=== PATIENT | male | born 1990 | race Caucasian/White ===

== ENCOUNTER → 2020-02-09 | Outpatient (CLI) | payer BC | END | disposition home or self-care (01) | LOC: LABWHC1 13:48 | PROVIDERS: ATTEND Pathology Anatomic Pathology & Clinical Pathology | DX: Z53.9 Procedure and treatment not carried out, unspecified reason (principal) ==

== ENCOUNTER 2022-05-24 12:57 | Inpatient (IN) | payer OTHER ==
--- NOTE | 2022-05-24 13:29 | ED ---
General Adult HPI - General Chief complaint: Abdominal Pain Stated complaint: rt sided pain Time Seen by Provider: 05/24/22 13:11 Source: patient, RN/MD (Discussed with practitioner Chepe), RN notes reviewed Mode of arrival: ambulatory Limitations: no limitations - History of Present Illness Initial comments: Patient is a pleasant 31-year-old male presenting to the emergency department with concern for abnormal ultrasound. Patient has been having right upper abdomen problems for the past couple of days. Patient did have outpatient ultrasound done with questionable liver lesions. Patient did speak with primary care provider who recommended he come for computed tomography scan. I did speak with practitioner Chepe who does request computed tomography scan chest abdomen pelvis. She did have concerns for liver lesions. Patient states discomfort is mild at rest but does increase with deep breaths. - Related Data Allergies Allergy/AdvReac Type Severity Reaction Status Date / Time No Known Allergies Allergy Verified 05/24/22 13:05 Review of Systems ROS Statement: Those systems with pertinent positive or pertinent negative responses have been documented in the HPI. ROS Other: All systems not noted in ROS Statement are negative. Constitutional: Denies: fever Eyes: Denies: eye pain ENT: Denies: ear pain Respiratory: Denies: cough, dyspnea Cardiovascular: Denies: chest pain Endocrine: Denies: fatigue Gastrointestinal: Reports: as per HPI, abdominal pain Genitourinary: Reports: hematuria. Denies: urgency, dysuria, frequency, discharge, testicular pain, testicular mass Musculoskeletal: Denies: back pain Skin: Denies: rash Neurological: Denies: weakness Past Medical History Past Medical History: No Reported History History of Any Multi-Drug Resistant Organisms: None Reported Past Surgical History: No Surgical Hx Reported Past Psychological History: No Psychological Hx Reported Smoking Status: Never smoker Past Alcohol Use History: None Reported Past Drug Use History: None Reported General Exam Limitations: no limitations General appearance: alert, in no apparent distress Head exam: Present: normocephalic Eye exam: Present: normal appearance, PERRL ENT exam: Present: normal oropharynx Neck exam: Present: normal inspection Respiratory exam: Present: normal lung sounds bilaterally Cardiovascular Exam: Present: regular rate, normal rhythm GI/Abdominal exam: Present: soft, tenderness (Minimal tenderness right upper abdomen), normal bowel sounds. Absent: distended, guarding, rebound, rigid, pulsatile mass Extremities exam: Present: normal inspection Neurological exam: Present: alert Psychiatric exam: Present: normal affect, normal mood Skin exam: Present: normal color Course Vital Signs 05/24/22 13:03 Temperature 98.6 F Pulse Rate 94 Respiratory 20 Rate Blood Pressure 122/81 O2 Sat by Pulse 99 Oximetry Medical Decision Making - Medical Decision Making Was pt. sent in by a medical professional or institution (, BRIAN, COMPUTER AIDED DRAFTER, urgent care, hospital, or detention...) When possible be specific @ -Patient was sent by practitioner Kellie Did you speak to anyone other than the patient for history (EMS, parent, family, police, friend...)? What history was obtained from this source @ -No Did you review nursing and triage notes (agree or disagree)? Why? @ -I reviewed and agree with nursing and triage notes Were old charts reviewed (outside hosp., previous admission, EMS record, old EKG, old radiological studies, urgent care reports/EKG's, detention records)? Report findings @ -Previous ultrasound reviewed that was done as an outpatient Differential Diagnosis (chest pain, altered mental status, abdominal pain women, abdominal pain men, vaginal bleeding, weakness, fever, dyspnea, syncope, he adache, dizziness, GI bleed, back pain, seizure, CVA, palpatations, mental health)? @ -Differential Abdominal Pain Men: Appendicitis, cholecystitis, diverticulosis, ischemic bowel, pancreatitis, hepatitis, UTI, gastroenteritis, AAA, incarcerated hernia, bowel obstruction, constipation, inflammatory bowel, hepatitis, peptic ulcer disease, splenic infarction, perforated viscus, testicular torsion, this is not meant to be an all-inclusive list EKG interpreted by me (3pts min.). @ -As above X-rays interpreted by me (1pt min.). @ -None done CT interpreted by me (1pt min.). @ -Reviewed reports U/S interpreted by me (1pt. min.). @ -None done What testing was considered but not performed or refused? (CT, X-rays, U/S, labs)? Why? @ -None What meds were considered but not given or refused? Why? @ -None Did you discuss the management of the patient with other professionals (professionals i.e. BRIAN Baker, COMPUTER AIDED DRAFTER, lab, RT, psych nurse, social work administrator, linesperson, teacher, sea air land officer, case loader operator)? Give summary @ -Case was discussed with Dr. Fernandez who does recommend medical admission with consult with surgery and interventional radiology Was smoking cessation discussed for >3mins.? @ -No Was critical care preformed (if so, how long)? @ -No Were there social determinants of health that impacted care today? How? (Homelessness, low income, unemployed, alcoholism, drug addiction, transportation, low edu. Level, literacy, decrease access to med. care, [facility], rehab)? @ -No Was there de-escalation of care discussed even if they declined (Discuss DNR or withdrawal of care, Hospice)? DNR status @ -No What co-morbidities impacted this encounter? (DM, HTN, Smoking, COPD, CAD, Cancer, CVA, ARF, Chemo, Hep., AIDS, mental health diagnosis, sleep apnea, morbid obesity)? @ -None Was patient admitted / discharged? Hospital course, mention meds given and route, prescriptions, significant lab abnormalities, going to OR and other pertinent info. @ -Patient reevaluated and updated. Patient will be admitted with consults. [facility] has been paged covering Dr. York Undiagnosed new problem with uncertain prognosis? @ -No Drug Therapy requiring intensive monitoring for toxicity (Heparin, Nitro, Insulin, Cardizem)? @ -No Were any procedures done? @ -No Diagnosis/symptom? @ colon Mass, pancreatic mass Acute, or Chronic, or Acute on Chronic? @ -Acute, acute Uncomplicated (without systemic symptoms) or Complicated (systemic symptoms)? @ -Complicated by systemic disease Side effects of treatment? @ -No Exacerbation, Progression, or Severe Exacerbation? @ -No Poses a threat to life or bodily function? How? (Chest pain, USA, CT, pneumonia, PE, COPD, DKA, ARF, appy, cholecystitis, CVA, Diverticulitis, Homicidal, Suicidal, threat to staff... and all critical care pts) @ -Significant threat to life and bodily function by metastatic new-onset disease - Lab Data Result diagrams: 05/24/22 13:37 05/24/22 13:37 Lab Results 05/24/22 05/24/22 05/24/22 Range/Units 13:37 13:37 13:37 WBC 12.3 H (3.8-10.6) k/uL RBC 4.86 (4.30-5.90) m/uL Hgb 12.5 L (13.0-17.5) gm/dL Hct 37.4 L (39.0-53.0) % MCV 76.8 L (80.0-100.0) fL MCH 25.8 (25.0-35.0) pg MCHC 33.6 (31.0-37.0) g/dL RDW 12.9 (11.5-15.5) % Plt Count 331 (150-450) k/uL MPV 6.9 Neutrophils % 80 % Lymphocytes % 9 % Monocytes % 8 % Eosinophils % 1 % Basophils % 0 % Neutrophils # 9.8 H (1.3-7.7) k/uL Lymphocytes # 1.2 (1.0-4.8) k/uL Monocytes # 0.9 (0-1.0) k/uL Eosinophils # 0.1 (0-0.7) k/uL Basophils # 0.0 (0-0.2) k/uL PT 11.0 (9.0-12.0) sec INR 1.0 (<1.2) APTT 21.2 L (22.0-30.0) sec Sodium 132 L (137-145) mmol/L Potassium 4.4 (3.5-5.1) mmol/L Chloride 102 (98-107) mmol/L Carbon Dioxide 23 (22-30) mmol/L Anion Gap 7 mmol/L BUN 15 (9-20) mg/dL Creatinine 1.03 (0.66-1.25) mg/dL Est GFR (CKD-EPI)AfAm >90 (>60 ml/min/1.73 sqM) Est GFR (CKD-EPI)NonAf >90 (>60 ml/min/1.73 sqM) Glucose 94 (74-99) mg/dL Calcium 8.7 (8.4-10.2) mg/dL Total Bilirubin 1.1 (0.2-1.3) mg/dL AST 69 H (17-59) U/L ALT 47 (4-49) U/L Alkaline Phosphatase 117 (38-126) U/L Total Protein 7.9 (6.3-8.2) g/dL Albumin 4.0 (3.5-5.0) g/dL Amylase 45 (30-110) U/L Lipase 46 (23-300) U/L - Radiology Data Radiology results: report reviewed Disposition Clinical Impression: Mass of colon, Pancreatic mass, Metastatic cancer to liver, Pulmonary metastasis Disposition: ADMITTED IP TO THIS HOSP Condition: Serious Is patient prescribed a controlled substance at d/c from ED?: No Referrals: Desmond York MD [Primary Care Provider] - 1-2 days Time of Disposition: 15:05
[2022-05-24 14:00] LABS: Basophils % (A) 0 %; Eosinophils # (A) 0.1 k/uL (0-0.7); Eosinophils % (A) 1 %; HCT 37.4 % (39.0-53.0); HGB 12.5 gm/dL (13.0-17.5); Lymphocytes # (A) 1.2 k/uL (1.0-4.8); Lymphocytes % (A) 9 %; MCH 25.8 pg (25.0-35.0); MCHC 33.6 g/dL (31.0-37.0); MCV 76.8 fL (80.0-100.0); Mean Platelet Volume 6.9; Monocytes # (A) 0.9 k/uL (0-1.0); Monocytes % (A) 8 %; Neutrophils # (A) 9.8 k/uL (1.3-7.7); Neutrophils % (A) 80 %; Platelet Count 331 k/uL (150-450); RBC 4.86 m/uL (4.30-5.90); RDW 12.9 % (11.5-15.5); WBC 12.3 k/uL (3.8-10.6)
[2022-05-24 14:04] LABS: ALT 47 U/L (4-49); AST 69 U/L (17-59); African American GFR (CKD) >90 (>60 ml/min/1.73 sqM); Alkaline Phosphatase 117 U/L (38-126); Amylase 45 U/L (30-110); Anion Gap 7 mmol/L; Blood Urea Nitrogen 15 mg/dL (9-20); Calcium 8.7 mg/dL (8.4-10.2); Carbon Dioxide 23 mmol/L (22-30); Chloride 102 mmol/L (98-107); Glucose 94 mg/dL (74-99); Lipase 46 U/L (23-300); Non-African American GFR(CKD) >90 (>60 ml/min/1.73 sqM); Sodium 132 mmol/L (137-145); Total Bilirubin 1.1 mg/dL (0.2-1.3); Total Protein 7.9 g/dL (6.3-8.2)
[2022-05-24 14:06] LABS: Partial Thromboplastin Time 21.2 sec (22.0-30.0)
[2022-05-24 14:17] LABS: Potassium 4.4 mmol/L (3.5-5.1)
[2022-05-24 14:32] LABS: Appearance,Urine Clear (Clear); Bilirubin,Urine Negative (Negative); Blood,Urine Negative (Negative); Color,Urine Yellow; Glucose,Urine (UA) Negative (Negative); Ketones,Urine Negative (Negative); Leukocyte Esterase,Urine Moderate (Negative); Mucus,Urine Many /hpf; Nitrite,Urine Negative (Negative); Protein,Urine 1+ (Negative); RBC,Urine 2 /hpf (0-5); WBC,Urine 29 /hpf (0-5)
--- NOTE | 2022-05-24 14:43 | CT ---
EXAMINATION: CTA CHEST, CT ABDOMEN AND PELVIS WITH IV CONTRAST DATE OF EXAMINATION: 05/24/2022. COMPARISON: ABDOMEN ON 05/24/2022. INDICATION: Chest pain with liver lesions seen on ultrasound. PROCEDURE: Axial CT of the chest, abdomen and pelvis was performed following the intravenous adminis tration of 100 ml Isovue 370. Coronal and sagittal reformats were performed. CT dose lowering techni ques were used, to include: automated exposure control, adjustment for patient size, and/or use of it erative reconstruction. Maximum intensity projection reformats were also performed. FINDINGS: CHEST: Mediastinum and Brianna: There is no axillary, mediastinal or hilar lymphadenopathy. Pleural and Pericardial spaces: There are no pleural or pericardial effusions. Cardiovascular: The thoracic aorta is normal in size without evidence of aneurysm or dissection. Pulmonary Artery: There are no central pulmonary arterial filling defects. Lung Parenchyma and Airways: There is a 4 mm nodule in the right upper lobe on series 406 image 26. T here is a 4 mm nodule seen medially within the right upper lobe on image 42 there is a 5.7 mm nodule in the right upper lobe on image 56. There is a 7.7 mm nodule in the right middle lobe on image 73. T here is a small cavitary nodule within the right lower lobe measuring 4.1 mm on image 78. There is a right lower lobe nodule measuring 6.2 mm on image 103. There is a nodule in the left lower lobe image 117 measuring 4.8 mm. All nodules are noted to be on series 406. ABDOMEN: Liver and Biliary system: There are numerous masses seen throughout the liver. The largest mass is r eplacing the majority of the left lobe of the liver measuring approximately 13.7 x 9.3 cm in diameter . The largest lesion in the right lobe of the liver is in the dome of the liver and measures approxim ately 8.1 x 6.5 cm. These would be compatible with metastatic disease. Additional lesions are also no sanket with a very large lesion also seen in the inferior aspect of the right lobe of the liver measurin g 7.5 x 5.5 cm in diameter. Adrenal glands: Normal. Kidneys and ureters: Normal. Spleen: Normal. Pancreas: There is to be a slightly hypodense mass within the body of the pancreas measuring 2.9 cm in diameter. Gallbladder: Normal. Lymph nodes, Peritoneum and mesentery: There are several enlarged lymph nodes adjacent to the coloni c mass described below are likely regional lymph node metastasis versus peritoneal carcinomatosis. Th oleg measure up to approximately centimeters in diameter. Gastrointestinal tract: There are no dilated loops of bowel or free intraperitoneal air. . There is a circumferential mass within the colon beginning in the splenic flexure and extending into the prox imal descending colon which is most likely a colon carcinoma. Aorta/IVC: Aorta normal. No aortic aneurysm or dissection. IVC normal. Abdominal wall: Normal. PELVIS: Fluid: There is no free fluid in the pelvis. Lymph Nodes: There is no pelvic or inguinal lymphadenopathy.. Urinary bladder: Normal. BONES: There are no osseous destructive lesions.. ADDITIONAL SIGNIFICANT FINDINGS: None. IMPRESSION: 1. Colonic mass involving the splenic flexure and proximal descending colon most likely related to a primary colon carcinoma. GI consult and further workup is recommended. 2. Extensive metastatic liver disease with numerous pulmonary metastasis. She consultation is also re commended. 3. Possible pancreatic mass in the pancreatic body. This may also represent a pancreatic carcinoma ve rsus a node or pancreatic metastasis. No evidence of pulmonary embolism. 4. Enlarged lymph nodes and soft tissue masses adjacent to the suspected colon cancer within the quad rant are compatible with metastasis. 5. No evidence of pulmonary embolism. 6. No evidence of thoracic or abdominal aortic aneurysm or dissection.
[2022-05-24] MEDS ORDERED: NALOXONE 0.4 MG/ML 1 ML VIAL IV PRN (15:09)
[2022-05-24] MEDS ORDERED: ACETAMINOPHEN TAB 325 MG TAB PO PRN (15:09)
[2022-05-24 15:31] LABS: Specific Gravity,Urine 1.048 (1.001-1.035)
[2022-05-24] MEDS: SODIUM CHLORIDE 0.9% 1,000 ML IV SCH (15:51)
[2022-05-24] MEDS: PANTOPRAZOLE 40 MG/10 ML VIAL IV SCH (15:51)
[2022-05-24] MEDS ORDERED: ONDANSETRON 4 MG/2 ML VIAL IVP PRN (17:14)
--- NOTE | 2022-05-24 17:16 | P.HPIM ---
History of Present Illness H&P Date: 05/24/22 Patient is a 31-year-old male with no significant past medical history presents the ED for abnormal gallbladder ultrasound. Patient reports right upper quadrant pain has been ongoing for the past 2 weeks. He recently noticed orange colored urine which prompted him to go see his PCP. Abdominal ultrasound was ordered which showed hyperechoic masses demonstrated throughout the liver. He also reports a 10 pound weight loss and a decreased appetite. His PCP urged him to go to the ED. Patient denies any family history of cancer. He denies any tobacco or alcohol use. He denies any headache, lower extremity edema, nausea or vomiting, fever or chills, cough, chest pain, shortness of breath, p alpitations, changes in bowel habits. He denies any dizziness, numbness/weakness/tingling of extremities. In the ED, his vital signs are stable. CBC showed the CBC count of 12.3 and hemoglobin of 12.5 with MCV of 76.8. INR was 1. CMP showed sodium of 132 and AST of 67. Lipase and amylase negative. Urinalysis showed moderate leukocyte esterase. CT AP showed colonic mass involving the splenic flexure, extensive metastatic liver disease, possible pancreatic mass, enlarged lymph nodes and multiple pulmonary nodules. Patient is admitted for additional workup. Pertinent positives and negatives as discussed in HPI, a complete review of systems was performed and all other systems are negative. General: non toxic, no distress, appears at stated age Derm: warm, dry Head: atraumatic, normocephalic, symmetric Eyes: EOMI, no lid lag, anicteric sclera Mouth: no lip lesion, mucus membranes moist Cardiovascular: S1S2 reg, no murmur, positive posterior tibial pulse bilateral, Lungs: CTA bilateral, no rhonchi, no rales , no accessory muscle use Abdominal: soft, nontender to palpation, no guarding, no appreciable organomegaly Ext: no gross muscle atrophy, no edema, no contractures Neuro: no focal neuro deficits Psych: Alert, oriented, appropriate affect #Colonic, hepatic, pancreatic and pulmonary mass, likely metastatic cancer, unknown primary #Leukocytosis #Microcytic anemia #Hyponatremia #Elevated AST #Abnormal urinalysis #Morbid obesity Patient presents with findings likely metastatic cancer with unknown primary. General surgery will be consulted for possible colonoscopy. Consults interventional radiology for biopsy of liver mass. Morphine and Toradol as needed for pain. Zofran as needed for nausea and vomiting. Oncology consult. DVT prophylaxis: Early ambulation Discussed with: Patient, nursing, ED physician Anticipated discharge: Depending on clinical course Anticipated discharge place: Home A total of 35 minutes was spent on the care of this complex patient more than 50% of the time was spent in counseling and care coordination. Patient would like to be FULL CODE. Past Medical History Past Medical History: No Reported History History of Any Multi-Drug Resistant Organisms: None Reported Past Surgical History: No Surgical Hx Reported Smoking Status: Never smoker Medications and Allergies Home Medications Medication Instructions Recorded Confirmed Type No Known Home Medications 05/24/22 05/24/22 History Allergies Allergy/AdvReac Type Severity Reaction Status Date / Time No Known Allergies Allergy Verified 05/24/22 15:43 Physical Exam Vitals: Vital Signs Temp Pulse Pulse Resp BP BP Pulse Ox 05/24/22 16:37 98.0 F 85 16 116/76 97 05/24/22 15:58 88 16 141/84 95 05/24/22 13:03 98.6 F 94 20 122/81 99 Intake and Output 05/24/22 05/24/22 05/24/22 06:59 14:59 22:59 Other: Weight 124.738 kg 124.738 kg Results CBC & Chem 7: 05/24/22 13:37 05/24/22 13:37 Labs: Abnormal Lab Results - Last 24 Hours (Table) 05/24/22 05/24/22 05/24/22 Range/Units 13:37 13:37 13:37 WBC 12.3 H (3.8-10.6) k/uL Hgb 12.5 L (13.0-17.5) gm/dL Hct 37.4 L (39.0-53.0) % MCV 76.8 L (80.0-100.0) fL Neutrophils # 9.8 H (1.3-7.7) k/uL APTT 21.2 L (22.0-30.0) sec Sodium 132 L (137-145) mmol/L AST 69 H (17-59) U/L Ur Specific Imbler (1.001-1.035) Urine Protein (Negative) Ur Leukocyte Esterase (Negative) Urine WBC (0-5) /hpf Urine Mucus (None) /hpf 05/24/22 Range/Units 14:19 WBC (3.8-10.6) k/uL Hgb (13.0-17.5) gm/dL Hct (39.0-53.0) % MCV (80.0-100.0) fL Neutrophils # (1.3-7.7) k/uL APTT (22.0-30.0) sec Sodium (137-145) mmol/L AST (17-59) U/L Ur Specific Imbler 1.048 H (1.001-1.035) Urine Protein 1+ H (Negative) Ur Leukocyte Esterase Moderate H (Negative) Urine WBC 29 H (0-5) /hpf Urine Mucus Many H (None) /hpf Thrombosis Risk Factor Assmnt - Choose All That Apply Any of the Below Risk Factors Present?: Yes Each Risk Factor Represents 2 Points: Malignancy Thrombosis Risk Factor Assessment Total Risk Factor Score: 2 Thrombosis Risk Factor Assessment Level: Low Risk
[2022-05-24] MEDS: KETOROLAC 15 MG/ML 1 ML VIAL IVP SCH (17:26)
[2022-05-25] MEDS: KETOROLAC 15 MG/ML 1 ML VIAL IVP SCH ×5 (00:05→23:52)
[2022-05-25] MEDS: SODIUM CHLORIDE 0.9% 1,000 ML IV SCH ×2 (06:24→18:39)
[2022-05-25] MEDS: MORPHINE SULFATE 4 MG/ML SYRINGE IV PRN (09:25)
[2022-05-25] MEDS: PANTOPRAZOLE 40 MG/10 ML VIAL IV SCH (09:25)
--- NOTE | 2022-05-25 13:33 | P.PN ---
Subjective Progress Note Date: 05/25/22 Patient is a 31-year-old male with no significant past medical history presents the ED for abnormal gallbladder ultrasound. Patient reports right upper quadrant pain has been ongoing for the past 2 weeks. He recently noticed orange colored urine which prompted him to go see his PCP. Abdominal ultrasound was ordered which showed hyperechoic masses demonstrated throughout the liver. He also reports a 10 pound weight loss and a decreased appetite. His PCP urged him to go to the ED. Patient denies any family history of cancer. He denies any tobacco or alcohol use. He denies any headache, lower extremity edema, nausea or vomiting, fever or chills, cough, chest pain, shortness of breath, palpita tions, changes in bowel habits. He denies any dizziness, numbness/weakness/tingling of extremities. In the ED, his vital signs are stable. CBC showed the CBC count of 12.3 and hemoglobin of 12.5 with MCV of 76.8. INR was 1. CMP showed sodium of 132 and AST of 67. Lipase and amylase negative. Urinalysis showed moderate leukocyte esterase. CT AP showed colonic mass involving the splenic flexure, extensive metastatic liver disease, possible pancreatic mass, enlarged lymph nodes and multiple pulmonary nodules. Patient is admitted for additional workup. Patient was seen and examined. No acute events overnight. Patient reports well-controlled pain in his right upper quadrant. No nausea or vomiting. No fever or chills. General: non toxic, no distress, appears at stated age Derm: warm, dry Head: atraumatic, normocephalic, symmetric Eyes: EOMI, no lid lag, anicteric sclera Mouth: no lip lesion, mucus membranes moist Cardiovascular: S1S2 reg, no murmur, positive posterior tibial pulse bilateral, Lungs: CTA bilateral, no rhonchi, no rales , no accessory muscle use Abdominal: soft, nontender to palpation, no guarding, no appreciable organomegaly Ext: no gross muscle atrophy, no edema, no contractures Neuro: no focal neuro deficits Psych: Alert, oriented, appropriate affect #Colonic, hepatic, pancreatic and pulmonary mass, likely metastatic cancer, unknown primary #Leukocytosis #Microcytic anemia #Hyponatremia #Elevated AST #Abnormal urinalysis #Morbid obesity Patient presents with findings likely metastatic cancer with unknown primary. Case discussed with Dr. Clay, plans for colonoscopy on Friday. Consults interventional radiology for biopsy of liver mass, likely to be done on Friday. Discussed with Dr. Fernandez, patient can likely be discharged after his biopsy. Morphine and Toradol as needed for pain. Zofran as needed for nausea and vomiting. Objective - Vital Signs Vital signs: Vital Signs Temp 98.3 F 05/25/22 12:18 Pulse 78 05/25/22 12:18 Resp 18 05/25/22 12:18 BP 112/68 05/25/22 12:18 Pulse Ox 96 05/25/22 12:18 FiO2 Intake & Output 05/24/22 05/25/22 05/25/22 18:59 06:59 18:59 Intake Total 150 Balance 150 Weight 124.738 kg Intake: Intake, IV Titration 150 Amount Sodium Chloride 0.9% 1, 150 000 ml @ 75 mls/hr IV . [id number] [facility] Rx#:[id number] Other: Voiding Method Toilet Toilet # Voids 3 2 - Labs CBC & Chem 7: 05/24/22 13:37 05/24/22 13:37 Labs: Abnormal Lab Results - Last 24 Hours (Table) 05/24/22 05/24/22 05/24/22 Range/Units 13:37 13:37 13:37 WBC 12.3 H (3.8-10.6) k/uL Hgb 12.5 L (13.0-17.5) gm/dL Hct 37.4 L (39.0-53.0) % MCV 76.8 L (80.0-100.0) fL Neutrophils # 9.8 H (1.3-7.7) k/uL APTT 21.2 L (22.0-30.0) sec Sodium 132 L (137-145) mmol/L AST 69 H (17-59) U/L Ur Specific Dickinson (1.001-1.035) Urine Protein (Negative) Ur Leukocyte Esterase (Negative) Urine WBC (0-5) /hpf Urine Mucus (None) /hpf 05/24/22 Range/Units 14:19 WBC (3.8-10.6) k/uL Hgb (13.0-17.5) gm/dL Hct (39.0-53.0) % MCV (80.0-100.0) fL Neutrophils # (1.3-7.7) k/uL APTT (22.0-30.0) sec Sodium (137-145) mmol/L AST (17-59) U/L Ur Specific Dickinson 1.048 H (1.001-1.035) Urine Protein 1+ H (Negative) Ur Leukocyte Esterase Moderate H (Negative) Urine WBC 29 H (0-5) /hpf Urine Mucus Many H (None) /hpf Microbiology - Last 24 Hours (Table) 05/24/22 14:19 Urine Culture - Preliminary Urine,Voided
--- NOTE | 2022-05-25 18:03 | P.GSCN ---
History of Present Illness Consult date: 05/25/22 Reason for Consult: Metastatic cancer with pancreatic, liver, colon & lung masses History of present illness: Noticed RUQ pain & twinging last week while at [employer] with his son. Friday he noticed his urine was orange. Saw his primary care provider who ordered an US; liver lesions were noted & he was immediately sent for CT scan. CT scan s howed lesions in liver, lungs, pancreas & colon. Prior to his he has had no medical issues or complaints. No prior colonoscopy. Only issue recently has been a lot of stress from family life. Review of Systems - Constitutional Reports as per HPI - Cardiovascular Denies chest pain, Denies high blood pressure - Respiratory Reports pain on inspiration, Denies cough, Denies dyspnea - Gastrointestinal Reports abdominal pain, Reports bloating - Genitourinary Reports as per HPI - Endocrine Denies high blood sugars Past Medical History Past Medical History: No Reported History History of Any Multi-Drug Resistant Organisms: None Reported Past Surgical History: No Surgical Hx Reported Smoking Status: Never smoker Past Alcohol Use History: None Reported Past Drug Use History: None Reported - Past Family History Brother(s) Additional Family Medical History / Comment(s): Ulcerative colitis (Brother) Medications and Allergies Home Medications Medication Instructions Recorded Confirmed Type No Known Home Medications 05/24/22 05/24/22 History Allergies Allergy/AdvReac Type Severity Reaction Status Date / Time No Known Allergies Allergy Verified 05/24/22 15:43 Surgical - Exam Osteopathic Statement: *. No significant issues noted on an osteopathic structural exam other than those noted in the History and Physical/Consult. Vital Signs Temp Pulse Resp BP Pulse Ox 98.6 F 94 20 122/81 99 05/24/22 13:03 05/24/22 13:03 05/24/22 13:03 05/24/22 13:03 05/24/22 13:03 Patient Seen Date: 05/25/22 - General well developed, well nourished, no distress, no cachectic - Eyes no icteric - ENT no poor correction - Respiratory normal respiratory effort, clear to auscultation - Cardiovascular Rhythm: regular - Abdomen Abdomen: soft, tender, no guarding, no rigid, no rebound, no distended - Integumentary Skin dry, no diaphoresis - Neurologic No gross deficits - Musculoskeletal normal posture - Psychiatric Cooperative, appropriate affect oriented to time, oriented to person, oriented to place, speech is normal, memory intact Results - Labs 05/24/22 13:37 05/24/22 13:37 Abnormal Lab Results - Last 24 Hours (Table) 05/24/22 05/24/22 05/24/22 Range/Units 13:37 13:37 13:37 WBC 12.3 H (3.8-10.6) k/uL Hgb 12.5 L (13.0-17.5) gm/dL Hct 37.4 L (39.0-53.0) % MCV 76.8 L (80.0-100.0) fL Neutrophils # 9.8 H (1.3-7.7) k/uL APTT 21.2 L (22.0-30.0) sec Sodium 132 L (137-145) mmol/L AST 69 H (17-59) U/L Ur Specific [place] (1.001-1.035) Urine Protein (Negative) Ur Leukocyte Esterase (Negative) Urine WBC (0-5) /hpf Urine Mucus (None) /hpf 05/24/22 Range/Units 14:19 WBC (3.8-10.6) k/uL Hgb (13.0-17.5) gm/dL Hct (39.0-53.0) % MCV (80.0-100.0) fL Neutrophils # (1.3-7.7) k/uL APTT (22.0-30.0) sec Sodium (137-145) mmol/L AST (17-59) U/L Ur Specific [place] 1.048 H (1.001-1.035) Urine Protein 1+ H (Negative) Ur Leukocyte Esterase Moderate H (Negative) Urine WBC 29 H (0-5) /hpf Urine Mucus Many H (None) /hpf Microbiology - Last 24 Hours (Table) 05/24/22 14:19 Urine Culture - Preliminary Urine,Voided Diabetes panel 05/24/22 Range/Units 13:37 Sodium 132 L (137-145) mmol/L Potassium 4.4 (3.5-5.1) mmol/L Chloride 102 (98-107) mmol/L Carbon Dioxide 23 (22-30) mmol/L BUN 15 (9-20) mg/dL Creatinine 1.03 (0.66-1.25) mg/dL Glucose 94 (74-99) mg/dL Calcium 8.7 (8.4-10.2) mg/dL AST 69 H (17-59) U/L ALT 47 (4-49) U/L Alkaline Phosphatase 117 (38-126) U/L Total Protein 7.9 (6.3-8.2) g/dL Albumin 4.0 (3.5-5.0) g/dL Calcium panel 05/24/22 Range/Units 13:37 Calcium 8.7 (8.4-10.2) mg/dL Albumin 4.0 (3.5-5.0) g/dL Pituitary panel 05/24/22 Range/Units 13:37 Sodium 132 L (137-145) mmol/L Potassium 4.4 (3.5-5.1) mmol/L Chloride 102 (98-107) mmol/L Carbon Dioxide 23 (22-30) mmol/L BUN 15 (9-20) mg/dL Creatinine 1.03 (0.66-1.25) mg/dL Glucose 94 (74-99) mg/dL Calcium 8.7 (8.4-10.2) mg/dL Adrenal panel 05/24/22 Range/Units 13:37 Sodium 132 L (137-145) mmol/L Potassium 4.4 (3.5-5.1) mmol/L Chloride 102 (98-107) mmol/L Carbon Dioxide 23 (22-30) mmol/L BUN 15 (9-20) mg/dL Creatinine 1.03 (0.66-1.25) mg/dL Glucose 94 (74-99) mg/dL Calcium 8.7 (8.4-10.2) mg/dL Total Bilirubin 1.1 (0.2-1.3) mg/dL AST 69 H (17-59) U/L ALT 47 (4-49) U/L Alkaline Phosphatase 117 (38-126) U/L Total Protein 7.9 (6.3-8.2) g/dL Albumin 4.0 (3.5-5.0) g/dL - Imaging CT scan - abdomen: report reviewed, image reviewed Assessment and Plan Assessment: Lung, colon, liver & pancreatic masses suspicious for metastatic cancer Plan: Recommend MRCP, MRI to evaluate pancreatic lesion. Recommend IR biposy of masses to establish diagnosis. Will need colonoscopy to evaluate colon mass. Defer PET need to Oncology. Due to complex suspected cancer diagnosis, patient would be best served with surgical oncologist. Recommend Dr. Mckeon at [facility]; or PCP recommendation. Would benefit from Psychology evaluation for coping with life changing diagnosis. Time with Patient: Greater than 30 (Face to face discussing history, plan of care. Questions answered.)
--- NOTE | 2022-05-25 19:05 | P.CONS ---
History of Present Illness - Reason for Consult Consult date: 05/24/22 Prob Metastatic malignancy - History of Present Illness the patient is a 31-year-old white male in fairly good health at baseline. Patient states that he had developed some right upper quadrant pain about 2 weeks ago. Describes that as mild to moderate, fairly persistent, without any definite leaving or aggravating factors. He then developed discoloration of the urine, to the orange color. He sought attention with his PCP and ultrasound of the abdomen was ordered. This showed multiple suspicious lesions in the liver. The patient was therefore asked to go to the emergency room by his PCP. CT of the abdomen and pelvis revealed evidence of a large splenic flexure mass, multiple metastatic-appearing lesions in the liver, as well as mass involving the pancreas, and nodules in the lung bases. Consult was therefore placed for further evaluation and recommendations Patient denied any prior history of malignancy. No family history of the same. He states that his appetite has been diminished over the past 2 weeks, due to which she lost between 5-10 pounds. Baseline performance status is normal. Review of Systems Constitutional: Reports fatigue, Reports poor appetite, Reports weight loss Eyes: denies blurred vision, denies pain Ears: deny: decreased hearing, ear discharge, earache, tinnitus Ears, nose, mouth and throat: Denies headache, Denies sore throat Cardiovascular: Denies chest pain, Denies shortness of breath Respiratory: Denies cough Gastrointestinal: Reports abdominal pain, Reports loss of appetite Genitourinary: Reports as per HPI Musculoskeletal: Denies myalgias Integumentary: Denies pruritus, Denies rash Neurological: Denies numbness, Denies weakness Psychiatric: Denies anxiety, Denies depression Endocrine: Reports fatigue, Reports weight change Hematologic/Lymphatic: Reports as per HPI Past Medical History Past Medical History: No Reported History History of Any Multi-Drug Resistant Organisms: None Reported Past Surgical History: No Surgical Hx Reported Smoking Status: Never smoker - Past Family History Brother(s) Additional Family Medical History / Comment(s): Ulcerative colitis (Brother) Medications and Allergies Home Medications Medication Instructions Recorded Confirmed Type No Known Home Medications 05/24/22 05/24/22 History Allergies Allergy/AdvReac Type Severity Reaction Status Date / Time No Known Allergies Allergy Verified 05/24/22 15:43 Physical Exam Vitals: Vital Signs Temp Pulse Pulse Resp BP BP Pulse Ox 05/25/22 08:00 69 16 05/25/22 07:20 98 F 69 16 104/68 95 05/25/22 02:44 97.7 F 78 16 96/62 98 05/24/22 19:52 98 F 85 16 114/77 98 05/24/22 16:37 98.0 F 85 16 116/76 97 05/24/22 15:58 88 16 141/84 95 05/24/22 13:03 98.6 F 94 20 122/81 99 Intake and Output 05/24/22 05/25/22 05/25/22 22:59 06:59 14:59 Intake Total 150 Balance 150 Intake: Intake, IV Titration 150 Amount Sodium Chloride 0.9% 1, 150 000 ml @ 75 mls/hr IV . [id number] [facility] Rx#:[id number] Other: Voiding Method Toilet Toilet # Voids 3 2 Weight 124.738 kg - Constitutional General appearance: no acute distress - EENT Eyes: EOMI, PERRLA ENT: hearing grossly normal, normal oropharynx - Neck Neck: no lymphadenopathy Thyroid: bilateral: normal size - Respiratory Respiratory: bilateral: CTA - Cardiovascular Rhythm: regular Heart sounds: normal: S1, S2 - Gastrointestinal General gastrointestinal: normal bowel sounds, soft - Integumentary Integumentary: normal - Neurologic Neurologic: CNII-XII intact - Musculoskeletal Musculoskeletal: strength equal bilaterally - Psychiatric Psychiatric: A&O x's 3, appropriate affect, intact judgment & insight Results CBC & Chem 7: 05/24/22 13:37 05/24/22 13:37 Labs: Abnormal Lab Results - Last 24 Hours (Table) 05/24/22 05/24/22 05/24/22 Range/Units 13:37 13:37 13:37 WBC 12.3 H (3.8-10.6) k/uL Hgb 12.5 L (13.0-17.5) gm/dL Hct 37.4 L (39.0-53.0) % MCV 76.8 L (80.0-100.0) fL Neutrophils # 9.8 H (1.3-7.7) k/uL APTT 21.2 L (22.0-30.0) sec Sodium 132 L (137-145) mmol/L AST 69 H (17-59) U/L Ur Specific [place] (1.001-1.035) Urine Protein (Negative) Ur Leukocyte Esterase (Negative) Urine WBC (0-5) /hpf Urine Mucus (None) /hpf 05/24/22 Range/Units 14:19 WBC (3.8-10.6) k/uL Hgb (13.0-17.5) gm/dL Hct (39.0-53.0) % MCV (80.0-100.0) fL Neutrophils # (1.3-7.7) k/uL APTT (22.0-30.0) sec Sodium (137-145) mmol/L AST (17-59) U/L Ur Specific [place] 1.048 H (1.001-1.035) Urine Protein 1+ H (Negative) Ur Leukocyte Esterase Moderate H (Negative) Urine WBC 29 H (0-5) /hpf Urine Mucus Many H (None) /hpf Microbiology - Last 24 Hours (Table) 05/24/22 14:19 Urine Culture - Preliminary Urine,Voided CT scan - abdomen: report reviewed CT scan - chest: report reviewed CT scan - pelvis: report reviewed Assessment and Plan (1) Metastatic cancer to liver Narrative/Plan: this is a young patient in good health at baseline, with no significant family history. The patient is presenting with what appears to be extensive metastatic disease. The liver is markedly more, and is the source of his right upper quadrant pain. - Likely primary site appears to be the splenic flexure mass in the colon. As a pancreatic mass is present, that could also represent a primary site or be a metastatic lesion itself. - Case was extensively discussed with the admitting service, and ER physician. A surgical consult has been requested for colonoscopic evaluation and biopsy of the colon. This will also help to evaluate for any impending obstruction. - IR consult was also recommended liver biopsy. This should help us to potentially distinguish between 2 different primaries. The rationale for the same was discussed in detail with the patient, as well as the above physicians. - Imaging results and implications were discussed in detail with the patient. Await biopsy results for further recommendations Current Visit: Yes Status: Acute Code(s): C78.7 - SECONDARY MALIG NEOPLASM OF LIVER AND INTRAHEPATIC BILE DUCT SNOMED Code(s): 04364630 (2) Mass of colon Narrative/Plan: as above. The patient does not have any clinical symptoms suggestive of uncontrolled bleeding or impending obstruction so far. Current Visit: Yes Status: Acute Code(s): K63.89 - OTHER SPECIFIED DISEASES OF INTESTINE SNOMED Code(s): 870434590
[2022-05-26] MEDS: KETOROLAC 15 MG/ML 1 ML VIAL IVP SCH ×3 (06:25→18:11)
[2022-05-26] MEDS: SODIUM CHLORIDE 0.9% 1,000 ML IV SCH ×2 (06:25→20:45)
[2022-05-26] MEDS: PANTOPRAZOLE 40 MG/10 ML VIAL IV SCH (08:43)
--- NOTE | 2022-05-26 10:54 | P.PN ---
Subjective Progress Note Date: 05/26/22 Patient is a 31-year-old male with no significant past medical history presents the ED for abnormal gallbladder ultrasound. Patient reports right upper quadrant pain has been ongoing for the past 4 days. He recently noticed orange colored urine which prompted him to go see his PCP. Abdominal ultrasound was ordered which showed hyperechoic masses demonstrated throughout the liver. He also reports a 10 pound weight loss and a decreased appetite. His PCP urged him to go to the ED. Patient denies any family history of cancer. He denies any tobacco or alcohol use. He denies any headache, lower extremity edema, nausea or vomiting, fever or chills, cough, chest pain, shortness of breath, palpitat ions, changes in bowel habits. He denies any dizziness, numbness/weakness/tingling of extremities. In the ED, his vital signs are stable. CBC showed the CBC count of 12.3 and hemoglobin of 12.5 with MCV of 76.8. INR was 1. CMP showed sodium of 132 and AST of 67. Lipase and amylase negative. Urinalysis showed moderate leukocyte esterase. CT AP showed colonic mass involving the splenic flexure, extensive metastatic liver disease, possible pancreatic mass, enlarged lymph nodes and multiple pulmonary nodules. Patient is admitted for additional workup. Patient was seen and examined. No acute events overnight. Patient reports well-controlled pain in his right upper quadrant. No nausea or vomiting. No fever or chills. General: non toxic, no distress, appears at stated age Derm: warm, dry Head: atraumatic, normocephalic, symmetric Eyes: EOMI, no lid lag, anicteric sclera Mouth: no lip lesion, mucus membranes moist Ext: no gross muscle atrophy, no edema, no contractures Neuro: no focal neuro deficits Psych: Alert, oriented, appropriate affect #Colonic, hepatic, pancreatic and pulmonary mass, likely metastatic cancer, unknown primary #Leukocytosis #Microcytic anemia #Hyponatremia #Elevated AST #Abnormal urinalysis #Obesity Patient presents with findings likely metastatic cancer with unknown primary. Case discussed with Dr. Clay, plans for colonoscopy on Friday. Consults interventional radiology for biopsy of liver mass, likely to be done on Friday. Discussed with Dr. Fernandez, patient can likely be discharged after his biopsy. Morphine and Toradol as needed for pain. Zofran as needed for nausea and vomiting. Objective - Vital Signs Vital signs: Vital Signs Temp 97.7 F 05/26/22 08:45 Pulse 64 05/26/22 08:45 Resp 18 05/26/22 08:45 BP 115/70 05/26/22 08:45 Pulse Ox 96 05/26/22 08:45 FiO2 Intake & Output 05/25/22 05/26/22 05/26/22 18:59 06:59 18:59 Intake Total 1200 Balance 1200 Intake: Oral 1200 Other: Voiding Method Toilet Toilet Toilet # Voids 2 2 - Labs CBC & Chem 7: 05/24/22 13:37 05/24/22 13:37 Labs: Microbiology - Last 24 Hours (Table) 05/24/22 14:19 Urine Culture - Final Urine,Voided
--- NOTE | 2022-05-26 15:18 | P.PN ---
Subjective Progress Note Date: 05/26/22 Principal diagnosis: Liver, lung, pancreas & colon masses concerning for metastatic malignancy Noticed RUQ pain & twinging last week while at [employer] with his son. Friday he noticed his urine was orange. Saw his primary care provider who ordered an US; liver lesions were noted & he was immediately sent for CT scan. CT scan showed lesions in liver, lungs, pancreas & colon. Prior to his he has had no medical issues or complaints. No prior colonoscopy. Only issue recently has been a lot of stress from family life. Tentatively scheduled for IR biopsy of liver lesion Friday. Doing better today. Pain appears less. Urine is back to normal color. Had BM yesterday. Tolerating clears. Objective - Vital Signs Vital signs: Vital Signs Temp 97.7 F 05/26/22 08:45 Pulse 64 05/26/22 08:45 Resp 18 05/26/22 08:45 BP 115/70 05/26/22 08:45 Pulse Ox 96 05/26/22 08:45 FiO2 Intake & Output 05/25/22 05/26/22 05/26/22 18:59 06:59 18:59 Intake Total 1200 Balance 1200 Intake: Oral 1200 Other: Voiding Method Toilet Toilet # Voids 2 2 - Constitutional General appearance: Present: cooperative, no acute distress - EENT Eyes: Absent: scleral icterus - Respiratory Details: Non labored breathing, normal effort & excursion. - Cardiovascular Rhythm: regular - Integumentary Integumentary Comment(s): Dry, no diaphoresis. - Neurologic Neurologic Comment(s): No gross deficits. - Psychiatric Psychiatric Comment(s): Cooperative. Psychiatric: Present: appropriate affect, intact judgment & insight - Labs CBC & Chem 7: 05/24/22 13:37 05/24/22 13:37 Labs: Microbiology - Last 24 Hours (Table) 05/24/22 14:19 Urine Culture - Final Urine,Voided Assessment and Plan Assessment: Lung, colon, liver & pancreatic masses suspicious for metastatic cancer Plan: Await IR biopsy of liver; ?Friday. Will tentatively plan for colonoscopy Friday; will call scheduling tomorrow morning. Once scheduled, will order prep. Discussed details of procedure along with risks, prep. Questions answered. Time with Patient: Less than 30
--- NOTE | 2022-05-26 23:23 | P.PN ---
Subjective Progress Note Date: 05/26/22 The patient denies any new symptoms. Right upper quadrant discomfort remains persistent. No nausea or vomiting. No change in bowel habits, or bleeding in the stool. Objective - Vital Signs Vital signs: Vital Signs Temp 98.3 F 05/26/22 20:00 Pulse 92 05/26/22 20:00 Resp 16 05/26/22 20:00 BP 150/92 05/26/22 20:00 Pulse Ox 97 05/26/22 20:00 FiO2 Intake & Output 05/26/22 05/26/22 05/27/22 06:59 18:59 06:59 Intake Total 1200 Balance 1200 Intake: Oral 1200 Other: Voiding Method Toilet Toilet Toilet # Voids 2 - Constitutional General appearance: Present: no acute distress - EENT Eyes: Present: EOMI ENT: Present: hearing grossly normal, normal oropharynx - Respiratory Respiratory: bilateral: CTA - Cardiovascular Rhythm: regular Heart sounds: normal: S1, S2 - Gastrointestinal General gastrointestinal: Present: normal bowel sounds, soft - Integumentary Integumentary: Present: normal - Neurologic Neurologic: Present: CNII-XII intact - Musculoskeletal Musculoskeletal: Present: generalized weakness - Psychiatric Psychiatric: Present: A&O x's 3, appropriate affect - Labs CBC & Chem 7: 05/24/22 13:37 05/24/22 13:37 Labs: Microbiology - Last 24 Hours (Table) 05/24/22 14:19 Urine Culture - Final Urine,Voided Assessment and Plan (1) Metastatic cancer to liver Narrative/Plan: No changes in symptoms. Interventional radiology has been consulted for biopsy. Current Visit: Yes Status: Acute Code(s): C78.7 - SECONDARY MALIG NEOPLASM OF LIVER AND INTRAHEPATIC BILE DUCT SNOMED Code(s): 35799056 (2) Mass of colon Narrative/Plan: The case discussed in detail with surgical service. Colonoscopy is planned to evaluate for any significant obstruction, and also to get tissue diagnosis. We discussed that her biopsy is also be ordered to rule out a second primary, given the presence of the pancreatic mass. If tissue samples from both sides are the same, then it would be resumed at the pancreatic mass also represents metastatic disease. Current Visit: Yes Status: Acute Code(s): K63.89 - OTHER SPECIFIED DISEASES OF INTESTINE SNOMED Code(s): 739153920
[2022-05-27] MEDS: KETOROLAC 15 MG/ML 1 ML VIAL IVP SCH ×3 (00:13→11:33)
[2022-05-27] MEDS: PANTOPRAZOLE 40 MG/10 ML VIAL IV SCH (08:48)
[2022-05-27] MEDS: MORPHINE SULFATE 4 MG/ML SYRINGE IV PRN (09:18)
[2022-05-27] MEDS: SODIUM CHLORIDE 0.9% 1,000 ML IV SCH ×2 (10:53→23:07)
--- NOTE | 2022-05-27 10:55 | US ---
Ultrasound-guided liver mass biopsy Date: 05/27/2022 History: Multifocal liver lesions Comparison: 05/24/2022 The patient was brought to the US room after coagulation profile was checked and deemed appropriate. The risks and benefits of the procedure were explained to the patient, and the patient's questions we re answered. Informed consent was obtained. Limited ultrasound redemonstrates multifocal hyperechoic lobular masses throughout both lobes of the liver. A critical pause was performed. Sterile field was prepared, and lidocaine was used for local anesthes ia. Under direct ultrasound guidance, four 18-gauge core specimens of one of the right lobe masses we re obtained and sent to pathology in formalin. The patient tolerated the procedure well with no apparent complications. A postprocedural scan throug h the region of interest demonstrated no acute complications. After the procedure, the patient was observed for a short period of time, again with no complications . Impression: Successful ultrasound-guided biopsy of one of the right lobe liver lesions.
--- NOTE | 2022-05-27 11:26 | P.PN ---
Subjective Progress Note Date: 05/27/22 Patient is a 31-year-old male with no significant past medical history who presented to the ED for abnormal gallbladder ultrasound. In the ED he underwent an extensive evaluation. His vital signs were stable. Labaratory analysis showed a WBC of 12.3, hemoglobin of 12.5, INR was 1, Na 132, and AST of 67. Lipase and amylase negative. Urinalysis showed moderate leukocyte esterase. CT AP showed colonic mass involving the splenic flexure, extensive metastatic liver disease, possible pancreatic mass, enlarged lymph nodes and multiple pulmonary nodules. Patient was admitted for additional workup. Surgery and Oncology were consulted. Patient underwent liver biopsy on 05/27/22. Patient seen and examined at bedside. He has no complaints at this time. Tolerated the biopsy well. Dad present at bedside and all questions answered. General: nontoxic, no distress, appears at stated age Derm: warm, dry Head: atraumatic, normocephalic, symmetric Eyes: EOMI, no lid lag, anicteric sclera Mouth: no lip lesion, mucus membranes moist Cardiovascular: S1S2 reg, no murmur, positive posterior tibial pulse bilateral, Lungs: CTA bilateral, no rhonchi, no rales , no accessory muscle use Abdominal: soft, nontender to palpation, no guarding, no appreciable organomegaly Ext: no gross muscle atrophy, no edema, no contractures Neuro: CN II-XI grossly intact, no focal neuro deficits Psych: Alert, oriented, appropriate affect Assessment/plan: Colonic, hepatic, pancreatic and pulmonary mass, likely metastatic cancer, unknown primary Leukocytosis - likely reactive - follow CBC Microcytic anemia - mild - follow CBC Hyponatremia - mild - likely due to decreased oral intake - repeat BMP Elevated AST - suspect due to liver mets - outpatient follow-up Abnormal urinalysis, UTI ruled out Obesity- BMI 33.5 DVT prophylaxis: SCDs, then restart lovenox in AM Discussed with: patient, nursing, dad Anticipated discharge: tomorrow after colonoscopy Anticipated discharge place: home A total of 35 minutes was spent on the care of this complex patient more than 50% of the time was spent in counseling and care coordination. Active Medications Generic Name Dose Route Start Last Admin Trade Name Freq PRN Reason Stop Dose Admin Acetaminophen 650 mg 05/24/22 15:09 Acetaminophen Tab 325 Mg Tab PO Q6HR PRN Mild Pain or Fever > 100.5 Sodium Chloride 1,000 mls @ 75 mls/hr 05/24/22 15:15 05/27/22 10:53 Saline 0.9% IV 75 mls/hr .[id number] DARA Administration Ketorolac Tromethamine 15 mg 05/24/22 18:00 05/27/22 05:57 Ketorolac 15 Mg/Ml 1 Ml Vial IVP 05/27/22 17:15 15 mg Q6HR DARA Administration Morphine Sulfate 4 mg 05/24/22 15:09 05/27/22 09:18 Morphine Sulfate 4 Mg/Ml Syringe IV 4 mg Q4HR PRN Administration Severe Pain (Scale 7 to 10) Naloxone HCl 0.2 mg 05/24/22 15:09 Naloxone 0.4 Mg/Ml 1 Ml Vial IV Q2M PRN Opioid Reversal Ondansetron HCl 4 mg 05/24/22 17:14 Ondansetron 4 Mg/2 Ml Vial IVP Q6HR PRN Nausea And Vomiting Pantoprazole Sodium 40 mg 05/24/22 15:15 05/27/22 08:48 Pantoprazole 40 Mg/10 Ml Vial IV 40 mg DAILY DARA Administration Polyethylene Glycol/Electrolytes 4,000 ml 05/27/22 16:00 Peg 3350 (236 Gm/Btl) + Lytes 4,000 Ml Bottle PO 05/27/22 16:01 ONCE ONE Objective - Vital Signs Vital signs: Vital Signs Temp 98.3 F 05/27/22 07:20 Pulse 81 05/27/22 10:51 Resp 18 05/27/22 10:51 BP 117/71 05/27/22 10:51 Pulse Ox 98 05/27/22 10:51 FiO2 Intake & Output 05/26/22 05/27/22 05/27/22 18:59 06:59 18:59 Intake Total 0 Balance 0 Intake: Oral 0 Other: Voiding Method Toilet Toilet # Voids 2 - Labs CBC & Chem 7: 05/24/22 13:37 05/24/22 13:37
--- NOTE | 2022-05-27 12:18 | P.PN ---
Progress Note - Text Progress Note Date: 05/27/22 BRIEF SURGICAL PROGRESS NOTE Scheduled for colonoscopy 05/28 at 1300. Prep ordered. NPO at [place], IVF. Off floor today for IR biopsy.
[2022-05-27] MEDS ORDERED: PEG 3350 (236 GM/BTL) + LYTES 4,000 ML BOTTLE PO ONE (16:00)
[2022-05-28] MEDS: MORPHINE SULFATE 4 MG/ML SYRINGE IV PRN ×3 (06:23→19:38)
[2022-05-28] MEDS: PANTOPRAZOLE 40 MG/10 ML VIAL IV SCH (07:39)
[2022-05-28 09:39] LABS: HCT 37.2 % (39.0-53.0); HGB 12.3 gm/dL (13.0-17.5); MCH 25.9 pg (25.0-35.0); MCV 78.6 fL (80.0-100.0); Mean Platelet Volume 6.6; Platelet Count 415 k/uL (150-450); RBC 4.73 m/uL (4.30-5.90); WBC 10.9 k/uL (3.8-10.6)
[2022-05-28 09:49] LABS: African American GFR (CKD) >90 (>60 ml/min/1.73 sqM); Anion Gap 10 mmol/L; Blood Urea Nitrogen 7 mg/dL (9-20); Calcium 8.7 mg/dL (8.4-10.2); Carbon Dioxide 23 mmol/L (22-30); Chloride 105 mmol/L (98-107); Glucose 85 mg/dL (74-99); Non-African American GFR(CKD) >90 (>60 ml/min/1.73 sqM); Sodium 138 mmol/L (137-145)
--- NOTE | 2022-05-28 12:34 | CT ---
EXAMINATION TYPE: CT angio chest DATE OF EXAM: 05/28/2022 COMPARISON: 05/24/2022 HISTORY: chest pain CT DLP: 512.2 mGycm CONTRAST: CT chest with contrast and 3D reconstruction with MIP imaging is performed with IV Contrast, patient injected with 100 mL of Isovue 370. Contrast-enhanced CT of the chest was performed through the course of the pulmonary arteries with steve g and mediastinal window settings submitted. 3D reconstruction with MIP imaging was also performed. PULMONARY ARTERIES: There is poor timing of the contrast bolus limiting evaluation. Large central em bolus is not identified with certainty. Limitation with regards to exclusion of more peripheral embol i. Correlate clinically. LUNGS: There is mild basilar atelectasis and trace effusions.. No pulmonary nodule or mass is detec sanket. MEDIASTINUM: Thoracic aorta is of normal caliber,however, evaluation is limited given timing of the contrast bolus. If there is concern for thoracic aortic pathology consider ASHU. Correlate clinicall y . The heart is not enlarged. No evidence for mediastinal mass. No mediastinal lymph nodes greater than 1cm. HILAR STRUCTURES: No evidence for mass. No hilar lymph nodes greater than 1 cm. UPPER ABDOMEN: Metastatic disease to the liver was discussed on recent examination. Possible pancreat ic mass and adenopathy. Partially imaged left colonic splenic flexure mass. IMPRESSION: 1. There is poor timing of the contrast bolus limiting evaluation. Large central embolus is not iden tified with certainty. Limitation with regards to exclusion of more peripheral emboli. Correlate clin ically.
[2022-05-28] MEDS ORDERED: SODIUM CHLORIDE 0.9% 1,000 ML IV ONE ×2 (13:04)
[2022-05-28] MEDS ORDERED: PROPOFOL 10 MG/ML 20 ML VIAL IV ONE (13:05)
--- NOTE | 2022-05-28 13:54 | P.OP ---
Date of Procedure: 05/28/22 Preoperative Diagnosis: Colon mass Postoperative Diagnosis: Near obstructing colon mass at splenic flexure Procedure(s) Performed: Colonoscopy to splenic flexure Anesthesia: MAC Surgeon: Lupe Clay Estimated Blood Loss (ml): 5 Pathology: other (Colon mass, colon adjacent to colon mass) Condition: stable Disposition: PACU Description of Procedure: See dictation for full details.
[2022-05-28] MEDS: SODIUM CHLORIDE 0.9% 1,000 ML IV SCH (14:29)
[2022-05-28] MEDS ORDERED: HYDROcodone/APAP 5-325MG 1 EACH TAB PO PRN (14:45)
--- NOTE | 2022-05-28 14:50 | P.PN ---
Subjective Progress Note Date: 05/28/22 (delayed charting seen at 1115) Patient is a 31-year-old male with no significant past medical history who presented to the ED for abnormal gallbladder ultrasound. In the ED he underwent an extensive evaluation. His vital signs were stable. Labaratory analysis showed a WBC of 12.3, hemoglobin of 12.5, INR was 1, Na 132, and AST of 67. Lipase and amylase negative. Urinalysis showed moderate leukocyte esterase. CT AP showed colonic mass involving the splenic flexure, extensive metastatic liver disease, possible pancreatic mass, enlarged lymph nodes and multiple pulmonary nodules. Patient was admitted for additional workup. Surgery and Oncology were consulted. Patient underwent liver biopsy on 05/27/22. He underwent colonoscopy on 05/28/22 which showed near obstructing lesion of the sigmoid colon. Patient seen and examined at bedside prior to colonoscopy. He is complaining of increasing right-sided abdominal pain. Worse with deep inspiration. Morphine has been less effective today. We discussed a trial of [place] and that he'll likely need pain medications at home. We discussed that his likely diagnosis is cancer. He is aware of this and the possibility that he will need a port placed. Awaiting recommendations from oncology and surgery as whether this should be done as an inpatient versus outpatient. General: nontoxic, no distress, appears at stated age Derm: warm, dry Head: atraumatic, normocephalic, symmetric Eyes: EOMI, no lid lag, anicteric sclera Mouth: no lip lesion, mucus membranes moist Cardiovascular: S1S2 reg, no murmur, positive posterior tibial pulse bilateral, Lungs: CTA bilateral, no rhonchi, no rales , no accessory muscle use Abdominal: soft, +tender to palpation RUQ, no guarding, no appreciable organomegaly Ext: no gross muscle atrophy, no edema, no contractures Neuro: CN II-XI grossly intact, no focal neuro deficits Psych: Alert, oriented, appropriate affect Assessment/plan: Colonic, hepatic, pancreatic and pulmonary mass, likely metastatic cancer, unknown primary - Colonsocopy today near complete obstuction of lesion - will need port ? inpatient vs outpatient - pain control - start norco with plan to transition to this as outpatient, opioid start talking form completed. - await liver biopsy Leukocytosis, stable - likely reactive - follow CBC Microcytic anemia, stable - mild - follow CBC Elevated AST - suspect due to liver mets - outpatient follow-up Abnormal urinalysis, UTI ruled out Obesity- BMI 33.5 Hyponatremia, resolved DVT prophylaxis: SCDs Discussed with: patient, nursing Anticipated discharge: pending surgery recs Anticipated discharge place: home A total of 35 minutes was spent on the care of this complex patient more than 50% of the time was spent in counseling and care coordination. Active Medications Generic Name Dose Route Start Last Admin Trade Name Freq PRN Reason Stop Dose Admin Acetaminophen 650 mg 05/24/22 15:09 Acetaminophen Tab 325 Mg Tab PO Q6HR PRN Mild Pain or Fever > 100.5 Sodium Chloride 1,000 mls @ 75 mls/hr 05/24/22 15:15 05/28/22 14:29 Saline 0.9% IV 75 mls/hr .[id number] DARA Administration Morphine Sulfate 4 mg 05/24/22 15:09 05/28/22 10:18 Morphine Sulfate 4 Mg/Ml Syringe IV 4 mg Q4HR PRN Administration Severe Pain (Scale 7 to 10) Naloxone HCl 0.2 mg 05/24/22 15:09 Naloxone 0.4 Mg/Ml 1 Ml Vial IV Q2M PRN Opioid Reversal Ondansetron HCl 4 mg 05/24/22 17:14 Ondansetron 4 Mg/2 Ml Vial IVP Q6HR PRN Nausea And Vomiting Pantoprazole Sodium 40 mg 05/24/22 15:15 05/28/22 07:39 Pantoprazole 40 Mg/10 Ml Vial IV 40 mg DAILY DARA Administration Objective - Vital Signs Vital signs: Vital Signs Temp 98.1 F 05/28/22 12:47 Pulse 92 05/28/22 12:47 Resp 20 05/28/22 12:47 BP 127/82 05/28/22 12:47 Pulse Ox 95 05/28/22 12:47 FiO2 Intake & Output 05/27/22 05/28/22 05/28/22 18:59 06:59 18:59 Intake Total 900 150 Balance 900 150 Intake: IV 150 Intake, IV Titration 900 Amount Sodium Chloride 0.9% 1, 900 000 ml @ 75 mls/hr IV . [id number] DARA Rx#:[id number] Other: Voiding Method Toilet # Voids 1 # Bowel Movements 2 - Labs CBC & Chem 7: 05/28/22 09:25 05/28/22 09:25 Labs: Abnormal Lab Results - Last 24 Hours (Table) 05/28/22 05/28/22 Range/Units 09:25 09:25 WBC 10.9 H (3.8-10.6) k/uL Hgb 12.3 L (13.0-17.5) gm/dL Hct 37.2 L (39.0-53.0) % MCV 78.6 L (80.0-100.0) fL BUN 7 L (9-20) mg/dL
--- NOTE | 2022-05-28 18:21 | P.PN ---
Subjective Progress Note Date: 05/28/22 Principal diagnosis: numerous suspicious lesion in the body In f/u today pt reporting he can tolerate oral intake, no N,V, he is noting increased SOB, feels like he can't take a deep breath, pain in the rt lower area of ribs, denies hemoptysis, substernal pain, no abs pain, he has had a BM that was formed and normal color. Objective - Vital Signs Vital signs: Vital Signs Temp 98.1 F 05/28/22 07:28 Pulse 77 05/28/22 07:28 Resp 18 05/28/22 07:28 BP 123/78 05/28/22 07:28 Pulse Ox 95 05/28/22 07:28 FiO2 Intake & Output 05/27/22 05/28/22 05/28/22 18:59 06:59 18:59 Intake Total 900 Balance 900 Intake: Intake, IV Titration 900 Amount Sodium Chloride 0.9% 1, 900 000 ml @ 75 mls/hr IV . [id number] DARA Rx#:[id number] Other: Voiding Method Toilet # Voids 1 # Bowel Movements 2 - Constitutional General appearance: Present: average body habitus, cooperative, no acute distress - EENT Eyes: Present: anicteric sclerae, EOMI ENT: Present: hearing grossly normal - Respiratory Details: increase RR, accessory muscle use - Peripheral edema leg Peripheral Edema: bilateral: None - Integumentary Integumentary: Present: normal - Neurologic Neurologic: Present: CNII-XII intact - Musculoskeletal Musculoskeletal: Present: strength equal bilaterally - Psychiatric Psychiatric: Present: A&O x's 3, appropriate affect, intact judgment & insight - Labs CBC & Chem 7: 05/28/22 09:25 05/28/22 09:25 Labs: Abnormal Lab Results - Last 24 Hours (Table) 05/28/22 05/28/22 Range/Units 09:25 09:25 WBC 10.9 H (3.8-10.6) k/uL Hgb 12.3 L (13.0-17.5) gm/dL Hct 37.2 L (39.0-53.0) % MCV 78.6 L (80.0-100.0) fL BUN 7 L (9-20) mg/dL Assessment and Plan (1) Mass of colon Current Visit: Yes Status: Acute Priority: High Code(s): K63.89 - OTHER SPECIFIED DISEASES OF INTESTINE SNOMED Code(s): 415523809 (2) Pancreatic mass Current Visit: Yes Status: Acute Priority: High Code(s): K86.89 - OTHER SPECIFIED DISEASES OF PANCREAS SNOMED Code(s): 772649927 (3) Pulmonary metastasis Current Visit: Yes Status: Acute Priority: High Code(s): C78.00 - SECONDARY MALIGNANT NEOPLASM OF UNSPECIFIED LUNG SNOMED Code(s): 53704540 Plan: Mult site of lesion -S/P colonoscopy-Surgeon did contact us and discuss findings. Near obstruction colon mass. Pt is reporting BMs. Would prefer to get path results and start treatment JEFFREY vs having surgery and having to hold systemic treatment for 4 weeks while healing. -Discussed with pt to continue liquids and soft foods for diet. He is to report any inability to pass stool immediately/report to ER -Port placement planned for next week -Pending liver and colon biopsies -Discussed with Attending. Pt is ok to go home from Hem/Onc and once cleared by IM and all other Consulting MDs
[2022-05-29] MEDS: SODIUM CHLORIDE 0.9% 1,000 ML IV SCH ×2 (02:21→04:34)
[2022-05-29 07:58] VITALS: BP 108/68; PULSE 75; RESP 18; TEMP 98.7
[2022-05-29] MEDS: PANTOPRAZOLE 40 MG/10 ML VIAL IV SCH (08:38)
--- NOTE | 2022-05-29 11:33 | P.DS ---
Providers Date of admission: 05/24/22 15:11 Expected date of discharge: 05/29/22 Attending physician: Jacob Spear MD Consults: 05/24/22 15:08 Consult Physician Urgent Consulting Provider: Lupe Clay Consult Reason/Comments: colonscopy Do you want consulting provider notified?: Yes 05/24/22 17:09 Consult Physician Routine Consulting Provider: Heriberto Fernandez Consult Reason/Comments: New suspected cancer Do you want consulting provider notified?: Already Contacted 05/28/22 11:39 Consult Physician Routine Consulting Provider: Lupe Clay Consult Reason/Comments: port placement Do you want consulting provider notified?: Yes Primary care physician: Desmond York Hospital Course: Discharge Diagnosis: Colonic, hepatic, pancreatic and pulmonary mass, likely metastatic cancer, unknown primary-- liver biopsy and colonoscopy pathology pending. Outpatient mediport placement in next week Leukocytosis, stable Microcytic anemia, stable Elevated AST Abnormal urinalysis, UTI ruled out Obesity- BMI 33.5 Hyponatremia, resolved Hospital Course: Patient is a 31-year-old male with no significant past medical history who presented to the ED for abnormal gallbladder ultrasound. In the ED he underwent an extensive evaluation. His vital signs were stable. Labaratory analysis showed a WBC of 12.3, hemoglobin of 12.5, INR was 1, Na 132, and AST of 67. Lipase and amylase negative. Urinalysis showed moderate leukocyte esterase. CT AP showed colonic mass involving the splenic flexure, extensive metastatic liver disease, possible pancreatic mass, enlarged lymph nodes and multiple pulmonary nodules. Patient was admitted for additional workup. Surgery and Oncology were consulted. Patient underwent liver biopsy on 05/27/22. He underwent colonoscopy on 05/28/22 which showed near obstructing lesion of the sigmoid colon. Pathology currently pending. He was tolerating a diet and was determined stable for discharge with close outpatient follow-up. Follow-up- Dr. Clay next week for mediport placement, Dr. Fernandez for biopsy results and chemo plan. May return to work at this time. [place] for pain (opioid strat talking completed), Protonix. Soft diet. Return if unable to stool or worsening abdominal pain. Patient seen and examined at bedside. Pain is currently controlled. Discussed plan of care as detailed about patient is in agreement. All quetions answered. Return to work form completed may retun on 05/30/22 witout restrictions at this time. Vital signs reviewed and stable. General: nontoxic, no distress, appears at stated age Derm: warm, dry Head: atraumatic, normocephalic, symmetric Eyes: EOMI, no lid lag, anicteric sclera Mouth: no lip lesion, mucus membranes moist Cardiovascular: S1S2 reg, no murmur, positive posterior tibial pulse bilateral, Lungs: CTA bilateral, no rhonchi, no rales , no accessory muscle use Abdominal: soft, +tender to palpation RUQ, no guarding, no appreciable organomegaly Ext: no gross muscle atrophy, no edema, no contractures Neuro: CN II-XI grossly intact, no focal neuro deficits Psych: Alert, oriented, appropriate affect A total of 35 minutes of time were spent preparing this complex discharge summary. Patient was discharged on 05/29/22. Patient Condition at Discharge: Stable Plan - Discharge Summary New Discharge Prescriptions: New HYDROcodone/APAP 5-325MG [[place] 5-325] 1 each PO Q6HR PRN #28 tab PRN Reason: Pain Pantoprazole [Protonix] 40 mg PO DAILY #30 tab Discharge Medication List HYDROcodone/APAP 5-325MG [[place] 5-325] 1 each PO Q6HR PRN #28 tab 05/29/22 [Rx] Pantoprazole [Protonix] 40 mg PO DAILY #30 tab 05/29/22 [Rx] Follow up Appointment(s)/Referral(s): Heriberto Fernandez MD [STAFF PHYSICIAN] - 1 Week (The office will call and give you an appointment date and time.) Desmond York MD [Primary Care Provider] - 1-2 days (The office will call you with an appointment time and date.) Lupe Clay DO [Doctor of Osteopathic Medicine] - As Needed (call to get outpatiet port procedure set-up. ) Patient Instructions/Handouts: Soft Diet (DC) Activity/Diet/Wound Care/Special Instructions: Activity: as tolerated Diet: SOFT FOODS AND LIQUIDS FOR DIET Special Instructions: PLEASE if inability to pass stool IMMEDIATELY REPORT TO ER Hospitalized from 05/24/22 to 05/29/22 Discharge Disposition: HOME SELF-CARE
[2022-05-29 11:53] VITALS: BMI 33.5
--- NOTE | 2022-05-30 13:45 | P.PN ---
Subjective Progress Note Date: 05/29/22 Principal diagnosis: numerous suspicious lesion in the body In f/u today pt reports feeling well. He is able to tolerate oral intake, no N,V. Reports small BM today. Denies hemoptysis, substernal pain, no abd pain. No other reported complaints at this time Objective - Vital Signs Vital signs: Vital Signs Temp 98.7 F 05/29/22 07:30 Pulse 75 05/29/22 07:30 Resp 18 05/29/22 07:30 BP 108/68 05/29/22 07:30 Pulse Ox 95 05/29/22 07:30 FiO2 Intake & Output 05/28/22 05/29/22 05/29/22 18:59 06:59 18:59 Intake Total 1050 600 Balance 1050 600 Weight 124.738 kg Intake: IV 150 Intake, IV Titration 900 Amount Sodium Chloride 0.9% 1, 900 000 ml @ 75 mls/hr IV . [id number] DARA Rx#:[id number] Oral 600 Other: Voiding Method Toilet # Voids 3 - Constitutional General appearance: Present: cooperative, no acute distress, obese - EENT Eyes: Present: anicteric sclerae, EOMI ENT: Present: hearing grossly normal - Respiratory Details: breathing is even and unlabored - Cardiovascular Details: skin warm and dry - Gastrointestinal General gastrointestinal: Present: normal bowel sounds, soft - Integumentary Integumentary: Present: normal - Neurologic Neurologic Comment(s): grossly intact Neurologic: Present: CNII-XII intact - Musculoskeletal Musculoskeletal: Present: strength equal bilaterally - Psychiatric Psychiatric: Present: A&O x's 3 - Labs CBC & Chem 7: 05/28/22 09:25 05/28/22 09:25 Assessment and Plan (1) Mass of colon Status: Acute Priority: High Code(s): K63.89 - OTHER SPECIFIED DISEASES OF INTESTINE SNOMED Code(s): 696909899 (2) Pancreatic mass Status: Acute Priority: High Code(s): K86.89 - OTHER SPECIFIED DISEASES OF PANCREAS SNOMED Code(s): 616204594 (3) Pulmonary metastasis Status: Acute Priority: High Code(s): C78.00 - SECONDARY MALIGNANT NEOPLASM OF UNSPECIFIED LUNG SNOMED Code(s): 52646811 Plan: Mult site of lesion -S/P colonoscopy-Surgeon did contact us and discuss findings. Near obstructive colon mass. Pt is reporting BMs. Would prefer to get path results and start treatment JEFFREY vs having surgery and having to hold systemic treatment for 4 weeks while healing. -Discussed with pt to continue liquids and soft foods for diet. Pt educated on low residual diet. He was instructed to report any inability to pass stool immediately/report to ER -Port placement planned for next week with Dr. Cross -Pending liver and colon biopsies -F/U scheduled in clinic with Dr. Fernandez to discuss biopsy results and treatment options -Pt is ok to go home from Hem/Onc standpoint once cleared by IM and all other Co nsulting MDs
== END 2022-05-29 13:10 | disposition home or self-care (01) | DRG 375 ==
LOC: EC 12:57 → 5NMEDONC 15:11
PROVIDERS: ADMIT Student in an Organized Health Care Education/Training Program; ATTEND Student in an Organized Health Care Education/Training Program
PROC: 0FB13ZX Excision of Right Lobe Liver, Percutaneous Approach, Diagnostic (ICD-10-PCS; 2022-05-27)
PROC: 0DBN8ZX Excision of Sigmoid Colon, Via Natural or Artificial Opening Endoscopic, Diagnostic (ICD-10-PCS; principal; 2022-05-28 13:00)
DX: C18.7 Malignant neoplasm of sigmoid colon (principal); C18.5 Malignant neoplasm of splenic flexure; K56.699 Other intestinal obstruction unspecified as to partial versus complete obstruction; C78.01 Secondary malignant neoplasm of right lung; C78.02 Secondary malignant neoplasm of left lung; E87.1 Hypo-osmolality and hyponatremia; C78.89 Secondary malignant neoplasm of other digestive organs; C78.7 Secondary malignant neoplasm of liver and intrahepatic bile duct; D50.9 Iron deficiency anemia, unspecified; D72.828 Other elevated white blood cell count; E66.01 Morbid (severe) obesity due to excess calories; Z68.33 Body mass index [BMI] 33.0-33.9, adult; Z28.310 Unvaccinated for COVID-19; Z83.79 Family history of other diseases of the digestive system
CPT/HCPCS: 36415; 45380; 47000; 71275; 74177; 76942; 80048; 80053; 81001; 82150; 83690; 84153; 85025; 85027; 85610; 85730; 87086; 88305; 88307; 88341; 88342; 96374; 99285

== ENCOUNTER → 2022-05-24 | Outpatient (CLI) | payer BC, OTHER ==
--- NOTE | 2022-05-24 11:31 | US ---
EXAMINATION TYPE: US abdomen complete DATE OF EXAM: 05/24/2022 COMPARISON: NONE CLINICAL HISTORY: R10.9 BD PAIN. TECHNIQUE: Multiple sonographic images of the abdomen are obtained. FINDINGS: EXAM MEASUREMENTS: Liver Length: 17.8cm Gallbladder Wall: 0.7 cm CBD: 0.4cm fundal, 0.7 towards neck cm Spleen: 14.1 cm Right Kidney: 11.4 x 5.6 x 6.3 cm Left Kidney: 12.4 x 5.8 x 6.0 cm ROLL GRINDER OPERATOR NOTES: Pancreas: Obscured by bowel gas Liver: Innumerable masses, heterogeneous, measures large possible largest in right lobe measuring 6. 2 x 5.2 x 5.8cm and 6.7 x 6.0 x 6.3cm Gallbladder: thickened wall, possible debris CBD: wnl Spleen: splenomegaly Right Kidney: No hydronephrosis or masses seen, partially obscured by overlying bowel gas Left Kidney : No hydronephrosis or masses seen, partially obscured by overlying bowel gas Upper IVC: wnl Abd Aorta: Partially obscured by overlying bowel gas, portions visualized wnl The pancreas is obscured due to overlying bowel gas. Gallbladder is contracted with thickened wall an d contains possible sludge. No shadowing calculi or pericholecystic fluid. Mild splenomegaly. The vis ualized portions of the kidneys are unremarkable without evidence of hydronephrosis, nephrolithiasis, or contour deforming solid mass. Innumerable heterogenous hyperechoic mass is demonstrated throughou t the liver measuring up to 6.7 cm. IMPRESSION: 1. Innumerable indeterminate hyperechoic masses demonstrated throughout the liver. Etiologies includ e hemangiomas versus metastasis versus other. Further evaluation with CT or MR abdomen liver mass pro tocol is recommended. 2. Mild splenomegaly. A Red level critical message alert has been initiated for Desmond York MD via the [employer] on 05/24/2022 11:28 AM. This message alert has been sent to Desmond York MD via the preferences provided by the clinician for the receipt of Radiology Critical Findings. Message ID [id number].
[2022-05-24 18:04] LABS: HCT 40.3 % (39.6-50.0); HGB 12.4 g/dL (13.0-17.0); MCH 24.9 pg (27.0-32.0); MCHC 30.8 g/dL (32.0-37.0); MCV 81.1 fL (80.0-97.0); Mean Platelet Volume 10.3 fL (9.5-12.2); NRBC Per 100 WBC 0 /100 WBCS (0.0-0.0); Platelet Count 367 X 10*3/uL (140-440); RBC 4.97 X 10*6/uL (4.40-5.60); RDW 12.6 % (11.5-14.5); WBC 14.66 X 10*3/uL (4.50-10.00)
[2022-05-24 18:20] LABS: African American GFR (CKD) 101.7 (60.0-200.0); Albumin 4.2 g/dL (3.8-4.9); Albumin/Globulin Ratio 1.08 (1.60-3.17); Anion Gap 14.9 mmol/L (10.00-18.00); BUN/Creat Ratio 12.45 Ratio (12.00-20.00); Blood Urea Nitrogen 13.7 mg/dL (9.0-27.0); Calcium 9.3 mg/dL (8.7-10.3); Carbon Dioxide 24.1 mmol/L (20.0-27.5); Globulin 3.9 g/dL (1.6-3.3); Non-African American GFR(CKD) 87.7 (60.0-200.0); Potassium 4.3 mmol/L (3.5-5.5); Total Bilirubin 0.7 mg/dL (0.30-1.20); Total Protein 8.1 g/dL (6.2-8.2)
[2022-05-24 18:43] LABS: Basophils # (A) 0.05 X 10*3/uL (0.00-0.10); Basophils % (A) 0.3 %; Eosinophils % (A) 0.7 %; Immature Grans, Automated 0.5 %; Lymphocytes # (A) 1.58 X 10*3/uL (0.90-5.00); Lymphocytes % (A) 10.8 %; Monocytes # (A) 1.83 X 10*3/uL (0.20-1.00); Monocytes % (A) 12.5 %; Neutrophils # (A) 11.03 X 10*3/uL (1.80-7.70); Neutrophils % (A) 75.2 %
[2022-05-24 18:44] LABS: RBC Morphology NORMAL
== END | disposition home or self-care (01) ==
LOC: RADUSWWP 10:26
PROVIDERS: ATTEND Family Medicine
DX: R16.1 Splenomegaly, not elsewhere classified (principal); R10.9 Unspecified abdominal pain
CPT/HCPCS: 76700; 80053; 82150; 83690; 85025

== ENCOUNTER → 2022-06-04 | Day surgery (SDC) | payer OTHER ==
[~2022-06-04] MED LIST: DEXAMETHASONE SOD PHOSPHATE 4 MG/ML 1 ML VIAL IV ONE; HEPARIN SODIUM,PORCINE 100 UNIT/ML 5 ML VIAL IV ONE; HYDROmorphone 0.5 MG/0.5 ML SYRINGE IVP PRN; KETOROLAC 30 MG/ML 1 ML VIAL ONE; LACTATED RINGERS 1,000 ML IV ONE; LACTATED RINGERS 1,000 ML IV SCH; LIDOCAINE 0.5% (PF) 5 MG/ML (50 ML SDV) SQ ONE; LIDOCAINE 2% INJ 20 MG/ML (2 ML VIAL) ONE; MIDAZOLAM 2 MG/2 ML VIAL ONE; ONDANSETRON 4 MG/2 ML VIAL IVP ONE; PROPOFOL 10 MG/ML 20 ML VIAL IV ONE; Pre Op ABX Message 1 EACH MISC MISCELLANE ONE; SCOPOLAMINE 1 MG/72 HR PATCH TRANSDERM ONE; SUCCINYLCHOLINE CHLORIDE 200 MG/10 ML VIAL IV ONE; fentaNYL (PF) 50 MCG/ML 2 ML AMP ONE
--- NOTE | 2022-06-04 09:35 | P.GSHP ---
History of Present Illness H&P Date: 06/04/22 Chief Complaint: mediport placement 31M recently diagnosed with metastatic cancer with lesions in liver, lung, colon & pancreas. Here today for mediport placement. No issues since last visit. - Review of Systems All systems: negative Past Medical History Past Medical History: No Reported History Additional Past Medical History / Comment(s): masses on lung, liver, gallbl adder,intestine 11 total History of Any Multi-Drug Resistant Organisms: None Reported Past Surgical History: No Surgical Hx Reported Additional Past Surgical History / Comment(s): colonoscopy. liver biopsy, Past Anesthesia/Blood Transfusion Reactions: No Reported Reaction Smoking Status: Never smoker - Past Family History Brother(s) Additional Family Medical History / Comment(s): Ulcerative colitis (Brother) Medications and Allergies Home Medications Medication Instructions Recorded Confirmed Type HYDROcodone/APAP 5-325MG [[place] 1 each PO Q6HR PRN #28 tab 05/29/22 05/30/22 Rx 5-325] Pantoprazole [Protonix] 40 mg PO DAILY #30 tab 05/29/22 05/30/22 Rx Allergies Allergy/AdvReac Type Severity Reaction Status Date / Time No Known Allergies Allergy Verified 05/30/22 14:41 Surgical - Exam Vital Signs Temp Pulse Resp BP Pulse Ox 97.8 F 89 18 123/70 95 06/04/22 08:45 06/04/22 08:45 06/04/22 08:45 06/04/22 08:45 06/04/22 08:45 - General well developed, well nourished, no distress - Eyes no icteric - Respiratory normal expansion, normal respiratory effort - Cardiovascular Rhythm: regular - Abdomen Flat - Integumentary Dry, no diaphoresis - Psychiatric oriented to time, oriented to person, oriented to place, memory intact Assessment and Plan Assessment: Metastatic cancer, unknown primary Plan: Plan for mediport placement today. Details of procedure alongs with risks & benefits discussed with father & patient. Questions answered. Time with Patient: Less than 30
--- NOTE | 2022-06-04 10:51 | FL ---
EXAMINATION TYPE: FL guided central line placemt HISTORY: Fluoroscopy time Impression: 1. Fluoroscopy support provided to the referring physician.
--- NOTE | 2022-06-04 10:57 | P.OP ---
Date of Procedure: 06/04/22 Preoperative Diagnosis: Metastatic cancer, unknown primary Postoperative Diagnosis: Metastatic cancer, unknown primary Procedure(s) Performed: Mediport placement right chest, US guidance to access right IJ vein Implants: 9Fr Single port Mediport Anesthesia: GETA Surgeon: Lupe Clay Estimated Blood Loss (ml): 10 Pathology: none sent Condition: stable Disposition: PACU Indications for Procedure: Metastatic cancer, unknown primary Need for access for chemotherapy Description of Procedure: Please see dictation for full details.
[2022-06-04 11:04] VITALS: TEMP 97.7
--- NOTE | 2022-06-04 11:32 | XR ---
EXAMINATION TYPE: XR chest 1V portable DATE OF EXAM: 06/04/2022 COMPARISON: NONE HISTORY: Postport placement TECHNIQUE: Single frontal view of the chest is obtained. FINDINGS: A Mediport catheter seen with the tip overlying the SVC and no sizable pneumothorax. Limit ed inspiration with subsegmental changes at the right lung base. Heart size normal. No interstitial e monique or sizable pleural effusion. Osseous structures intact. IMPRESSION: 1. Mediport seen with the tip overlying SVC and no pneumothorax. 2. Favor right basilar atelectasis over infiltrate.
[2022-06-04 11:54] VITALS: RESP 20
[2022-06-04 12:10] VITALS: BP 114/76; PULSE 79
== END ==
LOC: OR 08:34
PROVIDERS: ATTEND Surgery
DX: Z45.2 Encounter for adjustment and management of vascular access device (principal); K76.9 Liver disease, unspecified; K63.9 Disease of intestine, unspecified; J98.4 Other disorders of lung; Z98.890 Other specified postprocedural states; Z83.79 Family history of other diseases of the digestive system; Z79.899 Other long term (current) drug therapy
CPT/HCPCS: 36561; 76937; 77001; 71045; C1788; J2250; J0330; J1642; J1100; J0690; J2405; J2001 ×2; J3010; J1885; J2704

== ENCOUNTER → 2022-08-09 | Outpatient (CLI) | payer OTHER ==
[2022-08-09 12:33] LABS: African American GFR (CKD) >90 (>60 ml/min/1.73 sqM); Blood Urea Nitrogen 12 mg/dL (9-20); Non-African American GFR(CKD) >90 (>60 ml/min/1.73 sqM)
--- NOTE | 2022-08-09 14:07 | CT ---
EXAMINATION TYPE: CT ChestAbdPelvis w con DATE OF EXAM: 08/09/2022 COMPARISON: CTA chest 05/28/2022 and HISTORY: obs for mets. hx of colon ca. CT DLP: 2502.40 mGycm. Automated Exposure Control for Dose Reduction was Utilized. CONTRAST: CT scan of the thorax, abdomen and pelvis is performed with oral and with IV Contrast, patient inject ed with 100 mL of Isovue 300. FINDINGS: LUNGS: Stable 5-6 mm right mid lung nodule axial image 31 anteriorly. No new or enlarging greater t pulliam 5 mm pulmonary nodules. There is 5 mm right mid lung nodule axial image 37 inferior to this small er in size from prior study where it measured 7 mm. Mild emphysematous change with 2 to 3 mm posterio r right upper lung nodule stable or slightly less prominent axial image 16 posteriorly. No new greate r than 5 mm pulmonary nodules. MEDIASTINUM: There are no greater than 1 cm hilar or mediastinal lymph nodes. No arterial megaly or pericardial effusion is seen. OTHER: Right-sided Mediport catheter redemonstrated. LIVER/GB: The known heterogeneous hypodense masses or metastatic disease redemonstrated. Nonspecific posterior right hepatic dome mass measures 6.1 cm long axis current study image 12 versus 8.1 cm prio r study image 18. Hepatic mass or masses left hepatic dome also improved from prior study. No new int rahepatic masses. Peripheral right inferior lesion measures 7.0 cm long axis axial image 24 versus 8. 1 cm prior study. PANCREAS: No significant abnormality is seen. SPLEEN: No significant abnormality is seen. ADRENALS: No significant abnormality is seen. KIDNEYS: No significant abnormality is seen. BOWEL: Oral contrast does not reach the level of distal small bowel making evaluation distal bowel barber boptimal. No suspicious small or large bowel dilatation. Persistent brnbygqa-kr-stexsl wall thickenin g in the colon near the splenic flexure with mild/moderate adjacent fluid and fat stranding on curren t study correlates with site of suspected neoplasm similar appearance to prior. Inflammation and/or i nfection at this level not entirely excluded but similar to the prior is noted. GENITAL ORGANS: No gross abnormality seen. LYMPH NODES: Prominent but subcentimeter mesenteric lymph nodes throughout the left abdomen are redem onstrated. Abnormal 1.9 x 1.9 cm mesenteric lymph node axial image 32 in the left upper quadrant is s table from prior. OSSEOUS STRUCTURES: Moderate disc space narrowing lumbosacral junction. OTHER: No significant additional abnormality is seen. IMPRESSION: Partial positive treatment response to known hepatic metastatic disease. One pulmonary no dule is also diminished in size suggesting metastatic disease to the lung given positive treatment re sponse. Other subcentimeter pulmonary nodules are stable. Suspicious mesenteric lymph nodes grossly s table along with primary neoplasm and adjacent reactive changes.
== END | disposition home or self-care (01) ==
LOC: RADCTMAIN 11:50
PROVIDERS: ATTEND Internal Medicine Hematology & Oncology
DX: C18.6 Malignant neoplasm of descending colon (principal); C78.7 Secondary malignant neoplasm of liver and intrahepatic bile duct; Z71.3 Dietary counseling and surveillance
CPT/HCPCS: 82565; 84520; 71260; 74177; 36415; Q9967

== ENCOUNTER 2022-09-19 15:10 | Emergency (ER) | payer OTHER ==
[2022-09-19 15:21] VITALS: RESP 18; TEMP 98
[2022-09-19] MEDS ORDERED: LORazepam 1 MG TAB PO STA (15:54)
[2022-09-19] MEDS ORDERED: HYDROmorphone 1 MG/ML 1 ML SYRINGE IM STA (15:54)
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
[2022-09-19] MEDS ORDERED: ETODOLAC 400 MG TAB PO STA (17:42)
[2022-09-19] MEDS ORDERED: ACETAMINOPHEN TAB 500 MG TAB PO STA (17:42)
[2022-09-19] MEDS ORDERED: MORPHINE ORAL SOLN 10 MG/5 ML CUP PO STA (17:43)
[2022-09-19] MEDS ORDERED: traMADol 50 MG STARTER PACK 3 TAB BTL PO STA (19:18)
[2022-09-19] MEDS ORDERED: ACET/COD 300 MG/30 MG STARTER PACK 6 TAB BTL PO STA (19:18)
[2022-09-19] MEDS ORDERED: IBUPROFEN 600 MG STARTER PACK 4 TAB BTL PO STA (19:18)
[2022-09-19 20:01] VITALS: BP 114/69; PULSE 96
== END 2022-09-19 20:01 | disposition home or self-care (01) ==
LOC: EC 15:10
DX: S82.831A Other fracture of upper and lower end of right fibula, initial encounter for closed fracture (principal); S42.402A Unspecified fracture of lower end of left humerus, initial encounter for closed fracture; F32.A Depression, unspecified; F41.9 Anxiety disorder, unspecified; Z79.899 Other long term (current) drug therapy; V29.99XA Rider (driver) (passenger) of other motorcycle injured in unspecified traffic accident, initial encounter; Y92.410 Unspecified street and highway as the place of occurrence of the external cause
CPT/HCPCS: 73502; 73080; 73110; 73590; 73562; 73610; 71045; 29105; 29505; 99284; J1170

== ENCOUNTER → 2022-11-29 | Outpatient (CLI) | payer OTHER ==
[2022-11-29 16:30] LABS: African American GFR (CKD) >90 (>60 ml/min/1.73 sqM); Blood Urea Nitrogen 13 mg/dL (9-20); Non-African American GFR(CKD) >90 (>60 ml/min/1.73 sqM)
--- NOTE | 2022-11-29 17:28 | CT ---
EXAMINATION TYPE: CT ChestAbdPelvis w con CT DLP: 2409.5 mGycm, Automated exposure control for dose reduction was used. DATE OF EXAM: 11/29/2022 4:41 PM COMPARISON: 08/09/2022 CLINICAL INDICATION:Male, 32 years old with history of C18.6; PHH, CA of liver and descending colon f ollow up. Technique: Multiple axial images of the chest, abdomen, and pelvis were obtained. Two-dimensional cor onal and sagittal reconstructions were obtained. Contrast used:80 ml mL of Isovue 300 with IV Contrast, Oral contrast used: with Oral Contrast Findings: CHEST: LUNGS/ PLEURA: Scattered new pulmonary nodules (greater than 10) including series 3 image 31 and imag e 32, 33 image 52 image 35 with increase in size of pulmonary nodules seen on prior now measuring 9 m m, previously 6 mm. Focal consolidation, pneumothorax or pleural effusion. AIRWAY: Patent and unremarkable. HEART: Size within normal limits. MEDIASTINUM: No gross evidence of adenopathy. VASCULATURE: No aortic aneurysm. Chest wall [id number]-[id number] with distal tip in the superior vena cava. MUSCULOSKELETAL: No acute osseous abnormalities. SOFT TISSUES/LYMPH NODES: Unremarkable. LOWER NECK: No significant findings. ABDOMEN: ABDOMEN LIVER: Multiple hepatic masses are again visualized. Within the right hepatic lobe previously measure d 6 x 1 measures 5.1. In the dome of the liver previously measuring 6.2 on the right now measuring 3. 5 in the left hepatic lobe measuring previously 7.1, now 6.1 cm. GALLBLADDER AND BILE DUCTS: Unremarkable. PANCREAS: Unremarkable. SPLEEN: Spleen is enlarged measures up to 15.9 cm, previously 14.6 cm ADRENAL GLANDS: Unremarkable. KIDNEYS AND URETERS: No evidence of hydronephrosis or renal calculus. The ureters are unremarkable. PELVIS BLADDER: Unremarkable REPRODUCTIVE: Unremarkable. ABDOMEN & PELVIS STOMACH AND BOWEL: No evidence of bowel obstruction. Descending colon mass remains present measuring at least 21 x 24 mm series 3 image 75, previously 22 x 19 mm which is slightly increased in size. PERITONEUM: No evidence of pneumoperitoneum or free fluid. Mesentery lymphadenopathy is present measu ring 18 x 9 mm, previously 17 x 12 mm adjacent to the mass in the descending colon.. VASCULATURE: No evidence of aortic aneurysm. MUSCULOSKELETAL: No acute osseous abnormalities LYMPH NODES: No gross evidence for lymphadenopathy. SOFT TISSUE/ABDOMINAL WALL: Fat-containing containing left inguinal hernia. ' IMPRESSION: 1. Interval increase in size and number of pulmonary nodules (greater than 10), increased descending colon mass size as well as a the adjacent mesenteric lymph nodes all compatible with progression of disease. The hepatic lesions appear smaller in size compared to most recent prior. 2. New splenomegaly.
== END | disposition home or self-care (01) ==
LOC: RADCTMAIN 14:39
PROVIDERS: ATTEND Internal Medicine Hematology & Oncology
DX: C78.7 Secondary malignant neoplasm of liver and intrahepatic bile duct (principal); C18.6 Malignant neoplasm of descending colon; R91.8 Other nonspecific abnormal finding of lung field; R16.1 Splenomegaly, not elsewhere classified; Z71.3 Dietary counseling and surveillance
CPT/HCPCS: 82565; 84520; 71260; 74177; Q9967

== ENCOUNTER → 2023-01-18 | Outpatient (CLI) | payer OTHER ==
--- NOTE | 2023-01-19 14:46 | PE ---
EXAMINATION TYPE: PET CT fusion skull to thigh DATE OF EXAM: 01/18/2023 CLINICAL INDICATION:Male, 32 years old with history of C18.6 MALIGNANT NEOPLASM OF DESCENDING COLON; TECHNIQUE: Following the intravenous administration of 12.55 mCi of F-18 FDG, whole body images are performed from the skull base to the midthigh. Images are reviewed on the computer in the coronal, axial, and sagittal planes. Reconstructed rotating images are created on independent workstation and reviewed on the computer. A non-contrast CT is performed in conjunction with the PET scan. Glucose level 87 mg/dL CT DLP: 537.97 mGycm, Automated exposure control for dose reduction was used. COMPARISON: CT 11/29/2022, PET/CT None, FINDINGS: Mediastinal SUV mean is 1.4. Hepatic parenchyma SUV mean is 2.1. SKULL BASE AND NECK: No suspicious radiotracer activity. CHEST, MEDIASTINUM, AND HILAR REGION: Diffuse pulmonary nodules are seen throughout the lungs. The largest measuring up to 12 mm in the rig ht upper lobe, 11 mm in the right lower lobe, left lower lung measuring 10 mm and left upper lung akosua suring up to 5 mm. There is at least 50pulmonary nodules identified. ABDOMEN AND PELVIS: Abnormal FDG activity within the abdomen: * Multiple liver lesions: At least 6 lesions. * The largest which may be 2 adjacent in the Left hepatic lobe max SUV 13.[address] without IV contrast measuring 9.4 x 6.4 cm. * Abnormal FDG activity at the site of likely primary cancer in the splenic flexure of the colon max SUV 13.9 dominant mass measuring 2.7 x 2.2 cm with adjacent lymphadenopathy within the mesentery. MUSCULOSKELETAL STRUCTURES: No suspicious radiotracer activity. OTHER CT: [id number]-[id number] with tip terminating in the right atrium. Fat-containing left inguinal hernia . 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
== END | disposition home or self-care (01) ==
LOC: RADPETMAIN 07:45
PROVIDERS: ATTEND Internal Medicine Hematology & Oncology
DX: C18.6 Malignant neoplasm of descending colon (principal); C78.7 Secondary malignant neoplasm of liver and intrahepatic bile duct; C18.5 Malignant neoplasm of splenic flexure; R91.8 Other nonspecific abnormal finding of lung field
CPT/HCPCS: 78815; A9552

== ENCOUNTER → 2023-02-04 | Outpatient (CLI) | payer OTHER ==
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
== END | disposition home or self-care (01) ==
LOC: RADCTMAIN 15:46
PROVIDERS: ATTEND Family Medicine
DX: M19.032 Primary osteoarthritis, left wrist (principal); S62.155A Nondisplaced fracture of hook process of hamate [unciform] bone, left wrist, initial encounter for closed fracture; X58.XXXA Exposure to other specified factors, initial encounter

== ENCOUNTER 2023-08-06 13:19 | Inpatient (IN) | payer OTHER ==
--- NOTE | 2023-08-06 13:27 | ED ---
General Adult HPI - General Chief complaint: Extremity Injury, Lower Stated complaint: L Thigh Pain Time Seen by Provider: 08/06/23 13:27 Source: patient, RN notes reviewed Mode of arrival: ambulatory Limitations: no limitations - History of Present Illness Initial comments: This is a 32-year-old male with a past medical history of stage IV colon cancer presents emergency department chief complaint of left leg and hip pain over the last 4 days. He denies any known injuries to the leg. States that he has a difficult time ambulating over the past 2 days and has pain with abduction and abduction of the leg. States that this pain radiates from his hip on the lateral aspect of his thigh and down to his knee. Denies any paresthesias, loss of bladder or bowel function, shortness of breath, dizziness, chest pain or pressure, headaches. Patient denies history of DVT, however does have active cancer of his colon. Patient states that his last treatment of chemotherapy was 2 weeks ago on Friday. - Related Data Home Medications Medication Instructions Recorded Confirmed Ondansetron [Zofran] 1 tab PO DIRECTED 06/19/22 11/20/22 Famotidine [Pepcid] 10 mg PO BID 07/03/22 11/20/22 Acetaminophen Tab [Tylenol Tab] 1,000 mg PO Q6HR PRN 10/09/22 11/20/22 Cholecalciferol (Vitamin D3) 125 mcg PO DAILY 10/09/22 11/20/22 [Vitamin D3 (125 MCG = 5,000 IU)] Multivitamins, Thera [Multivitamin 1 tab PO DAILY 10/09/22 11/20/22 (formulary)] Previous Rx's Medication Instructions Recorded HYDROcodone/APAP 5-325MG [[place] 1 each PO Q6HR PRN #28 tab 05/29/22 5-325] Allergies Allergy/AdvReac Type Severity Reaction Status Date / Time No Known Allergies Allergy Verified 08/06/23 15:22 Review of Systems ROS Statement: Those systems with pertinent positive or pertinent negative responses have been documented in the HPI. ROS Other: All systems not noted in ROS Statement are negative. Past Medical History Past Medical History: No Reported History, Cancer Additional Past Medical History / Comment(s): masses on lung, liver, gallbladder,intestine 11 total, stage 4 colon cancer History of Any Multi-Drug Resistant Organisms: None Reported Past Surgical History: No Surgical Hx Reported Additional Past Surgical History / Comment(s): colonoscopy. liver biopsy, Past Anesthesia/Blood Transfusion Reactions: No Reported Reaction Past Psychological History: Anxiety, Depression Smoking Status: Never smoker Past Alcohol Use History: Rare Past Drug Use History: None Reported - Past Family History Brother(s) Additional Family Medical History / Comment(s): Ulcerative colitis (Brother) General Exam Limitations: no limitations General appearance: alert, in no apparent distress Head exam: Present: atraumatic, normocephalic, normal inspection Eye exam: Present: normal appearance, PERRL, EOMI. Absent: scleral icterus, conjunctival injection, periorbital swelling ENT exam: Present: normal exam, mucous membranes moist Neck exam: Present: normal inspection. Absent: tenderness, meningismus, lymphadenopathy Respiratory exam: Present: normal lung sounds bilaterally. Absent: respiratory distress, wheezes, rales, rhonchi, stridor Cardiovascular Exam: Present: regular rate, normal rhythm, normal heart sounds. Absent: systolic murmur, diastolic murmur, rubs, gallop, clicks GI/Abdominal exam: Present: soft, normal bowel sounds. Absent: distended, tenderness, guarding, rebound, rigid Left Hip exam: Present: tenderness (tednerness over the lateral hip radiating to the mid thigh, unable to activley complete abduction of him, pain with flexion and extension). Absent: full ROM, ecchymosis, deformity, crepitus Upper Leg exam: Present: normal inspection, tenderness (palpated over the lateral thigh) Knee exam: Present: normal inspection, full ROM. Absent: tenderness, swelling, abrasion, ecchymosis Lower Leg exam: Present: normal inspection, full ROM. Absent: tenderness, swelling, erythema, palpable cord Back exam: Present: normal inspection Neurological exam: Present: alert, oriented X3, CN II-XII intact Psychiatric exam: Present: normal affect, normal mood Skin exam: Present: warm, dry, intact, normal color. Absent: rash Course Vital Signs 08/06/23 08/06/23 13:21 14:30 Temperature 97.6 F Pulse Rate 91 Respiratory 18 Rate Blood Pressure 126/86 124/67 O2 Sat by Pulse 99 Oximetry Medical Decision Making - Medical Decision Making Was pt. sent in by a medical professional or institution (, PA, TREATING PLANT SUPERVISOR, urgent care, hospital, or detention...) When possible be specific @ -No Did you speak to anyone other than the patient for history (EMS, parent, family, police, friend...)? What history was obtained from this source @ -No Did you review nursing and triage notes (agree or disagree)? Why? @ -I reviewed and agree with nursing and triage notes Were old charts reviewed (outside hosp., previous admission, EMS record, old EKG, old radiological studies, urgent care reports/EKG's, detention records)? Report findings @ -Previous medical records reviewed where patient was diagnosed with stage IV colon cancer. Differential Diagnosis (chest pain, altered mental status, abdominal pain women, abdominal pain men, vaginal bleeding, weakness, fever, dyspnea, syncope, headache, dizziness, GI bleed, back pain, seizure, CVA, palpatations, mental health, musculoskeletal)? @ -Differential Musculoskeletal Muscular strain, contusion, ligament sprain, fracture, arthritis, septic arthritis, bursitis, cellulitis, muscle spasm, nerve compression, DVT, arterial occlusion, herpes zoster, electrolyte abnormality, tumor.... This is not meant to be in all inclusive list EKG interpreted by me (3pts min.). @ -None X-rays interpreted by me (1pt min.). @ -X-ray of the patient's left hip and pelvis with no evidence for acute fracture. CT interpreted by me (1pt min.). @ -None done U/S interpreted by me (1pt. min.). @ -duplex ultrasound of left lower extremity no evidence for DVT What testing was considered but not performed or refused? (CT, X-rays, U/S, labs)? Why? @ -None What meds were considered but not given or refused? Why? @ -None Did you discuss the management of the patient with other professionals (professionals i.e. BRIAN Baker, TREATING PLANT SUPERVISOR, lab, RT, psych nurse, social work professor, residential framing carpenter, teacher, security flex utility officer, child welfare caseworker)? Give summary @ -Past discussed this case with [facility] providers who are agreeable with admission for pain management. Spoke with social work for potential palliative or hospice care consult for further pain management. Was smoking cessation discussed for >3mins.? @ -No Was critical care preformed (if so, how long)? @ -No Were there social determinants of health that impacted care today? How? (Homelessness, low income, unemployed, alcoholism, drug addiction, transportation, low edu. Level, literacy, decrease access to med. care, snf, rehab)? @ -No Was there de-escalation of care discussed even if they declined (Discuss DNR or withdrawal of care, Hospice)? DNR status @ -No What co-morbidities impacted this encounter? (DM, HTN, Smoking, COPD, CAD, Cancer, CVA, ARF, Chemo, Hep., AIDS, mental health diagnosis, sleep apnea, mor bid obesity)? @ -Colon cancer Was patient admitted / discharged? Hospital course, mention meds given and route, prescriptions, significant lab abnormalities, going to OR and other pertinent info. @ -Admitted. 32-year-old male with complaint of left thigh pain and hip pain. On physical exam patient was found to be pain with active range of motion of the left hip. Patient sent for x-ray of hip and pelvis and ultrasound. Given IM morphine for pain relief. Ultrasound and x-ray results benign for any acute findings. At this time patient will be admitted for intractable pain to [facility] for further evaluation. I discussed this case with my attending, Dr. Nath, who is agreeable with plan and for admission. Case with child welfare caseworker, referral will be placed for social work inpatient for further determination of potential palliative care consult. Undiagnosed new problem with uncertain prognosis? @ -No Drug Therapy requiring intensive monitoring for toxicity (Heparin, Nitro, Insulin, Cardizem)? @ -No Were any procedures done? @ -No Diagnosis/symptom? @ -Intractable left leg and hip pain Acute, or Chronic, or Acute on Chronic? @ -Acute Uncomplicated (without systemic symptoms) or Complicated (systemic symptoms)? @ -uncomplicated Side effects of treatment? @ -No Exacerbation, Progression, or Severe Exacerbation? @ -No Poses a threat to life or bodily function? How? (Chest pain, USA, CA, pneumonia, PE, COPD, DKA, ARF, appy, cholecystitis, CVA, Diverticulitis, Homicidal, Suicidal, threat to staff... and all critical care pts) @ -No Disposition Clinical Impression: Leg pain, left, Mass of colon Disposition: ADMITTED IP TO THIS HOSP Condition: Fair Referrals: Juany Mo PAC [Family Provider] - 1-2 days Decision to Admit Reason: Admit from EC Decision Date: 08/06/23 Decision Time: 15:14
--- NOTE | 2023-08-06 14:25 | XR ---
EXAMINATION TYPE: XR Hip LT and AP Pelvis DATE OF EXAM: 08/06/2023 2:07 PM CLINICAL INDICATION:Male, 32 years old with history of pain; COMPARISON: None. TECHNIQUE: XR Hip LT and AP Pelvis; hip was examined in the frontal and lateral projections and a AP pelvis. FINDINGS: No evidence for acute process, joint dislocation or significant soft tissue swelling. Osteo phyte formation of the superior acetabulum of the hip. IMPRESSION: 1. No evidence for acute process. 2. Mild hip osteoarthrosis.
[2023-08-06] MEDS: MORPHINE SULFATE 2 MG/ML SYRINGE IM ONE (14:32)
--- NOTE | 2023-08-06 14:44 | US ---
EXAMINATION TYPE: US venous doppler duplex LE LT DATE OF EXAM: 08/06/2023 2:35 PM COMPARISON: NONE CLINICAL INDICATION: Male, 32 years old with history of leg pain; Leg pain x 1 day, patient denies an y other signs or symptoms. Undergoing chemo for multiple cancers SIDE PERFORMED: Left TECHNIQUE: The lower extremity deep venous system is examined utilizing real time linear array sonog kristy with graded compression, doppler sonography and color-flow sonography. VESSELS IMAGED: Common Femoral Vein Deep Femoral Vein Greater Saphenous Vein * Femoral Vein Popliteal Vein Small Saphenous Vein * Proximal Calf Veins (* superficial vessels) Right Leg: NA Left Leg: Negative for DVT IMPRESSION: Grayscale, color doppler, spectral doppler imaging performed of the deep veins of the lo wer extremities. There is normal flow, compressibility, vascular waveforms.
[2023-08-06] MEDS ORDERED: NALOXONE 0.4 MG/ML 1 ML VIAL IV PRN (15:12)
[2023-08-06] MEDS ORDERED: MORPHINE SULFATE 4 MG/ML SYRINGE IV PRN (15:12)
[2023-08-06] MEDS: HYDROmorphone 1 MG/ML 1 ML SYRINGE IVP STA (15:58)
[2023-08-06] MEDS ORDERED: ACETAMINOPHEN TAB 325 MG TAB PO PRN (16:18)
[2023-08-06] MEDS ORDERED: ACETAMINOPHEN TAB 500 MG TAB PO PRN (16:32)
--- NOTE | 2023-08-06 16:35 | P.HPIM ---
History of Present Illness H&P Date: 08/06/23 32 year old M with PMH of metastatic colon CA to the liver, pancreas and lung presents to the ED. Reports left lateral thigh pain that started yesterday. Pain starts at the hip and travels down the lateral side towards the knee. No bruising or swelling. Described as squeezing, 10/10 in severity, aggravated with bearing weight. No inciting event or trauma. Follows [facility] for his Oncological care. In the ED he underwent extensvie evaluation. BP 126/86, HR 91, RR 18, T 97.6F, 99% on RA. Hip XR no acute process, mild hip OA. Venous doppler negative for DVT. Patient is admitted for intractable pain. General: non toxic, no distress, appears at stated age Derm: warm, dry Head: atraumatic, normocephalic, symmetric Eyes: EOMI, no lid lag, anicteric sclera Mouth: no lip lesion, mucus membranes moist Cardiovascular: S1S2 reg, no murmur Lungs: CTA bilateral, no rhonchi, no rales , no accessory muscle use Ext: Tenderness to palpation over the lateral aspect of the left thigh. Restricted ROM of the left hip and knee due to pain. No erythema or bruising. Neuro: no focal neuro deficits Psych: Alert, oriented, appropriate affect Based on my assessment of this patient, this patient meets a high complexity level of care. Patient has an acute diagnosis of intractable left lateral thigh pain in the setting of metastatic colon CA that poses a threat to life or bodily function. Intractable left lateral thigh pain: IT band syndrome versus metastatic soft tissue lesion. Pain management with Dilaudid 1 mg IV Q3H PRN, Toradol 15 mg IV Q6H PRN. Await Orthopedic Sx evaluation prior to ordered additional imaging. Chronic conditions: Metastatic colon CA to the liver, pancreas and lung CODE STATUS: FULL CODE DVT Prophylaxis: Lovenox SQ GI Prophylaxis: Protonix PO Designated medical POA if patient is not able to make medical decisions for themselves: I have reviewed the following compliance consultant notes: ED note. I have reviewed the results of the following tests: As above. I have ordered the following tests: As above. I have discussed the care of this patient with the following independent historian: RN regarding pain management. I have independently interpreted the following test below: Hip XR. I have discussed the management of this patient with the following physician: This patient meets a high level of care for the following reasons: Patient requires IV narcotics which requires intensive monitoring for respiratory depression. Past Medical History Past Medical History: No Reported History, Cancer Additional Past Medical History / Comment(s): masses on lung, liver, gallbladder,intestine 11 total, stage 4 colon cancer History of Any Multi-Drug Resistant Organisms: None Reported Past Surgical History: No Surgical Hx Reported Additional Past Surgical History / Comment(s): colonoscopy. liver biopsy, Past Anesthesia/Blood Transfusion Reactions: No Reported Reaction Past Psychological History: Anxiety, Depression Smoking Status: Never smoker Past Alcohol Use History: Rare Past Drug Use History: None Reported - Past Family History Brother(s) Additional Family Medical History / Comment(s): Ulcerative colitis (Brother) Medications and Allergies Home Medications Medication Instructions Recorded Confirmed Type Ondansetron [Zofran] 8 mg PO Q6H PRN 06/19/22 08/06/23 History Acetaminophen Tab [Tylenol Tab] 500 mg PO Q6HR PRN 10/09/22 08/06/23 History Multivitamins, Thera [Multivitamin 1 tab PO DAILY 10/09/22 08/06/23 History (formulary)] HYDROcodone/APAP 5-325MG [[place] 1 tab PO Q6HR PRN 08/06/23 08/06/23 History 5-325] OLANZapine 5 mg PO DIRECTED PRN 08/06/23 08/06/23 History Pantoprazole [Protonix] 40 mg PO BID 08/06/23 08/06/23 History traZODone HCL [Desyrel] 100 mg PO DIRECTED PRN 08/06/23 08/06/23 History Allergies Allergy/AdvReac Type Severity Reaction Status Date / Time No Known Allergies Allergy Verified 08/06/23 15:55 Physical Exam Vitals: Vital Signs Temp Pulse Resp BP Pulse Ox 08/06/23 14:30 124/67 08/06/23 13:21 97.6 F 91 18 126/86 99 Intake and Output 08/06/23 08/06/23 08/06/23 06:59 14:59 22:59 Other: Weight 104.78 kg
[2023-08-06] MEDS: KETOROLAC 15 MG/ML 1 ML VIAL IVP PRN (17:37)
[2023-08-06] MEDS: PANTOPRAZOLE 40 MG TABLET PO SCH (17:46)
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
[2023-08-06 20:05] LABS: Anisocytosis Slight; HCT 37.4 % (39.0-53.0); HGB 11.6 gm/dL (13.0-17.5); Hypochromasia Slight; MCH 26.8 pg (25.0-35.0); MCV 86.2 fL (80.0-100.0); Mean Platelet Volume 7.7; Platelet Count 106 k/uL (150-450); RBC 4.34 m/uL (4.30-5.90); RDW 17.8 % (11.5-15.5); WBC 3.3 k/uL (3.8-10.6)
[2023-08-06 20:11] LABS: Partial Thromboplastin Time 24.4 sec (22.0-30.0); Prothrombin Time 11.1 sec (10.0-12.5)
[2023-08-06 20:15] LABS: ALT 30 U/L (4-49); AST 41 U/L (17-59); African American GFR (CKD) >90 (>60 ml/min/1.73 sqM); Albumin 3.7 g/dL (3.5-5.0); Albumin/Globulin Ratio 1.2; Alkaline Phosphatase 135 U/L (38-126); Anion Gap 12 mmol/L; Blood Urea Nitrogen 11 mg/dL (9-20); Carbon Dioxide 22 mmol/L (22-30); Chloride 104 mmol/L (98-107); Globulin 3.1 g/dL; Glucose 117 mg/dL (74-99); Non-African American GFR(CKD) >90 (>60 ml/min/1.73 sqM); Phosphorus 3.9 mg/dL (2.5-4.5); Potassium 3.6 mmol/L (3.5-5.1); Sodium 138 mmol/L (137-145); Total Bilirubin 0.9 mg/dL (0.2-1.3); Total Protein 6.8 g/dL (6.3-8.2)
[2023-08-06] MEDS: HYDROmorphone 1 MG/ML 1 ML SYRINGE IVP PRN (21:19)
[2023-08-06] MEDS: MELATONIN 3 MG TABLET PO PRN (23:07)
[2023-08-07] MEDS: ENOXAPARIN 40 MG/0.4 ML SYRINGE SQ SCH (08:55)
--- NOTE | 2023-08-07 12:58 | P.PN ---
Subjective Progress Note Date: 08/07/23 No new complaints today. Ongoing leg pain. Pending MRI Gen: In NAD, non-toxic HEENT: normocephalic, atraumatic, hearing acuity is intant, mucous membranes moist CVS: perfusing all extremities well, no pitting edema, Respiratory: symmetric chest expansion, no accessory muscle use, GI: soft, NTTP, ND, : no suprapubic tenderness, no CVA tenderness MSK/Derm: no rashes, cyanosis Neuro: CN II-XII intact, no motor weakness, Psych: cooperative, euthymic mood, judgment and insight is intact Hospital course: 32 year old M with PMH of metastatic colon CA to the liver, pancreas and lung presented to the ED. In the ED he underwent extensvie evaluation. BP 126/86, HR 91, RR 18, T 97.6F, 99% on RA. Hip XR no acute process, mild hip OA. Venous doppler negative for DVT. Assessment/plan: Intractable left lateral thigh pain: IT band syndrome versus metastatic soft tissue lesion. -Pain management with Dilaudid 1 mg IV Q3H PRN, Toradol 15 mg IV Q6H PRN. -Appreciate Ortho recs, pending MRI Chronic conditions: Metastatic colon CA to the liver, pancreas and lung CODE STATUS: FULL CODE DVT Prophylaxis: Lovenox SQ GI Prophylaxis: Protonix PO Designated medical POA if patient is not able to make medical decisions for themselves: Objective - Vital Signs Vital signs: Vital Signs Temp 100.0 F H 08/07/23 07:32 Pulse 88 08/07/23 07:32 Resp 16 08/07/23 07:32 BP 112/58 08/07/23 07:32 Pulse Ox 94 L 08/07/23 07:32 FiO2 Intake & Output 08/06/23 08/07/23 08/07/23 18:59 06:59 18:59 Intake Total 590 Balance 590 Weight 104.78 kg 104.78 kg Intake: Oral 590 Other: Voiding Method Toilet - Labs CBC & Chem 7: 08/06/23 19:35 08/06/23 19:35 Labs: Abnormal Lab Results - Last 24 Hours (Table) 08/06/23 08/06/23 Range/Units 19:35 19:35 WBC 3.3 L (3.8-10.6) k/uL Hgb 11.6 L (13.0-17.5) gm/dL Hct 37.4 L (39.0-53.0) % RDW 17.8 H (11.5-15.5) % Plt Count 106 L (150-450) k/uL Glucose 117 H (74-99) mg/dL Alkaline Phosphatase 135 H (38-126) U/L
[2023-08-07 14:22] VITALS: BMI 28.8
[2023-08-07 16:41] LABS: Appearance,Urine Cloudy (Clear); Bilirubin,Urine Negative (Negative); Blood,Urine Negative (Negative); Color,Urine Yellow; Glucose,Urine (UA) Negative (Negative); Ketones,Urine Negative (Negative); Leukocyte Esterase,Urine Small (Negative); Mucus,Urine Many /hpf; Nitrite,Urine Negative (Negative); Protein,Urine Trace (Negative); RBC,Urine 2 /hpf (0-5); Specific Gravity,Urine 1.021 (1.001-1.035); Squamous Epithelial Cell,Urine 1 /hpf (0-4); Urobilinogen,Urine <2.0 mg/dL (<2.0); WBC,Urine 20 /hpf (0-5)
--- NOTE | 2023-08-07 18:56 | P.CONS ---
History of Present Illness - Reason for Consult Consult date: 08/07/23 colon cancer Requesting physician: Verenice Kaufman - Chief Complaint leg pain - History of Present Illness Patient is a 32 year old male with a signifcant history of metastatic colon adenocarcinoma. He was initially seen in consultation at [facility] on 05/24/22. He developed some upper quadrant pain on the right side about 2 weeks prior, that was initially mild to moderate without any definite relieving or aggravating factors. The patient then developed discoloration of his urine orange color for which he sought attention with his PCP. He had an ultrasound of his abdomen that showed multiple suspicious lesions in the liver, due to which she was admitted to come to the ER. A CT of the abdomen and pelvis revealed evidence of a large colon mass in the splenic flexure, as well as multiple metastatic-appearing lesions in the liver, mass involving the pancreas and nodules in the lung bases. He had a colonoscopy on 05/28/22. This showed a large mass at the splenic flexure, beyond which the scope could not be traversed. Biopsy was positive for moderate to poorly differentiated adenocarcinoma. Liver biopsy was done on 05/27/22 confirming metastatic adenocarcinoma consistent with colorectal primary. He also had a CT angiogram done, that showed no significant lung nodules or mediastinal adenopathy. Biomarker testing revealed him to be K-denis mutated, MSI negative and TMB low. This tumor did have a PI3K mutation, for which targeted agents are available, but not approved for colon cancer. His APC and Mcconnell syndrome testing was negative. He was started on chemotherapy with FOLFOX on 06/19/22, and is status post 12 cycles. Bevacizumab was added with C [address] scan in 12/25 showed new lung nodules with overall stable to improved findings in the abdomen and pelvis. He was having some URTI symptoms at that time. Treatment was held, and a PET scan was done after about a week interval. This unfortunately showed evidence of progression with more than 50 bilateral lung nodules with multiple of them showing uptake. There was also significant persistent uptake in the liver lesions and at the primary site. The patient was referred back to the [facility] regarding the possibility of clinical trials. He is currently in clinical trial, last receiving treatment on 07/22/23, missing last cycle on 08/04 due to acute symptoms. Patient reports that over the last 3 to 4 days he has been having left thigh pain, limiting ambulation. Patient denies any known injury. Reports weightbearing and range of motion of left lower extremity exacerbates pain. Patient denies any left leg swelling. Denies fever and chills. Upon admission Doppler of left lower extremity was negative for DVT. X-ray left hip and pelvis revealed no evidence for acute process. With mild hip osteoarthrosis. Orthopedic surgery has been consulted with plan of left hip, left thigh and left femur MRI. Also reporting persisting lumbar back pain for the last cpl months. Patient reports pain medications are only working for a minimal amount of time but pain has improved since admission. He is is ambulating in room with walker. Review of Systems 10 point ROS is negative except as stated in the HPI Past Medical History Past Medical History: No Reported History, Cancer Additional Past Medical History / Comment(s): masses on lung, liver, gallbladder,intestine. Stage 4 colon CA diagnosed May 2022. History of Any Multi-Drug Resistant Organisms: None Reported Past Surgical History: No Surgical Hx Reported Additional Past Surgical History / Comment(s): colonoscopy. liver biopsy, right chest power port. Past Anesthesia/Blood Transfusion Reactions: No Reported Reaction Additional Past Anesthesia/Blood Transfusion Reaction / Comm: Josselin has never had blood transfusions. Past Psychological History: Anxiety, Depression Smoking Status: Never smoker Past Alcohol Use History: Rare Past Drug Use History: None Reported - Past Family History Brother(s) Additional Family Medical History / Comment(s): Ulcerative colitis (Brother) Medications and Allergies Home Medications Medication Instructions Recorded Confirmed Type Ondansetron [Zofran] 8 mg PO Q6H PRN 06/19/22 08/06/23 History Acetaminophen Tab [Tylenol Tab] 500 mg PO Q6HR PRN 10/09/22 08/06/23 History Multivitamins, Thera [Multivitamin 1 tab PO DAILY 10/09/22 08/06/23 History (formulary)] HYDROcodone/APAP 5-325MG [[place] 1 tab PO Q6HR PRN 08/06/23 08/06/23 History 5-325] OLANZapine 5 mg PO DIRECTED PRN 08/06/23 08/06/23 History Pantoprazole [Protonix] 40 mg PO BID 08/06/23 08/06/23 History traZODone HCL [Desyrel] 100 mg PO DIRECTED PRN 08/06/23 08/06/23 History Allergies Allergy/AdvReac Type Severity Reaction Status Date / Time No Known Allergies Allergy Verified 08/06/23 15:55 Physical Exam Vitals: Vital Signs Temp Pulse Pulse Resp BP BP Pulse Ox 08/07/23 07:32 100.0 F H 88 16 112/58 94 L 08/07/23 02:00 98.3 F 83 16 99/57 94 L 08/06/23 21:56 97.8 F 91 16 113/73 97 08/06/23 20:35 78 12 121/76 100 08/06/23 19:00 83 19 101/59 100 08/06/23 17:00 85 19 112/73 100 08/06/23 14:30 124/67 08/06/23 13:21 97.6 F 91 18 126/86 99 Intake and Output 08/06/23 08/07/23 08/07/23 22:59 06:59 14:59 Intake Total 590 Balance 590 Intake: Oral 590 Other: Weight 104.78 kg - Constitutional General appearance: average body habitus, no acute distress - EENT Eyes: anicteric sclerae ENT: hearing grossly normal - Respiratory breathing is even and unlabored - Cardiovascular skin warm and dry, well perfused - Gastrointestinal General gastrointestinal: soft, no tenderness - Musculoskeletal tenderness noted to left lateral thigh, no edema, erythema or warmth noted - Psychiatric Psychiatric: A&O x's 3 Results CBC & Chem 7: 08/06/23 19:35 08/06/23 19:35 Labs: Abnormal Lab Results - Last 24 Hours (Table) 08/06/23 08/06/23 Range/Units 19:35 19:35 WBC 3.3 L (3.8-10.6) k/uL Hgb 11.6 L (13.0-17.5) gm/dL Hct 37.4 L (39.0-53.0) % RDW 17.8 H (11.5-15.5) % Plt Count 106 L (150-450) k/uL Glucose 117 H (74-99) mg/dL Alkaline Phosphatase 135 H (38-126) U/L Comments: left hip/pelvis xray reviewed Venous US: report reviewed Assessment and Plan (1) Colon cancer Current Visit: Yes Status: Acute Priority: High Code(s): C18.9 - MALIGNANT NEOPLASM OF COLON, UNSPECIFIED SNOMED Code(s): 715200635 (2) Leg pain, left Current Visit: Yes Status: Acute Priority: High Code(s): M79.605 - PAIN IN LEFT LEG SNOMED Code(s): 281849554 Plan: Left leg pain Presented with left thigh pain over the last 3 to 4 days, limiting ambulation. Patient denies any known injury. Reports weightbearing and range of motion of left lower extremity exacerbates pain. Patient denies any left leg swelling and erythema -Upon admission Doppler of left lower extremity was negative for DVT. X-ray left hip and pelvis revealed no evidence for acute process. With mild hip osteoarthrosis -Orthopedic surgery has been consulted with plan of left hip, left thigh and left femur MRI. -Pt also reporting persisting lumbar back pain for the last cpl months. Will ob tain MRI L/S for further evaluation to r/o metastasis Metastatic colon adenocarcinoma: -Full history in HPI -Completed 12 cycles of Folfox, with Bevacizumab added with cycle [address] showed evidence of progression with more than 50 bilateral lung nodules with multiple of them showing uptake. There was also significant persistent uptake in the liver lesions and at the primary site. The patient was referred back to the [facility] regarding the possibility of clinical trials. -He is currently in clinical trial at [facility], last receiving treatment with Folfiri/curry on 07/22/23, missing last cycle on 08/04 due to acute symptoms -Counts stable -Pt will f/u with oncologist at [facility] upon discharge
[2023-08-07] MEDS: SENNOSIDES-DOCUSATE SODIUM 1 EACH TAB PO SCH (21:04)
--- NOTE | 2023-08-08 03:36 | MR ---
EXAMINATION TYPE: MR hip LT wo con, MR femur/thigh LT wo con DATE OF EXAM: 08/07/2023 COMPARISON: Pelvic and left hip x-ray one day earlier. HISTORY: Left lower extremity pain, stage 4 colon cancer has been doing treatments for 1 year. Standard multiplanar, multisequence MRI departmental protocol Multiplanar, multisequence images of the pelvis focusing on left hip were acquired without contrast. MRI of the left femur and thigh without contrast.. FINDINGS: Mild axial joint space loss in both hips. Tiny bilateral hip joint effusions presumed physi ologic. Femoral head shapes are maintained bilaterally. No serpiginous diminished T1 signal to sugges t avascular necrosis. No suspicious increased T2 signal or osseous edema. Muscle bulk is maintained b ilaterally. Small fat-containing left inguinal hernia is noted. No groin adenopathy is seen. Small am ount of free fluid in the pelvis is present. Urinary bladder and prostate gland are unremarkable. No focal abnormal edema. Trochanteric level of the left proximal femur is seen involving the deeper i nferior gluteal muscles along with the posterior lateral aspect of the inferior medial thigh muscles and posterior medial aspect of the anterolateral inferior left thigh muscles. This measures roughly 1 1.0 cm long axis parallel to the leg sagittal image 18 x 7.5 cm transversely by 7.2 cm AP diameter ax ial image 8 series 601 of the hip MRI. Muscle bulk is maintained. IMPRESSION: No suspicious focal osseous lesion. Abnormal ill-defined fluid or edema involving the pos terior deeper muscles at the subtrochanteric level of the left proximal femur likely accounting for p atient's symptoms.
[2023-08-08] MEDS: polyethylene glycoL 3350 17 GM POWD.PACK PO SCH (07:57)
[2023-08-08] MEDS: ONDANSETRON 4 MG/2 ML VIAL IVP PRN (08:48)
--- NOTE | 2023-08-08 13:10 | P.PN ---
Subjective Progress Note Date: 08/08/23 No acute events. Patient resting comfortably in bed. Reporting improvement in left thigh pain and is having improvement in ambulation. Spoke with IM team, will plan for discharge today after MRI. Objective - Vital Signs Vital signs: Vital Signs Temp 98.8 F 08/08/23 07:22 Pulse 86 08/08/23 07:22 Resp 18 08/08/23 08:00 BP 118/73 08/08/23 07:22 Pulse Ox 96 08/08/23 07:22 FiO2 Intake & Output 08/07/23 08/08/23 08/08/23 18:59 06:59 18:59 Intake Total 590 Balance 590 Weight 104.78 kg Intake: Oral 590 Other: Voiding Method Toilet Toilet # Voids 2 - Constitutional General appearance: Present: average body habitus, no acute distress - EENT Eyes: Present: anicteric sclerae, EOMI ENT: Present: hearing grossly normal - Respiratory Details: Breathing is even and unlabored - Cardiovascular Details: Skin warm and dry - Musculoskeletal Musculoskeletal Comment(s): Tenderness to left lateral thigh - Psychiatric Psychiatric: Present: A&O x's 3 - Labs CBC & Chem 7: 08/06/23 19:35 08/06/23 19:35 Labs: Abnormal Lab Results - Last 24 Hours (Table) 08/07/23 Range/Units 15:20 Urine Protein Trace H (Negative) Ur Leukocyte Esterase Small H (Negative) Urine WBC 20 H (0-5) /hpf Urine Mucus Many H (None) /hpf - Imaging and Cardiology MRI left femur and left hip reviewed Assessment and Plan (1) Colon cancer Current Visit: Yes Status: Acute Priority: High Code(s): C18.9 - MALIGNANT NEOPLASM OF COLON, UNSPECIFIED SNOMED Code(s): 668869585 (2) Leg pain, left Current Visit: Yes Status: Acute Priority: High Code(s): M79.605 - PAIN IN LEFT LEG SNOMED Code(s): 135306838 Plan: Left leg pain Presented with left thigh pain over the last 3 to 4 days, limiting ambulation. Patient denies any known injury. Reports weightbearing and range of motion of left lower extremity exacerbates pain. Patient denies any left leg swelling and erythema -Upon admission Doppler of left lower extremity was negative for DVT. X-ray left hip and pelvis revealed no evidence for acute process. With mild hip osteoarthrosis -Orthopedic surgery has been consulted with plan of left hip, left thigh and left femur MRI. -MRI of left hip and left femur revealed no suspicious Osseous lesions. Abnormal ill-defined fluid or edema involving the posterior deeper muscles at the subtrochanteric level of the left proximal femur which could account for patients symptoms. Will await ortho recommendations -Pt also reporting persisting lumbar back pain for the last cpl months. Will obtain MRI L/S for further evaluation to r/o metastasis. Scan scheduled for today, ok for discharge from our standpoint after imaging obtained Metastatic colon adenocarcinoma: -Full history in HPI -Completed 12 cycles of Folfox, with Bevacizumab added with cycle [address] showed evidence of progression with more than 50 bilateral lung nodules with multiple of them showing uptake. There was also significant persistent uptake in the liver lesions and at the primary site. The patient was referred back to the [facility] regarding the possibility of clinical trials. -He is currently in clinical trial at [facility], last receiving treatment with Folfiri/curry on 07/22/23, missing last cycle on 08/04 due to acute symptoms -Counts stable -Pt will f/u with oncologist at [facility] upon discharge
[2023-08-08 15:34] VITALS: BP 118/65; PULSE 85; RESP 16; TEMP 98.6
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
--- NOTE | 2023-08-08 17:06 | P.DS ---
Providers Date of admission: 08/06/23 16:04 Expected date of discharge: 08/08/23 Attending physician: Verenice Kaufman MD Consults: 08/06/23 16:19 Consult Physician Routine Consulting Provider: Dallin Winkler Consult Reason/Comments: Left thigh pain Do you want consulting provider notified?: Yes 08/07/23 07:49 Consult Physician Routine Consulting Provider: Heriberto Fernandez Consult Reason/Comments: stage 4 liver CA Do you want consulting provider notified?: Already Contacted Primary care physician: Desmond [facility] Course: Intractable left lateral thigh pain: IT band syndrome versus metastatic soft tissue lesion. Chronic conditions: Metastatic colon CA to the liver, pancreas and lung 32 year old M with PMH of metastatic colon CA to the liver, pancreas and lung presented to the ED. In the ED he underwent extensvie evaluation. BP 126/86, HR 91, RR 18, T 97.6F, 99% on RA. Hip XR no acute process, mild hip OA. Venous doppler negative for DVT. MRI Hip/Femur of the left showed fluid collection, not felt to be hematoma or abscess. MRI Lumbar was completed while in house as well. Discussed with oncology, results of this scan will be followed up by them in office. Pt discharged home with PCP and oncology f/u. Gen: In NAD, non-toxic HEENT: normocephalic, atraumatic, hearing acuity is intant, mucous membranes moist CVS: perfusing all extremities well, no pitting edema, Respiratory: symmetric chest expansion, no accessory muscle use, GI: soft, NTTP, ND, : no suprapubic tenderness, no CVA tenderness MSK/Derm: no rashes, cyanosis Neuro: CN II-XII intact, no motor weakness, Psych: cooperative, euthymic mood, judgment and insight is intact I spent 32 minutes coordinating this discharge Patient Condition at Discharge: Good Plan - Discharge Summary Discharge Rx Participant: No New Discharge Prescriptions: New polyethylene glycoL 3350 [Miralax] 17 gm PO DAILY #30 packet Sennosides-Docusate Sodium [Senokot-S] 1 each PO BID #60 tab Continue traZODone HCL [Desyrel] 100 mg PO DIRECTED PRN PRN Reason: sleep Ondansetron [Zofran] 8 mg PO Q6H PRN PRN Reason: Nausea Multivitamins, Thera [Multivitamin (formulary)] 1 tab PO DAILY Acetaminophen Tab [Tylenol] 500 mg PO Q6HR PRN PRN Reason: pain HYDROcodone/APAP 5-325MG [[place] 5-325] 1 tab PO Q6HR PRN PRN Reason: Pain Pantoprazole [Protonix] 40 mg PO BID OLANZapine 5 mg PO DIRECTED PRN PRN Reason: nausea Discharge Medication List Ondansetron [Zofran] 8 mg PO Q6H PRN 06/19/22 [History] Acetaminophen Tab [Tylenol] 500 mg PO Q6HR PRN 10/09/22 [History] Multivitamins, Thera [Multivitamin (formulary)] 1 tab PO DAILY 10/09/22 [History] HYDROcodone/APAP 5-325MG [[place] 5-325] 1 tab PO Q6HR PRN 08/06/23 [History] OLANZapine 5 mg PO DIRECTED PRN 08/06/23 [History] Pantoprazole [Protonix] 40 mg PO BID 08/06/23 [History] traZODone HCL [Desyrel] 100 mg PO DIRECTED PRN 08/06/23 [History] Sennosides-Docusate Sodium [Senokot-S] 1 each PO BID #60 tab 08/08/23 [Rx] polyethylene glycoL 3350 [Miralax] 17 gm PO DAILY #30 packet 08/08/23 [Rx] Follow up Appointment(s)/Referral(s): Juany Mo, PAC [Family Provider] - 1-2 days Discharge Disposition: HOME SELF-CARE
--- NOTE | 2023-08-09 08:39 | MR ---
EXAMINATION TYPE: MR lspine/sacrum wo/w con DATE OF EXAM: 08/08/2023 4:33 PM COMPARISON: NONE HISTORY: Progressing low back pain, hx stage 4 colon cancer, 1 year in treatment CONTRAST: The patient was injected with 10 mL intravenous Gadavist gadolinium contrast. Multiplanar, MultiSpin echo imaging of the lumbar spine and sacrum was performed. L1-L2: Normal disc appearance without desiccation. No herniation, protrusion or disc bulging. No ca nal stenosis is present. Foramina are patent bilaterally. L2-L3: Normal disc appearance without desiccation. No herniation, protrusion or disc bulging. No ca nal stenosis is present. Foramina are patent bilaterally. L3-L4: Normal disc appearance without desiccation. No herniation, protrusion or disc bulging. No ca nal stenosis is present. Foramina are patent bilaterally. L4-L5: Normal disc appearance without desiccation. No herniation, protrusion or disc bulging. No ca nal stenosis is present. Foramina are patent bilaterally. L5-S1: Mild decreased signal and loss of height compatible with degenerative disc disease. Posterior central disc herniation with mild effacement of ventral thecal sac. No evidence or lateral recess latasha nosis or central stenosis. Early extrusion difficult to exclude. Lumbar segments are intact. No paraspinal masses are identified. Conus medullaris has a normal appe arance. Sacrum: Sacral alae are symmetric. No evidence of fracture. No enhancing or destructive bony lesion seen. No evidence for presacral mass. IMPRESSION: 1. L5-S1 disc desiccation and herniation. 2. Unremarkable evaluation of the sacrum.
== END 2023-08-08 18:12 | disposition home or self-care (01) | DRG 351 ==
LOC: EC 13:19 → 5NMEDONC 16:04
PROVIDERS: ADMIT Family Medicine; ATTEND Family Medicine
DX: M25.552 Pain in left hip (principal); C18.9 Malignant neoplasm of colon, unspecified; C78.7 Secondary malignant neoplasm of liver and intrahepatic bile duct; Z92.21 Personal history of antineoplastic chemotherapy; C78.00 Secondary malignant neoplasm of unspecified lung; C78.89 Secondary malignant neoplasm of other digestive organs; F32.A Depression, unspecified; F41.9 Anxiety disorder, unspecified; M76.31 Iliotibial band syndrome, right leg; M16.12 Unilateral primary osteoarthritis, left hip; Z79.899 Other long term (current) drug therapy; Z85.038 Personal history of other malignant neoplasm of large intestine; M76.51 Patellar tendinitis, right knee
CPT/HCPCS: 72158; 72197; 73502; 80053; 81001; 83735; 84100; 85027; 85610; 85730; 87086; 96372; 96374; 96375; 99285

== ENCOUNTER 2023-09-15 22:02 | Emergency (ER) | payer OTHER ==
--- NOTE | 2023-09-15 22:34 | ED ---
Skin/Abscess/FB HPI - General Source: patient, RN notes reviewed Mode of arrival: ambulatory Limitations: no limitations <Rose Mary Hamilton - Last Filed: 09/15/23 22:33> <Bobbi Rachel - Last Filed: 09/24/23 22:20> - General Stated complaint: Hemorrhoids Time Seen by Provider: 09/15/23 22:33 - History of Present Illness Initial comments: Quick note: 32-year-old male presenting to the ER with a chief complaint of rectal pain. Patient has known stage IV colon cancer and recently underwent surgery at [facility] approximately 10 days ago. He states for the past 3 days he has been having a hemorrhoid which he has been reducing. He states the pain has not been controlled. He denies any bleeding or fevers. (Rose Mary Hamilton) 32-year-old male who presents to the emergency department complaining of rectal pain. He has known stage IV colon cancer. Recently had surgery at [facility] to have a segment of his bowels removed. States that he has no known rectal lesions. After his procedure he began having rectal pain in the hospital. He was told that they were hemorrhoids. He was told to use Preparation H cream. Patient was also prescribed a short course of oxycodone however states he has not been taking it because he knows it can lead to constipation. Patient has been taking MiraLAX to help move his bowels. States he has had no issues with bowel movements. Denies fevers. No rectal bleeding or discharge. Denies any changes with his urination. States he feels a bulge when he uses the bathroom which will then reduce and this is where all of his pain is. His GI doctor told him to come into the closest hospital for evaluation. No other alleviating, precipitating or modifying factors (Bobbi Rachel) - Related Data Home Medications Medication Instructions Recorded Confirmed Ondansetron [Zofran] 8 mg PO Q6H PRN 06/19/22 08/06/23 Acetaminophen Tab [Tylenol] 500 mg PO Q6HR PRN 10/09/22 08/06/23 Multivitamins, Thera [Multivitamin 1 tab PO DAILY 10/09/22 08/06/23 (formulary)] HYDROcodone/APAP 5-325MG [Tatum 1 tab PO Q6HR PRN 08/06/23 08/06/23 5-325] OLANZapine 5 mg PO DAILY PRN 08/06/23 08/08/23 Pantoprazole [Protonix] 40 mg PO BID 08/06/23 08/06/23 traZODone HCL [Desyrel] 100 mg PO HS 08/06/23 08/08/23 Previous Rx's Medication Instructions Recorded Sennosides-Docusate Sodium 1 each PO BID #60 tab 08/08/23 [Senokot-S] polyethylene glycoL 3350 [Miralax] 17 gm PO DAILY #30 packet 08/08/23 Docusate [Colace] 100 mg PO BID #60 capsule 09/16/23 Hydrocortisone [Anusol-Hc] 1 applic RECTAL BID #30 gm 09/16/23 oxyCODONE HCL [oxyCODONE HCL (IR)] 10 mg PO Q4H 3 Days #18 tab 09/16/23 Allergies Allergy/AdvReac Type Severity Reaction Status Date / Time No Known Allergies Allergy Verified 08/06/23 15:55 Review of Systems ROS Other: All systems not noted in ROS Statement are negative. <Rose Mary Hamilton - Last Filed: 09/15/23 22:33> ROS Other: All systems not noted in ROS Statement are negative. <Bobbi Rachel - Last Filed: 09/24/23 22:20> ROS Statement: Those systems with pertinent positive or pertinent negative responses have been documented in the HPI. Past Medical History Past Medical History: No Reported History, Cancer Additional Past Medical History / Comment(s): masses on lung, liver, gallbladder,intestine. Stage 4 colon CA diagnosed May 2022. History of Any Multi-Drug Resistant Organisms: None Reported Past Surgical History: No Surgical Hx Reported Additional Past Surgical History / Comment(s): colonoscopy. liver biopsy, right chest power port. Past Anesthesia/Blood Transfusion Reactions: No Reported Reaction Additional Past Anesthesia/Blood Transfusion Reaction / Comment(s): Josselin has never had blood transfusions. Past Psychological History: Anxiety, Depression Smoking Status: Never smoker Past Alcohol Use History: Rare Past Drug Use History: None Reported - Past Family History Brother(s) Additional Family Medical History / Comment(s): Ulcerative colitis (Brother) <Rose Mary Hamilton - Last Filed: 09/15/23 22:33> General Exam <Rose Mary Hamilton - Last Filed: 09/15/23 22:33> General appearance: alert, in no apparent distress Head exam: Present: atraumatic, normocephalic, normal inspection Eye exam: Present: normal appearance, PERRL, EOMI. Absent: scleral icterus, conjunctival injection, periorbital swelling ENT exam: Present: normal exam, mucous membranes moist Neck exam: Present: normal inspection. Absent: tenderness, meningismus, lymphadenopathy Respiratory exam: Present: normal lung sounds bilaterally. Absent: respiratory distress, wheezes, rales, rhonchi, stridor Cardiovascular Exam: Present: regular rate, normal rhythm, normal heart sounds. Absent: systolic murmur, diastolic murmur, rubs, gallop, clicks GI/Abdominal exam: Present: soft, normal bowel sounds, other (Healing midline incision without bleeding, pustular drainage or dehiscence). Absent: distended, tenderness, guarding, rebound, rigid Rectal exam: Present: hemorrhoids, tenderness, other (Patient has multiple nonthrombosed hemorrhoids which easily reduce. No grossly identifiable rectal prolapse. No identifiable fissure or fistula) Extremities exam: Present: normal inspection, full ROM, normal capillary refill. Absent: tenderness, pedal edema, joint swelling, calf tenderness Back exam: Present: normal inspection Neurological exam: Present: alert, oriented X3, CN II-XII intact Psychiatric exam: Present: normal affect, normal mood Skin exam: Present: warm, dry, intact, normal color. Absent: rash <Bobbi Rachel - Last Filed: 09/24/23 22:20> - General Exam Comments Initial Comments: Visual Physical Exam Vital signs reviewed General: Well-appearing, nontoxic, no acute distress. Head: Normocephalic, atraumatic Eyes: PERRLA, EOMI ENT: Airway patent Chest: Nonlabored breathing Skin: No visual rash, normal skin tone Neuro: Alert and oriented 3 Musculoskeletal: No gross abnormalities (Rose Mary Hamilton) Course Vital Signs 09/15/23 09/16/23 23:21 01:19 Temperature 98.3 F Pulse Rate 94 94 Respiratory 20 20 Rate Blood Pressure 144/89 140/92 O2 Sat by Pulse 99 100 Oximetry Medical Decision Making <Rose Mary Hamilton - Last Filed: 09/15/23 22:33> <Bobbi Rachel - Last Filed: 09/24/23 22:20> - Medical Decision Making I performed the quick note portion of this chart. Electronically signed by Rose Mary Hamilton PA-C (Rose Mary Hamilton) Was pt. sent in by a medical professional or institution (BRIAN Baker, COFFIN MAKER, urgent care, hospital, or fpc...) When possible be specific @ -Patient was encouraged to come in by his [facility] GI doctor Did you speak to anyone other than the patient for history (EMS, parent, family, police, friend...)? What history was obtained from this source @ -No Did you review nursing and triage notes (agree or disagree)? Why? @ -I reviewed and agree with nursing and triage notes Were old charts reviewed (outside hosp., previous admission, EMS record, old EKG, old radiological studies, urgent care reports/EKG's, fpc records)? Report findings @ -No old charts were reviewed Differential Diagnosis (chest pain, altered mental status, abdominal pain women, abdominal pain men, vaginal bleeding, weakness, fever, dyspnea, syncope, headache, dizziness, GI bleed, back pain, seizure, CVA, palpatations, mental health, musculoskeletal)? @ -Fissure, fistula, rectal prolapse, rectal mass, hemorrhoid EKG interpreted by me (3pts min.). @ -Not done X-rays interpreted by me (1pt min.). @ -None done CT interpreted by me (1pt min.). @ -None done U/S interpreted by me (1pt. min.). @ -None done What testing was considered but not performed or refused? (CT, X-rays, U/S, labs)? Why? @ -None What meds were considered but not given or refused? Why? @ -None Did you discuss the management of the patient with other professionals (professionals i.e. BRIAN Baker, COFFIN MAKER, lab, RT, psych nurse, social worker health services, baseboard heating installer, teacher, surveillance dual rate officer, case assistant)? Give summary @ -No Was smoking cessation discussed for >3mins.? @ -No Was critical care preformed (if so, how long)? @ -No Were there social determinants of health that impacted care today? How? (Homelessness, low income, unemployed, alcoholism, drug addiction, transportation, low edu. Level, literacy, decrease access to med. care, prison, rehab)? @ -No Was there de-escalation of care discussed even if they declined (Discuss DNR or withdrawal of care, Hospice)? DNR status @ -No What co-morbidities impacted this encounter? (DM, HTN, Smoking, COPD, CAD, Cancer, CVA, ARF, Chemo, Hep., AIDS, mental health diagnosis, sleep apnea, morbid obesity)? @ -Colon cancer Was patient admitted / discharged? Hospital course, mention meds given and route, prescriptions, significant lab abnormalities, going to OR and other pertinent info. @ -Upon arrival patient seen and evaluated in room 33. Thorough history and physical exam was performed. Rectal exam does not demonstrate any masses, fissures or fistulas. No obvious prolapse. Patient does appear to have few hemorrhoids. No rectal bleeding. Patient was given an IM injection of Dilaudid for pain control. I did order Anusol cream from the pharmacy. Patient will be sent home on Anusol cream. I will also increase the dose of his home medications however patient is informed that lead to constipation which may worsen his symptoms. Patient is to use MiraLAX daily as well as Colace. He must call his GI specialist immediately for follow-up and return for any new or worsening symptoms. Patient agreeable to plan and was discharged in stable condition Undiagnosed new problem with uncertain prognosis? @ -Yes Drug Therapy requiring intensive monitoring for toxicity (Heparin, Nitro, Insulin, Cardizem)? @ -No Were any procedures done? @ -No Diagnosis/symptom? @ -Acute rectal pain, external hemorrhoids, question rectal prolapse Acute, or Chronic, or Acute on Chronic? @ -Acute Uncomplicated (without systemic symptoms) or Complicated (systemic symptoms)? @ -Complicated Side effects of treatment? @ -No Exacerbation, Progression, or Severe Exacerbation? @ -No Poses a threat to life or bodily function? How? (Chest pain, USA, CT, pneumonia, PE, COPD, DKA, ARF, appy, cholecystitis, CVA, Diverticulitis, Homicidal, Suicidal, threat to staff... and all critical care pts) @ -No (Bobbi Rachel) Disposition <Rose Mary Hamilton - Last Filed: 05/13/24 22:33> Is patient prescribed a controlled substance at d/c from ED?: Yes When asked, does pt state using other controlled substances?: No If prescribed controlled substance>3 days was MAPS reviewed?: Prescribed <3 Days Time of Disposition: 01:03 <UrielyonatanBobbi Pako - Last Filed: 09/24/23 22:20> Clinical Impression: Rectal pain Disposition: HOME SELF-CARE Condition: Stable Instructions (If sedation given, give patient instructions): Rectal Pain (ED) Additional Instructions: Take the Colace twice a day. Use this with the MiraLAX which you are taking every day or every other day. Take the pain medications as directed. Use the rectal cream twice a day. Follow-up with your care team and return for any new or worsening symptoms Prescriptions: Hydrocortisone [Anusol-Hc] 1 applic RECTAL BID #30 gm Docusate [Colace] 100 mg PO BID #60 capsule oxyCODONE HCL [oxyCODONE HCL (IR)] 10 mg PO Q4H 3 Days #18 tab Referrals: Desmond York MD [Primary Care Provider] - 1-2 days
[2023-09-16 00:07] VITALS: PULSE 94; RESP 20; TEMP 98.3
[2023-09-16] MEDS: HYDROCORTISONE 1% CREAM 30 GM TUBE TOPICAL PRN (01:13)
[2023-09-16] MEDS: HYDROmorphone 1 MG/ML 1 ML SYRINGE IM STA (01:14)
[2023-09-16 01:51] VITALS: BP 140/92
== END 2023-09-16 01:19 | disposition home or self-care (01) ==
LOC: EC 22:02
DX: K64.4 Residual hemorrhoidal skin tags (principal); Z85.038 Personal history of other malignant neoplasm of large intestine; Z90.49 Acquired absence of other specified parts of digestive tract
CPT/HCPCS: 99283; 96372; J1170

== ENCOUNTER 2023-10-10 16:42 | Inpatient (IN) | payer OTHER ==
--- NOTE | 2023-10-10 17:00 | ED ---
Chest Pain HPI - General Chief Complaint: Chest Pain Stated Complaint: Chest Pain,Sob Time Seen by Provider: 10/10/23 16:59 Source: patient, RN notes reviewed, old records reviewed Mode of arrival: ambulatory Limitations: no limitations - History of Present Illness Initial Comments: This is a 33-year-old male to ER for chest pain history of cancer with significant metastasis and severe chest pain currently. Patient is having trouble breathing secondary to the pain weakness body pain back pain abdominal pain chronic pain as well MD Complaint: chest pain -: days(s) Onset: during rest, during exertion Pain Location: substernal Pain Radiation: none Severity: moderate Severity scale (1-10): 4 Quality: tightness, aching Consistency: constant Improves With: nothing Worsens With: nothing Anginal Symptoms: nausea, sense of impending doom Other Symptoms: cough, palpitations Treatments Prior to Arrival: none - Related Data Home Medications Medication Instructions Recorded Confirmed Ondansetron [Zofran] 8 mg PO Q6H PRN 06/19/22 10/10/23 Acetaminophen Tab [Tylenol] 500 mg PO Q6HR PRN 10/09/22 10/10/23 Multivitamins, Thera [Multivitamin 1 tab PO DAILY 10/09/22 10/10/23 (formulary)] OLANZapine 5 mg PO DAILY PRN 08/06/23 10/10/23 Ibuprofen [Motrin Ib] 800 mg PO Q8H PRN 10/10/23 10/10/23 Prochlorperazine Maleate 10 mg PO Q6H PRN 10/10/23 10/10/23 polyethylene glycoL 3350 [Miralax] 17 gm PO BID 10/10/23 10/10/23 Allergies Allergy/AdvReac Type Severity Reaction Status Date / Time No Known Allergies Allergy Verified 10/10/23 20:55 Review of Systems ROS Statement: Those systems with pertinent positive or pertinent negative responses have been documented in the HPI. ROS Other: All systems not noted in ROS Statement are negative. EKG Findings - EKG Comments: EKG Findings:: EKG is sinus 87 OH 144 QRS 88 QTc 420 - EKG Results: EKG: interpreted by JULIO Past Medical History Past Medical History: No Reported History, Cancer Additional Past Medical History / Comment(s): masses on lung, liver, gallbladder,intestine. Stage 4 colon CA diagnosed May 2022. History of Any Multi-Drug Resistant Organisms: None Reported Past Surgical History: No Surgical Hx Reported Additional Past Surgical History / Comment(s): colonoscopy. liver biopsy, right chest power port., tumor removed Past Anesthesia/Blood Transfusion Reactions: No Reported Reaction Additional Past Anesthesia/Blood Transfusion Reaction / Comment(s): Josselin has never had blood transfusions. Past Psychological History: Anxiety, Depression Smoking Status: Never smoker Past Alcohol Use History: Rare Past Drug Use History: None Reported - Past Family History Brother(s) Additional Family Medical History / Comment(s): Ulcerative colitis (Brother) General Exam Limitations: no limitations General appearance: alert, in no apparent distress, anxious, in distress Head exam: Present: atraumatic, normocephalic, normal inspection Eye exam: Present: normal appearance, PERRL, EOMI. Absent: scleral icterus, conjunctival injection, periorbital swelling ENT exam: Present: normal exam, mucous membranes moist Neck exam: Present: normal inspection. Absent: tenderness, meningismus, lymphadenopathy Respiratory exam: Present: respiratory distress, decreased breath sounds, prolonged expiratory. Absent: wheezes, rales, rhonchi, stridor Cardiovascular Exam: Present: normal rhythm, tachycardia, normal heart sounds. Absent: systolic murmur, diastolic murmur, rubs, gallop, clicks GI/Abdominal exam: Present: soft, normal bowel sounds. Absent: distended, tenderness, guarding, rebound, rigid Extremities exam: Present: normal inspection, full ROM, normal capillary refill. Absent: tenderness, pedal edema, joint swelling, calf tenderness Back exam: Present: normal inspection Neurological exam: Present: alert, oriented X3, CN II-XII intact Psychiatric exam: Present: normal affect, normal mood Skin exam: Present: warm, dry, intact, normal color. Absent: rash Course Vital Signs 10/10/23 10/10/23 10/10/23 16:45 17:47 20:20 Temperature 97.8 F Pulse Rate 99 126 H 110 H Pulse Rate [ Pulse Oximetery ] Respiratory 20 18 16 Rate Blood Pressure 150/106 144/110 Blood Pressure [Left Arm] O2 Sat by Pulse 94 L 98 99 Oximetry 10/10/23 10/10/23 10/10/23 21:58 22:00 22:30 Temperature Pulse Rate 112 H 112 H 114 H Pulse Rate [ Pulse Oximetery ] Respiratory 16 18 18 Rate Blood Pressure 139/101 139/101 134/97 Blood Pressure [Left Arm] O2 Sat by Pulse 98 98 98 Oximetry 10/10/23 10/11/23 10/11/23 23:30 00:52 02:27 Temperature Pulse Rate 112 H 115 H 110 H Pulse Rate [ Pulse Oximetery ] Respiratory 18 18 16 Rate Blood Pressure 147/111 130/93 131/96 Blood Pressure [Left Arm] O2 Sat by Pulse 98 98 98 Oximetry 10/11/23 10/11/23 10/11/23 04:10 06:00 08:15 Temperature 98.3 F 98 F Pulse Rate 112 H 121 H 125 H Pulse Rate [ Pulse Oximetery ] Respiratory 16 17 16 Rate Blood Pressure 124/96 127/92 122/85 Blood Pressure [Left Arm] O2 Sat by Pulse 97 95 98 Oximetry 10/11/23 10/11/23 10/11/23 12:14 14:57 15:00 Temperature 98 F 97.7 F Pulse Rate 110 H 110 H Pulse Rate [ 119 H Pulse Oximetery ] Respiratory 18 18 15 Rate Blood Pressure 123/83 123/83 Blood Pressure 144/93 [Left Arm] O2 Sat by Pulse 97 97 99 Oximetry - Reevaluation(s) Reevaluation #1: 10/10/23 21:47 Medical records reviewed Reevaluation #2: 10/10/23 21:47 Patient symptoms unchanged Reevaluation #3: 10/10/23 21:47 Patient informed of results questions answered Reevaluation #4: Was pt. sent in by a medical professional or institution (, PA, GRADING CLERK, urgent care, hospital, or snf...) When possible be specific @ -no Did you speak to anyone other than the patient for history (EMS, parent, family, police, friend...)? What history was obtained from this source @ -no Did you review nursing and triage notes (agree or disagree)? Why? @ -agree Are old charts reviewed (outside hosp., previous admission, EMS record, old EKG, old radiological studies, urgent care reports/EKG's, snf records)? Report findings @ -yes Differential Diagnosis (chest pain, altered mental status, abdominal pain women, abdominal pain men, vaginal bleeding, weakness, fever, dyspnea, syncope, headache, dizziness, GI bleed, back pain, seizure, CVA, palpatations, mental health, musculoskeletal)? @ -prior EKG interpreted by me (3pts min.). @ -yes X-rays interpreted by me (1pt min.). @ -yes negative for acute disease CT interpreted by me (1pt min.). @ -no U/S interpreted by me (1pt. min.). @ -no What testing was considered but not performed or refused? (CT, X-rays, U/S, labs)? Why? @ -none What meds were considered but not given or refused? Why? @ -none Did you discuss the management of the patient with other professionals (professionals i.e. , PA, GRADING CLERK, lab, RT, psych nurse, social services counselor, paid search marketing strategist, teacher, radiation safety officer, corrections caseworker)? Give summary @ -no Was smoking cessation discussed for >3mins.? @ -no Were there social determinants of health that impacted care today? How? (Homelessness, low income, unemployed, alcoholism, drug addiction, transportation, low edu. Level, literacy, decrease access to med. care, fci, rehab)? @ -none Was there de-escalation of care discussed even if they declined (Discuss DNR or withdrawal of care, Hospice)? DNR status @ -no What co-morbidities impacted this encounter? (DM, HTN, Smoking, COPD, CAD, Cancer, CVA, ARF, Chemo, Hep., AIDS, mental health diagnosis, sleep apnea, morbid obesity)? @ -none Was patient admitted / discharged? Hospital course, mention meds given and route, prescriptions, significant lab abnormalities, going to OR and other pertinent info. @ - Was critical care preformed (if so, how long)? @ -no Undiagnosed new problem with uncertain prognosis? @ -no Drug Therapy requiring intensive monitoring for toxicity (Heparin, Nitro, Insulin, Cardizem)? @ -no Were any procedures done? @ -no Diagnosis/symptom? @ - Acute, or Chronic, or Acute on Chronic? @ -Acute Uncomplicated (without systemic symptoms) or Complicated (systemic symptoms)? @ -Complicated Side effects of treatment? @ -no Exacerbation, Progression, or Severe Exacerbation? @ -exacerbation Poses a threat to life or bodily function? How? (Chest pain, USA, [place], pneumonia, PE, COPD, DKA, ARF, appy, cholecystitis, CVA, Diverticulitis, Homicidal, Suicidal, threat to staff... and all critical care pts) @ -yes Reevaluation #5: Differential Chest Pain: Stable Angina, Unstable Angina, STEMI, NSTEMI Aortic Dissection, Pneumothorax, Musculoskeletal, Esophageal Spasm GERD, Cholecystitis, Pancreatitis, Zoster, this is not meant to be an all-inclusive list. - Consultations Consultation #1: Spoke with sound who agrees to admit this patient Chest Pain MDM - MDM 33 male will be admitted for significant and severe chest pain. Significant history of cancer with metastasis patient has chest pain that is significantly persistent here in the emergency room patient will be admitted for chest pain, severe cancer pain being difficult to control disease Critical Care Time Critical Care Time: Yes Total Critical Care Time: 31 Disposition Clinical Impression: Chest pain, Atypical chest pain, Colon cancer, Rectal pain Disposition: ADMITTED IP TO THIS HOSP Condition: Fair Is patient prescribed a controlled substance at d/c from ED?: No Time of Disposition: 21:45
[2023-10-10] MEDS: HYDROmorphone 1 MG/ML 1 ML SYRINGE IVP STA (17:34)
[2023-10-10] MEDS: SODIUM CHLORIDE 0.9% 1,000 ML IV STA (17:37)
[2023-10-10 17:44] LABS: Basophils # (A) 0.1 k/uL (0-0.2); Basophils % (A) 0 %; Eosinophils # (A) 0.1 k/uL (0-0.7); Eosinophils % (A) 1 %; HCT 30.7 % (39.0-53.0); Hypochromasia Moderate; Lymphocytes # (A) 1.3 k/uL (1.0-4.8); Lymphocytes % (A) 7 %; MCH 24.4 pg (25.0-35.0); MCHC 30.7 g/dL (31.0-37.0); Monocytes # (A) 1.3 k/uL (0-1.0); Monocytes % (A) 7 %; Neutrophils # (A) 15.8 k/uL (1.3-7.7); Neutrophils % (A) 84 %; RBC 3.87 m/uL (4.30-5.90); RDW 15.7 % (11.5-15.5)
[2023-10-10] MEDS: PROCHLORPERAZINE INJ 10 MG/2 ML VIAL IVP STA (17:44)
[2023-10-10 17:49] LABS: ALT 38 U/L (4-49); AST 100 U/L (17-59); African American GFR (CKD) >90 (>60 ml/min/1.73 sqM); Albumin 3.7 g/dL (3.5-5.0); Anion Gap 8 mmol/L; Blood Urea Nitrogen 13 mg/dL (9-20); Calcium 8.7 mg/dL (8.4-10.2); Carbon Dioxide 23 mmol/L (22-30); Chloride 98 mmol/L (98-107); Glucose 117 mg/dL (74-99); Lipase 947 U/L (23-300); Magnesium 1.8 mg/dL (1.6-2.3); Non-African American GFR(CKD) >90 (>60 ml/min/1.73 sqM); Potassium 3.6 mmol/L (3.5-5.1); Sodium 129 mmol/L (137-145); Total Protein 7.3 g/dL (6.3-8.2)
[2023-10-10 17:56] LABS: HGB 9.4 gm/dL (13.0-17.5); MCV 79.3 fL (80.0-100.0)
[2023-10-10 17:57] LABS: Platelet Count 301 k/uL (150-450)
[2023-10-10 17:58] LABS: NT-Pro-B-Type Natriuretic Pept 754 pg/mL
[2023-10-10 17:59] LABS: Alkaline Phosphatase 1236 U/L (38-126); INR 1.1 (<1.2); Partial Thromboplastin Time 22.5 sec (22.0-30.0); Prothrombin Time 11.9 sec (10.0-12.5)
--- NOTE | 2023-10-10 18:12 | XR ---
EXAMINATION TYPE: XR chest 1V portable DATE OF EXAM: 10/10/2023 5:40 PM CLINICAL INDICATION:Male, 33 years old with history of chest pain; H COMPARISON: Chest radiographs from09/19/2022, 01/18/2023 TECHNIQUE: XR chest 1V portable Frontal view of the chest. FINDINGS: Lungs/Pleura:. New scattered nodular-like densities throughout the lungs. There is no evidence of ple ural effusion, focal consolidation, or pneumothorax. Pulmonary vascularity: Unremarkable. Heart/mediastinum: Cardiomediastinal silhouette is unremarkable. Musculoskeletal: No acute osseous pathology. Other findings: None Lines/Tubes: [id number] projecting over the right hemithorax with distal tip projecting over the superior vena cava. IMPRESSION: Scattered pulmonary nodules throughout the lungs correlate for progression of metastatic disease 09/19
--- NOTE | 2023-10-10 19:51 | CT ---
EXAMINATION TYPE: CT abdomen pelvis w con, CT angio chest CT DLP: 1167.7 (accession [id number]), 323.7 (accession [id number]) mGycm, Automated exposure control for dose reduction was used. DATE OF EXAM: 10/10/2023 7:12 PM COMPARISON: 08/08/2023 CLINICAL INDICATION:Male, 33 years old with history of pain; abdominal pain, nausea, vomiting (access ion [id number]), elevated d-dimer (accession [id number]) TECHNIQUE: Axial CT abdomen pelvis w con, CT angio chest;Sagittal and coronal reformats were created on a separate workstation. CT axial imaging of the chest with sagittal coronal reformats. Contrast used:100ml mL of Isovue 370 with IV Contrast, (none if empty) Oral contrast used: without Oral Contrast (none if empty) FINDINGS: LUNGS/ PLEURA: No evidence for focal consolidation, pneumothorax or pleural effusion. Innumerable pul monary nodules (greater than 50 of the lungs compatible with metastatic disease.. Example includes ri ght lower lung 14 mm right upper lung 17 mm left upper lung 15 mm left lower lung 20 mm. Trace left p leural effusion. AIRWAY: Patent and unremarkable. HEART: Size within normal limits. MEDIASTINUM: No gross evidence of adenopathy. VASCULATURE: No aortic aneurysm. MUSCULOSKELETAL: No acute osseous abnormalities SOFT TISSUES/LYMPH NODES: Unremarkable. LOWER NECK: Prominent lower neck lymph nodes measuring up to 10 mm in the left supraclavicular region LIVER: Innumerable liver metastatic lesions are identified largest in the liver dome measuring up to 8.1 cm. GALLBLADDER AND BILE DUCTS: Unremarkable. PANCREAS: Unremarkable. SPLEEN: There is decreased attenuation of the anterior inferior spleen. ADRENAL GLANDS: Left upper quadrant mass possibly arising from the adrenal gland measuring up to 10.4 x 8.16 m. KIDNEYS AND URETERS: Mild left hydronephrosis. No right hydronephrosis. No obstructive calculus. Left perinephric fat stranding. PELVIS BLADDER: Unremarkable REPRODUCTIVE: Unremarkable. ABDOMEN & PELVIS STOMACH AND BOWEL: No evidence of bowel obstruction. Post surgical changes to the descending colon. W ith suture in place. PERITONEUM/RETROPERITONEUM: No evidence of pneumoperitoneum. Small amount of ascites throughout the a bdomen. VASCULATURE: No evidence of aortic aneurysm. MUSCULOSKELETAL: No acute osseous abnormalities LYMPH NODES: Scattered lymphadenopathy throughout the retroperitoneum most pronounced in the lower pe lvis with left internal iliac lymph node measuring 34 x 39 mm. Multiple left perirectal lymph nodes m easuring up to 16 mm in short axis. Kapil hepatis/portacaval nodule measuring up to 37 mm in short ax is. SOFT TISSUE/ABDOMINAL WALL: Unremarkable IMPRESSION: 1. Progression of malignancy with retroperitoneal lymphadenopathy, liver metastatic disease large le ft upper quadrant possible adrenal metastatic focus and innumerable pulmonary nodules. Prominent neck lymph nodes partially visualized represent additional sites of metastatic disease. 2. Possible anterior inferior spleen infarct with decreased perfusion compared to the remainder of t he spleen. 3. Mild left hydronephrosis secondary to suspected lymphadenopathy along the course of the left uret er with mass effect and possible obstruction. 4. Trace left pleural effusion. 5. Small ascites.
[2023-10-10] MEDS ORDERED: NALOXONE 0.4 MG/ML 1 ML VIAL IV PRN (21:35)
[2023-10-10] MEDS: HYDROmorphone 1 MG/ML 1 ML SYRINGE IVP PRN (21:46)
[2023-10-10 21:49] LABS: Appearance,Urine Clear (Clear); Bilirubin,Urine Negative (Negative); Blood,Urine Negative (Negative); Color,Urine Yellow; Glucose,Urine (UA) Negative (Negative); Ketones,Urine Negative (Negative); Leukocyte Esterase,Urine Negative (Negative); Nitrite,Urine Negative (Negative); Protein,Urine Trace (Negative); Urobilinogen,Urine <2.0 mg/dL (<2.0)
[2023-10-10 22:31] LABS: Specific Gravity,Urine >1.050 (1.001-1.035)
--- NOTE | 2023-10-11 01:56 | P.HPIM ---
History of Present Illness H&P Date: 10/10/23 Patient is a 33-year-old male with a PMH of stage IV colon cancer (metastasis to liver, pancreas, lungs) diagnosed early 2022 status post debulking surgery September 04, 2023 following with Michelle munoz/ Dr Luis (not on chemotherapy at this time) who presents to the emergency room with complaints of left-sided chest and abdominal discomfort. Patient notes that he has been experiencing chronic diffuse pain f or which she takes [id number] Tylenol and Motrin at home and has been able to manage for the most part. Notes however that earlier this evening at around 4 PM he was riding in his car with his brother when he suddenly developed a left lower chest wall sharp pain, pleuritic in nature, which then radiated up into his chest as well as lower into the abdomen, was 10 out of 10 at maximal intensi ty, severely pleuritic, with no alleviating factors. The pain has improved at the time of interview to a 7 out of 10 but continues to be diffusely in the entire left chest and abdomen. He denies experiencing fever, chills, nausea, vomiting, diarrhea, cough. Denies lower extremity swelling or pain. Denies prior history of such severe pleuritic pain. Chest CTA in the emergency room revealed likely inferior splenic infarct with decreased perfusion along with progression of metastatic malignancy with lymphadenopathy and adrenal metastasis as well as lymphadenopathy in the neck with mild left-sided hydronephrosis with small ascites. There was no evidence of pulmonary embolism with numerous pulmonary metastatic nodules. EKG revealed sinus rhythm at [address] segment depression in the inferior leads with T wave inversion in leads III and aVF as reviewed by me. Laboratory ev aluation was remarkable for leukocytosis of 19.0, hemoglobin 9.4, MCV 79.3, platelet count 301, D-dimer 4.09, sodium 129, glucose 117, total bilirubin 2.0, AST 100, ALT 138, alk phos 1236, troponin less than 0.012, and proBNP 754 with lipase 947. ED documentation reviewed and case discussed with ED provider. Review of systems: Pertinent positives and negatives as discussed in HPI, a complete review of systems was performed and all other systems are negative. Physical examination: Vital signs reviewed General: Somewhat chronically ill-appearing male, no distress, appears at stated age, normal weight Derm: no unusual rashes/lesions, warm Head: atraumatic, normocephalic, symmetric Eyes: EOMI, no lid lag, anicteric sclera, pupils equal round reactive to light ENT: Nose and ears atraumatic Neck: No cervical lymphadenopathy, trachea midline, supple Mouth: no lip lesion, mucus membranes moist Cardiovascular: S1S2 reg, no murmur, positive dorsalis pedis pulse bilateral, no edema, no chest wall or abdominal tenderness on examination Lungs: CTA bilateral, no rhonchi, no rales, no accessory muscle use Abdominal: soft, nontender to palpation, no guarding Ext: muscle strength 5 out of 5 in all 4 extremities grossly, no gross muscle atrophy, no contractures, Neuro: CN II-XI grossly intact, no gross focal neuro deficits Psych: Alert, oriented, appropriate affect Assessment: Intractable pain, possibly secondary to splenic infarct in setting of significant metastatic burden Leukocytosis, likely due to ongoing malignancy with no signs of active infection at this time Hyponatremia, may be due to pain Microcytic anemia Abnormal LFTs, likely due to metastasis to the liver Imaging: Chest CTA in the emergency room revealed likely inferior splenic infarct with decreased perfusion along with progression of metastatic malignancy with lymphadenopathy and adrenal metastasis as well as lymphadenopathy in the neck with mild left-sided hydronephrosis with small ascites. There was no evidence of pulmonary embolism with numerous pulmonary metastatic nodules. EKG revealed sinus rhythm at [address] segment depression in the inferior leads with T wave inversion in leads III and aVF as reviewed by me. Data Review: Laboratory evaluation was remarkable for leukocytosis of 19.0, hemoglobin 9.4, MCV 79.3, platelet count 301, D-dimer 4.09, sodium 129, glucose 117, total b ilirubin 2.0, AST 100, ALT 138, alk phos 1236, troponin less than 0.012, and proBNP 754 with lipase 947. Plan: Initiate anticoagulation for splenic infarct with heparin infusion Hematology consulted Pain control with morphine Cardiac monitoring Monitor CBC and BMP Obtain anemia workup DVT prophylaxis: Heparin infusion The patient is admitted with an anticipated less than 2 midnight stay for ev aluation of splenic infarct CODE STATUS: Full Code Discussed with: Patient Anticipated discharge place: Home Past Medical History Past Medical History: No Reported History, Cancer Additional Past Medical History / Comment(s): masses on lung, liver, gallbladder,intestine. Stage 4 colon CA diagnosed May 2022. History of Any Multi-Drug Resistant Organisms: None Reported Past Surgical History: No Surgical Hx Reported Additional Past Surgical History / Comment(s): colonoscopy. liver biopsy, right chest power port., tumor removed Past Anesthesia/Blood Transfusion Reactions: No Reported Reaction Additional Past Anesthesia/Blood Transfusion Reaction / Comment(s): Josselin has never had blood transfusions. Past Psychological History: Anxiety, Depression Smoking Status: Never smoker Past Alcohol Use History: Rare Past Drug Use History: None Reported - Past Family History Brother(s) Additional Family Medical History / Comment(s): Ulcerative colitis (Brother) Medications and Allergies Home Medications Medication Instructions Recorded Confirmed Type Ondansetron [Zofran] 8 mg PO Q6H PRN 06/19/22 10/10/23 History Acetaminophen Tab [Tylenol] 500 mg PO Q6HR PRN 10/09/22 10/10/23 History Multivitamins, Thera [Multivitamin 1 tab PO DAILY 10/09/22 10/10/23 History (formulary)] OLANZapine 5 mg PO DAILY PRN 08/06/23 10/10/23 History Ibuprofen [Motrin Ib] 800 mg PO Q8H PRN 10/10/23 10/10/23 History Prochlorperazine Maleate 10 mg PO Q6H PRN 10/10/23 10/10/23 History polyethylene glycoL 3350 [Miralax] 17 gm PO BID 10/10/23 10/10/23 History Allergies Allergy/AdvReac Type Severity Reaction Status Date / Time No Known Allergies Allergy Verified 10/10/23 20:55 Physical Exam Vitals: Vital Signs Temp Pulse Resp BP Pulse Ox 10/10/23 21:58 112 H 16 139/101 98 10/10/23 20:20 110 H 16 144/110 99 10/10/23 17:47 126 H 18 98 10/10/23 16:45 97.8 F 99 20 150/106 94 L Intake and Output 10/10/23 10/10/23 10/11/23 14:59 22:59 06:59 Other: Weight 86.183 kg Results CBC & Chem 7: 10/10/23 16:59 10/10/23 16:59 Labs: Abnormal Lab Results - Last 24 Hours (Table) 10/10/23 10/10/23 10/10/23 Range/Units 16:59 16:59 16:59 WBC 19.0 H (3.8-10.6) k/uL RBC 3.87 L (4.30-5.90) m/uL Hgb 9.4 L D (13.0-17.5) gm/dL Hct 30.7 L (39.0-53.0) % MCV 79.3 L D (80.0-100.0) fL MCH 24.4 L (25.0-35.0) pg MCHC 30.7 L (31.0-37.0) g/dL RDW 15.7 H (11.5-15.5) % Neutrophils # 15.8 H (1.3-7.7) k/uL Monocytes # 1.3 H (0-1.0) k/uL D-Dimer 4.09 H (<0.60) mg/L FEU Sodium 129 L (137-145) mmol/L Glucose 117 H (74-99) mg/dL Total Bilirubin 2.0 H (0.2-1.3) mg/dL AST 100 H (17-59) U/L Alkaline Phosphatase 1236 H (38-126) U/L Lipase 947 H (23-300) U/L Ur Specific [place] (1.001-1.035) Urine Protein (Negative) 10/10/23 Range/Units 21:40 WBC (3.8-10.6) k/uL RBC (4.30-5.90) m/uL Hgb (13.0-17.5) gm/dL Hct (39.0-53.0) % MCV (80.0-100.0) fL MCH (25.0-35.0) pg MCHC (31.0-37.0) g/dL RDW (11.5-15.5) % Neutrophils # (1.3-7.7) k/uL Monocytes # (0-1.0) k/uL D-Dimer (<0.60) mg/L FEU Sodium (137-145) mmol/L Glucose (74-99) mg/dL Total Bilirubin (0.2-1.3) mg/dL AST (17-59) U/L Alkaline Phosphatase (38-126) U/L Lipase (23-300) U/L Ur Specific [place] >1.050 H (1.001-1.035) Urine Protein Trace H (Negative)
[2023-10-11] MEDS: MORPHINE SULFATE 4 MG/ML SYRINGE IVP PRN (02:35)
[2023-10-11] MEDS: HEPARIN SOD,PORK IN 0.45% NACL 25,000 UNIT in 0.45% NACL 1 250ML.BAG IV SCH (02:43)
[2023-10-11] MEDS: HEPARIN SODIUM 1,000 UN/ML (10ML VL) IV ONE (02:43)
[2023-10-11] MEDS: ONDANSETRON 4 MG/2 ML VIAL IVP PRN (03:06)
[2023-10-11] MEDS: HYDROmorphone 1 MG/ML 1 ML SYRINGE IVP PRN ×2 (04:09→15:51)
[2023-10-11 04:14] LABS: Anisocytosis Slight; Basophils # (A) 0.1 k/uL (0-0.2); Basophils % (A) 0 %; Eosinophils # (A) 0.1 k/uL (0-0.7); Eosinophils % (A) 1 %; HCT 28.2 % (39.0-53.0); HGB 8.5 gm/dL (13.0-17.5); Hypochromasia Slight; Lymphocytes # (A) 1.9 k/uL (1.0-4.8); Lymphocytes % (A) 9 %; MCH 24.1 pg (25.0-35.0); MCHC 30.2 g/dL (31.0-37.0); MCV 79.9 fL (80.0-100.0); Monocytes # (A) 1.4 k/uL (0-1.0); Monocytes % (A) 7 %; Neutrophils # (A) 17.1 k/uL (1.3-7.7); Neutrophils % (A) 82 %; Platelet Count 324 k/uL (150-450); RBC 3.52 m/uL (4.30-5.90); RDW 16.4 % (11.5-15.5); WBC 20.9 k/uL (3.8-10.6)
[2023-10-11 04:38] LABS: ALT 35 U/L (4-49); AST 97 U/L (17-59); African American GFR (CKD) >90 (>60 ml/min/1.73 sqM); Albumin 3.5 g/dL (3.5-5.0); Alkaline Phosphatase 1222 U/L (38-126); Anion Gap 8 mmol/L; Blood Urea Nitrogen 13 mg/dL (9-20); Calcium 8.8 mg/dL (8.4-10.2); Carbon Dioxide 23 mmol/L (22-30); Chloride 99 mmol/L (98-107); Glucose 91 mg/dL (74-99); INR 1.3 (<1.2); Magnesium 1.8 mg/dL (1.6-2.3); Non-African American GFR(CKD) >90 (>60 ml/min/1.73 sqM); Phosphorus 4.9 mg/dL (2.5-4.5); Prothrombin Time 13.8 sec (10.0-12.5); Sodium 130 mmol/L (137-145); Total Bilirubin 1.8 mg/dL (0.2-1.3)
[2023-10-11 04:40] LABS: Partial Thromboplastin Time >200.0 sec (22.0-30.0)
[2023-10-11 14:26] LABS: Reticulocyte % 3.9 % (0.5-2.0)
[2023-10-11] MEDS: HEPARIN SODIUM 1,000 UN/ML (10ML VL) IV PRN (14:39)
--- NOTE | 2023-10-11 14:53 | P.PN ---
Subjective Progress Note Date: 10/11/23 Hospital Course: 33-year-old male with history of stage IV colon cancer (metastasis to liver, p ancreas, lungs) diagnosed early 2022 status post debulking surgery September 04, 2023 following with Michelle w/ Dr Luis (not on chemotherapy at this time) who presents to the emergency room with complaints of left-sided chest and abdominal discomfort. Chest CTA in the emergency room revealed likely inferior splenic infarct with decreased perfusion along with progression of metastatic malignancy with lymphadenopathy and adrenal metastasis as well as lymphadenopathy in the neck with mild left-sided hydronephrosis with small ascites. There was no evidence of pulmonary embolism with numerous pulmonary metastatic nodules. EKG revealed sinus rhythm at [address] segment depression in the inf erior leads with T wave inversion in leads III and aVF. Laboratory evaluation was remarkable for leukocytosis of 19.0, hemoglobin 9.4, MCV 79.3, platelet count 301, D-dimer 4.09, sodium 129, glucose 117, total bilirubin 2.0, AST 100, ALT 138, alk phos 1236, troponin less than 0.012, and proBNP 754 with lipase 947. Subjective: Patient seen and examined at bedside. Continues to have left upper quadrant abdominal pain as well as pleuritic pain in the lower left chest. Pertinent positives and negatives as discussed above, a complete review of systems was performed and all other systems are negative. Vitals Signs Reviewed. General: Somewhat chronically ill-appearing male, no distress, appears at stated age, normal weight Derm: no unusual rashes/lesions, warm, abdominal scar clean, dry, intact Head: atraumatic, normocephalic, symmetric Eyes: EOMI, no lid lag, anicteric sclera, pupils equal round reactive to light ENT: Nose and ears atraumatic Neck: No cervical lymphadenopathy, trachea midline, supple Mouth: no lip lesion, mucus membranes moist Cardiovascular: S1S2 reg, no murmur, positive dorsalis pedis pulse bilateral, no edema, no chest wall or abdominal tenderness on examination Lungs: CTA bilateral, no rhonchi, no rales, no accessory muscle use Abdominal: soft, nontender to palpation, no guarding Ext: muscle strength 5 out of 5 in all 4 extremities grossly, no gross muscle atrophy, no contractures, Neuro: CN II-XI grossly intact, no gross focal neuro deficits Psych: Alert, oriented, appropriate affect Data Reviewed Today: Pertinent Labs: WBC 20.9, hemoglobin 8.5, reticulocyte count 3.9, LDH 1000, total bili 1.8, AST 97, ALT 35, ALP 200, sodium 130, creatinine 0.99 Imaging: No new imaging Assessment and Plan: Acute splenic infarct Stage IV colon cancer with extensive metastatic disease Leukocytosis, likely reactive and secondary to ongoing malignancy Microcytic anemia Transaminitis Hyponatremia, improving -Patient currently on heparin drip, monitor APTT -Pending oncology/hematology consult -Pain control with IV Dilaudid as needed -Microcytic anemia possibly in the setting of hemolysis, pending iron studies as well as hemolysis studies -No active bleeding -Patient currently not on any chemotherapy/immunotherapy, had recent surgery for peripheral bowel obstruction at [facility] -Transaminitis likely in the setting of malignancy -Hyponatremia possibly in the setting of pain -Patient is status post 1 L of normal saline -Repeat BMP tomorrow DVT ppx: Heparin drip Code status: Full code Anticipated discharge place: Pending clinical course Anticipated discharge time: Pending clinical course Objective - Vital Signs Vital signs: Vital Signs Temp 98 F 10/11/23 08:15 Pulse 78 10/11/23 12:14 Resp 18 10/11/23 12:14 BP 123/83 10/11/23 12:14 Pulse Ox 97 10/11/23 12:14 FiO2 Intake & Output 10/10/23 10/11/23 10/11/23 18:59 06:59 18:59 Intake Total 30.509 93.914 Balance 30.509 93.914 Weight 86.183 kg Intake: Intake, IV Titration 30.509 93.914 Amount Heparin Sod,Pork in 0.45% 30.509 93.914 NaCl 25,000 unit In 0.45 % NaCl 1 250ml.bag @ 18 UNITS/KG/HR 15.513 mls/hr IV .[id number] [facility] Rx#: [id number] - Labs CBC & Chem 7: 10/11/23 03:31 10/11/23 03:31 Labs: Abnormal Lab Results - Last 24 Hours (Table) 10/10/23 10/10/23 10/10/23 Range/Units 16:59 16:59 16:59 WBC 19.0 H (3.8-10.6) k/uL RBC 3.87 L (4.30-5.90) m/uL Hgb 9.4 L D (13.0-17.5) gm/dL Hct 30.7 L (39.0-53.0) % MCV 79.3 L D (80.0-100.0) fL MCH 24.4 L (25.0-35.0) pg MCHC 30.7 L (31.0-37.0) g/dL RDW 15.7 H (11.5-15.5) % Neutrophils # 15.8 H (1.3-7.7) k/uL Monocytes # 1.3 H (0-1.0) k/uL Retic Count (0.5-2.0) % PT (10.0-12.5) sec INR (<1.2) APTT (22.0-30.0) sec D-Dimer 4.09 H (<0.60) mg/L FEU Sodium 129 L (137-145) mmol/L Glucose 117 H (74-99) mg/dL Phosphorus (2.5-4.5) mg/dL Total Bilirubin 2.0 H (0.2-1.3) mg/dL AST 100 H (17-59) U/L Alkaline Phosphatase 1236 H (38-126) U/L Lactate Dehydrogenase (120-246) U/L Lipase 947 H (23-300) U/L Ur Specific [place] (1.001-1.035) Urine Protein (Negative) 10/10/23 10/11/23 10/11/23 Range/Units 21:40 03:31 03:31 WBC 20.9 H (3.8-10.6) k/uL RBC 3.52 L (4.30-5.90) m/uL Hgb 8.5 L (13.0-17.5) gm/dL Hct 28.2 L (39.0-53.0) % MCV 79.9 L (80.0-100.0) fL MCH 24.1 L (25.0-35.0) pg MCHC 30.2 L (31.0-37.0) g/dL RDW 16.4 H (11.5-15.5) % Neutrophils # 17.1 H (1.3-7.7) k/uL Monocytes # 1.4 H (0-1.0) k/uL Retic Count (0.5-2.0) % PT (10.0-12.5) sec INR (<1.2) APTT (22.0-30.0) sec D-Dimer (<0.60) mg/L FEU Sodium 130 L (137-145) mmol/L Glucose (74-99) mg/dL Phosphorus 4.9 H (2.5-4.5) mg/dL Total Bilirubin 1.8 H (0.2-1.3) mg/dL AST 97 H (17-59) U/L Alkaline Phosphatase 1222 H (38-126) U/L Lactate Dehydrogenase (120-246) U/L Lipase (23-300) U/L Ur Specific [place] >1.050 H (1.001-1.035) Urine Protein Trace H (Negative) 10/11/23 10/11/23 10/11/23 Range/Units 03:31 13:01 13:01 WBC (3.8-10.6) k/uL RBC (4.30-5.90) m/uL Hgb (13.0-17.5) gm/dL Hct (39.0-53.0) % MCV (80.0-100.0) fL MCH (25.0-35.0) pg MCHC (31.0-37.0) g/dL RDW (11.5-15.5) % Neutrophils # (1.3-7.7) k/uL Monocytes # (0-1.0) k/uL Retic Count 3.9 H (0.5-2.0) % PT 13.8 H (10.0-12.5) sec INR 1.3 H (<1.2) APTT >200.0 H* 41.5 H (22.0-30.0) sec D-Dimer (<0.60) mg/L FEU Sodium (137-145) mmol/L Glucose (74-99) mg/dL Phosphorus (2.5-4.5) mg/dL Total Bilirubin (0.2-1.3) mg/dL AST (17-59) U/L Alkaline Phosphatase (38-126) U/L Lactate Dehydrogenase (120-246) U/L Lipase (23-300) U/L Ur Specific [place] (1.001-1.035) Urine Protein (Negative) 10/11/23 Range/Units 13:01 WBC (3.8-10.6) k/uL RBC (4.30-5.90) m/uL Hgb (13.0-17.5) gm/dL Hct (39.0-53.0) % MCV (80.0-100.0) fL MCH (25.0-35.0) pg MCHC (31.0-37.0) g/dL RDW (11.5-15.5) % Neutrophils # (1.3-7.7) k/uL Monocytes # (0-1.0) k/uL Retic Count (0.5-2.0) % PT (10.0-12.5) sec INR (<1.2) APTT (22.0-30.0) sec D-Dimer (<0.60) mg/L FEU Sodium (137-145) mmol/L Glucose (74-99) mg/dL Phosphorus (2.5-4.5) mg/dL Total Bilirubin (0.2-1.3) mg/dL AST (17-59) U/L Alkaline Phosphatase (38-126) U/L Lactate Dehydrogenase 1093 H (120-246) U/L Lipase (23-300) U/L Ur Specific [place] (1.001-1.035) Urine Protein (Negative)
[2023-10-11 16:02] LABS: Total Iron Binding Capacity 189 UG/DL (228-460)
--- NOTE | 2023-10-11 19:17 | P.CONS ---
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 He was initially seen in consultation at [facility] on 05/24/22. He developed some upper quadrant pain on the right side ab out 2 weeks prior, that was initially mild to moderate without any definite relieving or aggravating factors. The patient then developed discoloration of his urine orange color for which he sought attention with his PCP. He had an ultrasound of his abdomen that showed multiple suspicious lesions in the liver, due to which she was admitted to come to the ER. A CT of the abdomen and pelvis revealed evidence of a large colon mass in the splenic flexure, as well as multiple metastatic-appearing lesions in the liver, mass involving the pancreas and nodules in the lung bases. He had a colonoscopy on 05/28/22. This showed a large mass at the splenic flexure, beyond which the scope could not be traversed. Biopsy was positive for moderate to poorly differentiated adenocarcinoma. Liver biopsy was done on 05/27/22 confirming metastatic adenocarcinoma consistent with colorectal primary. He also had a CT angiogram done, that showed no significant lung nodules or mediastinal adenopathy. Biomar ker testing revealed him to be K-denis mutated, MSI negative and TMB low. This tumor did have a PI3K mutation, for which targeted agents are available, but not approved for colon cancer. His APC and Mcconnell syndrome testing was negative. He was started on chemotherapy with FOLFOX on 06/19/22, and is status post 12 cycles. Bevacizumab was added with C [address] scan in 12/25 showed new lung nodules with overall stable to improved findings in the abdomen and pelvis. He was having some URTI symptoms at that time. Treatment was held, and a PET scan was done after about a week interval. This unfortunately showed evidence of progression with more than 50 bilateral lung nodules with multiple of them showing uptake. There was also significant persistent uptake in the liver lesions and at the primary site. The patient was referred back to the [facility] regarding the possibility of clinical trials. Patient was in clinical trials and completed treatment in mid August 2023. He underwent resection of left upper quadrant abdominal mass on 09/24/2023 at [facility]. He was subsequently seen in the ER at [facility] approximately 2 weeks later with a partial bowel obstruction due to significant constipation, and was treated with GoLytely. Patient represented to the emergency room with complaints of chest pain and shortness of breath over the last couple days. He also reports melanotic stool y ester morning. On admission D-dimer was elevated at 4.09. Coags WNL. CTA chest was negative for PE. No evidence for focal consolidation pneumothorax or pleural effusion. Innumerable pulmonary nodules, greater than 50 of the lungs compatible with metastatic disease. Trace left pleural effusion. CT abdomen pelvis showed progression of malignancy with retroperitoneal lymphadenopathy and liver metastatic disease. Large left upper quadrant mass measuring 10.4 cm x 8.16 cm possibly arising from the adrenal gland. Mild left hydronephrosis secondary to suspected lymphadenopathy. Small ascites. And possible anterior inferior splenic infarct with decreased perfusion compared to the remainder of the spleen. Patient has been started on IV heparin drip. Bilirubin elevated 2.0, AST 100, ALT 38, ALP 1236. Lipase elevated at 947. BNP 754, troponin negative. CBC revealing WBC 19.0, hemoglobin 9.4, MCV 79.3, MCH 24.4, platelets 301,000. Creatinine 0.97, GFR > 90. Review of Systems 10 point ROS is negative except as stated in the HPI Past Medical History Past Medical History: No Reported History, Cancer Additional Past Medical History / Comment(s): masses on lung, liver, gallbladder,intestine. Stage 4 colon CA diagnosed May 2022. History of Any Multi-Drug Resistant Organisms: None Reported Past Surgical History: No Surgical Hx Reported Additional Past Surgical History / Comment(s): colonoscopy. liver biopsy, right chest power port., tumor removed Past Anesthesia/Blood Transfusion Reactions: No Reported Reaction Additional Past Anesthesia/Blood Transfusion Reaction / Comm: Maryn has never had blood transfusions. Past Psychological History: Anxiety, Depression Smoking Status: Never smoker Past Alcohol Use History: Rare Past Drug Use History: None Reported - Past Family History Brother(s) Additional Family Medical History / Comment(s): Ulcerative colitis (Brother) Medications and Allergies Home Medications Medication Instructions Recorded Confirmed Type Ondansetron [Zofran] 8 mg PO Q6H PRN 06/19/22 10/10/23 History Acetaminophen Tab [Tylenol] 500 mg PO Q6HR PRN 10/09/22 10/10/23 History Multivitamins, Thera [Multivitamin 1 tab PO DAILY 10/09/22 10/10/23 History (formulary)] OLANZapine 5 mg PO DAILY PRN 08/06/23 10/10/23 History Ibuprofen [Motrin Ib] 800 mg PO Q8H PRN 10/10/23 10/10/23 History Prochlorperazine Maleate 10 mg PO Q6H PRN 10/10/23 10/10/23 History polyethylene glycoL 3350 [Miralax] 17 gm PO BID 10/10/23 10/10/23 History Allergies Allergy/AdvReac Type Severity Reaction Status Date / Time No Known Allergies Allergy Verified 10/10/23 20:55 Physical Exam Vitals: Vital Signs Temp Pulse Resp BP Pulse Ox 10/11/23 08:15 98 F 125 H 16 122/85 98 10/11/23 06:00 98.3 F 121 H 17 127/92 95 10/11/23 04:10 112 H 16 124/96 97 10/11/23 02:27 110 H 16 131/96 98 10/11/23 00:52 115 H 18 130/93 98 10/10/23 23:30 112 H 18 147/111 98 10/10/23 22:30 114 H 18 134/97 98 10/10/23 22:00 112 H 18 139/101 98 10/10/23 21:58 112 H 16 139/101 98 10/10/23 20:20 110 H 16 144/110 99 10/10/23 17:47 126 H 18 98 10/10/23 16:45 97.8 F 99 20 150/106 94 L Intake and Output 10/10/23 10/11/23 10/11/23 22:59 06:59 14:59 Intake Total 30.509 Balance 30.509 Intake: Intake, IV Titration 30.509 Amount Heparin Sod,Pork in 0.45% 30.509 NaCl 25,000 unit In 0.45 % NaCl 1 250ml.bag @ 18 UNITS/KG/HR 15.513 mls/hr IV .Q16H7M [facility] Rx#: [id number] Other: Weight 86.183 kg - Constitutional General appearance: no acute distress - EENT Eyes: anicteric sclerae, EOMI ENT: hearing grossly normal - Respiratory Respiratory: bilateral: CTA - Cardiovascular Rhythm: regular - Gastrointestinal General gastrointestinal: soft, tenderness Localized gastrointestinal: tender: LUQ, epigastric periumbilical - Integumentary Integumentary: no cyanotic, no jaundiced - Neurologic Neurologic: CNII-XII intact - Musculoskeletal Musculoskeletal: strength equal bilaterally - Psychiatric Psychiatric: A&O x's 3 Results CBC & Chem 7: 10/11/23 03:31 10/11/23 03:31 Labs: Abnormal Lab Results - Last 24 Hours (Table) 10/10/23 10/10/23 10/10/23 Range/Units 16:59 16:59 16:59 WBC 19.0 H (3.8-10.6) k/uL RBC 3.87 L (4.30-5.90) m/uL Hgb 9.4 L D (13.0-17.5) gm/dL Hct 30.7 L (39.0-53.0) % MCV 79.3 L D (80.0-100.0) fL MCH 24.4 L (25.0-35.0) pg MCHC 30.7 L (31.0-37.0) g/dL RDW 15.7 H (11.5-15.5) % Neutrophils # 15.8 H (1.3-7.7) k/uL Monocytes # 1.3 H (0-1.0) k/uL PT (10.0-12.5) sec INR (<1.2) APTT (22.0-30.0) sec D-Dimer 4.09 H (<0.60) mg/L FEU Sodium 129 L (137-145) mmol/L Glucose 117 H (74-99) mg/dL Phosphorus (2.5-4.5) mg/dL Total Bilirubin 2.0 H (0.2-1.3) mg/dL AST 100 H (17-59) U/L Alkaline Phosphatase 1236 H (38-126) U/L Lipase 947 H (23-300) U/L Ur Specific [place] (1.001-1.035) Urine Protein (Negative) 10/10/23 10/11/23 10/11/23 Range/Units 21:40 03:31 03:31 WBC 20.9 H (3.8-10.6) k/uL RBC 3.52 L (4.30-5.90) m/uL Hgb 8.5 L (13.0-17.5) gm/dL Hct 28.2 L (39.0-53.0) % MCV 79.9 L (80.0-100.0) fL MCH 24.1 L (25.0-35.0) pg MCHC 30.2 L (31.0-37.0) g/dL RDW 16.4 H (11.5-15.5) % Neutrophils # 17.1 H (1.3-7.7) k/uL Monocytes # 1.4 H (0-1.0) k/uL PT (10.0-12.5) sec INR (<1.2) APTT (22.0-30.0) sec D-Dimer (<0.60) mg/L FEU Sodium 130 L (137-145) mmol/L Glucose (74-99) mg/dL Phosphorus 4.9 H (2.5-4.5) mg/dL Total Bilirubin 1.8 H (0.2-1.3) mg/dL AST 97 H (17-59) U/L Alkaline Phosphatase 1222 H (38-126) U/L Lipase (23-300) U/L Ur Specific [place] >1.050 H (1.001-1.035) Urine Protein Trace H (Negative) 10/11/23 Range/Units 03:31 WBC (3.8-10.6) k/uL RBC (4.30-5.90) m/uL Hgb (13.0-17.5) gm/dL Hct (39.0-53.0) % MCV (80.0-100.0) fL MCH (25.0-35.0) pg MCHC (31.0-37.0) g/dL RDW (11.5-15.5) % Neutrophils # (1.3-7.7) k/uL Monocytes # (0-1.0) k/uL PT 13.8 H (10.0-12.5) sec INR 1.3 H (<1.2) APTT >200.0 H* (22.0-30.0) sec D-Dimer (<0.60) mg/L FEU Sodium (137-145) mmol/L Glucose (74-99) mg/dL Phosphorus (2.5-4.5) mg/dL Total Bilirubin (0.2-1.3) mg/dL AST (17-59) U/L Alkaline Phosphatase (38-126) U/L Lipase (23-300) U/L Ur Specific [place] (1.001-1.035) Urine Protein (Negative) Chest x-ray: report reviewed CT scan - abdomen: report reviewed CT scan - chest: report reviewed CT scan - pelvis: report reviewed Assessment and Plan (1) Atypical chest pain Current Visit: Yes Status: Acute Priority: High Code(s): R07.89 - OTHER CHEST PAIN SNOMED Code(s): 633985615 (2) Colon cancer Current Visit: Yes Status: Acute Priority: High Code(s): C18.9 - MALIGNANT NEOPLASM OF COLON, UNSPECIFIED SNOMED Code(s): 272305270 (3) Anemia Current Visit: Yes Status: Acute Priority: High Code(s): D64.9 - ANEMIA, UNSPECIFIED SNOMED Code(s): 482954557 Plan: Metastatic colon adenocarcinoma: -Full history in [facility] -Completed clinical trial at [facility] in mid August 2023. He underwent resection of left upper quadrant abdominal mass on 09/24/2023 at [facility]. He was subsequently seen in the ER at [facility] approximately 2 weeks later with a partial bowel obstruction due to significant constipation, and was treated with GoLytely -D-dimer was elevated at 4.09. Coags WNL. Bilirubin 2.0, AST 100, ALT 38, ALP 1236. Lipase elevated at 947. -CTA chest was negative for PE. No evidence for focal consolidation pneumothorax or pleural effusion. Innumerable pulmonary nodules, greater than 50 of the lungs compatible with metastatic disease. Trace left pleural effusion. CT abdomen pelvis showed progression of malignancy with retroperit garcia lymphadenopathy and liver metastatic disease. Large left upper quadrant mass measuring 10.4 cm x 8.16 cm possibly arising from the adrenal gland. Mild left hydronephrosis secondary to suspected lymphadenopathy. Small ascites. And possible anterior inferior splenic infarct with decreased perfusion compared to the remainder of the spleen -Patient reports that LUQ mass noted on CT scan was not reported to him in previous f/u at [facility]. Will request surgical records and imaging obtained at [facility] to compare to scans obtained during this admission to see if mass is new from prior -Heparin drip started. At this time, based on findings, no further anticoagulation needed for suspected splenic infarct -Pt will f/u with oncologist at [facility] upon discharge Anemia, melena: -Hgb normally in 11-12 range -Pt reporting melena yesterday morning. No BM since -On admission CBC revealing WBC 19.0, hemoglobin 9.4, MCV 79.3, MCH 24.4, platelets 301,000. Today hgb 8.5. -Anemia and hemolysis workup ordered -General surgery consulted -Continue to monitor CBC. Please transfuse for hgb less than 7 or if symptomatic -
[2023-10-11] MEDS: DOCUSATE 100 MG CAP PO SCH (20:04)
[2023-10-11] MEDS: SENNOSIDES 8.6 MG TAB PO SCH (20:04)
[2023-10-11 20:52] LABS: Iron 14 UG/DL (65-175)
[2023-10-11 22:17] LABS: % Iron Saturation 7.41 (15.00-50.00)
[2023-10-12 09:27] LABS: Anisocytosis Slight; HCT 22.7 % (39.0-53.0); HGB 7.1 gm/dL (13.0-17.5); Hypochromasia Moderate; MCH 24.7 pg (25.0-35.0); MCV 79.4 fL (80.0-100.0); Mean Platelet Volume 6.9; Platelet Count 257 k/uL (150-450); RBC 2.86 m/uL (4.30-5.90); RDW 16.1 % (11.5-15.5); WBC 25.1 k/uL (3.8-10.6)
[2023-10-12 09:35] LABS: NRBC Per 100 WBC 0 X 10*3/uL (0.00-0.01)
--- NOTE | 2023-10-12 09:51 | P.GSCN ---
History of Present Illness Consult date: 10/12/23 Reason for Consult: splenic infarct History of present illness: this a 33-year-old male who has history of metastatic colon cancer. Patient un derwent chemotherapy and then subsequent surgical resection at [facility] last month. Patient had some complaints of abdominal pain. His CAT scan suggestive of a small splenic infarct. Clinically the patient has minimal points of pain. Past Medical History Past Medical History: No Reported History, Cancer Additional Past Medical History / Comment(s): masses on lung, liver, gallbladder,intestine. Stage 4 colon CA diagnosed May 2022. History of Any Multi-Drug Resistant Organisms: None Reported Past Surgical History: No Surgical Hx Reported Additional Past Surgical History / Comment(s): colonoscopy. liver biopsy, right chest power port., tumor removed Past Anesthesia/Blood Transfusion Reactions: No Reported Reaction Additional Past Anesthesia/Blood Transfusion Reaction / Comm: Maryn has never had blood transfusions. Past Psychological History: Anxiety, Depression Smoking Status: Never smoker Past Alcohol Use History: Rare Past Drug Use History: None Reported - Past Family History Brother(s) Additional Family Medical History / Comment(s): Ulcerative colitis (Brother) Medications and Allergies Home Medications Medication Instructions Recorded Confirmed Type Ondansetron [Zofran] 8 mg PO Q6H PRN 06/19/22 10/10/23 History Acetaminophen Tab [Tylenol] 500 mg PO Q6HR PRN 10/09/22 10/10/23 History Multivitamins, Thera [Multivitamin 1 tab PO DAILY 10/09/22 10/10/23 History (formulary)] OLANZapine 5 mg PO DAILY PRN 08/06/23 10/10/23 History Ibuprofen [Motrin Ib] 800 mg PO Q8H PRN 10/10/23 10/10/23 History Prochlorperazine Maleate 10 mg PO Q6H PRN 10/10/23 10/10/23 History polyethylene glycoL 3350 [Miralax] 17 gm PO BID 10/10/23 10/10/23 History Allergies Allergy/AdvReac Type Severity Reaction Status Date / Time No Known Allergies Allergy Verified 10/10/23 20:55 Surgical - Exam Vital Signs Temp Pulse Resp BP Pulse Ox 97.8 F 99 20 150/106 94 L 10/10/23 16:45 10/10/23 16:45 10/10/23 16:45 10/10/23 16:45 10/10/23 16:45 - General well developed, well nourished, chronically ill - Eyes PERRL - ENT normal pinna - Neck no masses - Respiratory normal expansion - Cardiovascular Rhythm: regular - Abdomen surgical dressings in place Abdomen: soft, non tender Results - Labs 10/12/23 06:46 10/11/23 03:31 Abnormal Lab Results - Last 24 Hours (Table) 10/11/23 10/11/23 10/11/23 Range/Units 03:31 13:01 13:01 WBC (3.8-10.6) k/uL RBC (4.30-5.90) m/uL Hgb (13.0-17.5) gm/dL Hct (39.0-53.0) % MCV (80.0-100.0) fL MCH (25.0-35.0) pg RDW (11.5-15.5) % Retic Count 3.9 H (0.5-2.0) % Haptoglobin (31.2-198.0) mg/dL APTT 41.5 H (22.0-30.0) sec Iron 14 L (65-175) UG/DL TIBC 189 L (228-460) UG/DL % Saturation 7.41 L (15.00-50.00) Transferrin 135.0 L (204.0-354.0) mg/dL Lactate Dehydrogenase (120-246) U/L Vitamin B12 1103.0 H (200.0-944.0) pg/mL 10/11/23 10/11/23 10/11/23 Range/Units 13:01 13:01 20:24 WBC (3.8-10.6) k/uL RBC (4.30-5.90) m/uL Hgb (13.0-17.5) gm/dL Hct (39.0-53.0) % MCV (80.0-100.0) fL MCH (25.0-35.0) pg RDW (11.5-15.5) % Retic Count (0.5-2.0) % Haptoglobin 272.0 H (31.2-198.0) mg/dL APTT 54.8 H (22.0-30.0) sec Iron (65-175) UG/DL TIBC (228-460) UG/DL % Saturation (15.00-50.00) Transferrin (204.0-354.0) mg/dL Lactate Dehydrogenase 1093 H (120-246) U/L Vitamin B12 (200.0-944.0) pg/mL 10/12/23 10/12/23 Range/Units 06:46 06:46 WBC 25.1 H (3.8-10.6) k/uL RBC 2.86 L (4.30-5.90) m/uL Hgb 7.1 L (13.0-17.5) gm/dL Hct 22.7 L (39.0-53.0) % MCV 79.4 L (80.0-100.0) fL MCH 24.7 L (25.0-35.0) pg RDW 16.1 H (11.5-15.5) % Retic Count (0.5-2.0) % Haptoglobin (31.2-198.0) mg/dL APTT 48.2 H (22.0-30.0) sec Iron (65-175) UG/DL TIBC (228-460) UG/DL % Saturation (15.00-50.00) Transferrin (204.0-354.0) mg/dL Lactate Dehydrogenase (120-246) U/L Vitamin B12 (200.0-944.0) pg/mL Assessment and Plan Assessment: splenic infarct. Patient will be observed. If he requires any surgical intervention he should be referred back to [facility].
[2023-10-12] MEDS: SODIUM FERRIC GLUCONAT-SUCROSE 125 MG in SODIUM CHLORIDE 0.9% 100 ML IVPB SCH (10:01)
[2023-10-12 10:03] LABS: RBC Morphology Normal (Normal)
[2023-10-12] MEDS ORDERED: VANCOMYCIN IV PER PHARMACY 1 EACH MISC MISCELLANE PRN (10:39)
[2023-10-12 10:44] LABS: Band Neutrophils % 2 %; Eosinophils # (M) 0.25 k/uL (0-0.7); Monocytes # (M) 1.51 k/uL (0-1.0); Neutrophils % (M) 87 %; Nucleated Red Blood Cells 0 /100 WBC (0-0); Total Cells Counted 100
--- NOTE | 2023-10-12 11:08 | P.PN ---
Subjective Progress Note Date: 10/12/23 Hospital Course: 33-year-old male with history of stage IV colon cancer (metastasis to liver, p ancreas, lungs) diagnosed early 2022 status post debulking surgery September 04, 2023 following with [facility] w/ Dr Luis (not on chemotherapy at this time) who presents to the emergency room with complaints of left-sided chest and abdominal discomfort. Chest CTA in the emergency room revealed likely inferior splenic infarct with decreased perfusion along with progression of metastatic malignancy with lymphadenopathy and adrenal metastasis as well as lymphadenopathy in the neck with mild left-sided hydronephrosis with small ascites. There was no evidence of pulmonary embolism with numerous pulmonary metastatic nodules. EKG revealed sinus rhythm at [address] segment depression in the inf erior leads with T wave inversion in leads III and aVF. Laboratory evaluation was remarkable for leukocytosis of 19.0, hemoglobin 9.4, MCV 79.3, platelet count 301, D-dimer 4.09, sodium 129, glucose 117, total bilirubin 2.0, AST 100, ALT 138, alk phos 1236, troponin less than 0.012, and proBNP 754 with lipase 947. Heparin drip discontinued. General surgery consulted. Urology also consulted. Subjective: Patient seen and examined at bedside. Continues to have left upper quadrant abdominal pain as well as pleuritic pain in the lower left chest. Pain slightly improved. Also complaining of some melanic stools. Pertinent positives and negatives as discussed above, a complete review of s ystems was performed and all other systems are negative. Vitals Signs Reviewed. General: Somewhat chronically ill-appearing male, no distress, appears at stated age, normal weight Derm: no unusual rashes/lesions, warm, abdominal scar clean, dry, intact Head: atraumatic, normocephalic, symmetric Eyes: EOMI, no lid lag, anicteric sclera, pupils equal round reactive to light ENT: Nose and ears atraumatic Neck: No cervical lymphadenopathy, trachea midline, supple Mouth: no lip lesion, mucus membranes moist Cardiovascular: S1S2 reg, no murmur, positive dorsalis pedis pulse bilateral, no edema, no chest wall or abdominal tenderness on examination Lungs: CTA bilateral, no rhonchi, no rales, no accessory muscle use Abdominal: soft, nontender to palpation, no guarding Ext: muscle strength 5 out of 5 in all 4 extremities grossly, no gross muscle atrophy, no contractures, Neuro: CN II-XI grossly intact, no gross focal neuro deficits Psych: Alert, oriented, appropriate affect Data Reviewed Today: Pertinent Labs: WBC 25.1, hemoglobin 7.1, MCV 79.4, iron 14, TIBC 189, percent saturation 7.41, ferritin 122 Imaging: No new imaging Assessment and Plan: Patient is severely ill, needs close monitoring. Prognosis guarded. Sepsis, likely abdominal Severe leukocytosis -Since patient is immunocompromise, patient was started on IV vancomycin, monitor for toxicity -Also on ceftriaxone 1 g every 24 hours -Will also start on IV Flagyl 500 mg every 8 hours -Blood cultures pending -Urinalysis negative at the time of admission -Also started on lactated Ringer at 100 cc an hour Iron deficiency anemia Possible GI bleed -Heparin drip discontinued, general surgery consulted -IV Protonix 40 twice daily ordered -Closely monitor hemoglobin -Also started on IV iron per hematology Possible acute splenic infarct Stage IV colon cancer with extensive metastatic disease Transaminitis Hyponatremia, improving -Discussed management with heme-onc, empirically treated with IV antibiotics, repeat CT abdomen pelvis with contrast -Pain control with IV Dilaudid as needed -Patient currently not on any chemotherapy/immunotherapy, had recent surgery for peripheral bowel obstruction at [facility] -Transaminitis likely in the setting of malignancy -Hyponatremia possibly in the setting of pain -Repeat BMP tomorrow DVT ppx: SCDs Code status: Full code Anticipated discharge place: Pending clinical course Anticipated discharge time: Pending clinical course Objective - Vital Signs Vital signs: Vital Signs Temp 99.3 F 10/12/23 07:00 Pulse 123 H 10/12/23 07:00 Resp 19 10/12/23 07:00 BP 118/74 10/12/23 07:00 Pulse Ox 93 L 10/12/23 08:18 FiO2 Intake & Output 10/11/23 10/12/23 10/12/23 18:59 06:59 18:59 Intake Total 93.914 747.442 Balance 93.914 747.442 Weight 86.183 kg Intake: Intake, IV Titration 93.914 97.442 Amount Heparin Sod,Pork in 0.45% 93.914 97.442 NaCl 25,000 unit In 0.45 % NaCl 1 250ml.bag @ 18 UNITS/KG/HR 15.513 mls/hr IV .Q16H7M [facility] Rx#: [id number] Oral 650 Other: Voiding Method Toilet Toilet Toilet # Voids 2 - Labs CBC & Chem 7: 10/12/23 06:46 10/11/23 03:31 Labs: Abnormal Lab Results - Last 24 Hours (Table) 10/11/23 10/11/23 10/11/23 Range/Units 03:31 13:01 13:01 WBC (3.8-10.6) k/uL RBC (4.30-5.90) m/uL Hgb (13.0-17.5) gm/dL Hct (39.0-53.0) % MCV (80.0-100.0) fL MCH (25.0-35.0) pg RDW (11.5-15.5) % Immature Gran # (0.00-0.04) X 10*3/uL Retic Count 3.9 H (0.5-2.0) % Haptoglobin (31.2-198.0) mg/dL APTT 41.5 H (22.0-30.0) sec Iron 14 L (65-175) UG/DL TIBC 189 L (228-460) UG/DL % Saturation 7.41 L (15.00-50.00) Transferrin 135.0 L (204.0-354.0) mg/dL Lactate Dehydrogenase (120-246) U/L Vitamin B12 1103.0 H (200.0-944.0) pg/mL 10/11/23 10/11/23 10/11/23 Range/Units 13:01 13:01 20:24 WBC (3.8-10.6) k/uL RBC (4.30-5.90) m/uL Hgb (13.0-17.5) gm/dL Hct (39.0-53.0) % MCV (80.0-100.0) fL MCH (25.0-35.0) pg RDW (11.5-15.5) % Immature Gran # (0.00-0.04) X 10*3/uL Retic Count (0.5-2.0) % Haptoglobin 272.0 H (31.2-198.0) mg/dL APTT 54.8 H (22.0-30.0) sec Iron (65-175) UG/DL TIBC (228-460) UG/DL % Saturation (15.00-50.00) Transferrin (204.0-354.0) mg/dL Lactate Dehydrogenase 1093 H (120-246) U/L Vitamin B12 (200.0-944.0) pg/mL 10/12/23 10/12/23 Range/Units 06:46 06:46 WBC 25.1 H (3.8-10.6) k/uL RBC 2.86 L (4.30-5.90) m/uL Hgb 7.1 L (13.0-17.5) gm/dL Hct 22.7 L (39.0-53.0) % MCV 79.4 L (80.0-100.0) fL MCH 24.7 L (25.0-35.0) pg RDW 16.1 H (11.5-15.5) % Immature Gran # 0.15 H (0.00-0.04) X 10*3/uL Retic Count (0.5-2.0) % Haptoglobin (31.2-198.0) mg/dL APTT 48.2 H (22.0-30.0) sec Iron (65-175) UG/DL TIBC (228-460) UG/DL % Saturation (15.00-50.00) Transferrin (204.0-354.0) mg/dL Lactate Dehydrogenase (120-246) U/L Vitamin B12 (200.0-944.0) pg/mL
[2023-10-12] MEDS: PANTOPRAZOLE 40 MG/10 ML VIAL IVP SCH (11:11)
[2023-10-12] MEDS: metroNIDAZOLE-NS PMX 500 MG in SALINE 1 100ML.BAG IVPB SCH ×2 (11:12→18:48)
[2023-10-12 11:45] LABS: ALT 58 U/L (4-49); AST 291 U/L (17-59); African American GFR (CKD) >90 (>60 ml/min/1.73 sqM); Albumin 3.8 g/dL (3.5-5.0); Alkaline Phosphatase 1161 U/L (38-126); Anion Gap 10 mmol/L; Blood Urea Nitrogen 17 mg/dL (9-20); Calcium 8.9 mg/dL (8.4-10.2); Carbon Dioxide 24 mmol/L (22-30); Chloride 95 mmol/L (98-107); Globulin 3.8 g/dL; Glucose 131 mg/dL (74-99); Non-African American GFR(CKD) 82 (>60 ml/min/1.73 sqM); Potassium 4.3 mmol/L (3.5-5.1); Sodium 129 mmol/L (137-145); Total Bilirubin 2.5 mg/dL (0.2-1.3); Total Protein 7.6 g/dL (6.3-8.2)
[2023-10-12] MEDS: VANCOMYCIN 1,500 MG in SODIUM CHLORIDE 0.9% 500 ML 500 ML IVPB SCH ×2 (12:47→21:44)
[2023-10-12] MEDS: LACTATED RINGERS 1,000 ML IV SCH (12:49)
[2023-10-12] MEDS: IOPAMIDOL CONTRAST (ORAL USE) VIAL PO PRN (12:54)
--- NOTE | 2023-10-12 13:22 | P.PN ---
Subjective Progress Note Date: 10/12/23 Principal diagnosis: metastatic colon cancer At today's visit patient is resting comfortably in bed. Patient reporting improvement in symptoms. Patient reports nausea has decreased and he is better tolerating his diet. Iron studies consistent with iron deficiency anemia. IV iron started. WBC showing leukocytosis with WBC 25.1, hemoglobin 7.1, platelets 257,000. Heparin has been discontinued. Bilirubin 2.5, with transaminitis noted. Patient remains afebrile but had low grade temp last night, 99.8. Blood cultures ordered, empiric abx started Objective - Vital Signs Vital signs: Vital Signs Temp 99.3 F 10/12/23 07:00 Pulse 123 H 10/12/23 07:00 Resp 19 10/12/23 07:00 BP 118/74 10/12/23 07:00 Pulse Ox 93 L 10/12/23 08:18 FiO2 Intake & Output 10/11/23 10/12/23 10/12/23 18:59 06:59 18:59 Intake Total 93.914 747.442 Balance 93.914 747.442 Weight 86.183 kg Intake: Intake, IV Titration 93.914 97.442 Amount Heparin Sod,Pork in 0.45% 93.914 97.442 NaCl 25,000 unit In 0.45 % NaCl 1 250ml.bag @ 18 UNITS/KG/HR 15.513 mls/hr IV .[id number] DARA Rx#: [id number] Oral 650 Other: Voiding Method Toilet Toilet Toilet # Voids 2 - Constitutional General appearance: Present: average body habitus, no acute distress - EENT Eyes: Present: anicteric sclerae, EOMI ENT: Present: hearing grossly normal - Respiratory Details: breathing is even and unlabored - Cardiovascular Details: skin warm and dry - Gastrointestinal General gastrointestinal: Present: soft. Absent: tenderness - Integumentary Integumentary: Present: pale. Absent: cyanotic - Neurologic Neurologic: Present: CNII-XII intact - Musculoskeletal Musculoskeletal: Present: strength equal bilaterally - Psychiatric Psychiatric: Present: A&O x's 3 - Labs CBC & Chem 7: 10/12/23 06:46 10/12/23 10:55 Labs: Abnormal Lab Results - Last 24 Hours (Table) 10/11/23 10/11/23 10/11/23 Range/Units 03:31 13:01 13:01 WBC (3.8-10.6) k/uL RBC (4.30-5.90) m/uL Hgb (13.0-17.5) gm/dL Hct (39.0-53.0) % MCV (80.0-100.0) fL MCH (25.0-35.0) pg RDW (11.5-15.5) % Immature Gran # (0.00-0.04) X 10*3/uL Retic Count 3.9 H (0.5-2.0) % Haptoglobin (31.2-198.0) mg/dL APTT 41.5 H (22.0-30.0) sec Iron 14 L (65-175) UG/DL TIBC 189 L (228-460) UG/DL % Saturation 7.41 L (15.00-50.00) Transferrin 135.0 L (204.0-354.0) mg/dL Lactate Dehydrogenase (120-246) U/L Vitamin B12 1103.0 H (200.0-944.0) pg/mL 10/11/23 10/11/23 10/11/23 Range/Units 13:01 13:01 20:24 WBC (3.8-10.6) k/uL RBC (4.30-5.90) m/uL Hgb (13.0-17.5) gm/dL Hct (39.0-53.0) % MCV (80.0-100.0) fL MCH (25.0-35.0) pg RDW (11.5-15.5) % Immature Gran # (0.00-0.04) X 10*3/uL Retic Count (0.5-2.0) % Haptoglobin 272.0 H (31.2-198.0) mg/dL APTT 54.8 H (22.0-30.0) sec Iron (65-175) UG/DL TIBC (228-460) UG/DL % Saturation (15.00-50.00) Transferrin (204.0-354.0) mg/dL Lactate Dehydrogenase 1093 H (120-246) U/L Vitamin B12 (200.0-944.0) pg/mL 10/12/23 10/12/23 Range/Units 06:46 06:46 WBC 25.1 H (3.8-10.6) k/uL RBC 2.86 L (4.30-5.90) m/uL Hgb 7.1 L (13.0-17.5) gm/dL Hct 22.7 L (39.0-53.0) % MCV 79.4 L (80.0-100.0) fL MCH 24.7 L (25.0-35.0) pg RDW 16.1 H (11.5-15.5) % Immature Gran # 0.15 H (0.00-0.04) X 10*3/uL Retic Count (0.5-2.0) % Haptoglobin (31.2-198.0) mg/dL APTT 48.2 H (22.0-30.0) sec Iron (65-175) UG/DL TIBC (228-460) UG/DL % Saturation (15.00-50.00) Transferrin (204.0-354.0) mg/dL Lactate Dehydrogenase (120-246) U/L Vitamin B12 (200.0-944.0) pg/mL Assessment and Plan (1) Atypical chest pain Current Visit: Yes Status: Acute Priority: High Code(s): R07.89 - OTHER CHEST PAIN SNOMED Code(s): 550087031 (2) Colon cancer Current Visit: Yes Status: Acute Priority: High Code(s): C18.9 - MALIGNANT NEOPLASM OF COLON, UNSPECIFIED SNOMED Code(s): 219101713 (3) Anemia Current Visit: Yes Status: Acute Priority: High Code(s): D64.9 - ANEMIA, UNSPECIFIED SNOMED Code(s): 339665777 Plan: Metastatic colon adenocarcinoma: -Full history in consult HPI -Completed clinical trial at [facility] in mid August 2023. He underwent resection of left upper quadrant abdominal mass on 09/24/2023 at [facility]. He was subsequently seen in the ER at [facility] approximately 2 weeks later with a partial bowel obstruction due to significant constipation, and was treated with GoLytely -D-dimer was elevated at 4.09. Coags WNL. Bilirubin 2.0, AST 100, ALT 38, ALP 1236. Lipase elevated at 947. -CTA chest was negative for PE. No evidence for focal consolidation pneumothor ax or pleural effusion. Innumerable pulmonary nodules, greater than 50 of the lungs compatible with metastatic disease. Trace left pleural effusion. CT abdomen pelvis showed progression of malignancy with retroperitoneal lymphadenopathy and liver metastatic disease. Large left upper quadrant mass measuring 10.4 cm x 8.16 cm possibly arising from the adrenal gland. Mild left hydronephrosis secondary to suspected lymphadenopathy with possible obstruction. Small ascites. And possible anterior inferior splenic infarct with decreased perfusion compared to the remainder of the spleen -Patient reports that LUQ mass noted on CT scan was not reported to him in previous f/u at [facility]. Will request surgical records and imaging obtained at [facility] to compare to scans obtained during this admission to see if mass is new from prior -Heparin drip has been discontinued -WBC showing leukocytosis with WBC 25.1, ANC 22.3. Patient remains afebrile but had low grade temp last night, 99.8. Blood cultures ordered, empiric abx started. Increase in WBCs could be secondary to splenic infarct and possible GI bleed -Will place consult to urology due to findings of left sided hydronephrosis and possible obstruction. Kidney function stable, creatinine 1.16, GFR >90. UA on admission negative for UTI -Will repeat CT AP to reevaluate spleen and r/o hemoperitoneum -Pt will f/u with oncologist at [facility] upon discharge Iron deficiency anemia, melena: -Hgb normally in 11-12 range -Pt reporting 1 episode melena prior to admission, has not had a BM since -On admission CBC revealing WBC 19.0, hemoglobin 9.4, MCV 79.3, MCH 24.4, platelets 301,000. Today hgb 7.1, plts 257,000 -Anemia and hemolysis workup ordered -Iron studies consistent with ELENI, parenteral iron started. No Vitamin B12 deficiency noted, folate pending. Hemolysis workup negative -General surgery consulted. No plan for scopes at this time -Continue to monitor CBC daily. Please transfuse for hgb less than 7 or if symptomatic Case discussed with IM team today. If condition worsens or if splenectomy becomes necessary, will initiate immediate transfer to [facility]
--- NOTE | 2023-10-12 15:31 | CT ---
EXAMINATION TYPE: CT abdomen pelvis w con CT DLP: 1206.2 mGycm, Automated exposure control for dose reduction was used. DATE OF EXAM: 10/12/2023 2:29 PM COMPARISON: CT abdomen and pelvis 10/10/2023 CLINICAL INDICATION:Male, 33 years old with history of r/o splenic rupture/hemoperitoneum; mets TECHNIQUE: Axial CT of the abdomen and pelvis. Sagittal and coronal reformats were created on a [employer] workstation. Contrast used:100 ml mL of Isovue 300 with IV Contrast, (none if empty) Oral contrast used: with Oral Contrast (none if empty) FINDINGS: LOWER CHEST: Numerous solid round lung nodules redemonstrated bilaterally consistent with metastases. Slight incre ase in size of likely malignant left effusion, now [id number] in size. Appearance of the heart /lower chest unchanged, including suspected small hiatal hernia with possible thickening of the wall. LIVER: Innumerable irregular liver metastases redemonstrated, with the largest near the dome approxim ately 8.2 cm, unchanged. GALLBLADDER AND BILE DUCTS: Gallbladder is mostly contracted. No biliary dilatation is seen. PANCREAS: Stable and grossly unremarkable. SPLEEN: Similar appearance of region of hypoattenuation in the anterior inferior spleen, may represen t infarct. ADRENAL GLANDS: Left suprarenal mass likely involving/encompassing the adrenal gland redemonstrated, measures about 11 x 8.9 cm, unchanged from recent prior. Unremarkable right adrenal. KIDNEYS AND URETERS: There is again evidence of obstructive uropathy on the left, with relatively del ayed nephrogram, and contrast-containing dilatation of the left renal collecting system and upper ure ter. No abrupt ureteral caliber change is seen. Ureter is difficult to trace continuing distally but there is no clear evidence of ureteral calculus. One or more of the lower abdomen and pelvic mass les ions along the course of the ureter may be responsible for this. Right kidney is unremarkable, shows no hydroureteronephrosis. PELVIS BLADDER: Decompressed not well assessed. REPRODUCTIVE: Prostate is not well seen, appears grossly stable. ABDOMEN & PELVIS STOMACH AND BOWEL: Contrast is seen within the stomach and small bowel without clear evidence of an o bstruction. Postop operative changes in the region of the mid descending colon with sutures in place. Appendix is not identified. PERITONEUM/RETROPERITONEUM: No evidence of free air. There is some left perinephric stranding and flu id, and a moderate amount of abdominopelvic ascites, volume appears similar to previous. There are numerous additional intraperitoneal soft tissue densities demonstrated consistent with meta stases, which appear grossly stable. This includes a 5.4 x 3.7 cm mass inferior to the noah hepatis anterior to the IVC. Examples in the pelvis include a soft tissue lesion on the left posterolaterally image 87 measuring 5.6 x 3.3 cm and farther inferiorly adjacent to the rectum on the left measuring 2.9 x 2.3 cm. Other examples are possible. VASCULATURE: No evidence of aortic aneurysm. MUSCULOSKELETAL: Osseous structures appear intact without evidence of lytic/blastic lesion. There are mild degenerative changes of the lumbar spine. LYMPH NODES: Scattered lymphadenopathy otherwise unchanged. SOFT TISSUE/ABDOMINAL WALL: Unchanged. Small left fat-containing inguinal hernia. IMPRESSION: 1. No significant change from the recent prior study. 2. Diffuse soft tissue metastatic disease. 3. No evidence of splenic rupture. Stable splenic findings may relate to infarct. 4. Left-sided obstructive uropathy with hydronephrosis likely secondary to metastatic deposits in th e lower abdomen and pelvis along the course of the ureter, similar to previous. Recommend urology con sult. 5. Small to moderate size left pleural effusion, slightly increased. 6. Stable moderate volume of abdominopelvic ascites.
[2023-10-12] MEDS: ONDANSETRON 4 MG/2 ML VIAL IVP PRN (15:44)
[2023-10-13 09:12] LABS: ALT 48 U/L (10-49); AST 241 U/L (14-35); Albumin 3.5 g/dL (3.8-4.9); Albumin/Globulin Ratio 0.97 Ratio (1.60-3.17); Alkaline Phosphatase 875 U/L (41-126); BUN/Creat Ratio 14.83 Ratio (12.00-20.00); Blood Urea Nitrogen 17.8 mg/dL (9.0-27.0); Chloride 91 mmol/L (96-109); Globulin 3.6 g/dL (1.6-3.3); Glucose 109 mg/dL (70-110); Potassium 4.3 mmol/L (3.5-5.5); Sodium 128 mmol/L (135-145); Total Bilirubin 2.1 mg/dL (0.3-1.2); Total Protein 7.1 g/dL (6.2-8.2)
--- NOTE | 2023-10-13 09:48 | P.GSCN ---
History of Present Illness Consult date: 10/13/23 History of present illness: I was asked to see this 33 yo male with widely metastatic ca of colon for left hydronephrosis. The patients cancer dates to early 2022. He has had surgery and chemo at the [facility] but the disease persists and progresses. He had a ct scan that showed multiple liver, lung and soft tissue mets. He has a very large luq mass. He has some retroperitoneal masses that probably are causing some mild hydro on the left. This is new compared to a ct scan from 11/2022. His cr is normal. He was admitted for sob and chest pain. The patient is interviewed at the bedside. At present he is relatively comfortable. He is chronically ill due to his disease. He is not having left flank pain. He has no other urologic history. He is voiding without difficulty. Review of Systems All systems: negative - Constitutional Denies fever, Denies weight loss - EENT Eyes: denies blurred vision Ears, nose, mouth and throat: Denies dysphagia - Cardiovascular Denies chest pain, Denies shortness of breath - Respiratory Denies cough, Denies 7 - Gastrointestinal Reports as per HPI - Genitourinary Denies dysuria, Denies hematuria - Integumentary Denies rash, Denies unusual bruising - Neurological Denies headaches, Denies syncope - Hematologic/Lymphatic Denies easy bleeding, Denies easy bruising Past Medical History Past Medical History: No Reported History, Cancer Additional Past Medical History / Comment(s): masses on lung, liver, gallbladder,intestine. Stage 4 colon CA diagnosed May 2022. History of Any Multi-Drug Resistant Organisms: None Reported Past Surgical History: No Surgical Hx Reported Additional Past Surgical History / Comment(s): colonoscopy. liver biopsy, right chest power port., tumor removed Past Anesthesia/Blood Transfusion Reactions: No Reported Reaction Additional Past Anesthesia/Blood Transfusion Reaction / Comm: Josselin has never had blood transfusions. Past Psychological History: Anxiety, Depression Smoking Status: Never smoker Past Alcohol Use History: Rare Past Drug Use History: None Reported - Past Family History Brother(s) Additional Family Medical History / Comment(s): Ulcerative colitis (Brother) Medications and Allergies Home Medications Medication Instructions Recorded Confirmed Type Ondansetron [Zofran] 8 mg PO Q6H PRN 06/19/22 10/10/23 History Acetaminophen Tab [Tylenol] 500 mg PO Q6HR PRN 10/09/22 10/10/23 History Multivitamins, Thera [Multivitamin 1 tab PO DAILY 10/09/22 10/10/23 History (formulary)] OLANZapine 5 mg PO DAILY PRN 08/06/23 10/10/23 History Ibuprofen [Motrin Ib] 800 mg PO Q8H PRN 10/10/23 10/10/23 History Prochlorperazine Maleate 10 mg PO Q6H PRN 10/10/23 10/10/23 History polyethylene glycoL 3350 [Miralax] 17 gm PO BID 10/10/23 10/10/23 History Allergies Allergy/AdvReac Type Severity Reaction Status Date / Time No Known Allergies Allergy Verified 10/10/23 20:55 Surgical - Exam Vital Signs Temp Pulse Resp BP Pulse Ox 97.8 F 99 20 150/106 94 L 10/10/23 16:45 10/10/23 16:45 10/10/23 16:45 10/10/23 16:45 10/10/23 16:45 - General well developed, well nourished, no distress, chronically ill - Eyes normal ocular movement, no icteric - ENT no hearing loss, no congestion - Neck no masses, trachea midline - Respiratory normal respiratory effort, clear to auscultation - Abdomen Abdomen: soft, non tender, no guarding, no rigid, no rebound - Integumentary no rash, no abnormal pigmentation - Neurologic no disoriented, no combative - Psychiatric oriented to time, oriented to person, oriented to place, speech is normal, memory intact Results - Labs 10/12/23 06:46 10/13/23 05:39 Abnormal Lab Results - Last 24 Hours (Table) 10/12/23 10/12/23 10/12/23 Range/Units 06:46 06:46 10:55 WBC 25.1 H (3.8-10.6) k/uL RBC 2.86 L (4.30-5.90) m/uL Hgb 7.1 L (13.0-17.5) gm/dL Hct 22.7 L (39.0-53.0) % MCV 79.4 L (80.0-100.0) fL MCH 24.7 L (25.0-35.0) pg RDW 16.1 H (11.5-15.5) % Immature Gran # 0.15 H (0.00-0.04) X 10*3/uL Neutrophils # (Manual) 22.30 H (1.3-7.7) k/uL Monocytes # (Manual) 1.51 H (0-1.0) k/uL APTT 48.2 H (22.0-30.0) sec Sodium 129 L (137-145) mmol/L Chloride 95 L (98-107) mmol/L Glucose 131 H (74-99) mg/dL Total Bilirubin 2.5 H (0.2-1.3) mg/dL AST 291 H (17-59) U/L ALT 58 H (4-49) U/L Alkaline Phosphatase 1161 H (38-126) U/L Diabetes panel 10/12/23 Range/Units 10:55 Sodium 129 L (137-145) mmol/L Potassium 4.3 (3.5-5.1) mmol/L Chloride 95 L (98-107) mmol/L Carbon Dioxide 24 (22-30) mmol/L BUN 17 (9-20) mg/dL Creatinine 1.16 (0.66-1.25) mg/dL Glucose 131 H (74-99) mg/dL Calcium 8.9 (8.4-10.2) mg/dL AST 291 H (17-59) U/L ALT 58 H (4-49) U/L Alkaline Phosphatase 1161 H (38-126) U/L Total Protein 7.6 (6.3-8.2) g/dL Albumin 3.8 (3.5-5.0) g/dL Calcium panel 10/12/23 Range/Units 10:55 Calcium 8.9 (8.4-10.2) mg/dL Albumin 3.8 (3.5-5.0) g/dL Pituitary panel 10/12/23 Range/Units 10:55 Sodium 129 L (137-145) mmol/L Potassium 4.3 (3.5-5.1) mmol/L Chloride 95 L (98-107) mmol/L Carbon Dioxide 24 (22-30) mmol/L BUN 17 (9-20) mg/dL Creatinine 1.16 (0.66-1.25) mg/dL Glucose 131 H (74-99) mg/dL Calcium 8.9 (8.4-10.2) mg/dL Adrenal panel 10/12/23 Range/Units 10:55 Sodium 129 L (137-145) mmol/L Potassium 4.3 (3.5-5.1) mmol/L Chloride 95 L (98-107) mmol/L Carbon Dioxide 24 (22-30) mmol/L BUN 17 (9-20) mg/dL Creatinine 1.16 (0.66-1.25) mg/dL Glucose 131 H (74-99) mg/dL Calcium 8.9 (8.4-10.2) mg/dL Total Bilirubin 2.5 H (0.2-1.3) mg/dL AST 291 H (17-59) U/L ALT 58 H (4-49) U/L Alkaline Phosphatase 1161 H (38-126) U/L Total Protein 7.6 (6.3-8.2) g/dL Albumin 3.8 (3.5-5.0) g/dL - Imaging CT scan - abdomen: report reviewed, image reviewed CT scan - pelvis: report reviewed, image reviewed Assessment and Plan Assessment: Impression: metastatic colon cancer. New onset mild hydronephrosis probably secondary due to metastatic lymphadenopathy. Reommendations: At this point in time the hydro is mildl and asx. Given the advanced , progressive state of his disease I donot recommend any urological intervention however I will discuss with oncology.
[2023-10-13 10:39] LABS: Basophils # (A) 0.03 X 10*3/uL (0.00-0.10); Basophils % (A) 0.2 %; Eosinophils # (A) 0.05 X 10*3/uL (0.04-0.35); Eosinophils % (A) 0.3 %; HCT 20.6 % (39.6-50.0); HGB 6.2 g/dL (13.0-17.0); Hypochromasia (M) 2+; Lymphocytes # (A) 0.95 X 10*3/uL (0.90-5.00); Lymphocytes % (A) 5.2 %; MCH 24.3 pg (27.0-32.0); MCHC 30.1 g/dL (32.0-37.0); MCV 80.8 FL (80.0-97.0); Mean Platelet Volume 9.2 FL (9.5-12.2); Monocytes # (A) 2.04 X 10*3/uL (0.20-1.00); Monocytes % (A) 11.2 %; NRBC Per 100 WBC 0 X 10*3/uL (0.00-0.01); Neutrophils # (A) 14.93 X 10*3/uL (1.80-7.70); Neutrophils % (A) 82.1 %; Platelet Count 190 X 10*3/uL (140-440); RBC 2.55 X 10*6/uL (4.40-5.60); RDW 16.7 % (11.5-14.5); WBC 18.19 X 10*3/uL (4.50-10.00)
[2023-10-13] MEDS: VANCOMYCIN TROUGH DUE 1 EACH MISC MISCELLANE ONE (12:35)
[2023-10-13] MEDS: polyethylene glycoL 3350 17 GM POWD.PACK PO SCH (12:43)
[2023-10-13] MEDS: VANCOMYCIN 1,250 MG in SODIUM CHLORIDE 0.9% 250 ML IVPB SCH (13:37)
--- NOTE | 2023-10-13 14:31 | P.PN ---
Subjective Progress Note Date: 10/13/23 Hospital Course: 33-year-old male with history of stage IV colon cancer (metastasis to liver, p ancreas, lungs) diagnosed early 2022 status post debulking surgery September 04, 2023 following with [facility] w/ Dr Luis (not on chemotherapy at this time) who presents to the emergency room with complaints of left-sided chest and abdominal discomfort. Chest CTA in the emergency room revealed likely inferior splenic infarct with decreased perfusion along with progression of metastatic malignancy with lymphadenopathy and adrenal metastasis as well as lymphadenopathy in the neck with mild left-sided hydronephrosis with small ascites. There was no evidence of pulmonary embolism with numerous pulmonary metastatic nodules. EKG revealed sinus rhythm at [address] segment depression in the inf erior leads with T wave inversion in leads III and aVF. Laboratory evaluation was remarkable for leukocytosis of 19.0, hemoglobin 9.4, MCV 79.3, platelet count 301, D-dimer 4.09, sodium 129, glucose 117, total bilirubin 2.0, AST 100, ALT 138, alk phos 1236, troponin less than 0.012, and proBNP 754 with lipase 947. Heparin drip discontinued. General surgery consulted. Urology also consulted. Subjective: Patient seen and examined at bedside. Continues to have left upper quadrant abdominal pain as well as pleuritic pain in the lower left chest. Pain slightly improved. Denies any further melanic stools. Pertinent positives and negatives as discussed above, a complete review of systems was performed and all other systems are negative. Vitals Signs Reviewed. General: Somewhat chronically ill-appearing male, no distress, appears at stated age, normal weight Derm: no unusual rashes/lesions, warm, abdominal scar clean, dry, intact Head: atraumatic, normocephalic, symmetric Eyes: EOMI, no lid lag, anicteric sclera, pupils equal round reactive to light ENT: Nose and ears atraumatic Neck: No cervical lymphadenopathy, trachea midline, supple Mouth: no lip lesion, mucus membranes moist Cardiovascular: S1S2 reg, no murmur, positive dorsalis pedis pulse bilateral, no edema, no chest wall or abdominal tenderness on examination Lungs: CTA bilateral, no rhonchi, no rales, no accessory muscle use Abdominal: soft, nontender to palpation, no guarding Ext: muscle strength 5 out of 5 in all 4 extremities grossly, no gross muscle atrophy, no contractures, Neuro: CN II-XI grossly intact, no gross focal neuro deficits Psych: Alert, oriented, appropriate affect Data Reviewed Today: Pertinent Labs: WBC 18.19, hemoglobin 6.2, sodium 128, creatinine 1.2, total bili 2.1, AST 241, ALT 48, ALP 75 Imaging: CT abdomen pelvis shows slightly increased small to moderate left-sided pleural effusion, similar left-sided obstructive uropathy, diffuse soft tissue metastatic disease. Assessment and Plan: Patient is severely ill, needs close monitoring. Prognosis guarded. Sepsis, likely abdominal source Severe leukocytosis, improving -Since patient is immunocompromise, patient was started on IV vancomycin, monitor for toxicity -Also on ceftriaxone 1 g every 24 hours and IV Flagyl 500 mg every 8 hours -Blood cultures pending -Urinalysis negative at the time of admission -Continue on lactated Ringer at 100 cc an hour Iron deficiency anemia Possible GI bleed -Heparin drip discontinued, general surgery consulted -IV Protonix 40 twice daily ordered -Closely monitor hemoglobin -Also started on IV iron per hematology -Pending 1 unit of PRBCs -Surgery following Possible acute splenic infarct Stage IV colon cancer with extensive metastatic disease Transaminitis Hyponatremia, stable -Discussed management with heme-onc, empirically treated with IV antibiotics, repeat CT abdomen pelvis with contrast -Pain control with IV Dilaudid as needed -Patient currently not on any chemotherapy/immunotherapy, had recent surgery for peripheral bowel obstruction at [facility] -Transaminitis likely in the setting of malignancy -Hyponatremia possibly in the setting of pain -Repeat BMP tomorrow Left-sided hydronephrosis -secondary to metastatic lymphadenopathy -Urology recommending no interventions at the moment DVT ppx: SCDs Code status: Full code Anticipated discharge place: Pending clinical course Anticipated discharge time: Pending clinical course Objective - Vital Signs Vital signs: Vital Signs Temp 99.4 F 10/13/23 12:59 Pulse 114 H 10/13/23 12:59 Resp 17 10/13/23 12:59 BP 122/78 10/13/23 12:59 Pulse Ox 93 L 10/13/23 12:59 FiO2 Intake & Output 10/12/23 10/13/23 10/13/23 18:59 06:59 18:59 Intake Total 380 Balance 380 Intake: Oral 380 Other: Voiding Method Toilet Toilet # Voids 3 1 - Labs CBC & Chem 7: 10/13/23 05:39 10/13/23 05:39 Labs: Abnormal Lab Results - Last 24 Hours (Table) 10/11/23 10/13/23 10/13/23 Range/Units 03:31 05:39 05:39 WBC 18.19 H (4.50-10.00) X 10*3/uL RBC 2.55 L (4.40-5.60) X 10*6/uL Hgb 6.2 A* (13.0-17.0) g/dL Hct 20.6 L (39.6-50.0) % MCH 24.3 L (27.0-32.0) pg MCHC 30.1 L (32.0-37.0) g/dL RDW 16.7 H (11.5-14.5) % MPV 9.2 L (9.5-12.2) FL Immature Gran # 0.19 H (0.00-0.04) X 10*3/uL Neutrophils # 14.93 H (1.80-7.70) X 10*3/uL Monocytes # 2.04 H (0.20-1.00) X 10*3/uL Hypochromasia (manual) 2+ A Sodium 128 L (135-145) mmol/L Chloride 91 L (96-109) mmol/L Anion Gap 13.00 H (4.00-12.00) mmol/L Total Bilirubin 2.1 H (0.3-1.2) mg/dL AST 241 H (14-35) U/L Alkaline Phosphatase 875 H (41-126) U/L Albumin 3.5 L (3.8-4.9) g/dL Globulin 3.6 H (1.6-3.3) g/dL Albumin/Globulin Ratio 0.97 L (1.60-3.17) Ratio RBC Folate 1,002 H (280 - 791) ng/mL
--- NOTE | 2023-10-13 14:50 | P.PN ---
Subjective Progress Note Date: 10/13/23 CHIEF COMPLAINT: Chest pain HISTORY OF PRESENT ILLNESS: Patient continues to complain of left upper quadrant pain and up into the chest. He reports not having a bowel movement since Friday. He is having flatus. Reports no blood in his stools that he is aware of. History of metastatic colon cancer. CT scan abdomen pelvis reports diffuse soft tissue metastatic disease. No evidence of splenic rupture. Stable splenic findings may relate to infarct. Left-sided obstructive uropathy with hydronephrosis likely secondary to metastatic deposits in the lower abdomen and pelvis small to moderate size left pleural effusion stable moderate volume abdominal pelvic ascites. Patient's main complaint is hiccups and not having a bowel movement. He is requesting his MiraLAX to be restarted. Afebrile. M ildly tachycardic. WBC 18.19 hemoglobin 6.2 platelets 190/128 potassium 4.3 creatinine 1.2 PHYSICAL EXAM: VITAL SIGNS: Reviewed. GENERAL: Well-developed in no acute distress. ABDOMEN: Soft. Nondistended. Tenderness left upper quadrant. Incisional dressing midline saturated NEUROLOGIC: Alert and oriented. Cranial nerves II through XII grossly intact. ASSESSMENT: 1. Splenic infarct 2. Left upper quadrant abdominal pain 3. History of metastatic colon cancer with recent chemotherapy and surgical resection at [facility] last month 4. Constipation 5. Anemia with iron deficiency anemia PLAN: -Continue to observe -If patient requires any surgical intervention he should be referred back to [facility] -Add MiraLAX for constipation -Continue IV iron and patient is scheduled for 1 unit of blood today Physician Audiology Doctor note has been reviewed by physician. Signing provider agrees with the documented findings, assessment, and plan of care. Objective - Vital Signs Vital signs: Vital Signs Temp 99.4 F 10/13/23 12:59 Pulse 114 H 10/13/23 12:59 Resp 17 10/13/23 12:59 BP 122/78 10/13/23 12:59 Pulse Ox 93 L 10/13/23 12:59 FiO2 Intake & Output 10/12/23 10/13/23 10/13/23 18:59 06:59 18:59 Intake Total 380 Balance 380 Intake: Oral 380 Other: Voiding Method Toilet Toilet # Voids 3 1 - Labs CBC & Chem 7: 10/13/23 05:39 10/13/23 05:39 Labs: Abnormal Lab Results - Last 24 Hours (Table) 10/11/23 10/13/23 10/13/23 Range/Units 03:31 05:39 05:39 WBC 18.19 H (4.50-10.00) X 10*3/uL RBC 2.55 L (4.40-5.60) X 10*6/uL Hgb 6.2 A* (13.0-17.0) g/dL Hct 20.6 L (39.6-50.0) % MCH 24.3 L (27.0-32.0) pg MCHC 30.1 L (32.0-37.0) g/dL RDW 16.7 H (11.5-14.5) % MPV 9.2 L (9.5-12.2) FL Immature Gran # 0.19 H (0.00-0.04) X 10*3/uL Neutrophils # 14.93 H (1.80-7.70) X 10*3/uL Monocytes # 2.04 H (0.20-1.00) X 10*3/uL Hypochromasia (manual) 2+ A Sodium 128 L (135-145) mmol/L Chloride 91 L (96-109) mmol/L Anion Gap 13.00 H (4.00-12.00) mmol/L Total Bilirubin 2.1 H (0.3-1.2) mg/dL AST 241 H (14-35) U/L Alkaline Phosphatase 875 H (41-126) U/L Albumin 3.5 L (3.8-4.9) g/dL Globulin 3.6 H (1.6-3.3) g/dL Albumin/Globulin Ratio 0.97 L (1.60-3.17) Ratio RBC Folate 1,002 H (280 - 791) ng/mL
[2023-10-13 14:59] VITALS: BMI 23.1
--- NOTE | 2023-10-13 19:07 | P.PN ---
Subjective Progress Note Date: 10/13/23 Principal diagnosis: Poss splenic infarct, colon adenocarcinoma stage IV In f/u pt is sitting at bed side playing a video game. He reports pain in the chest and abd is fine on pain meds. He is tolerating IV iron. He is going to get a unit of blood for Hgb 6.2 today. He reports that once he is healed from surgery he is supposed to start chemo again, he has finished the clinical trial. No other acute physical c/o today. Objective - Vital Signs Vital signs: Vital Signs Temp 99.4 F 10/13/23 12:59 Pulse 114 H 10/13/23 12:59 Resp 17 10/13/23 12:59 BP 122/78 10/13/23 12:59 Pulse Ox 93 L 10/13/23 12:59 FiO2 Intake & Output 10/12/23 10/13/23 10/13/23 18:59 06:59 18:59 Intake Total 380 Balance 380 Weight 86.183 kg Intake: Oral 380 Other: Voiding Method Toilet Toilet # Voids 3 1 - Constitutional General appearance: Present: cooperative, no acute distress, thin - EENT Eyes: Present: anicteric sclerae, EOMI ENT: Present: hearing grossly normal - Respiratory Details: resp even and unlabored - Cardiovascular Details: skin warm and dry to touch - Peripheral edema leg Peripheral Edema: bilateral: None - Gastrointestinal Gastrointestinal Comment(s): midline incision dressing is C/D/I, no unusual bruising or swelling - Integumentary Integumentary: Present: pale - Neurologic Neurologic: Present: CNII-XII intact - Musculoskeletal Musculoskeletal: Present: strength equal bilaterally - Psychiatric Psychiatric: Present: A&O x's 3, appropriate affect, intact judgment & insight - Labs CBC & Chem 7: 10/13/23 05:39 10/13/23 05:39 Labs: Abnormal Lab Results - Last 24 Hours (Table) 10/11/23 10/13/23 10/13/23 Range/Units 03:31 05:39 05:39 WBC 18.19 H (4.50-10.00) X 10*3/uL RBC 2.55 L (4.40-5.60) X 10*6/uL Hgb 6.2 A* (13.0-17.0) g/dL Hct 20.6 L (39.6-50.0) % MCH 24.3 L (27.0-32.0) pg MCHC 30.1 L (32.0-37.0) g/dL RDW 16.7 H (11.5-14.5) % MPV 9.2 L (9.5-12.2) FL Immature Gran # 0.19 H (0.00-0.04) X 10*3/uL Neutrophils # 14.93 H (1.80-7.70) X 10*3/uL Monocytes # 2.04 H (0.20-1.00) X 10*3/uL Hypochromasia (manual) 2+ A Sodium 128 L (135-145) mmol/L Chloride 91 L (96-109) mmol/L Anion Gap 13.00 H (4.00-12.00) mmol/L Total Bilirubin 2.1 H (0.3-1.2) mg/dL AST 241 H (14-35) U/L Alkaline Phosphatase 875 H (41-126) U/L Albumin 3.5 L (3.8-4.9) g/dL Globulin 3.6 H (1.6-3.3) g/dL Albumin/Globulin Ratio 0.97 L (1.60-3.17) Ratio RBC Folate 1,002 H (280 - 791) ng/mL Crossmatch 10/13/23 Range/Units 13:45 WBC (4.50-10.00) X 10*3/uL RBC (4.40-5.60) X 10*6/uL Hgb (13.0-17.0) g/dL Hct (39.6-50.0) % MCH (27.0-32.0) pg MCHC (32.0-37.0) g/dL RDW (11.5-14.5) % MPV (9.5-12.2) FL Immature Gran # (0.00-0.04) X 10*3/uL Neutrophils # (1.80-7.70) X 10*3/uL Monocytes # (0.20-1.00) X 10*3/uL Hypochromasia (manual) Sodium (135-145) mmol/L Chloride (96-109) mmol/L Anion Gap (4.00-12.00) mmol/L Total Bilirubin (0.3-1.2) mg/dL AST (14-35) U/L Alkaline Phosphatase (41-126) U/L Albumin (3.8-4.9) g/dL Globulin (1.6-3.3) g/dL Albumin/Globulin Ratio (1.60-3.17) Ratio RBC Folate (280 - 791) ng/mL Crossmatch See Detail - Imaging and Cardiology CT scan - abdomen: report reviewed CT scan - pelvis: report reviewed [facility] CT AP with contrast dated 09/28/23 report reviewed Assessment and Plan (1) Anemia Current Visit: Yes Status: Acute Priority: High Code(s): D64.9 - ANEMIA, UNSPECIFIED SNOMED Code(s): 146238082 (2) Atypical chest pain Current Visit: Yes Status: Acute Priority: High Code(s): R07.89 - OTHER CHEST PAIN SNOMED Code(s): 180230785 (3) Colon cancer Current Visit: Yes Status: Acute Priority: High Code(s): C18.9 - MALIGNANT NEOPLASM OF COLON, UNSPECIFIED SNOMED Code(s): 274174986 Plan: Anemia, melena x1 -No stools since admit -Iron deficiency on anemia work up, IV iron ordered. No other deficiencies -Surgery has seen pt. No endoscopy planned at this time. -Hgb cont to drop, 6.3 today. 1 unit ordered. CBC in AM -CT AP did not reveal any findings suggestive of bleeding into abd. Metastatic colon adenocarcinoma -Completed clinical trial at [facility] August 2023. -Had resection of left upper quadrant abdominal mass on 09/24/2023 at [facility]. He was subsequently seen in the ER at [facility] approximately 2 weeks later with a partial bowel obstruction due to significant constipation and was treated with GoLytely. He is requesting miralx now for constipation as he has not had a BM since Fri. -Bilirubin remains elevated but stable, LFTs stable. -CTA chest was negative for PE. No evidence for focal consolidation pneumothorax or pleural effusion. Innumerable pulmonary nodules, greater than 50 of the lungs compatible with metastatic disease. Trace left pleural effusion. CT AP done here reports retroperitoneal lymphadenopathy and metastatic disease to liver. Large left upper quadrant mass measuring 10.4 cm x 8.16 cm possibly arising from the adrenal gland. Mild left hydronephrosis secondary to suspected lymphadenopathy with possible obstruction. Small ascites. Possible anterior inferior splenic infarct with decreased perfusion compared to the remainder of the spleen -Patient reports that LUQ mass noted on CT scan was not reported to him in previous f/u at [facility]. This mass is likely the adrenal mass reported below and not new. CT AP from [facility] was performed on 09/28/23 reads: diffuse pulm metastatic disease, increased size. Liver lesion, largest in lt hepatic lobe 11.4x6.7, larger then previous. Pancreas has hypoattenuating lesion 2.6cm, splenomegaly 18.9 cm. Splenic infarct suspected along the anterior spleen. Lt adrenal met 6.5cm (5cm prev). Enlarging peritoneal nodule 1.6c (prev 1.1cm). Perirectal LN enlarging, ascites, pelvic LAD increasing in size. -Pt was supposed to have a f/u tomorrow with [facility] but, he will miss that appt. He states he has a telemed visit later this week. -Spoke with pt. He is aware that his disease is progressing and that there are plans to start chemo again once he is healed from recent surgery. -WBC trending down. Blood cultures pending, empiric abx started. Increase in WBCs could be secondary to splenic infarct and possible GI bleed -Urology has seen pt. Mechanical obstruction from LAD. Monitoring BUN/Cr for now, still WNL. Will speak to [facility] then discuss the case further with Urology. -No hemoperitoneum reported
[2023-10-14 09:15] LABS: Basophils # (A) 0.03 X 10*3/uL (0.00-0.10); Basophils % (A) 0.2 %; Eosinophils # (A) 0.07 X 10*3/uL (0.04-0.35); Eosinophils % (A) 0.5 %; HCT 20.9 % (39.6-50.0); HGB 6.4 g/dL (13.0-17.0); Lymphocytes # (A) 1.09 X 10*3/uL (0.90-5.00); Lymphocytes % (A) 7.2 %; MCH 24.5 pg (27.0-32.0); MCHC 30.6 g/dL (32.0-37.0); MCV 80.1 FL (80.0-97.0); Mean Platelet Volume 9.6 FL (9.5-12.2); Monocytes # (A) 2.09 X 10*3/uL (0.20-1.00); Monocytes % (A) 13.8 %; NRBC Per 100 WBC 0 X 10*3/uL (0.00-0.01); Neutrophils # (A) 11.71 X 10*3/uL (1.80-7.70); Neutrophils % (A) 77.4 %; Platelet Count 194 X 10*3/uL (140-440); RBC 2.61 X 10*6/uL (4.40-5.60); RDW 16.7 % (11.5-14.5); WBC 15.12 X 10*3/uL (4.50-10.00)
[2023-10-14 10:13] LABS: ALT 37 U/L (10-49); AST 161 U/L (14-35); Albumin 3.2 g/dL (3.8-4.9); Albumin/Globulin Ratio 0.94 Ratio (1.60-3.17); Alkaline Phosphatase 780 U/L (41-126); BUN/Creat Ratio 18.56 Ratio (12.00-20.00); Blood Urea Nitrogen 16.7 mg/dL (9.0-27.0); Calcium 8.6 mg/dL (8.7-10.3); Carbon Dioxide 23.5 mmol/L (21.6-31.8); Chloride 93 mmol/L (96-109); Globulin 3.4 g/dL (1.6-3.3); Glucose 96 mg/dL (70-110); Potassium 4.2 mmol/L (3.5-5.5); Sodium 128 mmol/L (135-145); Total Bilirubin 3.1 mg/dL (0.3-1.2); Total Protein 6.6 g/dL (6.2-8.2)
--- NOTE | 2023-10-14 12:41 | P.PN ---
Subjective Progress Note Date: 10/14/23 CHIEF COMPLAINT: Chest pain HISTORY OF PRESENT ILLNESS: Patient continues to complain of left upper quadrant pain and up into the chest. He reports not having a bowel movement since Friday. He is having flatus. Reports no blood in his stools that he is aware of. History of metastatic colon cancer. Patient was started on MiraLAX yesterday for his constipation. Afebrile. WBC 15.12 Hgb 6.4 platelets 194 PHYSICAL EXAM: VITAL SIGNS: Reviewed. GENERAL: Well-developed in no acute distress. ABDOMEN: Soft. Nondistended. Tenderness left upper quadrant. Incisional dressing midline saturated NEUROLOGIC: Alert and oriented. Cranial nerves II through XII grossly intact. ASSESSMENT: 1. Splenic infarct 2. Left upper quadrant abdominal pain 3. History of metastatic colon cancer with recent chemotherapy and surgical resection at [facility] last month 4. Constipation 5. Anemia with iron deficiency anemia PLAN: -Patient scheduled for another blood transfusion today for hemoglobin of 6.4 -Continue to observe -If patient requires any surgical intervention he should be referred back to [facility] -No plans for endoscopies -Continue MiraLAX and Colace for constipation -Patient receiving IV iron -Continue to monitor for any signs or symptoms of bleeding Physician Merchandise Associate note has been reviewed by physician. Signing provider agrees with the documented findings, assessment, and plan of care. Objective - Vital Signs Vital signs: Vital Signs Temp 97.3 F L 10/14/23 12:33 Pulse 86 10/14/23 12:33 Resp 16 10/14/23 12:33 BP 126/81 10/14/23 12:33 Pulse Ox 95 10/14/23 12:33 FiO2 Intake & Output 10/13/23 10/14/23 10/14/23 18:59 06:59 18:59 Intake Total 0 310 0 Balance 0 310 0 Weight 86.183 kg Intake: Blood Product 0 310 0 Unit 0 Rc As-1 Unit 0 310 [id number] Other: Voiding Method Toilet # Voids 1 3 - Labs CBC & Chem 7: 10/14/23 05:40 10/14/23 05:40 Labs: Abnormal Lab Results - Last 24 Hours (Table) 10/11/23 10/13/23 10/14/23 Range/Units 03:31 13:45 05:40 WBC 15.12 H (4.50-10.00) X 10*3/uL RBC 2.61 L (4.40-5.60) X 10*6/uL Hgb 6.4 A* (13.0-17.0) g/dL Hct 20.9 L (39.6-50.0) % MCH 24.5 L (27.0-32.0) pg MCHC 30.6 L (32.0-37.0) g/dL RDW 16.7 H (11.5-14.5) % Immature Gran # 0.13 H (0.00-0.04) X 10*3/uL Neutrophils # 11.71 H (1.80-7.70) X 10*3/uL Monocytes # 2.09 H (0.20-1.00) X 10*3/uL Sodium (135-145) mmol/L Chloride (96-109) mmol/L Calcium (8.7-10.3) mg/dL Total Bilirubin (0.3-1.2) mg/dL AST (14-35) U/L Alkaline Phosphatase (41-126) U/L Albumin (3.8-4.9) g/dL Globulin (1.6-3.3) g/dL Albumin/Globulin Ratio (1.60-3.17) Ratio RBC Folate 1,002 H (280 - 791) ng/mL Crossmatch See Detail 10/14/23 Range/Units 05:40 WBC (4.50-10.00) X 10*3/uL RBC (4.40-5.60) X 10*6/uL Hgb (13.0-17.0) g/dL Hct (39.6-50.0) % MCH (27.0-32.0) pg MCHC (32.0-37.0) g/dL RDW (11.5-14.5) % Immature Gran # (0.00-0.04) X 10*3/uL Neutrophils # (1.80-7.70) X 10*3/uL Monocytes # (0.20-1.00) X 10*3/uL Sodium 128 L (135-145) mmol/L Chloride 93 L (96-109) mmol/L Calcium 8.6 L (8.7-10.3) mg/dL Total Bilirubin 3.1 H (0.3-1.2) mg/dL AST 161 H (14-35) U/L Alkaline Phosphatase 780 H (41-126) U/L Albumin 3.2 L (3.8-4.9) g/dL Globulin 3.4 H (1.6-3.3) g/dL Albumin/Globulin Ratio 0.94 L (1.60-3.17) Ratio RBC Folate (280 - 791) ng/mL Crossmatch Microbiology - Last 24 Hours (Table) 10/12/23 10:55 Blood Culture - Preliminary Blood 10/12/23 10:45 Blood Culture - Preliminary Blood
--- NOTE | 2023-10-14 14:09 | P.PN ---
Subjective Progress Note Date: 10/14/23 Hospital Course: 33-year-old male with history of stage IV colon cancer (metastasis to liver, pancreas, lungs) diagnosed early 2022 status post debulking surgery September 04, 2023 following with [facility] w/ Dr Luis (not on chemotherapy at this time) who presents to the emergency room with complaints of left-sided chest and abdominal discomfort. Chest CTA in the emergency room revealed likely inferior splenic infarct with decreased perfusion along with progression of metastatic malignancy with lymphadenopathy and adrenal metastasis as well as lymphadenopathy in the neck with mild left-sided hydronephrosis with small ascites. There was no evidence of pulmonary embolism with numerous pulmonary metastatic nodules. EKG revealed sinus rhythm at [address] segment depression in the inferior leads with T wave inversion in leads III and aVF. Laboratory evaluation was remarkable for leukocytosis of 19.0, hemoglobin 9.4, MCV 79.3, platelet count 301, D-dimer 4.09, sodium 129, glucose 117, total bilirubin 2.0, AST 100, ALT 138, alk phos 1236, troponin less than 0.012, and proBNP 754 with lipase 947. Heparin drip discontinued. General surgery consulted. Urology also consulted. Urology is not recommending any intervention. General surgery recommending to transfuse the patient for hemoglobin less than 7 and does not plan on doing any endoscopic procedure. Subjective: Patient states that he had 1 episode of black stool just prior to coming into the hospital. He states that he has not had a bowel movement since then. Vitals Signs Reviewed. General examination - Alert and Oriented 3 in NAD Heart - + S1S2 no murmurs Lungs - Clear to auscultation Abdomen soft NT ND +ve BS Extremities - No edema CONSERVATION PLANNER - Moving all 4 extremities spontaneously Psych - Calm and cooperative Assessment and Plan: Patient is severely ill, needs close monitoring. Prognosis guarded. SIRS criteria likely due to spinal infarct and acute blood loss anemia Patient has no obvious source of infection Severe leukocytosis, improving -Since patient is immunocompromise, patient was started empirically on IV vancomycin, monitor for toxicity. Patient also on Rocephin 1 g every 24 hours and IV Flagyl 5 mg every 8 hours -WBC decreased to 15.12 -Blood cultures pending -Continue on lactated Ringer at 100 cc an hour Iron deficiency anemia Acute blood loss anemia Suspect source of bleeding is from colon cancer -IV Protonix 40 twice daily ordered -Closely monitor hemoglobin -Hemoglobin this morning is 6.4. 1 unit of PRBC ordered -Obtain stool culture -General surgery not planning on any endoscopic procedures at this time Dyspnea likely due to debility from malignancy as well as iron deficiency anemia -Check chest x-ray to rule out volume overload as patient has received blood transfusions. Acute splenic infarct Stage IV colon cancer with extensive metastatic disease -Pain control with IV Dilaudid as needed -Patient is constipated so also started on MiraLAX daily -Patient currently not on any chemotherapy/immunotherapy, had recent surgery for peripheral bowel obstruction at [facility] Transaminitis and hyperbilirubinemia secondary to metastasis -LFTs and bilirubin are worsening -Trend CMP Hyponatremia likely due to dehydration -Continue with lactated Ringer's 100 cc an hour. -Sodium this morning is stable at 128 -Trend CMP Left-sided hydronephrosis -secondary to metastatic lymphadenopathy -Urology recommending no interventions at the moment DVT ppx: SCDs Code status: Full code Anticipated discharge place: Home Anticipated discharge time: Patient will be stable for discharge home once his hemoglobin is stable. Objective - Vital Signs Vital signs: Vital Signs Temp 97.3 F L 10/14/23 12:33 Pulse 86 10/14/23 12:33 Resp 16 10/14/23 12:33 BP 126/81 10/14/23 12:33 Pulse Ox 95 10/14/23 12:33 FiO2 Intake & Output 10/13/23 10/14/23 10/14/23 18:59 06:59 18:59 Intake Total 0 310 0 Balance 0 310 0 Weight 86.183 kg Intake: Blood Product 0 310 0 Unit 0 Rc As-1 Unit 0 310 [id number] Other: Voiding Method Toilet # Voids 1 3 - Labs CBC & Chem 7: 10/14/23 05:40 10/14/23 05:40 Labs: Abnormal Lab Results - Last 24 Hours (Table) 10/11/23 10/13/23 10/14/23 Range/Units 03:31 13:45 05:40 WBC 15.12 H (4.50-10.00) X 10*3/uL RBC 2.61 L (4.40-5.60) X 10*6/uL Hgb 6.4 A* (13.0-17.0) g/dL Hct 20.9 L (39.6-50.0) % MCH 24.5 L (27.0-32.0) pg MCHC 30.6 L (32.0-37.0) g/dL RDW 16.7 H (11.5-14.5) % Immature Gran # 0.13 H (0.00-0.04) X 10*3/uL Neutrophils # 11.71 H (1.80-7.70) X 10*3/uL Monocytes # 2.09 H (0.20-1.00) X 10*3/uL Sodium (135-145) mmol/L Chloride (96-109) mmol/L Calcium (8.7-10.3) mg/dL Total Bilirubin (0.3-1.2) mg/dL AST (14-35) U/L Alkaline Phosphatase (41-126) U/L Albumin (3.8-4.9) g/dL Globulin (1.6-3.3) g/dL Albumin/Globulin Ratio (1.60-3.17) Ratio RBC Folate 1,002 H (280 - 791) ng/mL Crossmatch See Detail 10/14/23 Range/Units 05:40 WBC (4.50-10.00) X 10*3/uL RBC (4.40-5.60) X 10*6/uL Hgb (13.0-17.0) g/dL Hct (39.6-50.0) % MCH (27.0-32.0) pg MCHC (32.0-37.0) g/dL RDW (11.5-14.5) % Immature Gran # (0.00-0.04) X 10*3/uL Neutrophils # (1.80-7.70) X 10*3/uL Monocytes # (0.20-1.00) X 10*3/uL Sodium 128 L (135-145) mmol/L Chloride 93 L (96-109) mmol/L Calcium 8.6 L (8.7-10.3) mg/dL Total Bilirubin 3.1 H (0.3-1.2) mg/dL AST 161 H (14-35) U/L Alkaline Phosphatase 780 H (41-126) U/L Albumin 3.2 L (3.8-4.9) g/dL Globulin 3.4 H (1.6-3.3) g/dL Albumin/Globulin Ratio 0.94 L (1.60-3.17) Ratio RBC Folate (280 - 791) ng/mL Crossmatch Microbiology - Last 24 Hours (Table) 10/12/23 10:55 Blood Culture - Preliminary Blood 10/12/23 10:45 Blood Culture - Preliminary Blood
--- NOTE | 2023-10-14 14:44 | P.PN ---
Subjective Progress Note Date: 10/14/23 Principal diagnosis: Poss splenic infarct, colon adenocarcinoma stage IV In f/u pt is sitting in bed, cont to have generalized abd discomfort, denies any N,V, bleeding, hematuria, black or bloody stool. [place] little better after unit of blood yesterday. His Hgb is still ow today at 6.4. No other acute c/o. Objective - Vital Signs Vital signs: Vital Signs Temp 97.3 F L 10/14/23 12:33 Pulse 86 10/14/23 12:33 Resp 16 10/14/23 12:33 BP 126/81 10/14/23 12:33 Pulse Ox 95 10/14/23 12:33 FiO2 Intake & Output 10/13/23 10/14/23 10/14/23 18:59 06:59 18:59 Intake Total 0 310 0 Balance 0 310 0 Weight 86.183 kg Intake: Blood Product 0 310 0 Unit 0 Rc As-1 Unit 0 310 [id number] Other: Voiding Method Toilet # Voids 1 3 - Constitutional General appearance: Present: average body habitus (muscle wasting noted), cooperative, no acute distress - EENT Eyes: Present: EOMI ENT: Present: hearing grossly normal, normal oropharynx - Respiratory Details: Respirations even and unlabored - Cardiovascular Details: Skin warm and dry to the touch - Peripheral edema leg Peripheral Edema: bilateral: None - Gastrointestinal Gastrointestinal Comment(s): Midline dressing C/D/I General gastrointestinal: Present: soft - Integumentary Integumentary: Present: pale - Neurologic Neurologic: Present: CNII-XII intact - Psychiatric Psychiatric: Present: A&O x's 3, appropriate affect, intact judgment & insight - Labs CBC & Chem 7: 10/14/23 05:40 10/14/23 05:40 Labs: Abnormal Lab Results - Last 24 Hours (Table) 10/11/23 10/13/23 10/14/23 Range/Units 03:31 13:45 05:40 WBC 15.12 H (4.50-10.00) X 10*3/uL RBC 2.61 L (4.40-5.60) X 10*6/uL Hgb 6.4 A* (13.0-17.0) g/dL Hct 20.9 L (39.6-50.0) % MCH 24.5 L (27.0-32.0) pg MCHC 30.6 L (32.0-37.0) g/dL RDW 16.7 H (11.5-14.5) % Immature Gran # 0.13 H (0.00-0.04) X 10*3/uL Neutrophils # 11.71 H (1.80-7.70) X 10*3/uL Monocytes # 2.09 H (0.20-1.00) X 10*3/uL Sodium (135-145) mmol/L Chloride (96-109) mmol/L Calcium (8.7-10.3) mg/dL Total Bilirubin (0.3-1.2) mg/dL AST (14-35) U/L Alkaline Phosphatase (41-126) U/L Albumin (3.8-4.9) g/dL Globulin (1.6-3.3) g/dL Albumin/Globulin Ratio (1.60-3.17) Ratio RBC Folate 1,002 H (280 - 791) ng/mL Crossmatch See Detail 10/14/23 Range/Units 05:40 WBC (4.50-10.00) X 10*3/uL RBC (4.40-5.60) X 10*6/uL Hgb (13.0-17.0) g/dL Hct (39.6-50.0) % MCH (27.0-32.0) pg MCHC (32.0-37.0) g/dL RDW (11.5-14.5) % Immature Gran # (0.00-0.04) X 10*3/uL Neutrophils # (1.80-7.70) X 10*3/uL Monocytes # (0.20-1.00) X 10*3/uL Sodium 128 L (135-145) mmol/L Chloride 93 L (96-109) mmol/L Calcium 8.6 L (8.7-10.3) mg/dL Total Bilirubin 3.1 H (0.3-1.2) mg/dL AST 161 H (14-35) U/L Alkaline Phosphatase 780 H (41-126) U/L Albumin 3.2 L (3.8-4.9) g/dL Globulin 3.4 H (1.6-3.3) g/dL Albumin/Globulin Ratio 0.94 L (1.60-3.17) Ratio RBC Folate (280 - 791) ng/mL Crossmatch Microbiology - Last 24 Hours (Table) 10/12/23 10:55 Blood Culture - Preliminary Blood 10/12/23 10:45 Blood Culture - Preliminary Blood Assessment and Plan (1) Anemia Current Visit: Yes Status: Acute Priority: High Code(s): D64.9 - ANEMIA, UNSPECIFIED SNOMED Code(s): 677697467 (2) Atypical chest pain Current Visit: Yes Status: Acute Priority: High Code(s): R07.89 - OTHER CHEST PAIN SNOMED Code(s): 078560982 (3) Colon cancer Current Visit: Yes Status: Acute Priority: High Code(s): C18.9 - MALIGNANT NEOPLASM OF COLON, UNSPECIFIED SNOMED Code(s): 322238078 Plan: Anemia, melena x1 -No stools since admit -Iron deficiency on anemia work up, IV iron ordered. No other deficiencies -Surgery has seen pt. No endoscopy planned at this time. -CT AP did not reveal any findings suggestive of bleeding into abd. No hemoperitoneum reported -Hgb did not improve as would be expected after 1 unit PRBCs. Hgb 6.2, s/p 1 unit Hgb 6.4. 1 unit ordered. CBC in AM Metastatic colon adenocarcinoma -Completed clinical trial at [facility] August 2023. -Pt had palliative laparoscopic, converted to open, splenic flexure colon resection 09/04/23 for partial obstruction. Path reports tumor size of 6.8cm, involving pancreas, 10/19 LN, 3 soft tissue deposits. No treatment effect appreciated, no tumor regression. He was seen in the ER at [facility] approximately 2 weeks later with a partial bowel obstruction, due to significant constipation and was treated with GoLytely. Symptoms resolved. Medications are being changed to aid in promotion of BM. Miralax added. Senna and colace changed to combination drug and increased to 2 tabs BID. -Bilirubin remains elevated but stable, LFTs stable. -Pt was supposed to have a f/u today with [facility] but. He states he has a telemed visit later this week. -Spoke with pt. He is aware that his disease is progressing and that there are plans to start chemo again once he is healed from recent surgery. -Current plan is to get pt on a bowel regimen, have pain controlled -CTA chest was negative for PE. No evidence for focal consolidation pneumothorax or pleural effusion. Innumerable pulmonary nodules, greater than 50 of the lungs compatible with metastatic disease. Trace left pleural effusion. -Atypical chest pain is not progressive per pt. It is tolerable with pain meds. CT AP done here reports retroperitoneal lymphadenopathy and metastatic disease to liver. Large left upper quadrant mass measuring 10.4 cm x 8.16 cm possibly arising from the adrenal gland. Mild left hydronephrosis secondary to suspected lymphadenopathy with possible obstruction. Small ascites. Possible anterior inferior splenic infarct with decreased perfusion compared to the remainder of the spleen -Patient reports that LUQ mass noted on CT scan was not reported to him in previous f/u at [facility]. This mass is likely the adrenal mass reported below and not new. CT AP from [facility] was performed on 09/28/23 reads: diffuse pulm metastatic disease, increased size. Liver lesion, largest in lt hepatic lobe 11.4x6.7, larger then previous. Pancreas has hypoattenuating lesion 2.6cm, splenomegaly 18.9 cm. Splenic infarct suspected along the anterior spleen. Lt adrenal met 6.5cm (5cm prev). Enlarging peritoneal nodule 1.6c (prev 1.1cm). Perirectal LN enlarging, ascites, pelvic LAD increasing in size. -WBC cont to trend down. Blood cultures pending, empiric abx started. Increase in WBCs could be secondary to splenic infarct and possible GI bleed -Urology has seen pt for lt hydronephrosis seen on CT AP. Mechanical obstruction from LAD. Monitoring BUN/Cr for now, stable, still WNL. [facility] not spoken to [facility] If renal function remains stable pt will f/u with [facility] for further recommendations Doctor attests: I performed a history and physical examination of this patient, developed impression and plan of care. Discussed with dictator. I agree with dictators note, documented as a scribe.
[2023-10-14] MEDS: SENNOSIDES-DOCUSATE SODIUM 1 EACH TAB PO SCH (20:04)
[2023-10-15] MEDS: VANCOMYCIN TROUGH DUE 1 EACH MISC MISCELLANE ONE (04:59)
[2023-10-15 06:06] LABS: ALT 30 U/L (4-49); AST 90 U/L (17-59); African American GFR (CKD) >90 (>60 ml/min/1.73 sqM); Albumin 2.9 g/dL (3.5-5.0); Albumin/Globulin Ratio 0.9; Alkaline Phosphatase 764 U/L (38-126); Anion Gap 6 mmol/L; Blood Urea Nitrogen 14 mg/dL (9-20); Calcium 8.2 mg/dL (8.4-10.2); Carbon Dioxide 26 mmol/L (22-30); Chloride 96 mmol/L (98-107); Globulin 3.3 g/dL; Glucose 86 mg/dL (74-99); Non-African American GFR(CKD) >90 (>60 ml/min/1.73 sqM); Sodium 128 mmol/L (137-145); Total Bilirubin 3.6 mg/dL (0.2-1.3); Total Protein 6.2 g/dL (6.3-8.2)
[2023-10-15 08:44] LABS: HCT 22.7 % (39.6-50.0); MCH 24.9 pg (27.0-32.0); MCHC 30.8 g/dL (32.0-37.0); MCV 80.8 FL (80.0-97.0); Mean Platelet Volume 9.9 FL (9.5-12.2); NRBC Per 100 WBC 0 X 10*3/uL (0.00-0.01); Platelet Count 162 X 10*3/uL (140-440); RBC 2.81 X 10*6/uL (4.40-5.60); WBC 11.18 X 10*3/uL (4.50-10.00)
[2023-10-15] MEDS: LACTULOSE 20 GM/30 ML CUP PO ONE (10:25)
[2023-10-15] MEDS: GLYCERIN ADULT SUPPOSITORY 1 EACH RECTAL STA (10:25)
--- NOTE | 2023-10-15 10:56 | P.PN ---
Subjective Progress Note Date: 10/15/23 Hospital Course: 33-year-old male with history of stage IV colon cancer (metastasis to liver, pancreas, lungs) diagnosed early 2022 status post debulking surgery September 04, 2023 following with [facility] w/ Dr Luis (not on chemotherapy at this time) who presents to the emergency room with complaints of left-sided chest and abdominal discomfort. Chest CTA in the emergency room revealed likely inferior splenic infarct with decreased perfusion along with progression of metastatic malignancy with lymphadenopathy and adrenal metastasis as well as lymphadenopathy in the neck with mild left-sided hydronephrosis with small ascites. There was no evidence of pulmonary embolism with numerous pulmonary metastatic nodules. EKG revealed sinus rhythm at [address] segment depression in the inferior leads with T wave inversion in leads III and aVF. Laboratory evaluation was remarkable for leukocytosis of 19.0, hemoglobin 9.4, MCV 79.3, platelet count 301, D-dimer 4.09, sodium 129, glucose 117, total bilirubin 2.0, AST 100, ALT 138, alk phos 1236, troponin less than 0.012, and proBNP 754 with lipase 947. Heparin drip discontinued. General surgery consulted. Urology also consulted. Urology is not recommending any intervention. General surgery recommending to transfuse the patient for hemoglobin less than 7 and does not plan on doing any endoscopic procedure. Subjective: Patient seen this morning. He states that he has not had a bowel movement since being admitted. He states that he is passing gas and his bowels are rambling and he believes he will have a bowel movement soon. Vitals Signs Reviewed. 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 Prognosis guarded. SIRS criteria likely due to spleen infarct and acute blood loss anemia Patient has no obvious source of infection Severe leukocytosis, improving -As there is no source of bleeding and the blood cultures have been negative we will discontinue the antibiotics. -WBC decreased to 11.8 -Continue on lactated Ringer at 100 cc an hour Iron deficiency anemia Acute blood loss anemia Suspect source of bleeding is from colon cancer -IV Protonix 40 twice daily ordered -Closely monitor hemoglobin -Hemoglobin this morning is 7.0. 1 unit of PRBC ordered -Obtain stool culture -General surgery not planning on any endoscopic procedures at this time Dyspnea likely due to debility from malignancy as well as iron deficiency anemia -Stable and patient satting well on room air. Acute splenic infarct Stage IV colon cancer with extensive metastatic disease -Pain control with IV Dilaudid as needed -Patient is constipated so also started on MiraLAX daily -Patient currently not on any chemotherapy/immunotherapy, had recent surgery for peripheral bowel obstruction at [facility] -Patient to follow-up at [facility] for chemotherapy Transaminitis and hyperbilirubinemia secondary to metastasis -Bilirubin is worsening -LFTs are improving -Trend CMP Hyponatremia likely due to dehydration -Continue with lactated Ringer's 100 cc an hour. -Sodium this morning is stable at 128 -Trend CMP Left-sided hydronephrosis -secondary to metastatic lymphadenopathy -Urology recommending no interventions at the moment -Creatinine within normal limits DVT ppx: SCDs Code status: Full code Anticipated discharge place: Home Anticipated discharge time: Patient will be stable for discharge home once his hemoglobin is stable. Anticipate patient be ready for discharge tomorrow as long as hemoglobin is stable Objective - Vital Signs Vital signs: Vital Signs Temp 97.5 F L 10/15/23 06:51 Pulse 98 10/15/23 06:51 Resp 17 10/15/23 06:51 BP 144/85 10/15/23 06:51 Pulse Ox 98 10/15/23 06:51 FiO2 Intake & Output 10/14/23 10/15/23 10/15/23 18:59 06:59 18:59 Intake Total 0 Balance 2110 Intake: Intake, IV Titration 1800 Amount Lactated Ringers 1,000 ml 1200 @ 100 mls/hr IV .Q10H [facility] Rx#:[id number] Sodium Ferric Gluconat- 100 Sucrose 125 mg In Sodium Chloride 0.9% 100 ml @ 100 mls/hr IVPB DAILY [facility] Rx#:[id number] Vancomycin 1,250 mg In 250 Sodium Chloride 0.9% 250 ml @ 125 mls/hr IVPB Q8H [facility] Rx#:[id number] cefTRIAXone 1 gm In 50 Sodium Chloride 0.9% 50 ml @ 100 mls/hr IVPB Q24HR [facility] Rx#:[id number] metroNIDAZOLE-NS PMX 500 200 mg In Saline 1 100ml.bag @ 100 mls/hr IVPB Q8H [facility] Rx#:[id number] Blood Product 310 Rc As-1 Unit 310 [id number] Other: Voiding Method Toilet Toilet # Voids 6 3 - Labs CBC & Chem 7: 10/15/23 05:15 10/15/23 05:15 Labs: Abnormal Lab Results - Last 24 Hours (Table) 10/13/23 10/15/23 10/15/23 Range/Units 13:45 05:15 05:15 WBC 11.18 H (4.50-10.00) X 10*3/uL RBC 2.81 L (4.40-5.60) X 10*6/uL Hgb 7.0 L (13.0-17.0) g/dL Hct 22.7 L (39.6-50.0) % MCH 24.9 L (27.0-32.0) pg MCHC 30.8 L (32.0-37.0) g/dL RDW 17.0 H (11.5-14.5) % Sodium 128 L (137-145) mmol/L Chloride 96 L (98-107) mmol/L Calcium 8.2 L (8.4-10.2) mg/dL Total Bilirubin 3.6 H (0.2-1.3) mg/dL AST 90 H (17-59) U/L Alkaline Phosphatase 764 H (38-126) U/L Total Protein 6.2 L (6.3-8.2) g/dL Albumin 2.9 L (3.5-5.0) g/dL Crossmatch See Detail Microbiology - Last 24 Hours (Table) 10/12/23 10:55 Blood Culture - Preliminary Blood 10/12/23 10:45 Blood Culture - Preliminary Blood
--- NOTE | 2023-10-15 12:53 | P.PN ---
Subjective Progress Note Date: 10/15/23 CHIEF COMPLAINT: Chest pain HISTORY OF PRESENT ILLNESS: Patient complaining of constipation. Oncology [facility] has added MiraLAX and glycerin suppository. Patient reports his pain is the same. Afebrile WBC is 11.18 hemoglobin 6.4 up to 7.0 after transfusion. Sodium 128. Medicine plan for possible discharge tomorrow if hemoglobin stable PHYSICAL EXAM: VITAL SIGNS: Reviewed. GENERAL: Well-developed in no acute distress. ABDOMEN: Soft. Nondistended. Tenderness left upper quadrant. Incisional dressing midline saturated NEUROLOGIC: Alert and oriented. Cranial nerves II through XII grossly intact. ASSESSMENT: 1. Splenic infarct 2. Left upper quadrant abdominal pain 3. History of metastatic colon cancer with recent chemotherapy and surgical resection at [facility] last month 4. Constipation 5. Anemia with iron deficiency anemia PLAN: -Add lactulose for constipation agree with MiraLAX and glycerin suppository -If patient requires any surgical intervention he should be referred back to [facility] -No plans for endoscopies -Possible discharge tomorrow Physician Emergency Worker note has been reviewed by physician. Signing provider agrees with the documented findings, assessment, and plan of care. Objective - Vital Signs Vital signs: Vital Signs Temp 97.5 F L 10/15/23 06:51 Pulse 98 10/15/23 06:51 Resp 17 10/15/23 06:51 BP 144/85 10/15/23 06:51 Pulse Ox 98 10/15/23 06:51 FiO2 Intake & Output 10/14/23 10/15/23 10/15/23 18:59 06:59 18:59 Intake Total 2110 0 Balance 2110 0 Intake: Intake, IV Titration 1800 Amount Lactated Ringers 1,000 ml 1200 @ 100 mls/hr IV .Q10H [facility] Rx#:[id number] Sodium Ferric Gluconat- 100 Sucrose 125 mg In Sodium Chloride 0.9% 100 ml @ 100 mls/hr IVPB DAILY [facility] Rx#:[id number] Vancomycin 1,250 mg In 250 Sodium Chloride 0.9% 250 ml @ 125 mls/hr IVPB Q8H [facility] Rx#:[id number] cefTRIAXone 1 gm In 50 Sodium Chloride 0.9% 50 ml @ 100 mls/hr IVPB Q24HR [facility] Rx#:[id number] metroNIDAZOLE-NS PMX 500 200 mg In Saline 1 100ml.bag @ 100 mls/hr IVPB Q8H [facility] Rx#:[id number] Blood Product 310 0 Unit 0 Rc As-1 Unit 310 [id number] Other: Voiding Method Toilet Toilet # Voids 6 3 - Labs CBC & Chem 7: 10/15/23 05:15 10/15/23 05:15 Labs: Abnormal Lab Results - Last 24 Hours (Table) 10/13/23 10/15/23 10/15/23 Range/Units 13:45 05:15 05:15 WBC 11.18 H (4.50-10.00) X 10*3/uL RBC 2.81 L (4.40-5.60) X 10*6/uL Hgb 7.0 L (13.0-17.0) g/dL Hct 22.7 L (39.6-50.0) % MCH 24.9 L (27.0-32.0) pg MCHC 30.8 L (32.0-37.0) g/dL RDW 17.0 H (11.5-14.5) % Sodium 128 L (137-145) mmol/L Chloride 96 L (98-107) mmol/L Calcium 8.2 L (8.4-10.2) mg/dL Total Bilirubin 3.6 H (0.2-1.3) mg/dL AST 90 H (17-59) U/L Alkaline Phosphatase 764 H (38-126) U/L Total Protein 6.2 L (6.3-8.2) g/dL Albumin 2.9 L (3.5-5.0) g/dL Crossmatch See Detail Microbiology - Last 24 Hours (Table) 10/12/23 10:55 Blood Culture - Preliminary Blood 10/12/23 10:45 Blood Culture - Preliminary Blood
[2023-10-15] MEDS: SIMETHICONE 80 MG CHEWABLE PO SCH (13:00)
--- NOTE | 2023-10-15 14:23 | P.PN ---
Subjective Progress Note Date: 10/15/23 Principal diagnosis: Poss splenic infarct, colon adenocarcinoma stage IV In f/u pt is moving around room, trying to get his bowels to move. He is passing flatus, denies any significant abd pain. No fever, N,V, bleeding. Hgb is 7 today. No other acute c/o. Objective - Vital Signs Vital signs: Vital Signs Temp 98.6 F 10/15/23 12:43 Pulse 108 H 10/15/23 12:43 Resp 16 10/15/23 12:43 BP 148/91 10/15/23 12:43 Pulse Ox 98 10/15/23 12:43 FiO2 Intake & Output 10/14/23 10/15/23 10/15/23 18:59 06:59 18:59 Intake Total 2110 0 Balance 2110 0 Intake: Intake, IV Titration 1800 Amount Lactated Ringers 1,000 ml 1200 @ 100 mls/hr IV .Q10H [facility] Rx#:[id number] Sodium Ferric Gluconat- 100 Sucrose 125 mg In Sodium Chloride 0.9% 100 ml @ 100 mls/hr IVPB DAILY [facility] Rx#:[id number] Vancomycin 1,250 mg In 250 Sodium Chloride 0.9% 250 ml @ 125 mls/hr IVPB Q8H [facility] Rx#:[id number] cefTRIAXone 1 gm In 50 Sodium Chloride 0.9% 50 ml @ 100 mls/hr IVPB Q24HR [facility] Rx#:[id number] metroNIDAZOLE-NS PMX 500 200 mg In Saline 1 100ml.bag @ 100 mls/hr IVPB Q8H [facility] Rx#:[id number] Blood Product 310 0 Unit 0 Rc As-1 Unit 310 [id number] Other: Voiding Method Toilet Toilet # Voids 6 3 - Constitutional General appearance: Present: cooperative, no acute distress, thin - EENT Eyes: Present: anicteric sclerae, EOMI ENT: Present: hearing grossly normal - Respiratory Details: resp even and unlabored while pt walking around room - Cardiovascular Details: skin warm and dry to touch - Peripheral edema leg Peripheral Edema: bilateral: None - Integumentary Integumentary: Present: pale - Neurologic Neurologic: Present: CNII-XII intact - Musculoskeletal Musculoskeletal: Present: strength equal bilaterally - Psychiatric Psychiatric: Present: A&O x's 3, appropriate affect, intact judgment & insight - Labs CBC & Chem 7: 10/15/23 05:15 10/15/23 05:15 Labs: Abnormal Lab Results - Last 24 Hours (Table) 10/13/23 10/15/23 10/15/23 Range/Units 13:45 05:15 05:15 WBC 11.18 H (4.50-10.00) X 10*3/uL RBC 2.81 L (4.40-5.60) X 10*6/uL Hgb 7.0 L (13.0-17.0) g/dL Hct 22.7 L (39.6-50.0) % MCH 24.9 L (27.0-32.0) pg MCHC 30.8 L (32.0-37.0) g/dL RDW 17.0 H (11.5-14.5) % Sodium 128 L (137-145) mmol/L Chloride 96 L (98-107) mmol/L Calcium 8.2 L (8.4-10.2) mg/dL Total Bilirubin 3.6 H (0.2-1.3) mg/dL AST 90 H (17-59) U/L Alkaline Phosphatase 764 H (38-126) U/L Total Protein 6.2 L (6.3-8.2) g/dL Albumin 2.9 L (3.5-5.0) g/dL Crossmatch See Detail Microbiology - Last 24 Hours (Table) 10/12/23 10:55 Blood Culture - Preliminary Blood 10/12/23 10:45 Blood Culture - Preliminary Blood Assessment and Plan (1) Anemia Current Visit: Yes Status: Acute Priority: High Code(s): D64.9 - ANEMIA, UNSPECIFIED SNOMED Code(s): 175014881 (2) Atypical chest pain Current Visit: Yes Status: Acute Priority: High Code(s): R07.89 - OTHER CHEST PAIN SNOMED Code(s): 517341994 (3) Colon cancer Current Visit: Yes Status: Acute Priority: High Code(s): C18.9 - MALIGNANT NEOPLASM OF COLON, UNSPECIFIED SNOMED Code(s): 390982097 Plan: Anemia, melena x1 -No stools since admit -Iron deficiency on anemia work up, IV iron ordered. No other deficiencies -Surgery has seen pt. No endoscopy planned at this time. -CT AP did not reveal any findings suggestive of bleeding into abd. No hemoperitoneum reported -Hgb did not improve as would be expected after 1 unit PRBCs. Hgb 6.2, s/p 1 unit Hgb 6.4. After 2nd unit Hgb 7 today. No transfusion today from a Hem/Onc standpoint. CBC in AM Metastatic colon adenocarcinoma -Completed clinical trial at [facility] August 2023. -Pt had palliative laparoscopic, converted to open, splenic flexure colon resection 09/04/23 for partial obstruction. Path reports tumor size of 6.8cm, involving pancreas, 6/17 LN, 3 soft tissue deposits. No treatment effect appreciated, no tumor regression. He was seen in the ER at [facility] approximately 2 weeks later with a partial bowel obstruction, due to significant constipation and was treated with GoLytely. Symptoms resolved. Now, having similar symptoms. Likely all r/t disease in the mesentery/abd imparing GI motility. Medications for promotion of a BM being adjusted today per pt request. -Bilirubin remains elevated but stable, LFTs stable. -F/U with [facility] missed this week. Pt will contact and reschedule. -t is aware that his disease is progressing and that there are plans to start chemo again once he is healed from recent surgery. -Current plan is to get pt on a bowel regimen, have pain controlled -CTA chest was negative for PE. No evidence for focal consolidation pneumothor ax or pleural effusion. Innumerable pulmonary nodules, greater than 50 of the lungs compatible with metastatic disease. Trace left pleural effusion. -Atypical chest pain is not progressive per pt. It is tolerable with pain meds. CT AP done here reports retroperitoneal lymphadenopathy and metastatic disease to liver. Large left upper quadrant mass measuring 10.4 cm x 8.16 cm possibly arising from the adrenal gland. Mild left hydronephrosis secondary to suspected lymphadenopathy with possible obstruction. Small ascites. Possible anterior inferior splenic infarct with decreased perfusion compared to the remainder of the spleen -Patient reports that LUQ mass noted on CT scan was not reported to him in previous f/u at [facility]. This mass is likely the adrenal mass reported below and not new. CT AP from [facility] was performed on 09/28/23 reads: diffuse pulm metastatic disease, increased size. Liver lesion, largest in lt hepatic lobe 11.4x6.7, larger then previous. Pancreas has hypoattenuating lesion 2.6cm, splenomegaly 18.9 cm. Splenic infarct suspected along the anterior spleen. Lt adrenal met 6.5cm (5cm prev). Enlarging peritoneal nodule 1.6c (prev 1.1cm). Perirectal LN enlarging, ascites, pelvic LAD increasing in size. -WBC cont to trend down. Blood cultures pending, empiric abx started. Increase in WBCs could be secondary to splenic infarct and possible GI bleed -Urology has seen pt for lt hydronephrosis seen on CT AP. Mechanical obstruction from LAD. Monitoring BUN/Cr for now, stable, still WNL. Have not spoken to [facility]. If renal function remains stable pt will f/u with [facility] for further recommendations Doctor attests: I performed a history and physical examination of this patient, developed impression and plan of care. Discussed with dictator. I agree with dictators note, documented as a scribe.
[2023-10-15] MEDS ORDERED: VANCOMYCIN 1,250 MG in SODIUM CHLORIDE 0.9% 250 ML IVPB SCH (18:00)
[2023-10-15] MEDS: polyethylene glycoL 3350 17 GM POWD.PACK PO SCH (20:17)
[2023-10-16 10:36] LABS: Basophils # (A) 0.04 X 10*3/uL (0.00-0.10); Basophils % (A) 0.3 %; Eosinophils # (A) 0.15 X 10*3/uL (0.04-0.35); HCT 28.6 % (39.6-50.0); HGB 8.7 g/dL (13.0-17.0); Lymphocytes # (A) 1.11 X 10*3/uL (0.90-5.00); Lymphocytes % (A) 7.4 %; MCH 24.8 pg (27.0-32.0); MCHC 30.4 g/dL (32.0-37.0); MCV 81.5 FL (80.0-97.0); Mean Platelet Volume 9.5 FL (9.5-12.2); Monocytes % (A) 13.9 %; NRBC Per 100 WBC 0 X 10*3/uL (0.00-0.01); Neutrophils # (A) 11.51 X 10*3/uL (1.80-7.70); Neutrophils % (A) 76.3 %; Platelet Count 206 X 10*3/uL (140-440); RBC 3.51 X 10*6/uL (4.40-5.60); RDW 18.3 % (11.5-14.5); WBC 15.08 X 10*3/uL (4.50-10.00)
[2023-10-16 10:49] LABS: Magnesium 1.7 mg/dL (1.5-2.4)
[2023-10-16 10:51] LABS: Blood Urea Nitrogen 14.2 mg/dL (9.0-27.0); Calcium 9.4 mg/dL (8.7-10.3); Carbon Dioxide 22.6 mmol/L (21.6-31.8); Chloride 92 mmol/L (96-109); Potassium 4.3 mmol/L (3.5-5.5); Sodium 129 mmol/L (135-145)
--- NOTE | 2023-10-16 11:05 | US ---
EXAMINATION TYPE: US venous doppler duplex LE BI DATE OF EXAM: 10/16/2023 10:55 AM COMPARISON: 08/06/2023 CLINICAL INDICATION: Male, 33 years old with history of BLE swelling, new onset; swelling, h/o colon CA SIDE PERFORMED: Bilateral TECHNIQUE: The lower extremity deep venous system is examined utilizing real time linear array sonog kristy with graded compression, doppler sonography and color-flow sonography. VESSELS IMAGED: Common Femoral Vein Deep Femoral Vein Greater Saphenous Vein * Femoral Vein Popliteal Vein Small Saphenous Vein * Proximal Calf Veins (* superficial vessels) Right Leg: Negative for DVT Left Leg: Negative for DVT IMPRESSION: 1. No diagnostic evidence of DVT.
--- NOTE | 2023-10-16 13:07 | P.PN ---
Subjective Progress Note Date: 10/16/23 CHIEF COMPLAINT: Chest pain HISTORY OF PRESENT ILLNESS: Patient had multiple bowel movements after laxatives and suppository. He is complaining of lower extremity edema and urinary retention symptoms. Oncology has ordered bladder scan and venous Doppler of lower extremities. Medicine service ordered Lasix. HGB 9.9 PHYSICAL EXAM: VITAL SIGNS: Reviewed. GENERAL: Well-developed in no acute distress. ABDOMEN: mildly distended. Tenderness left upper quadrant. Incisional dressing midline saturated NEUROLOGIC: Alert and oriented. Cranial nerves II through XII grossly intact. ASSESSMENT: 1. Splenic infarct 2. Left upper quadrant abdominal pain 3. History of metastatic colon cancer with recent chemotherapy and surgical resection at [facility] last month 4. Constipation 5. Anemia with iron deficiency anemia PLAN: -Continue a good bowel regimen -If patient requires any surgical intervention he should be referred back to [facility] -No plans for endoscopies Physician Timber Feller note has been reviewed by physician. Signing provider agrees with the documented findings, assessment, and plan of care. Objective - Vital Signs Vital signs: Vital Signs Temp 98.7 F 10/16/23 11:28 Pulse 105 H 10/16/23 11:28 Resp 16 10/16/23 11:28 BP 125/80 10/16/23 11:28 Pulse Ox 95 10/16/23 11:28 FiO2 Intake & Output 10/15/23 10/16/23 10/16/23 18:59 06:59 18:59 Intake Total 310 Balance 310 Weight 86.183 kg Intake: Blood Product 310 Rc As-1 Unit 310 [id number] Other: Voiding Method Toilet Toilet Toilet # Voids 1 # Bowel Movements 2 1 - Labs CBC & Chem 7: 10/16/23 07:05 10/16/23 07:05 Labs: Abnormal Lab Results - Last 24 Hours (Table) 10/13/23 10/16/23 10/16/23 Range/Units 13:45 07:05 07:05 WBC 15.08 H (4.50-10.00) X 10*3/uL RBC 3.51 L (4.40-5.60) X 10*6/uL Hgb 8.7 L (13.0-17.0) g/dL Hct 28.6 L (39.6-50.0) % MCH 24.8 L (27.0-32.0) pg MCHC 30.4 L (32.0-37.0) g/dL RDW 18.3 H (11.5-14.5) % Immature Gran # 0.17 H (0.00-0.04) X 10*3/uL Neutrophils # 11.51 H (1.80-7.70) X 10*3/uL Monocytes # 2.10 H (0.20-1.00) X 10*3/uL Sodium 129 L (135-145) mmol/L Chloride 92 L (96-109) mmol/L Anion Gap 14.40 H (4.00-12.00) mmol/L Crossmatch See Detail Microbiology - Last 24 Hours (Table) 10/12/23 10:55 Blood Culture - Preliminary Blood 10/12/23 10:45 Blood Culture - Preliminary Blood
[2023-10-16] MEDS: FUROSEMIDE 10 MG/ML 4 ML VIAL IV STA (13:17)
--- NOTE | 2023-10-16 16:33 | P.PN ---
Subjective Progress Note Date: 10/16/23 Principal diagnosis: Poss splenic infarct, colon adenocarcinoma stage IV In f/u pt cont to be independently ambulatory. Reports several BMs yesterday, no reported black or bloody stool. He is unable to urinate this AM. Epigastric area is firm. RLE edema worse, LLE swelling new. Rt thigh numbness/paraesthesia persists. No bleeding to report. CBC pending today, pt was given a unit of blood for a Hgb of 7 yesterday per IM. Objective - Vital Signs Vital signs: Vital Signs Temp 98.3 F 10/16/23 07:08 Pulse 115 H 10/16/23 07:08 Resp 17 10/16/23 08:00 BP 144/89 10/16/23 07:08 Pulse Ox 92 L 10/16/23 07:08 FiO2 Intake & Output 10/15/23 10/16/23 10/16/23 18:59 06:59 18:59 Intake Total 310 Balance 310 Intake: Blood Product 310 Rc As-1 Unit 310 [id number] Other: Voiding Method Toilet Toilet Toilet # Voids 1 # Bowel Movements 2 1 - Constitutional Constitutional Comment(s): masseter muscle wasting, frail General appearance: Present: cooperative, no acute distress - EENT Eyes: Present: EOMI ENT: Present: hearing grossly normal - Respiratory Respiratory: bilateral: CTA - Cardiovascular Details: tachycardia Rhythm: regular Heart sounds: normal: S1, S2 Abnormal Heart Sounds: Absent: systolic murmur, diastolic murmur, rub, S3 Gallop, S4 Gallop, click, other - Peripheral edema leg Peripheral Edema: bilateral: 3+, Pitting - Gastrointestinal Gastrointestinal Comment(s): midline dressing C/D/I, venous distension, epigastric area firm (suspect mass) - Integumentary Integumentary: Present: pale - Neurologic Neurologic: Present: CNII-XII intact - Musculoskeletal Musculoskeletal: Present: strength equal bilaterally - Psychiatric Psychiatric: Present: A&O x's 3, appropriate affect, intact judgment & insight - Labs CBC & Chem 7: 10/16/23 07:05 10/16/23 07:05 Labs: Abnormal Lab Results - Last 24 Hours (Table) 10/13/23 Range/Units 13:45 Crossmatch See Detail Microbiology - Last 24 Hours (Table) 10/12/23 10:55 Blood Culture - Preliminary Blood 10/12/23 10:45 Blood Culture - Preliminary Blood Assessment and Plan (1) Anemia Current Visit: Yes Status: Acute Priority: High Code(s): D64.9 - ANEMIA, U NSPECIFIED SNOMED Code(s): 152170029 (2) Atypical chest pain Current Visit: Yes Status: Acute Priority: High Code(s): R07.89 - OTHER CHEST PAIN SNOMED Code(s): 396165307 (3) Colon cancer Current Visit: Yes Status: Acute Priority: High Code(s): C18.9 - MALIGNANT NEOPLASM OF COLON, UNSPECIFIED SNOMED Code(s): 924936658 Plan: Anemia, melena x1 -Pt has had BM, no melena or hematochezia reported -Iron deficiency on anemia work up, IV iron ordered. No other deficiencies -Surgery has seen pt. No endoscopy planned at this time. -CT AP did not reveal any findings suggestive of bleeding into abd. No hemoperitoneum reported -Hgb 8.7 today. CBC monitoring while inpt. Transfuse for Hgb<7. Metastatic colon adenocarcinoma -Completed clinical trial at [facility] August 2023. -Pt had palliative laparoscopic, converted to open, splenic flexure colon resection 09/04/23 for partial obstruction. Path reports tumor size of 6.8cm, involving pancreas, 10/19 LN, 3 soft tissue deposits. No treatment effect appreciated, no tumor regression. He was seen in the ER at [facility] approximately 2 weeks later with a partial bowel obstruction, due to significant constipation and was treated with GoLytely. Symptoms resolved. Now, having similar symptoms. Likely all r/t disease in the mesentery/abd imparing GI motility. Medications for promotion of a BM adjusted yesterday per pt request. He has had several BMs overnight -Bilirubin remains elevated but stable, LFTs stable. -F/U with [facility] missed this week. Pt will contact and reschedule. -Pt is aware that his disease is progressing and that there are plans to start chemo at [facility] once he is healed from recent surgery. -Current plan is to get pt on a bowel regimen, have pain controlled. Managed at this time -CTA chest was negative for PE. No evidence for focal consolidation pneumot horax or pleural effusion. Innumerable pulmonary nodules, greater than 50 of the lungs compatible with metastatic disease. Trace left pleural effusion. -Atypical chest pain is not progressive per pt. It is tolerable with pain meds. He is ambulatory without sig SOB or chest pain reported CT AP done here report reads: retroperitoneal lymphadenopathy and metastatic disease to liver. Large left upper quadrant mass measuring 10.4 cm x 8.16 cm possibly arising from the adrenal gland. Mild left hydronephrosis secondary to suspected lymphadenopathy with possible obstruction. Small ascites. Possible anterior inferior splenic infarct with decreased perfusion compared to the remainder of the spleen CT AP from [facility] was performed on 09/28/23 reads: diffuse pulm metastatic disease, increased size. Liver lesion, largest in lt hepatic lobe 11.4x6.7, larger then previous. Pancreas has hypoattenuating lesion 2.6cm, splenomegaly 18.9 cm. Splenic infarct suspected along the anterior spleen. Lt adrenal met 6.5cm (5cm prev). Enlarging peritoneal nodule 1.6c (prev 1.1cm). Perirectal LN enlarging, ascites, pelvic LAD increasing in size. Not felt to be a significant difference in scan findings -WBC stable today. Blood cultures pending (neg at 72 hours). Increase in WBCs could be secondary to splenic infarct and possible GI bleed -Urology has seen pt for lt hydronephrosis seen on CT AP. Mechanical obstruction from LAD. Monitoring BUN/Cr for now, stable, still WNL. Have not spoken to [facility] If renal function remains stable pt will f/u with [facility] for further recommendations Pt reporting inability to urinate this AM. Bladder scan ordered. BLE swelling R>L, and pain in legs. LLE swelling is new onset, RLE swelling is worse. Doppler BLE ordered to rule out DVT
--- NOTE | 2023-10-16 16:56 | P.PN ---
Subjective Progress Note Date: 10/16/23 Hospital course: Patient is a 33-year-old male with a past medical history of stage IV colon cancer with metastasis to liver/pancreas/lungs diagnosed early 2022 status post debulking surgery 09/04/2023 following at [facility] with Dr. Luis and currently not on chemotherapy. He presented to the hospital on 10/10/2023 secondary to left- sided chest pain. Upon arrival to our facility patient underwent evaluation in the emergency department. Vital signs upon arrival show blood pressure 150/106, heart rate 99, respiratory rate 20, temp 97.8 F, and SpO2 of 94% on room air. EKG completed showing normal sinus rhythm at 87 bpm with T wave inversion in inferior leads III and aVF. Shortly after arrival patient developed episodes of tachycardia with heart rate elevating up to 126. Chest x-ray was completed showing scattered pulmonary nodules throughout the lungs consistent with progression of metastasis. Labs were completed and reviewed. CBC showing leukocytosis with WBC count of 19.0 and microcytic anemia with hemoglobin of 9.4. BMP showing hyponatremia with sodium of 129. Magnesium normal findings at 1.8. Liver profile showing hyperbilirubinemia with total bili of 2.0, AST of 100, ALT of 38, and alkaline phosphatase of 1236. Troponin was negative at less than 0.012 and D-dimer was elevated at 4.09. CTA chest, abdomen, and pelvis completed showing progression of malignancy with retroperitoneal lymphadenopathy, liver metastatic disease with large left upper quadrant possible adrenal metastatic focus and innumerable pulmonary nodules with prom inent neck lymph nodes partially visualized representing additional sites of metastatic disease, possible anterior inferior spleen infarct with decreased perfusion compared to the remainder of the spleen, mild left hydronephrosis secondary to suspected lymphadenopathy along the course of the left ureter with mass effect and possible obstruction, trace pleural effusion, and small ascites. Patient was admitted under our services with consultations to oncology, urology, and general surgery. Urology evaluated with no plans for surgical intervention at this time. General surgery evaluated recommending medical management with blood transfusions as needed with no plans for endoscopy at this time. Physical exam: Patient seen and fully evaluated at bedside. He reports over the past 24 hours he has developed significant bilateral lower extremity edema and swelling in his abdomen. IV fluids discontinued at this time and patient given a one-time dose of IV Lasix. Vital signs reviewed and stable. General: Nontoxic, no distress and appears stated age. Chronically ill- appearing, thin. Derm: Skin warm and dry, normal coloration for ethnicity. Head: Atraumatic, normocephalic and symmetric. Eyes: EOMs intact, no lid lag, and anicteric sclera Mouth: no lip lesions, mucus membranes moist Cardiovascular: regular rate and rhythm with normal S1S2, no murmur, positive posterior tibial pulses bilaterally, and cap refill < 2 seconds. Lungs: Respirations even, regular, and unlabored on room air. Lungs CTA bilaterally, no rhonchi, no rales, no wheezing, and no accessory muscle usage. Abdominal: taut distended, nontender to palpation, no guarding, no appreciable organomegaly Ext: ROM intact. No gross muscle atrophy, 2+ pitting bilateral lower extremity edema, no contractures Neuro: Speech clear, face symmetrical and CN II-XII grossly intact with no noted focal neuro deficits Psych: Alert and oriented to person, place, time, and situation. Appropriate and pleasant affect. Assessment and Plan of Care: Stage IV colon cancer with extensive metastatic disease Acute blood loss anemia on chronic iron deficiency anemia, suspect source of bleeding is from colon cancer Acute splenic infarct Newly developed edema of bilateral lower extremities and abdomen, suspect fluid volume overload secondary to IV fluid hydration and multiple blood transfusions SIRS criteria likely due to spleen infarct and acute blood loss anemia, Patient has no obvious source of infection Leukocytosis, likely reactive secondary to acute splenic infarct Transaminitis and hyperbilirubinemia secondary to metastasis Hypochloremic hyponatremia Dyspnea likely due to debility from malignancy as well as iron deficiency anemia -Continue Protonix 40 mg IVP twice daily -As there was no evidence of infection and blood cultures were negative, IV antibiotics were discontinued. -Patient developed significant edema over the past 24 hours to bilateral lower extremities and abdomen. IV fluids discontinued and order placed for Lasix 40 mg IVP x 1 dose. -Bilateral lower extremity Dopplers were ordered and negative for DVT. -Discussed in depth with oncology MEDICAL TRANSCRIPTION RADIOLOGY -Obtain abdominal ultrasound secondary to rapid development of edema/swelling over the past 24 hours -Dyspnea likely due to debility from malignancy as well as iron deficiency anemia, but will repeat chest x-ray to rule out pulmonary vascular congestion/fluid overload. -Continued close monitoring of hemoglobin levels. Patient's status post transfusion of 3 units PRBCs and currently hemoglobin stable at 8.7. Will continue to monitor and transfuse if indicated for hemoglobin less than 7. -Fecal occult negative. -General surgery evaluated, stating no plans for endoscopic procedures at this time -Pain control with IV Dilaudid as needed -Patient is constipated so he was also started on MiraLAX 17 g daily -Patient currently not on any chemotherapy/immunotherapy, had recent surgery for peripheral bowel obstruction at [facility] -Patient to follow-up at [facility] for chemotherapy Left-sided hydronephrosis, secondary to metastatic lymphadenopathy -Urology evaluated stating no plans for surgical intervention at this time. -Renal function stable Data and imaging reviewed: Vital signs reviewed. Blood pressure 144/89, heart rate 115, respiratory rate 16, temp 98.3 F, and SpO2 of 92% on room air. Morning labs reviewed. CBC showing leukocytosis with WBC count of 15.08, hemoglobin 8.7, and platelet count of 206. BMP showing hyponatremia with sodium of 129 and hypochloremia with chloride of 92 with elevated anion gap of 14.40 and bicarb of 22.6. Magnesium slightly low at 1.7. Bilateral lower extremity Dopplers completed this morning and followed up with results, negative for DVTs. CODE STATUS: Full code DVT prophylaxis: SCDs Anticipated discharge date: Pending clinical course Anticipated discharge place: Home Patient was seen independently by Nurse Pracitioner. This document was prepared using [employer] dictation software. Please allow for errors in metal furniture assembly supervisor, while rare they do occur. I reviewed the documentation as provided by the TRICIA above, who is the original author of this note. I agree with the documented assessment and plan, with the following changes: none. Objective - Vital Signs Vital signs: Vital Signs Temp 98.3 F 10/16/23 07:08 Pulse 115 H 10/16/23 07:08 Resp 17 10/16/23 08:00 BP 144/89 10/16/23 07:08 Pulse Ox 92 L 10/16/23 07:08 FiO2 Intake & Output 10/15/23 10/16/23 10/16/23 18:59 06:59 18:59 Intake Total 310 Balance 310 Intake: Blood Product 310 Rc As-1 Unit 310 [id number] Other: Voiding Method Toilet Toilet Toilet # Voids 1 # Bowel Movements 2 1 - Labs CBC & Chem 7: 10/16/23 07:05 10/16/23 07:05 Labs: Abnormal Lab Results - Last 24 Hours (Table) 10/13/23 Range/Units 13:45 Crossmatch See Detail Microbiology - Last 24 Hours (Table) 10/12/23 10:55 Blood Culture - Preliminary Blood 10/12/23 10:45 Blood Culture - Preliminary Blood
[2023-10-16] MEDS: MAGNESIUM OXIDE 400 MG TAB PO STA (17:40)
--- NOTE | 2023-10-16 22:46 | XR ---
EXAMINATION: XR chest 1V portable DATE AND TIME: 10/16/2023 5:02 PM CLINICAL INDICATION: PHH; follow up, r/o pulm vasc congestion TECHNIQUE: AP upright portable COMPARISON: 10/10/2023 FINDINGS: Right IJ port line tip superimposed over the distal SVC. EKG leads. Low lung inflation at the moment of x-ray exposure. Innumerable pulmonary nodules redemonstrated, con sistent with metastatic disease. There is no radiographic evidence of any new pulmonary process, and the pleural spaces are negative. The cardiac silhouette is not enlarged. The skeletal structures and soft tissues are negative for acu te findings. IMPRESSION: 1. Stable abnormalities. 2. Negative for pulmonary edema.
[2023-10-17] MEDS ORDERED: VANCOMYCIN TROUGH DUE 1 EACH MISC MISCELLANE ONE (05:00)
[2023-10-17 08:47] LABS: Magnesium 1.7 mg/dL (1.5-2.4)
[2023-10-17 09:09] LABS: ALT 27 U/L (10-49); AST 102 U/L (14-35); Albumin 3.1 g/dL (3.8-4.9); Albumin/Globulin Ratio 0.89 Ratio (1.60-3.17); Alkaline Phosphatase 876 U/L (41-126); Blood Urea Nitrogen 14.5 mg/dL (9.0-27.0); Calcium 8.5 mg/dL (8.7-10.3); Carbon Dioxide 23.7 mmol/L (21.6-31.8); Chloride 90 mmol/L (96-109); Globulin 3.5 g/dL (1.6-3.3); Glucose 95 mg/dL (70-110); Potassium 3.6 mmol/L (3.5-5.5); Sodium 129 mmol/L (135-145); Total Bilirubin 2.9 mg/dL (0.3-1.2); Total Protein 6.6 g/dL (6.2-8.2)
[2023-10-17 09:12] LABS: HCT 27.6 % (39.6-50.0); HGB 8.3 g/dL (13.0-17.0); MCH 24.3 pg (27.0-32.0); MCHC 30.1 g/dL (32.0-37.0); MCV 80.9 FL (80.0-97.0); Mean Platelet Volume 10.3 FL (9.5-12.2); NRBC Per 100 WBC 0 X 10*3/uL (0.00-0.01); Platelet Count 189 X 10*3/uL (140-440); RBC 3.41 X 10*6/uL (4.40-5.60); RDW 18.7 % (11.5-14.5)
--- NOTE | 2023-10-17 13:30 | P.PN ---
Subjective Progress Note Date: 10/17/23 CHIEF COMPLAINT: Chest pain HISTORY OF PRESENT ILLNESS: Patient having same pain. He did have bowel move ments. Dopplers were negative for DVT. He is urinating. He did receive a dose of IV 6 for lower extremity edema and fluid overload. Afebrile. WBC is down from 15-13 Hgb 8.3 platelets 119 sodium 120 PHYSICAL EXAM: VITAL SIGNS: Reviewed. GENERAL: Well-developed in no acute distress. ABDOMEN: mildly distended. Tenderness left upper quadrant. Incisional dressing midline saturated NEUROLOGIC: Alert and oriented. Cranial nerves II through XII grossly intact. ASSESSMENT: 1. Splenic infarct 2. Left upper quadrant abdominal pain 3. History of metastatic colon cancer with recent chemotherapy and surgical resection at [facility] last month 4. Constipation 5. Anemia with iron deficiency anemia PLAN: -Continue a good bowel regimen -If patient requires any surgical intervention he should be referred back to [facility] -No plans for endoscopies -Surgical service will sign off. Please call with any questions or concerns Physician Physical Education Teacher note has been reviewed by physician. Signing provider agrees with the documented findings, assessment, and plan of care. Objective - Vital Signs Vital signs: Vital Signs Temp 98.4 F 10/17/23 07:37 Pulse 96 10/17/23 07:37 Resp 24 10/17/23 07:37 BP 131/86 10/17/23 07:37 Pulse Ox 96 10/17/23 07:56 FiO2 Intake & Output 10/16/23 10/17/23 10/17/23 18:59 06:59 18:59 Intake Total 400 Balance 400 Weight 86.183 kg Intake: Oral 400 Other: Voiding Method Toilet Toilet # Voids 1 1 - Labs CBC & Chem 7: 10/17/23 05:50 10/17/23 05:50 Labs: Abnormal Lab Results - Last 24 Hours (Table) 10/16/23 10/17/23 10/17/23 Range/Units 07:05 05:50 05:50 WBC 13.80 H (4.50-10.00) X 10*3/uL RBC 3.41 L (4.40-5.60) X 10*6/uL Hgb 8.3 L (13.0-17.0) g/dL Hct 27.6 L (39.6-50.0) % MCH 24.3 L (27.0-32.0) pg MCHC 30.1 L (32.0-37.0) g/dL RDW 18.7 H (11.5-14.5) % Sodium 129 L 129 L (135-145) mmol/L Chloride 92 L 90 L (96-109) mmol/L Anion Gap 14.40 H 15.30 H (4.00-12.00) mmol/L Calcium 8.5 L (8.7-10.3) mg/dL Total Bilirubin 2.9 H (0.3-1.2) mg/dL AST 102 H (14-35) U/L Alkaline Phosphatase 876 H (41-126) U/L Albumin 3.1 L (3.8-4.9) g/dL Globulin 3.5 H (1.6-3.3) g/dL Albumin/Globulin Ratio 0.89 L (1.60-3.17) Ratio
--- NOTE | 2023-10-17 14:39 | P.PN ---
Subjective Progress Note Date: 10/17/23 Hospital course: Patient is a 33-year-old male with a past medical history of stage IV colon cancer with metastasis to liver/pancreas/lungs diagnosed early 2022 status post debulking surgery 09/04/2023 following at [facility] with Dr. Luis and currently not on chemotherapy. He presented to the hospital on 10/10/2023 secondary to left- sided chest pain. Upon arrival to our facility patient underwent evaluation in the emergency department. Vital signs upon arrival show blood pressure 150/106, heart rate 99, respiratory rate 20, temp 97.8 F, and SpO2 of 94% on room air. EKG completed showing normal sinus rhythm at 87 bpm with T wave inversion in inferior leads III and aVF. Shortly after arrival patient developed episodes of tachycardia with heart rate elevating up to 126. Chest x-ray was completed showing scattered pulmonary nodules throughout the lungs consistent with progression of metastasis. Labs were completed and reviewed. CBC showing leukocytosis with WBC count of 19.0 and microcytic anemia with hemoglobin of 9.4. BMP showing hyponatremia with sodium of 129. Magnesium normal findings at 1.8. Liver profile showing hyperbilirubinemia with total bili of 2.0, AST of 100, ALT of 38, and alkaline phosphatase of 1236. Troponin was negative at less than 0.012 and D-dimer was elevated at 4.09. CTA chest, abdomen, and pelvis completed showing progression of malignancy with retroperitoneal lymphadenopathy, liver metastatic disease with large left upper quadrant possible adrenal metastatic focus and innumerable pulmonary nodules with prom inent neck lymph nodes partially visualized representing additional sites of metastatic disease, possible anterior inferior spleen infarct with decreased perfusion compared to the remainder of the spleen, mild left hydronephrosis secondary to suspected lymphadenopathy along the course of the left ureter with mass effect and possible obstruction, trace pleural effusion, and small ascites. Patient was admitted under our services with consultations to oncology, urology, and general surgery. Urology evaluated with no plans for surgical intervention at this time. General surgery evaluated recommending medical management with blood transfusions as needed with no plans for endoscopy at this time. Physical exam: Patient seen and fully evaluated at bedside. He reports over the past 24 hours he has developed significant bilateral lower extremity edema and swelling in his abdomen. IV fluids discontinued at this time and patient given a one-time dose of IV Lasix. Vital signs reviewed and stable. General: Nontoxic, no distress and appears stated age. Chronically ill- appearing, thin. Derm: Skin warm and dry, normal coloration for ethnicity. Head: Atraumatic, normocephalic and symmetric. Eyes: EOMs intact, no lid lag, and anicteric sclera Mouth: no lip lesions, mucus membranes moist Cardiovascular: regular rate and rhythm with normal S1S2, no murmur, positive posterior tibial pulses bilaterally, and cap refill < 2 seconds. Lungs: Respirations even, regular, and unlabored on room air. Lungs CTA bilaterally, no rhonchi, no rales, no wheezing, and no accessory muscle usage. Abdominal: taut distended, nontender to palpation, no guarding, no appreciable organomegaly Ext: ROM intact. No gross muscle atrophy, 2+ pitting bilateral lower extremity edema, no contractures Neuro: Speech clear, face symmetrical and CN II-XII grossly intact with no noted focal neuro deficits Psych: Alert and oriented to person, place, time, and situation. Appropriate and pleasant affect. Assessment and Plan of Care: Stage IV colon cancer with extensive metastatic disease Acute blood loss anemia on chronic iron deficiency anemia, suspect source of bleeding is from colon cancer Acute splenic infarct Newly developed edema of bilateral lower extremities and abdomen, suspect fluid volume overload secondary to IV fluid hydration and multiple blood transfusions SIRS criteria likely due to spleen infarct and acute blood loss anemia, Patient has no obvious source of infection Leukocytosis, likely reactive secondary to acute splenic infarct Transaminitis and hyperbilirubinemia secondary to metastasis Hypochloremic hyponatremia Dyspnea likely due to debility from malignancy as well as iron deficiency anemia -Continue Protonix 40 mg IVP twice daily -Abdominal ultrasound completed and pending radiology read at this time. -Bilateral lower extremity Dopplers were ordered and negative for DVT. -While awaiting abdominal ultrasound results, will administer an additional one time dose of IV Lasix and monitor for improvement in edema. -Hematology/oncology following. Discussed in depth with oncology BELT NOTCHER -Continued close monitoring of hemoglobin levels. Patient's status post matos sfusion of 3 units PRBCs and currently hemoglobin stable at 8.7. Will continue to monitor and transfuse if indicated for hemoglobin less than 7. -Fecal occult negative. -General surgery evaluated, stating no plans for endoscopic procedures at this time -Pain control with IV Dilaudid as needed -Patient currently not on any chemotherapy/immunotherapy, had recent surgery for peripheral bowel obstruction at [facility] and to continue to follow-up outpatient with [facility] for scheduling of chemotherapy Left-sided hydronephrosis, secondary to metastatic lymphadenopathy -Urology evaluated stating no plans for surgical intervention at this time. -Renal function stable Data and imaging reviewed: Vital signs reviewed. Blood pressure 131/86, heart rate 96, respiratory rate 24, temp 98.4 F, and SpO2 of 95% on room air. Morning labs reviewed. CBC showing mild leukocytosis with WBC count of 13.80 and stable macrocytic anemia with hemoglobin of 8.3. BMP showing continued hyponatremia with sodium of 129 and chloride of 90 and slightly worsening anion gap of 15.30. Magnesium 1.7. Liver profile showing total bili of 2.9, AST of 102, and alkaline phosphatase of 876. CODE STATUS: Full code DVT prophylaxis: SCDs Anticipated discharge date: Pending clinical course Anticipated discharge place: Home Patient was seen independently by Nurse Pracitioner. This document was prepared using Ze[employer] dictation software. Please allow for errors in business continuity analyst, while rare they do occur. I reviewed the documentation as provided by the TRICIA above, who is the original author of this note. I agree with the documented assessment and plan, with the following changes: none Objective - Vital Signs Vital signs: Vital Signs Temp 98.4 F 10/17/23 07:37 Pulse 96 10/17/23 07:37 Resp 24 10/17/23 07:37 BP 131/86 10/17/23 07:37 Pulse Ox 96 10/17/23 07:56 FiO2 Intake & Output 10/16/23 10/17/23 10/17/23 18:59 06:59 18:59 Intake Total 400 Balance 400 Weight 86.183 kg Intake: Oral 400 Other: Voiding Method Toilet Toilet # Voids 1 1 - Labs CBC & Chem 7: 10/17/23 05:50 10/17/23 05:50 Labs: Abnormal Lab Results - Last 24 Hours (Table) 10/16/23 10/16/23 Range/Units 07:05 07:05 WBC 15.08 H (4.50-10.00) X 10*3/uL RBC 3.51 L (4.40-5.60) X 10*6/uL Hgb 8.7 L (13.0-17.0) g/dL Hct 28.6 L (39.6-50.0) % MCH 24.8 L (27.0-32.0) pg MCHC 30.4 L (32.0-37.0) g/dL RDW 18.3 H (11.5-14.5) % Immature Gran # 0.17 H (0.00-0.04) X 10*3/uL Neutrophils # 11.51 H (1.80-7.70) X 10*3/uL Monocytes # 2.10 H (0.20-1.00) X 10*3/uL Sodium 129 L (135-145) mmol/L Chloride 92 L (96-109) mmol/L Anion Gap 14.40 H (4.00-12.00) mmol/L
[2023-10-17] MEDS: HYDROmorphone 0.5 MG/0.5 ML SYRINGE IVP PRN (14:58)
[2023-10-17] MEDS: FUROSEMIDE 10 MG/ML 4 ML VIAL IV STA (14:59)
[2023-10-17] MEDS: LORazepam 0.5 MG TAB PO PRN (15:22)
--- NOTE | 2023-10-17 19:00 | P.PN ---
Subjective Progress Note Date: 10/17/23 Principal diagnosis: metastatic colon cancer At today's visit patient is resting comfortably in bedside chair. Patient is tearful at todays visit. Reporting pain medications are controlling pain for approx 2 hours but then begins to intensify. Also reporting persisting nausea w ith some improvement with zofran, but even thinking or smelling certain food makes him nauseous causing decreased oral intake. Had 3 BMs this morning, stools are looser. Also having decreased urinary output. Bladder scanned obtained, showing 550cc or urinary retention, rader catheter placed, with 1100cc output. WBC 13.8, hgb 8.3, plts 189,000. Objective - Vital Signs Vital signs: Vital Signs Temp 97.2 F L 10/17/23 12:45 Pulse 103 H 10/17/23 12:45 Resp 20 10/17/23 12:45 BP 133/82 10/17/23 12:45 Pulse Ox 97 10/17/23 12:45 FiO2 Intake & Output 10/16/23 10/17/23 10/17/23 18:59 06:59 18:59 Intake Total 400 Balance 400 Weight 86.183 kg Intake: Oral 400 Other: Voiding Method Toilet Toilet Toilet # Voids 1 1 - Constitutional General appearance: Present: mild distress, thin - EENT Eyes: Present: EOMI ENT: Present: hearing grossly normal - Respiratory Details: breathing is even and unlabored - Cardiovascular Details: well perfused - Peripheral edema leg Peripheral Edema: bilateral: 3+ - Gastrointestinal General gastrointestinal: Present: distended, tenderness - Integumentary Integumentary: Absent: cyanotic - Musculoskeletal Musculoskeletal: Present: generalized weakness - Psychiatric Psychiatric Comment(s): tearful Psychiatric: Present: A&O x's 3 - Labs CBC & Chem 7: 10/17/23 05:50 10/17/23 05:50 Labs: Abnormal Lab Results - Last 24 Hours (Table) 10/17/23 10/17/23 Range/Units 05:50 05:50 WBC 13.80 H (4.50-10.00) X 10*3/uL RBC 3.41 L (4.40-5.60) X 10*6/uL Hgb 8.3 L (13.0-17.0) g/dL Hct 27.6 L (39.6-50.0) % MCH 24.3 L (27.0-32.0) pg MCHC 30.1 L (32.0-37.0) g/dL RDW 18.7 H (11.5-14.5) % Sodium 129 L (135-145) mmol/L Chloride 90 L (96-109) mmol/L Anion Gap 15.30 H (4.00-12.00) mmol/L Calcium 8.5 L (8.7-10.3) mg/dL Total Bilirubin 2.9 H (0.3-1.2) mg/dL AST 102 H (14-35) U/L Alkaline Phosphatase 876 H (41-126) U/L Albumin 3.1 L (3.8-4.9) g/dL Globulin 3.5 H (1.6-3.3) g/dL Albumin/Globulin Ratio 0.89 L (1.60-3.17) Ratio - Imaging and Cardiology Chest x-ray: report reviewed Venous US: report reviewed Assessment and Plan (1) Atypical chest pain Current Visit: Yes Status: Acute Priority: High Code(s): R07.89 - OTHER CHEST PAIN SNOMED Code(s): 474268896 (2) Colon cancer Current Visit: Yes Status: Acute Priority: High Code(s): C18.9 - MALIGNANT NEOPLASM OF COLON, UNSPECIFIED SNOMED Code(s): 561977404 (3) Anemia Current Visit: Yes Status: Acute Priority: High Code(s): D64.9 - ANEMIA, UNSPECIFIED SNOMED Code(s): 296678472 Plan: Anemia, melena x1 -Pt has had BM, no melena or hematochezia reported -Iron deficiency on anemia work up, IV iron ordered. No other deficiencies -Surgery has seen pt. No endoscopy planned at this time. -CT AP did not reveal any findings suggestive of bleeding into abd. No hemoperitoneum reported -Hgb stable at 8.3. CBC monitoring while inpt. Transfuse for Hgb<7 Metastatic colon adenocarcinoma -Completed clinical trial at [facility] August 2023. -Pt had palliative laparoscopic, converted to open, splenic flexure colon resect ion 09/04/23 for partial obstruction. Path reports tumor size of 6.8cm, involving pancreas, /17 LN, 3 soft tissue deposits. No treatment effect appreciated, no tumor regression. He was seen in the ER at [facility] approximately 2 weeks later with a partial bowel obstruction, due to significant constipation and was treated with GoLytely. Symptoms resolved. Now, having similar symptoms. Likely all r/t disease in the mesentery/abd imparing GI motility. Medications for promotion of a BM adjusted yesterday per pt request. He has had several BMs overnight -Bilirubin remains elevated but stable, LFTs stable. -F/U with [facility] missed this week. Pt will contact and reschedule. -Pt is aware that his disease is progressing and that there are plans to start chemo at [facility] once he is healed from recent surgery. -Current plan is to get pt on a bowel regimen, have pain and nausea controlled. -Pain medications adjusted today for breakthrough pain. Ativan added for anticipatory nausea -CTA chest was negative for PE. No evidence for focal consolidation pneumothorax or pleural effusion. Innumerable pulmonary nodules, greater than 50 of the lungs compatible with metastatic disease. Trace left pleural effusion. -Atypical chest pain is not progressive per pt. It is tolerable with pain meds. He is ambulatory without sig SOB or chest pain reported CT AP done here report reads: retroperitoneal lymphadenopathy and metastatic disease to liver. Large left upper quadrant mass measuring 10.4 cm x 8.16 cm possibly arising from the adrenal gland. Mild left hydronephrosis secondary to suspected lymphadenopathy with possible obstruction. Small ascites. Possible anterior inferior splenic infarct with decreased perfusion compared to the remainder of the spleen CT AP from [facility] was performed on 09/28/23 reads: diffuse pulm metastatic disease, increased size. Liver lesion, largest in lt hepatic lobe 11.4x6.7, larger then previous. Pancreas has hypoattenuating lesion 2.6cm, splenomegaly 18.9 cm. Splenic infarct suspected along the anterior spleen. Lt adrenal met 6.5cm (5cm prev). Enlarging peritoneal nodule 1.6c (prev 1.1cm). Perirectal LN enlarging, ascites, pelvic LAD increasing in size. Not felt to be a significant difference in scan findings -Leukocytosis improving. Blood cultures negative at 72 hours. Increase in WBCs could be secondary to splenic infarct and possible GI bleed -Urology has seen pt for lt hydronephrosis seen on CT AP. No plans for surgical interventions at this time. Mechanical obstruction from LAD. Monitoring BUN/Cr for now, stable, still WNL. If renal function remains stable pt will f/u with [facility] for further recommendations *Pt now having decreased UO. Still urinating but small amounts. Bladder scanned ordered, showing 550cc urinary retention. Rader catheter placed with 1100cc output. Asked nursing to send message to urology to notify them of acute changes -BLE swelling and pain, R>L. BLE doppler ordered to rule out DVT. Dopplers were negative for acute DVT in LLE and RLE. ZEESHAN castaneda ordered and encouraged elevation of legs
[2023-10-17] MEDS: polyethylene glycoL 3350 17 GM POWD.PACK PO SCH (20:37)
--- NOTE | 2023-10-18 10:02 | P.PN ---
Subjective Progress Note Date: 10/18/23 the patient is in the hospital failure to thrive. He has advanced progressive metastatic colon cancer. He has mild hydronephrosis on the left side due to retroperitoneal adenopathy. There is question whether his urine retention last night. A bladder scan suggested that his bladder is full however he does have ascites. When the catheter was placed not a lot of urine was obtained . Catheter obviously was uncomfortable going in. He is more comfortable now and feels that the catheter makes things easier for him. Objective - Vital Signs Vital signs: Vital Signs Temp 98.5 F 10/18/23 07:34 Pulse 112 H 10/18/23 07:34 Resp 20 10/18/23 07:34 BP 136/85 10/18/23 07:34 Pulse Ox 95 10/18/23 07:34 FiO2 21 10/18/23 07:51 Intake & Output 10/17/23 10/18/23 10/18/23 18:59 06:59 18:59 Intake Total 480 Output Total 1100 800 Balance -1100 -320 Intake: Oral 480 Output: Urine 1100 800 Other: Voiding Method Toilet Indwelling Catheter - Labs CBC & Chem 7: 10/17/23 05:50 10/17/23 05:50 Labs: Microbiology - Last 24 Hours (Table) 10/12/23 10:55 Blood Culture - Final Blood 10/12/23 10:45 Blood Culture - Final Blood Assessment and Plan Assessment: impression: I question whether he had urine retention. The fluid seen on the bladder scan probably was ascites. Ascites will frequently be registered as a full bladder. Recommendations: Unfortunately due to his advanced progressive metastatic colon cancer daily care is difficult. He seems to be or comfortable having the catheter than not. Therefore I recommend leaving in and at this point in time.
[2023-10-18] MEDS: FUROSEMIDE 10 MG/ML 4 ML VIAL IV STA (10:21)
[2023-10-18 10:34] LABS: Magnesium 1.6 mg/dL (1.5-2.4)
[2023-10-18 10:38] LABS: BUN/Creat Ratio 15.67 Ratio (12.00-20.00); Blood Urea Nitrogen 14.1 mg/dL (9.0-27.0); Chloride 93 mmol/L (96-109); Glucose 94 mg/dL (70-110); Potassium 4.5 mmol/L (3.5-5.5); Sodium 129 mmol/L (135-145)
[2023-10-18 10:39] LABS: ALT 28 U/L (10-49); AST 127 U/L (14-35); Albumin 2.8 g/dL (3.8-4.9); Alkaline Phosphatase 986 U/L (41-126); Calcium 7.9 mg/dL (8.7-10.3); Carbon Dioxide 22.3 mmol/L (21.6-31.8); Globulin 3.5 g/dL (1.6-3.3); Total Protein 6.3 g/dL (6.2-8.2)
--- NOTE | 2023-10-18 11:58 | P.PN ---
Subjective Progress Note Date: 10/18/23 Hospital Course: Patient is a 33-year-old male with a past medical history of stage IV colon ca ncer with metastasis to liver/pancreas/lungs diagnosed early 2022 status post debulking surgery 09/04/2023 following [facility] with Dr. Luis and currently not on chemotherapy. He presented to the hospital on 10/10/2023 secondary to left- sided chest pain. Upon arrival to our facility patient underwent evaluation in the emergency department. Vital signs upon arrival show blood pressure 150/106, heart rate 99, respiratory rate 20, temp 97.8 F, and SpO2 of 94% on room air. EKG completed showing normal sinus rhythm at 87 bpm with T wave inversion in inferior leads III and aVF. Shortly after arrival patient developed episodes of tachycardia with heart rate elevating up to 126. Chest x-ray was completed showing scattered pulmonary nodules throughout the lungs consistent with progression of metastasis. Labs were completed and reviewed. CBC showing leukocytosis with WBC count of 19.0 and microcytic anemia with hemoglobin of 9.4. BMP showing hyponatremia with sodium of 129. Magnesium normal findings at 1.8. Liver profile showing hyperbilirubinemia with total bili of 2.0, AST of 100, ALT of 38, and alkaline phosphatase of 1236. Troponin was negative at less than 0.012 and D-dimer was elevated at 4.09. CTA chest, abdomen, and pelvis completed showing progression of malignancy with retroperitoneal lymphadenopathy, liver metastatic disease with large left upper quadrant possible adrenal metastatic focus and innumerable pulmonary nodules with prominent neck lymph nodes partially visualized representing additional sites of metastatic disease, possible anterior inferior spleen infarct with decreased perfusion compared to the remainder of the spleen, mild left hydronephrosis se condary to suspected lymphadenopathy along the course of the left ureter with mass effect and possible obstruction, trace pleural effusion, and small ascites. Patient was admitted under our services with consultations to oncology, urology, and general surgery. Urology evaluated with no plans for surgical intervention at this time. General surgery evaluated recommending medical management with blood transfusions as needed with no plans for endoscopy at this time. Patient was initially started on heparin drip, now discontinued. He was also started on broad-spectrum antibiotics for concerns for infection, no obvious source, antibiotics discontinued. Now having urinary retention, Brady catheter in place. Due to multiple blood products patient developed slight hyperkalemia, patient given couple doses of IV Lasix. Subjective: Patient seen and examined at bedside. No acute events overnight. Brady catheter in place. Still having lower extremity edema and some orthopnea. Has abdominal pain Pertinent positives and negatives as discussed above, a complete review of systems was performed and all other systems are negative. Vitals Signs Reviewed. General: Nontoxic, no distress, appears at stated age, chronically ill- appearing, thin Derm: Warm, dry Head: Atraumatic, normocephalic, symmetric Eyes: EOMI, no lid lag, anicteric sclera Mouth: No lip lesion, mucus membranes moist Cardiovascular: S1S2 reg, no murmur Lungs: Bilateral rhonchi, no accessory muscle use, on room air Abdominal: Soft, midline incision with clean and dry dressing, diffusely tender to palpation, no guarding, no appreciable organomegaly Ext: No gross muscle atrophy, 2+ pitting edema, no contractures Neuro: CN II-XI grossly intact, no focal neuro deficits Psych: Alert, oriented, appropriate affect Data Reviewed Today: Pertinent Labs: Sodium 129, creatinine 0.9, total bili 3, AST 127, ALT 28, ALP 96, CBC pending, will be reviewed when available Imaging: No new imaging Assessment and Plan: Stage IV colon cancer with extensive metastatic disease Acute blood loss anemia on chronic iron deficiency anemia, suspect source of bleeding is from colon cancer Acute splenic infarct Hypervolemia in the setting of blood transfusions SIRS criteria likely due to spleen infarct and acute blood loss anemia, Patient has no obvious source of infection Leukocytosis, likely reactive secondary to acute splenic infarct Transaminitis and hyperbilirubinemia secondary to metastasis Hypervolemic hyponatremia Dyspnea likely due to debility from malignancy as well as iron deficiency anemia -Continue Protonix 40 mg IVP twice daily -Abdominal ultrasound completed and pending radiology read at this time. -Bilateral lower extremity Dopplers negative for DVT -Another 40 of IV Lasix given today, monitor for electrolytes and renal function -Hematology/oncology following -Continued close monitoring of hemoglobin levels. Patient's status post transfusion of 3 units PRBCs and currently hemoglobin stable at 8.7. Will continue to monitor and transfuse if indicated for hemoglobin less than 7. -General surgery evaluated, stating no plans for endoscopic procedures at this time -Pain control with IV Dilaudid as needed -Patient currently not on any chemotherapy/immunotherapy, had recent surgery for peripheral bowel obstruction at [facility] and to continue to follow-up outpatient with [facility] for scheduling of chemotherapy Left-sided hydronephrosis, secondary to metastatic lymphadenopathy Acute urinary retention status post Brady catheter -Urology note reviewed, unsure if he truly was retention versus ascites noted on bladder scan, patient would like to keep the Brady catheter in place at the moment -Renal function stable DVT ppx: SCDs Code status: Full code Anticipated discharge place: Pending clinical course Anticipated discharge time: Pending clinical course Objective - Vital Signs Vital signs: Vital Signs Temp 98.5 F 10/18/23 07:34 Pulse 112 H 10/18/23 07:34 Resp 20 10/18/23 07:34 BP 136/85 10/18/23 07:34 Pulse Ox 95 10/18/23 07:34 FiO2 21 10/18/23 07:51 Intake & Output 10/17/23 10/18/23 10/18/23 18:59 06:59 18:59 Intake Total 480 Output Total 1100 800 Balance -1100 -320 Intake: Oral 480 Output: Urine 1100 800 Other: Voiding Method Toilet Indwelling Catheter Indwelling Catheter - Labs CBC & Chem 7: 10/17/23 05:50 10/18/23 05:45 Labs: Abnormal Lab Results - Last 24 Hours (Table) 10/18/23 Range/Units 05:45 Sodium 129 L (135-145) mmol/L Chloride 93 L (96-109) mmol/L Anion Gap 13.70 H (4.00-12.00) mmol/L Calcium 7.9 L (8.7-10.3) mg/dL Total Bilirubin 3.0 H (0.3-1.2) mg/dL AST 127 H (14-35) U/L Alkaline Phosphatase 986 H (41-126) U/L Albumin 2.8 L (3.8-4.9) g/dL Globulin 3.5 H (1.6-3.3) g/dL Albumin/Globulin Ratio 0.80 L (1.60-3.17) Ratio Microbiology - Last 24 Hours (Table) 10/12/23 10:55 Blood Culture - Final Blood 10/12/23 10:45 Blood Culture - Final Blood
--- NOTE | 2023-10-18 18:09 | US ---
EXAMINATION TYPE: US abdomen complete DATE OF EXAM: 10/17/2023 COMPARISON: CT 10/12/2023. CLINICAL INDICATION: Male, 33 years old with history of newly developed abdominal swelling; hx liver mets. hx of malignant lesion removed September 03 on intestine. Pain. TECHNIQUE: Multiple sonographic images of the abdomen are obtained. FINDINGS: EXAM MEASUREMENTS: Liver Length: 18.9 cm Gallbladder Wall: 0.4 cm CBD: 0.4 cm Spleen: 19.7 cm Right Kidney: 11.2 x 4.6 x 5.6 cm Left Kidney: 11.4 x 6.2 x 6.2 cm Pancreas: Obscured by bowel gas, not well seen Liver: Innumerable lesions seen throughout liver. Enlarged in size Gallbladder: Wall thickening. No stones visualized at time of exam. Evidence for sonographic Gutierrez's sign: neg CBD: wnl Spleen: Enlarged in size Right Kidney: No hydronephrosis or masses seen Left Kidney: Possible lower pole dilated collecting system. Findings similar to CT on 10/12/2023. F indings felt to be due to mass effect from lymphadenopathy in the pelvis. Upper IVC: wnl Abd Aorta: Distal obscured by overlying bowel gas Ascites seen Left flank lesion seen adjacent to spleen and left kidney, unknown origin = 12.9 x 9.1 x 6.8 cm IMPRESSION: 1. Multiple liver masses throughout the liver compatible with known metastatic disease. 2. Left upper quadrant mass possibly related to the adrenal gland metastatic disease.
[2023-10-18 21:02] LABS: Anisocytosis Slight; HCT 31.5 % (39.0-53.0); MCH 25.4 pg (25.0-35.0); MCHC 31.4 g/dL (31.0-37.0); MCV 81.1 fL (80.0-100.0); Mean Platelet Volume 7.6; Microcytosis Slight; Platelet Count 210 k/uL (150-450); RBC 3.89 m/uL (4.30-5.90); RDW 18.8 % (11.5-15.5); WBC 18.4 k/uL (3.8-10.6)
[2023-10-18 21:03] LABS: HGB 9.9 gm/dL (13.0-17.5)
[2023-10-19 05:59] LABS: African American GFR (CKD) >90 (>60 ml/min/1.73 sqM); Anion Gap 8 mmol/L; Blood Urea Nitrogen 18 mg/dL (9-20); Carbon Dioxide 27 mmol/L (22-30); Chloride 93 mmol/L (98-107); Glucose 100 mg/dL (74-99); Non-African American GFR(CKD) >90 (>60 ml/min/1.73 sqM); Sodium 128 mmol/L (137-145)
[2023-10-19 06:02] LABS: Magnesium 1.6 mg/dL (1.6-2.3); Potassium 3.7 mmol/L (3.5-5.1)
[2023-10-19 06:16] LABS: Anisocytosis Slight; Basophils % (A) 0 %; Eosinophils # (A) 0.1 k/uL (0-0.7); Eosinophils % (A) 1 %; HCT 30.9 % (39.0-53.0); HGB 9.5 gm/dL (13.0-17.5); Hypochromasia Slight; Lymphocytes # (A) 0.9 k/uL (1.0-4.8); Lymphocytes % (A) 6 %; MCH 25.6 pg (25.0-35.0); MCHC 30.7 g/dL (31.0-37.0); MCV 83.5 fL (80.0-100.0); Mean Platelet Volume 7.8; Monocytes % (A) 7 %; Neutrophils % (A) 85 %; Platelet Count 145 k/uL (150-450); RBC 3.69 m/uL (4.30-5.90); RDW 18.6 % (11.5-15.5); WBC 15.3 k/uL (3.8-10.6)
--- NOTE | 2023-10-19 11:27 | P.PN ---
Subjective Progress Note Date: 10/19/23 Hospital Course: Patient is a 33-year-old male with a past medical history of stage IV colon ca ncer with metastasis to liver/pancreas/lungs diagnosed early 2022 status post debulking surgery 09/04/2023 following at of [facility] with Dr. Luis and currently not on chemotherapy. He presented to the hospital on 10/10/2023 secondary to left- sided chest pain. Upon arrival to our facility patient underwent evaluation in the emergency department. Vital signs upon arrival show blood pressure 150/106, heart rate 99, respiratory rate 20, temp 97.8 F, and SpO2 of 94% on room air. EKG completed showing normal sinus rhythm at 87 bpm with T wave inversion in inferior leads III and aVF. Shortly after arrival patient developed episodes of tachycardia with heart rate elevating up to 126. Chest x-ray was completed showing scattered pulmonary nodules throughout the lungs consistent with progression of metastasis. Labs were completed and reviewed. CBC showing leukocytosis with WBC count of 19.0 and microcytic anemia with hemoglobin of 9.4. BMP showing hyponatremia with sodium of 129. Magnesium normal findings at 1.8. Liver profile showing hyperbilirubinemia with total bili of 2.0, AST of 100, ALT of 38, and alkaline phosphatase of 1236. Troponin was negative at less than 0.012 and D-dimer was elevated at 4.09. CTA chest, abdomen, and pelvis completed showing progression of malignancy with retroperitoneal lymphadenopathy, liver metastatic disease with large left upper quadrant possible adrenal metastatic focus and innumerable pulmonary nodules with prominent neck lymph nodes partially visualized representing additional sites of metastatic disease, possible anterior inferior spleen infarct with decreased perfusion compared to the remainder of the spleen, mild left hydronephrosis se condary to suspected lymphadenopathy along the course of the left ureter with mass effect and possible obstruction, trace pleural effusion, and small ascites. Patient was admitted under our services with consultations to oncology, urology, and general surgery. Urology evaluated with no plans for surgical intervention at this time. General surgery evaluated recommending medical management with blood transfusions as needed with no plans for endoscopy at this time. Patient was initially started on heparin drip, now discontinued. He was also started on broad-spectrum antibiotics for concerns for infection, no obvious source, antibiotics discontinued. Now having urinary retention, Brady catheter in place. Due to multiple blood products patient developed slight hyperkalemia, patient given couple doses of IV Lasix. Subjective: Patient seen and examined at bedside. No acute events overnight. Brady catheter in place. Lower extremity edema improved. Pertinent positives and negatives as discussed above, a complete review of systems was performed and all other systems are negative. Vitals Signs Reviewed. General: Nontoxic, no distress, appears at stated age, chronically ill-a ppearing, thin Derm: Warm, dry Head: Atraumatic, normocephalic, symmetric Eyes: EOMI, no lid lag, anicteric sclera Mouth: No lip lesion, mucus membranes moist Cardiovascular: S1S2 reg, no murmur Lungs: Bilateral rhonchi, no accessory muscle use, on room air Abdominal: Soft, midline incision with clean and dry dressing, diffusely tender to palpation, no guarding, no appreciable organomegaly Ext: No gross muscle atrophy, 2+ pitting edema, no contractures Neuro: CN II-XI grossly intact, no focal neuro deficits Psych: Alert, oriented, appropriate affect Data Reviewed Today: Pertinent Labs: WBC 15.3, hemoglobin 9.5, platelet 145, sodium 128, magnesium 1.6, creatinine 0.84 Imaging: No new imaging Assessment and Plan: Stage IV colon cancer with extensive metastatic disease Acute blood loss anemia on chronic iron deficiency anemia, suspect source of bleeding is from colon cancer Acute splenic infarct Hypervolemia in the setting of blood transfusions SIRS criteria likely due to spleen infarct and acute blood loss anemia, Patient has no obvious source of infection Leukocytosis, likely reactive secondary to acute splenic infarct Transaminitis and hyperbilirubinemia secondary to metastasis Hypervolemic hyponatremia, now euvolemic Dyspnea likely due to debility from malignancy as well as iron deficiency anemia -Continue Protonix 40 mg IVP twice daily -Bilateral lower extremity Dopplers negative for DVT -No IV Lasix today -Hematology/oncology following -Continued close monitoring of hemoglobin levels. Patient's status post transfusion of 3 units PRBCs and currently hemoglobin stable at 8.7. Will continue to monitor and transfuse if indicated for hemoglobin less than 7. -General surgery evaluated, stating no plans for endoscopic procedures at this time -Pain control with IV Dilaudid as needed, may benefit from fentanyl -Patient currently not on any chemotherapy/immunotherapy, had recent surgery for peripheral bowel obstruction at [facility] and to continue to fol [facility]-up outpatient with [facility] for scheduling of chemotherapy -Needs further goals of care discussion with regards to prognosis Left-sided hydronephrosis, secondary to metastatic lymphadenopathy Acute urinary retention status post Brady catheter -Urology following -Renal function stable -Discontinue Brady catheter, voiding trial DVT ppx: SCDs Code status: Full code Anticipated discharge place: Pending clinical course Anticipated discharge time: Pending clinical course Objective - Vital Signs Vital signs: Vital Signs Temp 98.4 F 10/19/23 07:02 Pulse 113 H 10/19/23 07:02 Resp 17 10/19/23 07:02 BP 139/86 10/19/23 07:02 Pulse Ox 95 10/19/23 07:02 FiO2 21 10/18/23 07:51 Intake & Output 10/18/23 10/19/23 10/19/23 18:59 06:59 18:59 Intake Total 590 Output Total 1600 400 Balance -1600 190 Intake: Oral 590 Output: Urine 1600 400 Other: Voiding Method Indwelling Catheter Indwelling Catheter Indwelling Catheter # Voids 1 # Bowel Movements 3 - Labs CBC & Chem 7: 10/19/23 05:12 10/19/23 05:12 Labs: Abnormal Lab Results - Last 24 Hours (Table) 10/18/23 10/19/23 10/19/23 Range/Units 20:14 05:12 05:12 WBC 18.4 H 15.3 H (3.8-10.6) k/uL RBC 3.89 L 3.69 L (4.30-5.90) m/uL Hgb 9.9 L D 9.5 L (13.0-17.5) gm/dL Hct 31.5 L 30.9 L (39.0-53.0) % MCHC 30.7 L (31.0-37.0) g/dL RDW 18.8 H 18.6 H (11.5-15.5) % Plt Count 145 L (150-450) k/uL Neutrophils # 13.0 H (1.3-7.7) k/uL Lymphocytes # 0.9 L (1.0-4.8) k/uL Sodium 128 L (137-145) mmol/L Chloride 93 L (98-107) mmol/L Glucose 100 H (74-99) mg/dL Calcium 8.0 L (8.4-10.2) mg/dL
[2023-10-20 08:21] LABS: ALT 29 U/L (4-49); AST 127 U/L (17-59); African American GFR (CKD) >90 (>60 ml/min/1.73 sqM); Albumin 3.1 g/dL (3.5-5.0); Albumin/Globulin Ratio 0.8; Anion Gap 8 mmol/L; Blood Urea Nitrogen 17 mg/dL (9-20); Calcium 8.4 mg/dL (8.4-10.2); Carbon Dioxide 28 mmol/L (22-30); Chloride 91 mmol/L (98-107); Globulin 3.8 g/dL; Glucose 95 mg/dL (74-99); Non-African American GFR(CKD) >90 (>60 ml/min/1.73 sqM); Potassium 3.7 mmol/L (3.5-5.1); Sodium 127 mmol/L (137-145); Total Bilirubin 5.2 mg/dL (0.2-1.3); Total Protein 6.9 g/dL (6.3-8.2)
[2023-10-20 08:26] LABS: Anisocytosis Slight; Basophils # (A) 0.1 k/uL (0-0.2); Basophils % (A) 0 %; Eosinophils # (A) 0.1 k/uL (0-0.7); Eosinophils % (A) 1 %; HCT 31.3 % (39.0-53.0); HGB 9.4 gm/dL (13.0-17.5); Hypochromasia Moderate; Lymphocytes # (A) 1.1 k/uL (1.0-4.8); Lymphocytes % (A) 6 %; MCH 25.1 pg (25.0-35.0); MCHC 30.2 g/dL (31.0-37.0); MCV 82.9 fL (80.0-100.0); Mean Platelet Volume 7.2; Monocytes % (A) 6 %; Neutrophils % (A) 86 %; Platelet Count 250 k/uL (150-450); RBC 3.77 m/uL (4.30-5.90); RDW 18.2 % (11.5-15.5); WBC 18.6 k/uL (3.8-10.6)
[2023-10-20 08:38] LABS: Alkaline Phosphatase 1156 U/L (38-126)
[2023-10-20 11:12] LABS: Glucose 105 mg/dL (70-110)
--- NOTE | 2023-10-20 11:30 | P.PN ---
Subjective Progress Note Date: 10/20/23 Hospital Course: Patient is a 33-year-old male with a past medical history of stage IV colon ca ncer with metastasis to liver/pancreas/lungs diagnosed early 2022 status post debulking surgery 09/04/2023 following at of [facility] with Dr. Luis and currently not on chemotherapy. He presented to the hospital on 10/10/2023 secondary to left- sided chest pain. Upon arrival to our facility patient underwent evaluation in the emergency department. Vital signs upon arrival show blood pressure 150/106, heart rate 99, respiratory rate 20, temp 97.8 F, and SpO2 of 94% on room air. EKG completed showing normal sinus rhythm at 87 bpm with T wave inversion in inferior leads III and aVF. Shortly after arrival patient developed episodes of tachycardia with heart rate elevating up to 126. Chest x-ray was completed showing scattered pulmonary nodules throughout the lungs consistent with progression of metastasis. Labs were completed and reviewed. CBC showing leukocytosis with WBC count of 19.0 and microcytic anemia with hemoglobin of 9.4. BMP showing hyponatremia with sodium of 129. Magnesium normal findings at 1.8. Liver profile showing hyperbilirubinemia with total bili of 2.0, AST of 100, ALT of 38, and alkaline phosphatase of 1236. Troponin was negative at less than 0.012 and D-dimer was elevated at 4.09. CTA chest, abdomen, and pelvis completed showing progression of malignancy with retroperitoneal lymphadenopathy, liver metastatic disease with large left upper quadrant possible adrenal metastatic focus and innumerable pulmonary nodules with prominent neck lymph nodes partially visualized representing additional sites of metastatic disease, possible anterior inferior spleen infarct with decreased perfusion compared to the remainder of the spleen, mild left hydronephrosis se condary to suspected lymphadenopathy along the course of the left ureter with mass effect and possible obstruction, trace pleural effusion, and small ascites. Patient was admitted under our services with consultations to oncology, urology, and general surgery. Urology evaluated with no plans for surgical intervention at this time. General surgery evaluated recommending medical management with blood transfusions as needed with no plans for endoscopy at this time. Patient was initially started on heparin drip, now discontinued. He was also started on broad-spectrum antibiotics for concerns for infection, no obvious source, antibiotics discontinued. Now having urinary retention, Brady catheter in place. Due to multiple blood products patient developed slight hyperkalemia, patient given couple doses of IV Lasix. Subjective: Patient seen and examined at bedside. No acute events overnight. Brady catheter discontinued. Still having significant pain. Pertinent positives and negatives as discussed above, a complete review of systems was performed and all other systems are negative. Vitals Signs Reviewed. General: Nontoxic, no distress, appears at stated age, chronically ill- appearing, thin Derm: Warm, dry Head: Atraumatic, normocephalic, symmetric Eyes: EOMI, no lid lag, anicteric sclera Mouth: No lip lesion, mucus membranes moist Cardiovascular: S1S2 reg, no murmur Lungs: Bilateral rhonchi, no accessory muscle use, on room air Abdominal: Soft, midline incision with clean and dry dressing, diffusely tender to palpation, no guarding, no appreciable organomegaly Ext: No gross muscle atrophy, 1+ pitting edema, no contractures Neuro: CN II-XI grossly intact, no focal neuro deficits Psych: Alert, oriented, appropriate affect Data Reviewed Today: Pertinent Labs: WBC 18.6, hemoglobin 9.4, platelet 250, sodium 127, chloride 91, creatinine 0.90, total bili 5.2, AST 127, ALT 29, ALP 1000 Imaging: No new imaging Assessment and Plan: Stage IV colon cancer with extensive metastatic disease Acute blood loss anemia on chronic iron deficiency anemia, suspect source of bleeding is from colon cancer Acute splenic infarct Hypervolemia in the setting of blood transfusions, not resolving SIRS criteria likely due to spleen infarct and acute blood loss anemia, Patient has no obvious source of infection Leukocytosis, likely reactive Transaminitis and hyperbilirubinemia secondary to metastasis Hypervolemic hyponatremia, now euvolemic Dyspnea, resolved -Continue Protonix 40 mg IVP twice daily -Hematology/oncology following, considering better pain control -Pain control with IV Dilaudid as needed, may benefit from fentanyl -Hemoglobin stable, patient is status post 3 units of PRBCs -General surgery evaluated, stating no plans for endoscopic procedures at this time -Patient currently not on any chemotherapy/immunotherapy, had recent surgery for peripheral bowel obstruction at [facility] and to continue to follow-up outpatient with [facility] for scheduling of chemotherapy -Needs further goals of care discussion with regards to prognosis -Sodium has slowly been downtrending, encourage increase oral intake and solute intake, if continues to worsen, may need nephrology consult. Left-sided hydronephrosis, secondary to metastatic lymphadenopathy Acute urinary retention status post Brady catheter, now discontinued -Urology following -Renal function stable DVT ppx: SCDs Code status: Full code Anticipated discharge place: Pending clinical course Anticipated discharge time: Pending clinical course Objective - Vital Signs Vital signs: Vital Signs Temp 97.6 F 10/20/23 07:43 Pulse 122 H 10/20/23 07:43 Resp 19 10/20/23 07:43 BP 138/91 10/20/23 07:43 Pulse Ox 98 10/20/23 07:43 FiO2 21 10/18/23 07:51 Intake & Output 10/19/23 10/20/23 10/20/23 18:59 06:59 18:59 Intake Total 540 Balance 540 Intake: Oral 540 Other: Voiding Method Indwelling Catheter Toilet Toilet # Voids 1 1 - Labs CBC & Chem 7: 10/20/23 07:40 10/20/23 07:40 Labs: Abnormal Lab Results - Last 24 Hours (Table) 10/20/23 10/20/23 Range/Units 07:40 07:40 WBC 18.6 H (3.8-10.6) k/uL RBC 3.77 L (4.30-5.90) m/uL Hgb 9.4 L (13.0-17.5) gm/dL Hct 31.3 L (39.0-53.0) % MCHC 30.2 L (31.0-37.0) g/dL RDW 18.2 H (11.5-15.5) % Neutrophils # 16.0 H (1.3-7.7) k/uL Sodium 127 L (137-145) mmol/L Chloride 91 L (98-107) mmol/L Total Bilirubin 5.2 H (0.2-1.3) mg/dL AST 127 H (17-59) U/L Alkaline Phosphatase 1156 H (38-126) U/L Albumin 3.1 L (3.5-5.0) g/dL
--- NOTE | 2023-10-20 15:29 | US ---
EXAMINATION TYPE: US abdomen limited DATE OF EXAM: 10/20/2023 Exam done portable COMPARISON: NONE CLINICAL INDICATION: Male, 33 years old with history of abd pain/distention, eval for ascites/paracen tesis; Technique: Grayscale imaging of the abdomen for ascites. FINDINGS: Anechoic ascites throughout the abdomen. IMPRESSION: Small to moderate ascites.
[2023-10-20] MEDS: MORPHINE SULFATE ER 30 MG TABLET PO SCH (15:50)
[2023-10-20] MEDS: MORPHINE SULFATE IR 15 MG TABLET PO PRN (15:51)
[2023-10-20] MEDS ORDERED: LIDOCAINE 2% URO-JET JELLY 5 ML KIT URETHRAL PRN (17:43)
--- NOTE | 2023-10-20 17:59 | P.PN ---
Subjective Progress Note Date: 10/20/23 Principal diagnosis: metastatic colon cancer At today's visit patient is resting comfortably in bed. He is reporting improvement in n/v and anxiety. Oral intake improving. Reporting persisting abd pain that radiates to back and abd distention. Brady removed yesterday, having UO. WBC 18.6, hgb 9.4, plts 250,000. Objective - Vital Signs Vital signs: Vital Signs Temp 97.6 F 10/20/23 07:43 Pulse 122 H 10/20/23 07:43 Resp 19 10/20/23 07:43 BP 138/91 10/20/23 07:43 Pulse Ox 98 10/20/23 07:43 FiO2 21 10/18/23 07:51 Intake & Output 10/19/23 10/20/23 10/20/23 18:59 06:59 18:59 Intake Total 540 Balance 540 Intake: Oral 540 Other: Voiding Method Indwelling Catheter Toilet Toilet # Voids 1 1 - Constitutional General appearance: Present: average body habitus, no acute distress - EENT Eyes: Present: anicteric sclerae, EOMI ENT: Present: hearing grossly normal - Respiratory Details: breathing is even and unlabored - Cardiovascular Details: well perfused - Gastrointestinal General gastrointestinal: Present: distended, tenderness Localized gastrointestinal: tender: diffuse - Integumentary Integumentary: Absent: cyanotic - Neurologic Neurologic: Present: CNII-XII intact - Psychiatric Psychiatric: Present: A&O x's 3 - Labs CBC & Chem 7: 10/20/23 07:40 10/20/23 07:40 Labs: Abnormal Lab Results - Last 24 Hours (Table) 10/20/23 10/20/23 Range/Units 07:40 07:40 WBC 18.6 H (3.8-10.6) k/uL RBC 3.77 L (4.30-5.90) m/uL Hgb 9.4 L (13.0-17.5) gm/dL Hct 31.3 L (39.0-53.0) % MCHC 30.2 L (31.0-37.0) g/dL RDW 18.2 H (11.5-15.5) % Neutrophils # 16.0 H (1.3-7.7) k/uL Sodium 127 L (137-145) mmol/L Chloride 91 L (98-107) mmol/L Total Bilirubin 5.2 H (0.2-1.3) mg/dL AST 127 H (17-59) U/L Alkaline Phosphatase 1156 H (38-126) U/L Albumin 3.1 L (3.5-5.0) g/dL - Imaging and Cardiology US - abdomen: report reviewed Assessment and Plan (1) Atypical chest pain Current Visit: Yes Status: Acute Priority: High Code(s): R07.89 - OTHER CHEST PAIN SNOMED Code(s): 436042976 (2) Colon cancer Current Visit: Yes Status: Acute Priority: High Code(s): C18.9 - MALIGNANT NEOPLASM OF COLON, UNSPECIFIED SNOMED Code(s): 362007247 (3) Anemia Current Visit: Yes Status: Acute Priority: High Code(s): D64.9 - ANEMIA, UNSPECIFIED SNOMED Code(s): 079902473 Plan: Anemia, melena x1 -Pt has had BM, no melena or hematochezia reported -Iron deficiency on anemia work up, s/p parenteral iron. No other deficiencies -Surgery has seen pt. No endoscopy planned at this time. -CT AP did not reveal any findings suggestive of bleeding into abd. No hemoperitoneum reported -Hgb improving, 9.4. CBC monitoring while inpt. Transfuse for Hgb<7 Metastatic colon adenocarcinoma -Completed clinical trial at [facility]. -Pt had palliative laparoscopic, converted to open, splenic flexure colon resection 09/04/23 for partial obstruction. Path reports tumor size of 6.8cm, involving pancreas, / LN, 3 soft tissue deposits. No treatment effect appreciated, no tumor regression. He was seen in the ER at [facility] approximately 2 weeks later with a partial bowel obstruction, due to significant constipation and was treated with GoLytely. Symptoms resolved. Now, having similar symptoms. Likely all r/t disease in the mesentery/abd imparing GI motility. Medications for promotion of a BM adjusted yesterday per pt request. He has had several BMs overnight -Bilirubin remains elevated but stable, LFTs stable. -F/U with [facility] missed this week. Pt will contact and reschedule. -Pt is aware that his disease is progressing and that there are plans to start chemo at [facility] once he is healed from recent surgery. -Current plan is to get pt on a bowel regimen, have pain and nausea controlled. - Ativan added for anticipatory nausea with improvement in symptoms. Spoke with PharmD to convert IV dilaudid to PO morphine ER and IR. Will continue to monitor pain control -Will repeat abd US to evaluate ascites and for possible paracentesis Spoke with IM team regarding POC. Once pain is controlled and sodium stable, will plan for discharge and for follow up with oncology at [facility] CT AP done here report reads: retroperitoneal lymphadenopathy and metastatic disease to liver. Large left upper quadrant mass measuring 10.4 cm x 8.16 cm possibly arising from the adrenal gland. Mild left hydronephrosis secondary to suspected lymphadenopathy with possible obstruction. Small ascites. Possible anterior inferior splenic infarct with decreased perfusion compared to the remainder of the spleen CT AP from [facility] was performed on 09/28/23 reads: diffuse pulm metastatic disease, increased size. Liver lesion, largest in lt hepatic lobe 11.4x6.7, larger then previous. Pancreas has hypoattenuating lesion 2.6cm, splenomegaly 18.9 cm. Splenic infarct suspected along the anterior spleen. Lt adrenal met 6.5cm (5cm prev). Enlarging peritoneal nodule 1.6c (prev 1.1cm). Perirectal LN enlarging, ascites, pelvic LAD increasing in size. Not felt to be a significant difference in scan findings -Leukocytosis: Blood cultures negative. Increase in WBCs could be secondary to splenic infarct and possible GI bleed -Urology has seen pt for lt hydronephrosis seen on CT AP. No plans for surgical interventions at this time. Mechanical obstruction from LAD. Monitoring BUN/Cr for now, stable, still WNL. If renal function remains stable pt will f/u with [facility] for further recommendations *Pt now having decreased UO. Still urinating but small amounts. Bladder scanned ordered, showing 550cc urinary retention. Brady catheter placed with 1100cc output. Brady has since been removed, having UO today
--- NOTE | 2023-10-20 18:39 | CDI ---
Documentation Clarification Form Date: 10/20/2023 06:37:54 PM From: Patience Bhatia Phone: [phone] Admit Date: 10/10/2023 09:42:00 PM Patient Name: Dante Koch Visit Number: [id number] Discharge Date: ATTENTION: The Clinical Documentation Specialists (CDI) and [facility] Coding Staff appreciate your assistance in clarifying documentation. Please respond to the clarification below the line at the bottom and electronically sign. The CDI & [facility] Coding staff will review the response and follow-up if needed. Please note: Queries are made part of the Legal Health Record. If you have any questions, please contact the author of this message via ITS. Dr. Jacob Spear The Registered Dietitian assessment on 10/16/23 has nutrition diagnosis of Malnutrition chronic, severe. Based on this information and the findings below, is there an additional diagnosis that is clinically appropriate for this patient? History/Risk Factors: metastatic colon CA Clinical Indicators: 33-year-old male with metastatic colon CA causing decreased intake and cachexia muscle wasting to temples, subcutaneous fat loss to buccal fat pads. Nutrition Intake: Poor 25-50% Underfeeding. He has nausea and vomiting 6 ft 4 in Current BMI: 23.[address] Assessment: Treatment: General/healthful diet Monitor PO, Nutrition supplement Magic cup TID Is there an additional diagnosis that is clinically appropriate for this patient? [ ] Mild Protein-Calorie Malnutrition [ x ] Moderate Protein-Calorie Malnutrition [ ] Severe Protein-Calorie Malnutrition [ ] No additional diagnosis/Not clinically significant [ ] Other condition, please specify [ ] Unable to Determine (Template Last Revised: November 2022) MTDD
[2023-10-21 08:11] VITALS: RESP 16
[2023-10-21 10:22] LABS: HCT 31.5 % (39.6-50.0); HGB 9.6 g/dL (13.0-17.0); MCH 25.1 pg (27.0-32.0); MCHC 30.5 g/dL (32.0-37.0); MCV 82.2 FL (80.0-97.0); Mean Platelet Volume 9.1 FL (9.5-12.2); NRBC Per 100 WBC 0 X 10*3/uL (0.00-0.01); Platelet Count 248 X 10*3/uL (140-440); RBC 3.83 X 10*6/uL (4.40-5.60); RDW 19.8 % (11.5-14.5); WBC 25.83 X 10*3/uL (4.50-10.00)
[2023-10-21 10:44] LABS: Blood Urea Nitrogen 16.9 mg/dL (9.0-27.0); Chloride 87 mmol/L (96-109); Glucose 82 mg/dL (70-110); Potassium 4.1 mmol/L (3.5-5.5); Sodium 127 mmol/L (135-145)
[2023-10-21 10:45] LABS: ALT 31 U/L (10-49); AST 142 U/L (14-35); Albumin 3.2 g/dL (3.8-4.9); Albumin/Globulin Ratio 0.89 Ratio (1.60-3.17); Alkaline Phosphatase 1132 U/L (41-126); Calcium 8.7 mg/dL (8.7-10.3); Carbon Dioxide 24.7 mmol/L (21.6-31.8); Globulin 3.6 g/dL (1.6-3.3); Total Bilirubin 5.2 mg/dL (0.3-1.2); Total Protein 6.8 g/dL (6.2-8.2)
[2023-10-21 10:52] LABS: Basophils # (A) 0.08 X 10*3/uL (0.00-0.10); Basophils % (A) 0.3 %; Eosinophils % (A) 0.4 %; Lymphocytes # (A) 1.24 X 10*3/uL (0.90-5.00); Lymphocytes % (A) 4.8 %; Macrocytosis (M) 2+; Monocytes # (A) 2.38 X 10*3/uL (0.20-1.00); Monocytes % (A) 9.2 %; Neutrophils # (A) 21.67 X 10*3/uL (1.80-7.70); Neutrophils % (A) 83.9 %
[2023-10-21] MEDS: bisacodyL 10 MG SUPP RECTAL STA (12:08)
[2023-10-21] MEDS ORDERED: ZINC OXIDE PASTE (Z-GUARD) 1 APPLIC TOPICAL PRN (12:37)
[2023-10-21 13:09] VITALS: TEMP 98.2
[2023-10-21 14:30] VITALS: BP 113/70; PULSE 119
--- NOTE | 2023-10-21 14:34 | P.DS ---
Providers Date of admission: 10/10/23 21:42 Expected date of discharge: 10/21/23 Attending physician: Masha Mohamud MD Consults: 10/11/23 01:55 Consult Physician Urgent Consulting Provider: Heriberto Fernandez Consult Reason/Comments: suspected splenic infarct in patient w/ stage 4 colon ca Do you want consulting provider notified?: Yes 10/12/23 10:39 Consult Physician Routine Consulting Provider: Aguila Valentin Consult Reason/Comments: left sided hyronephrosis, possible obstruction Do you want consulting provider notified?: Yes Primary care physician: Des[facility] Course: Discharge Diagnosis: Stage IV colon cancer with extensive metastatic disease Acute blood loss anemia on chronic iron deficiency anemia Acute splenic infarct Hypervolemia in the setting of blood transfusion SIRS, non-infectious Leukocytosis, likely reactive Transaminitis and hyperbilirubinemia secondary to metastasis Hyponatremia Dyspnea Abdominal ascities, s/p paracentesis Left-sided hydronephrosis, secondary to metastatic lymphadenopathy Acute urinary retention status post Brady catheter Hospital Course: Patient is a 33-year-old male with a past medical history of stage IV colon cancer with metastasis to liver/pancreas/lungs diagnosed early 2022 status post debulking surgery 09/04/2023 following at [facility] with Dr. Luis and currently not on chemotherapy. He presented to the hospital on 10/10/2023 secondary to left- sided chest pain. Upon arrival to our facility patient underwent evaluation in the emergency department. Vital signs upon arrival show blood pressure 150/106, heart rate 99, respiratory rate 20, temp 97.8 F, and SpO2 of 94% on room air. EKG completed showing normal sinus rhythm at 87 bpm with T wave inversion in inferior leads III and aVF. Shortly after arrival patient developed episodes of tachycardia with heart rate elevating up to 126. Chest x-ray was completed showing scattered pulmonary nodules throughout the lungs consistent with progr ession of metastasis. Labs were completed and reviewed. CBC showing leukocytosis with WBC count of 19.0 and microcytic anemia with hemoglobin of 9.4. BMP showing hyponatremia with sodium of 129. Magnesium normal findings at 1.8. Liver profile showing hyperbilirubinemia with total bili of 2.0, AST of 100, ALT of 38, and alkaline phosphatase of 1236. Troponin was negative at less than 0.012 and D-dimer was elevated at 4.09. CTA chest, abdomen, and pelvis completed showing progression of malignancy with retroperitoneal lymphadenopathy, liver metastatic disease with large left upper quadrant possible adrenal metastatic focus and innumerable pulmonary nodules with prominent neck lymph nodes partially visualized representing additional sites of metastatic disease, possible anterior inferior spleen infarct with decreased perfusion compared to the remainder of the spleen, mild left hydronephrosis secondary to suspected lymphadenopathy along the course of the left ureter with mass effect and possible obstruction, trace pleural effusion, and small ascites. Patient was admitted under our services with consultations to oncology, urology, and general surgery. Urology evaluated with no plans for surgical intervention at this time. General surgery evaluated recommending medical management with blood transfusions as needed with no plans for endoscopy at this time. Patient was initially started on heparin drip, now discontinued. He was also started on broad-spectrum antibiotics for concerns for infection, no obvious source, antibiotics discontinued. Now having urinary retention, Brady catheter in place. Due to multiple blood products patient developed slight hyperkalemia, patient given couple doses of IV Lasix. Also had paracentesis with removal of about 4 L of ascitic fluid. Placed on oral morphine by oncology, recommending outpatient follow-[facility] with [facility] for further colorectal cancer management. Patient's overall prognosis is really poor. Patient seen and examined at bedside. Vital signs reviewed and stable. General: Nontoxic, no distress, appears at stated age, chronically ill- appearing, thin Derm: Warm, dry Head: Atraumatic, normocephalic, symmetric Eyes: EOMI, no lid lag, anicteric sclera Mouth: No lip lesion, mucus membranes moist Cardiovascular: S1S2 reg, no murmur Lungs: Bilateral rhonchi, no accessory muscle use, on room air Abdominal: Soft, midline incision with clean and dry dressing, nontender to palpation, no guarding, no appreciable organomegaly Ext: No gross muscle atrophy, 1+ pitting edema, no contractures Neuro: CN II-XI grossly intact, no focal neuro deficits Psych: Alert, oriented, appropriate affect A total of 33 minutes of time were spent preparing this complex discharge summary. Patient was discharged on 10/21/2023 at 1432. Patient Condition at Discharge: Stable Plan - Discharge Summary Discharge Rx Participant: No New Discharge Prescriptions: New Morphine Sulfate Ir [MSIR] 15 mg PO Q3HR PRN tab PRN Reason: Pain Pantoprazole [Protonix] 40 mg PO BID #90 tab Sennosides-Docusate Sodium [Senokot-S] 2 each PO BID #60 tab LORazepam [Ativan] 0.5 mg PO Q8HR PRN tab PRN Reason: Anxiety Morphine Sulfate ER [Ms Contin] 30 mg PO Q8H tab Simethicone Chew [Mylicon Chew] 80 mg PO QID #60 tab Continue Ondansetron [Zofran] 8 mg PO Q6H PRN PRN Reason: Nausea Multivitamins, Thera [Multivitamin (formulary)] 1 tab PO DAILY Acetaminophen Tab [Tylenol] 500 mg PO Q6HR PRN PRN Reason: pain polyethylene glycoL 3350 [Miralax] 17 gm PO BID Discontinued Ibuprofen [Motrin Ib] 800 mg PO Q8H PRN PRN Reason: Pain Or Fever > 100.5 Prochlorperazine Maleate 10 mg PO Q6H PRN PRN Reason: Nausea OLANZapine 5 mg PO DAILY PRN PRN Reason: nausea Discharge Medication List Ondansetron [Zofran] 8 mg PO Q6H PRN 06/19/22 [History] Acetaminophen Tab [Tylenol] 500 mg PO Q6HR PRN 10/09/22 [History] Multivitamins, Thera [Multivitamin (formulary)] 1 tab PO DAILY 10/09/22 [History] polyethylene glycoL 3350 [Miralax] 17 gm PO BID 10/10/23 [History] LORazepam [Ativan] 0.5 mg PO Q8HR PRN tab 10/21/23 [Rx] Morphine Sulfate ER [Ms Contin] 30 mg PO Q8H tab 10/21/23 [Rx] Morphine Sulfate Ir [MSIR] 15 mg PO Q3HR PRN tab 10/21/23 [Rx] Pantoprazole [Protonix] 40 mg PO BID #90 tab 10/21/23 [Rx] Sennosides-Docusate Sodium [Senokot-S] 2 each PO BID #60 tab 10/21/23 [Rx] Simethicone Chew [Mylicon Chew] 80 mg PO QID #60 tab 10/21/23 [Rx] Follow up Appointment(s)/Referral(s): Desmond York MD [Primary Care Provider] - 1-2 days Patient Instructions/Handouts: Colorectal Cancer (DC) Activity/Diet/Wound Care/Special Instructions: Please see [facility] oncology. Pain medication sent to pharmacy by oncology. Discharge Disposition: HOME WITH HOME HEALTH SERVICES
[2023-10-21 21:17] LABS: Appearance,BF Cloudy (Clear)
[2023-10-21 21:47] LABS: Glucose, BF Source Ascites; Glucose, Body Fluid 103 mg/dL; T. Protein, Body Fluid Source Ascites; Total Protein, Body Fluid 2900 mg/dL
--- NOTE | 2023-10-23 14:44 | US ---
EXAMINATION TYPE: US paracentesis abd w/image DATE OF EXAM: 10/21/2023 1:57 PM CLINICAL INDICATION:Male, 33 years old with history of see IR consult for ordering information; COMPARISON: 10/20/2023 ATTENDING: Dr. Dale Carvalho PROCEDURE: Informed consent was obtained. The risks of the procedure were extensively explained incl uding risk of damage to surrounding bowel with perforation and need for additional procedures. Proced ure was performed in the ultrasound procedure suite. Ultrasound imaging of the abdomen demonstrate as citic fluid. An appropriate access site was localized to the right lower abdomen. Timeout was taken p er protocol. The skin was prepped and draped in the usual sterile fashion and then locally anesthetiz ed with 1% lidocaine. The peritoneal cavity was then accessed via a 5-Tristanian one-step needle/cathete r. Approximately 4300 cc of clear straw-colored fluid was obtained. Postprocedural imaging of the ab domen demonstrate a minimal amount of abdominal fluid. Patient tolerated procedure well without immediate complication. Hemostasis at the procedural site w as obtained with a sterile bandage placed. The patient was monitored in the holding area following th e procedure and was subsequently discharged in stable condition. IMPRESSION: Ultrasound guided paracentesis, with approximately 4300 cc of clear straw-colored fluid drained. No i mmediate complications were evident.
== END 2023-10-21 16:55 | disposition home health service (06) | DRG 663 ==
LOC: EC 16:42 → 6NMEDSUR 21:41 → OBSVTOIN 21:42 → 6NMEDSUR 22:41 → 5NMEDONC 10-11 05:21
PROVIDERS: ADMIT Internal Medicine; ATTEND Internal Medicine
PROC: 0W9G3ZZ Drainage of Peritoneal Cavity, Percutaneous Approach (ICD-10-PCS; principal; 2023-10-21)
DX: D73.5 Infarction of spleen (principal); R65.10 Systemic inflammatory response syndrome (SIRS) of non-infectious origin without acute organ dysfunction; C18.9 Malignant neoplasm of colon, unspecified; C77.2 Secondary and unspecified malignant neoplasm of intra-abdominal lymph nodes; C78.7 Secondary malignant neoplasm of liver and intrahepatic bile duct; C79.70 Secondary malignant neoplasm of unspecified adrenal gland; C79.89 Secondary malignant neoplasm of other specified sites; C78.02 Secondary malignant neoplasm of left lung; E44.0 Moderate protein-calorie malnutrition; C78.01 Secondary malignant neoplasm of right lung; E86.0 Dehydration; R74.01 Elevation of levels of liver transaminase levels; E87.1 Hypo-osmolality and hyponatremia; F32.A Depression, unspecified; N13.30 Unspecified hydronephrosis; R18.8 Other ascites; R62.7 Adult failure to thrive; D72.829 Elevated white blood cell count, unspecified; D62 Acute posthemorrhagic anemia; D50.9 Iron deficiency anemia, unspecified; E87.70 Fluid overload, unspecified; F41.9 Anxiety disorder, unspecified; G89.29 Other chronic pain; K62.89 Other specified diseases of anus and rectum; K86.9 Disease of pancreas, unspecified; E80.6 Other disorders of bilirubin metabolism; R33.9 Retention of urine, unspecified; Z92.21 Personal history of antineoplastic chemotherapy; Z71.3 Dietary counseling and surveillance; Z28.310 Unvaccinated for COVID-19; Z28.21 Immunization not carried out because of patient refusal; Z68.23 Body mass index [BMI] 23.0-23.9, adult; Z79.899 Other long term (current) drug therapy
CPT/HCPCS: 36415; 49083; 71045; 71275; 74177; 76700; 76705; 80048; 80053; 80202; 81003; 82272; 82607; 82728; 82747; 82945; 83010; 83540; 83550; 83615; 83690; 83735; 83880; 83921; 84100; 84157; 84484; 85025; 85027; 85045; 85379; 85610; 85730; 86850; 86900; 86901; 86920; 87040; 87070; 87075; 87205; 89050; 93005; 93970; 94760; 96361; 96365; 96366; 96375; 96376; 99291

== ENCOUNTER 2023-10-28 11:00 | Inpatient (IN) | payer OTHER ==
--- NOTE | 2023-10-28 11:36 | ED ---
General Adult HPI - General Chief complaint: Abdominal Pain Stated complaint: abd pain/not able to use bathroom Time Seen by Provider: 10/28/23 11:05 Source: patient Mode of arrival: wheelchair Limitations: no limitations - History of Present Illness Initial comments: Dictation was produced using [employer] dictation software. please excuse any grammatical, word or spelling errors. Chief Complaint: 33-year-old male with metastatic colon cancer presents to the ER for abdominal pain, nausea vomiting History of Present Illness: Patient 33-year-old male he has history of colon cancer. Patient states that he recently had colon resection. Patient is a poor historian at the bedside. He states that he gets most of his care done at [facility]. Patient denies any alcohol history. Complains of chest and abdominal pain. Denies any fever. Does complain of some chills. Patient states that he had paracentesis performed last week. States that this was his first time getting fluid removed from his abdomen. Patient's cancer care is provided also at [facility]. The ROS documented in this emergency department record has been reviewed and confirmed by me. Those systems with pertinent positive or negative responses have been documented in the HPI. All other systems are other negative and/or noncontributory. More history was obtained with mother. She states that she left the house yesterday. Patient had some friends over. This morning parents noted that patient's case with his medications were missing. Mother believes that someone had taken his case medications. They do not have any refills. Mother is not s ure exactly what his medications are. As far as mother knows patient does not want to be DNR despite having had recommendations for hospice evaluations during previous hospitalizations. - Related Data Home Medications Medication Instructions Recorded Confirmed Ondansetron [Zofran] 8 mg PO Q6H PRN 06/19/22 10/28/23 Acetaminophen Tab [Tylenol] 500 mg PO Q6HR PRN 10/09/22 10/28/23 Multivitamins, Thera [Multivitamin 1 tab PO DAILY 10/09/22 10/28/23 (formulary)] polyethylene glycoL 3350 [Miralax] 17 gm PO BID 10/10/23 10/28/23 Sennosides-Docusate Sodium 2 tab PO BID 10/28/23 10/28/23 [Senokot-S] Previous Rx's Medication Instructions Recorded LORazepam [Ativan] 0.5 mg PO Q8HR PRN tab 10/21/23 Morphine Sulfate ER [Ms Contin] 30 mg PO Q8H tab 10/21/23 Morphine Sulfate Ir [MSIR] 15 mg PO Q3HR PRN tab 10/21/23 Pantoprazole [Protonix] 40 mg PO BID #90 tab 10/21/23 Simethicone Chew [Mylicon Chew] 80 mg PO QID #60 tab 10/21/23 Allergies Allergy/AdvReac Type Severity Reaction Status Date / Time No Known Allergies Allergy Verified 10/28/23 11:50 Review of Systems ROS Statement: Those systems with pertinent positive or pertinent negative responses have been documented in the HPI. ROS Other: All systems not noted in ROS Statement are negative. Past Medical History Past Medical History: No Reported History, Cancer Additional Past Medical History / Comment(s): masses on lung, liver, gallbladder,intestine. Stage 4 colon CA diagnosed May 2022. History of Any Multi-Drug Resistant Organisms: None Reported Past Surgical History: No Surgical Hx Reported Additional Past Surgical History / Comment(s): colonoscopy. liver biopsy, right chest power port., tumor removed Past Anesthesia/Blood Transfusion Reactions: No Reported Reaction Additional Past Anesthesia/Blood Transfusion Reaction / Comment(s): Josselin has never had blood transfusions. Past Psychological History: Anxiety, Depression Smoking Status: Never smoker Past Alcohol Use History: Rare Past Drug Use History: None Reported - Past Family History Brother(s) Additional Family Medical History / Comment(s): Ulcerative colitis (Brother) General Exam - General Exam Comments Initial Comments: PHYSICAL EXAM: General Impression: Alert and oriented x3, somnolent, slow to respond, jaundiced, cachexic HEENT: Normocephalic atraumatic, extra-ocular movements intact, pupils equal and reactive to light bilaterally, dry mucous membranes Cardiovascular: Heart regular rate and rhythm Chest: Able to complete full sentences, no retractions, no tachypnea Abdomen: abdomen soft, mild distention, surgical site clean dry and intact to the midline abdomen, positive fluid wave Musculoskeletal: Pulses present and equal in all extremities, 2+ pitting edema to the bilateral lower extremities Motor: no focal deficits noted Neurological: CN II-XII grossly intact, no focal motor or sensory deficits noted Skin: Intact with no visualized rashes Limitations: no limitations Course Vital Signs 10/28/23 11:01 Temperature 97.9 F Pulse Rate 114 H Respiratory 16 Rate Blood Pressure 111/65 O2 Sat by Pulse 97 Oximetry - Reevaluation(s) Reevaluation #1: 10/28/23 13:58 Long discussion was held with family members at the bedside. Patient offered admission to our hospital however if he would stay here he would likely require that patient be DNR. Patient was told that if he wants to be resuscitated should he experience any sort of acute medical issues that he should be t ransferred to [facility] specially given his complex medical history. Patient refused would rather be discharged here with DNR CODE STATUS. EKG Findings - EKG Comments: EKG Findings:: My EKG interpretation: Ventricular rate 110, sinus tachycardia,. 120, cures 80, QTc 402. No ME prolongation, no QTC prolongation, no ST or T-wave changes noted. Overall, this EKG is unremarkable Medical Decision Making - Medical Decision Making Was pt. sent in by a medical professional or institution (, PA, CORD MAKER, urgent care, hospital, or alf...) When possible be specific @ -No Did you speak to anyone other than the patient for history (EMS, parent, family, police, friend...)? What history was obtained from this source @ -No Did you review nursing and triage notes (agree or disagree)? Why? @ -I reviewed and agree with nursing and triage notes Were old charts reviewed (outside hosp., previous admission, EMS record, old EKG, old radiological studies, urgent care reports/EKG's, alf records)? Report findings @ -No old charts were reviewed Differential Diagnosis (chest pain, altered mental status, abdominal pain women, abdominal pain men, vaginal bleeding, musculoskeletal, weakness, fever, dyspnea, syncope, headache, dizziness, GI bleed, back pain, seizure, CVA, palpatations, mental health)? @ -Differential Altered Mental Status: Hypoglycemia, DKA, hypercapnia, ETOH, overdose, CO poisoning, trauma, myxedema coma, HTN encephalopathy, infection, encephalitis, psychosis, intercranial hemorrhage, hepatic encephalopathy, meningitis, CVA, this is not meant to be an all-inclusive list EKG interpreted by me (3pts min.). @ -See above X-rays interpreted by me (1pt min.). @ -None done CT interpreted by me (1pt min.). @ -None done U/S interpreted by me (1pt. min.). @ -None done What testing was considered but not performed or refused? (CT, X-rays, U/S, labs)? Why? @ -None What meds were considered but not given or refused? Why? @ -None Was smoking cessation discussed for >3mins.? @ -No Were there social determinants of health that impacted care today? How? (Homelessness, low income, unemployed, alcoholism, drug addiction, transportation, low edu. Level, literacy, decrease access to med. care, [place] [facility], rehab)? @ -No Was there de-escalation of care discussed even if they declined (Discuss DNR or withdrawal of care, Hospice)? DNR status @ -Patient made DNR for hospital admission in our facility. What co-morbidities impacted this encounter? (DM, HTN, Smoking, COPD, CAD, Cancer, CVA, ARF, Chemo, Hep., AIDS, mental health diagnosis, sleep apnea, morbid obesity)? @ -None Was patient admitted / discharged? Hospital course, mention meds given and route, prescriptions, significant lab abnormalities, going to OR and other pertinent info. @ -33-year-old male with end-stage cancer presents to the ER for what he comp lains of his abdominal pain and needing a paracentesis. Mother states that he is here in the emergency department because he either lost or someone had stolen his home medications that was prescribed when he was discharged from [facility]. Apparently has an appointment coming up with primary care doctor. He does not have any access to any refills for his medications. Clinical prese ntation does not suggest that patient requires immediate paracentesis. Laboratory evaluation obtained. Leukocytosis of 17.3. INR of 1.2, total bilirubin of 10.5. According to mother at the bedside patient is allegedly supposed to be hospice however patient refused hospice at [facility]. He was offered transfer to [facility] if he wanted to be full code. Patient states he would prefer to stay at our facility as a DNR. Patient understands that his condition is grave and that he is very frail and could code any minute. He understands and is agreeable for staying in our facility. Discussion was held with the [facility] who is agreeable for patient admission here. Patient will benefit from a brief admission for medication management as a bridge to outpatient meds. Did you discuss the management of the patient with other professionals (professionals i.e. , PA, CORD MAKER, lab, RT, psych nurse, professor of social work, gis technician, teacher, medical officer psychiatry, family independence case manager)? Give summary @ -No Was critical care preformed (if so, how long)? @ -No Undiagnosed new problem with uncertain prognosis? @ -No Drug Therapy requiring intensive monitoring for toxicity (Heparin, Nitro, Insulin, Cardizem)? @ -No Were any procedures done? @ -No Diagnosis/symptom? Acute, or Chronic, or Acute on Chronic? Uncomplicated (without systemic symptoms) or Complicated (systemic symptoms)? @ -Abdominal pain, history of advanced colon cancer Side effects of treatment? @ -No Exacerbation, Progression, or Severe Exacerbation? @ -No Poses a threat to life or bodily function? How? (Chest pain, [place], [place], pneumonia, PE, COPD, DKA, ARF, appy, cholecystitis, CVA, Diverticulitis, Homicidal, Suicidal, threat to staff... and all critical care pts) @ -yes - Lab Data Result diagrams: 10/28/23 11:50 10/28/23 11:50 Lab Results 10/28/23 10/28/23 10/28/23 Range/Units 11:48 11:50 11:50 WBC 17.3 H (3.8-10.6) k/uL RBC 3.77 L (4.30-5.90) m/uL Hgb 9.8 L (13.0-17.5) gm/dL Hct 31.7 L (39.0-53.0) % MCV 84.1 (80.0-100.0) fL MCH 26.0 (25.0-35.0) pg MCHC 30.9 L (31.0-37.0) g/dL RDW 19.9 H (11.5-15.5) % Plt Count 295 (150-450) k/uL MPV 7.1 Neutrophils % 90 % Lymphocytes % 3 % Monocytes % 5 % Eosinophils % 0 % Basophils % 0 % Neutrophils # 15.5 H (1.3-7.7) k/uL Lymphocytes # 0.6 L (1.0-4.8) k/uL Monocytes # 0.9 (0-1.0) k/uL Eosinophils # 0.0 (0-0.7) k/uL Basophils # 0.1 (0-0.2) k/uL Hypochromasia Slight Anisocytosis Slight PT (10.0-12.5) sec INR (<1.2) APTT (22.0-30.0) sec Sodium (137-145) mmol/L Potassium (3.5-5.1) mmol/L Chloride (98-107) mmol/L Carbon Dioxide (22-30) mmol/L Anion Gap mmol/L BUN (9-20) mg/dL Creatinine (0.66-1.25) mg/dL Est GFR (CKD-EPI)AfAm (>60 ml/min/1.73 sqM) Est GFR (CKD-EPI)NonAf (>60 ml/min/1.73 sqM) Glucose (74-99) mg/dL Plasma Lactic Acid Aubrey (0.7-2.0) mmol/L Calcium (8.4-10.2) mg/dL Magnesium (1.6-2.3) mg/dL Total Bilirubin (0.2-1.3) mg/dL AST (17-59) U/L ALT (4-49) U/L Alkaline Phosphatase (38-126) U/L Ammonia (<30) umol/L Total Protein (6.3-8.2) g/dL Albumin (3.5-5.0) g/dL Urine Color [place] Urine Appearance Clear (Clear) Urine pH 5.5 (5.0-8.0) Ur Specific [place] 1.022 (1.001-1.035) Urine Protein Trace H (Negative) Urine Glucose (UA) Negative (Negative) Urine Ketones 1+ H (Negative) Urine Blood Negative (Negative) Urine Nitrite Negative (Negative) Urine Bilirubin 2+ H (Negative) Urine Urobilinogen 6.0 (<2.0) mg/dL Ur Leukocyte Esterase Negative (Negative) Blood Type O Positive Blood Type Recheck O Pos Bld Type Recheck Status No Antibody Screen NEGATIVE Spec Expiration Date 10/31/2023234910/28/23 10/28/23 10/28/23 Range/Units 11:50 11:50 11:50 WBC (3.8-10.6) k/uL RBC (4.30-5.90) m/uL Hgb (13.0-17.5) gm/dL Hct (39.0-53.0) % MCV (80.0-100.0) fL MCH (25.0-35.0) pg MCHC (31.0-37.0) g/dL RDW (11.5-15.5) % Plt Count (150-450) k/uL MPV Neutrophils % % Lymphocytes % % Monocytes % % Eosinophils % % Basophils % % Neutrophils # (1.3-7.7) k/uL Lymphocytes # (1.0-4.8) k/uL Monocytes # (0-1.0) k/uL Eosinophils # (0-0.7) k/uL Basophils # (0-0.2) k/uL Hypochromasia Anisocytosis PT 12.9 H (10.0-12.5) sec INR 1.2 H (<1.2) APTT 27.4 (22.0-30.0) sec Sodium 123 L (137-145) mmol/L Potassium 5.1 (3.5-5.1) mmol/L Chloride 85 L (98-107) mmol/L Carbon Dioxide 27 (22-30) mmol/L Anion Gap 11 mmol/L BUN 34 H (9-20) mg/dL Creatinine 1.30 H (0.66-1.25) mg/dL Est GFR (CKD-EPI)AfAm 82 (>60 ml/min/1.73 sqM) Est GFR (CKD-EPI)NonAf 71 (>60 ml/min/1.73 sqM) Glucose 90 (74-99) mg/dL Plasma Lactic Acid Aubrey 1.9 (0.7-2.0) mmol/L Calcium 9.0 (8.4-10.2) mg/dL Magnesium 2.0 (1.6-2.3) mg/dL Total Bilirubin 10.5 H (0.2-1.3) mg/dL AST 238 H (17-59) U/L ALT 50 H (4-49) U/L Alkaline Phosphatase 1082 H (38-126) U/L Ammonia 22 (<30) umol/L Total Protein 7.2 (6.3-8.2) g/dL Albumin 3.2 L (3.5-5.0) g/dL Urine Color Urine Appearance (Clear) Urine pH (5.0-8.0) Ur Specific [place] (1.001-1.035) Urine Protein (Negative) Urine Glucose (UA) (Negative) Urine Ketones (Negative) Urine Blood (Negative) Urine Nitrite (Negative) Urine Bilirubin (Negative) Urine Urobilinogen (<2.0) mg/dL Ur Leukocyte Esterase (Negative) Blood Type Blood Type Recheck Bld Type Recheck Status Antibody Screen Spec Expiration Date Disposition Clinical Impression: Abdominal pain Disposition: ADMITTED IP TO THIS HOSP Condition: Fair Referrals: Desmond York MD [Primary Care Provider] - 1-2 days Decision Time: 14:25
[2023-10-28 12:04] LABS: Anisocytosis Slight; Basophils # (A) 0.1 k/uL (0-0.2); Basophils % (A) 0 %; Eosinophils % (A) 0 %; HCT 31.7 % (39.0-53.0); HGB 9.8 gm/dL (13.0-17.5); Hypochromasia Slight; Lymphocytes # (A) 0.6 k/uL (1.0-4.8); Lymphocytes % (A) 3 %; MCHC 30.9 g/dL (31.0-37.0); MCV 84.1 fL (80.0-100.0); Mean Platelet Volume 7.1; Monocytes # (A) 0.9 k/uL (0-1.0); Monocytes % (A) 5 %; Neutrophils # (A) 15.5 k/uL (1.3-7.7); Neutrophils % (A) 90 %; Platelet Count 295 k/uL (150-450); RBC 3.77 m/uL (4.30-5.90); RDW 19.9 % (11.5-15.5); WBC 17.3 k/uL (3.8-10.6)
[2023-10-28 12:13] LABS: INR 1.2 (<1.2); Partial Thromboplastin Time 27.4 sec (22.0-30.0); Prothrombin Time 12.9 sec (10.0-12.5)
[2023-10-28 12:20] LABS: Lactic Acid, Venous 1.9 mmol/L (0.7-2.0)
[2023-10-28 12:21] LABS: ALT 50 U/L (4-49); AST 238 U/L (17-59); African American GFR (CKD) 82 (>60 ml/min/1.73 sqM); Albumin 3.2 g/dL (3.5-5.0); Anion Gap 11 mmol/L; Blood Urea Nitrogen 34 mg/dL (9-20); Carbon Dioxide 27 mmol/L (22-30); Chloride 85 mmol/L (98-107); Glucose 90 mg/dL (74-99); Non-African American GFR(CKD) 71 (>60 ml/min/1.73 sqM); Potassium 5.1 mmol/L (3.5-5.1); Sodium 123 mmol/L (137-145); Total Bilirubin 10.5 mg/dL (0.2-1.3); Total Protein 7.2 g/dL (6.3-8.2)
[2023-10-28 12:32] LABS: Alkaline Phosphatase 1082 U/L (38-126)
[2023-10-28 13:40] LABS: Appearance,Urine Clear (Clear); Bilirubin,Urine 2+ (Negative); Blood,Urine Negative (Negative); Color,Urine Orange; Glucose,Urine (UA) Negative (Negative); Ketones,Urine 1+ (Negative); Leukocyte Esterase,Urine Negative (Negative); Nitrite,Urine Negative (Negative); PH, Urine 5.5 (5.0-8.0); Protein,Urine Trace (Negative); Specific Gravity,Urine 1.022 (1.001-1.035)
[2023-10-28] MEDS ORDERED: ACETAMINOPHEN TAB 500 MG TAB PO PRN (13:53)
[2023-10-28] MEDS ORDERED: NALOXONE 0.4 MG/ML 1 ML VIAL IV PRN (14:11)
[2023-10-28] MEDS: SODIUM CHLORIDE 0.9% 1,000 ML IV SCH (14:32)
[2023-10-28] MEDS: HYDROmorphone 0.5 MG/0.5 ML SYRINGE IVP STA (14:32)
[2023-10-28] MEDS ORDERED: ONDANSETRON 4 MG/2 ML VIAL IVP PRN (14:50)
--- NOTE | 2023-10-28 15:10 | P.HPIM ---
History of Present Illness H&P Date: 10/28/23 33-year-old male with a past medical history of stage IV colon cancer with metastasis to liver/pancreas/lungs diagnosed early 2022 status post debulking surgery 09/04/2023 following at [facility] with Dr. Luis presents to the ED for pain control. Patient reports losing all his medications 2 days ago and since then having difficulties with pain management. His mother and aunt is at bedside. Patient states that he is interested in comfort measures and hospice and palliative care consult. In the ED he underwent extensive evaluation. BP 111/65, HR 114, T 97.9F, RR 16, 97% on RA. CBC, Coag panel, CMP performed significant for WBC 17.3, Hg 9.8, Hct 31.7, PT 12.9, INR 1.2, Na 123, Cl 85, BUN 34, Cr 1.3, T. Bili 10.5, AST 238, ALT 50, alk phos 1082, alb 3.2. UA trace protein, 1+ ketone, 2+ bilirubin. EKG sinus tachycardia. Case discussed extensively with Dr. Hlolis, Mother (POA) and Aunt. Patient has worsening of his liver enzymes. His LFTs are indicative of obstructive disease. We do not have GI this week at the hospital and recommendations were made that the patient transfer to [facility]. He reported that he prefers to stay here and would like to forgo any diagnostic studies or treatment. He would like to focus on comfort measures only. Mother and aunt are is agreement. General: non toxic, no distress, appears at stated age Derm: warm, dry Head: atraumatic, normocephalic, symmetric Eyes: EOMI, no lid lag, icteric sclera Mouth: no lip lesion, mucus membranes moist Cardiovascular: Good distal perfusion in all 4 extremities Lungs: Breathing comfortably, no accessory muscle use Ext: no gross muscle atrophy, no edema, no contractures Neuro: no focal neuro deficits Psych: Alert, oriented, sleepy but easily arrousable Based on my assessment of this patient, this patient meets a high complexity level of care. SIRS Transaminitis: Obstructive. Patient refusing any further diagnostic studies and/or treatment. Normocytic anemia Hyponatremia: Dehydration. Start NS at 50 cc/hr. Acute kidney injury: IV hydration as above. Stage IV colon cancer with metastasis to liver/pancreas/lungs Morphine 30 mg PO TID and 15 mg PO Q3H PRN for pain. Add Dilaudid 0.5 mg IV Q3H PRN for breakthrough pain. Zofran 4 mg IV Q8H PRN for N/V. Ativan 0.5 mg PO TID PRN for anxiety. Hospice consult. CODE STATUS: NO CODE DVT Prophylaxis: SCD GI Prophylaxis: Protonix PO. Designated medical POA if patient is not able to make medical decisions for themselves: I have reviewed the following marketing sales consultant notes: ED I have reviewed the results of the following tests: As above I have ordered the following tests: I have discussed the care of this patient with the following independent historian: Case management, Family I have independently interpreted the following test below: EKG I have discussed the management of this patient with the following physician: Dr. Hollis Past Medical History Past Medical History: No Reported History, Cancer Additional Past Medical History / Comment(s): masses on lung, liver, gallbladder,intestine. Stage 4 colon CA diagnosed May 2022. History of Any Multi-Drug Resistant Organisms: None Reported Past Surgical History: No Surgical Hx Reported Additional Past Surgical History / Comment(s): colonoscopy. liver biopsy, right chest power port., tumor removed Past Anesthesia/Blood Transfusion Reactions: No Reported Reaction Additional Past Anesthesia/Blood Transfusion Reaction / Comment(s): Josselin has never had blood transfusions. Past Psychological History: Anxiety, Depression Smoking Status: Never smoker Past Alcohol Use History: Rare Past Drug Use History: None Reported - Past Family History Brother(s) Additional Family Medical History / Comment(s): Ulcerative colitis (Brother) Medications and Allergies Home Medications Medication Instructions Recorded Confirmed Type Ondansetron [Zofran] 8 mg PO Q6H PRN 06/19/22 10/28/23 History Acetaminophen Tab [Tylenol] 500 mg PO Q6HR PRN 10/09/22 10/28/23 History Multivitamins, Thera [Multivitamin 1 tab PO DAILY 10/09/22 10/28/23 History (formulary)] polyethylene glycoL 3350 [Miralax] 17 gm PO BID 10/10/23 10/28/23 History LORazepam [Ativan] 0.5 mg PO Q8HR PRN tab 10/21/23 10/28/23 Rx Morphine Sulfate ER [Ms Contin] 30 mg PO Q8H tab 10/21/23 10/28/23 Rx Morphine Sulfate Ir [MSIR] 15 mg PO Q3HR PRN tab 10/21/23 10/28/23 Rx Pantoprazole [Protonix] 40 mg PO BID #90 tab 10/21/23 10/28/23 Rx Simethicone Chew [Mylicon Chew] 80 mg PO QID #60 tab 10/21/23 10/28/23 Rx Sennosides-Docusate Sodium 2 tab PO BID 10/28/23 10/28/23 History [Senokot-S] Allergies Allergy/AdvReac Type Severity Reaction Status Date / Time No Known Allergies Allergy Verified 10/28/23 11:50 Physical Exam Vitals: Vital Signs Temp Pulse Resp BP Pulse Ox 10/28/23 14:30 97.8 F 16 126/76 97 10/28/23 11:01 97.9 F 114 H 16 111/65 97 Intake and Output 10/28/23 10/28/23 10/28/23 06:59 14:59 22:59 Other: Weight 91.172 kg Results CBC & Chem 7: 10/28/23 11:50 10/28/23 11:50 Labs: Abnormal Lab Results - Last 24 Hours (Table) 10/28/23 10/28/23 10/28/23 Range/Units 11:48 11:50 11:50 WBC 17.3 H (3.8-10.6) k/uL RBC 3.77 L (4.30-5.90) m/uL Hgb 9.8 L (13.0-17.5) gm/dL Hct 31.7 L (39.0-53.0) % MCHC 30.9 L (31.0-37.0) g/dL RDW 19.9 H (11.5-15.5) % Neutrophils # 15.5 H (1.3-7.7) k/uL Lymphocytes # 0.6 L (1.0-4.8) k/uL PT 12.9 H (10.0-12.5) sec INR 1.2 H (<1.2) Sodium (137-145) mmol/L Chloride (98-107) mmol/L BUN (9-20) mg/dL Creatinine (0.66-1.25) mg/dL Total Bilirubin (0.2-1.3) mg/dL AST (17-59) U/L ALT (4-49) U/L Alkaline Phosphatase (38-126) U/L Albumin (3.5-5.0) g/dL Urine Protein Trace H (Negative) Urine Ketones 1+ H (Negative) Urine Bilirubin 2+ H (Negative) 10/28/23 Range/Units 11:50 WBC (3.8-10.6) k/uL RBC (4.30-5.90) m/uL Hgb (13.0-17.5) gm/dL Hct (39.0-53.0) % MCHC (31.0-37.0) g/dL RDW (11.5-15.5) % Neutrophils # (1.3-7.7) k/uL Lymphocytes # (1.0-4.8) k/uL PT (10.0-12.5) sec INR (<1.2) Sodium 123 L (137-145) mmol/L Chloride 85 L (98-107) mmol/L BUN 34 H (9-20) mg/dL Creatinine 1.30 H (0.66-1.25) mg/dL Total Bilirubin 10.5 H (0.2-1.3) mg/dL AST 238 H (17-59) U/L ALT 50 H (4-49) U/L Alkaline Phosphatase 1082 H (38-126) U/L Albumin 3.2 L (3.5-5.0) g/dL Urine Protein (Negative) Urine Ketones (Negative) Urine Bilirubin (Negative)
[2023-10-28] MEDS: MORPHINE SULFATE ER 30 MG TABLET PO SCH (15:55)
[2023-10-28] MEDS: PANTOPRAZOLE 40 MG TABLET PO SCH (17:17)
[2023-10-28] MEDS: MORPHINE SULFATE IR 15 MG TABLET PO PRN (17:17)
[2023-10-28] MEDS: HYDROmorphone 0.5 MG/0.5 ML SYRINGE IVP PRN (17:57)
[2023-10-28] MEDS: polyethylene glycoL 3350 17 GM POWD.PACK PO SCH (20:21)
[2023-10-28] MEDS: SENNOSIDES-DOCUSATE SODIUM 1 EACH TAB PO SCH (20:21)
[2023-10-28] MEDS: SIMETHICONE 80 MG CHEWABLE PO SCH (22:03)
[2023-10-29] MEDS: MULTIVITAMINS, THERA 1 EACH TAB PO SCH (08:46)
--- NOTE | 2023-10-29 09:07 | P.PN ---
Subjective Progress Note Date: 10/29/23 33-year-old male with a past medical history of stage IV colon cancer with metastasis to liver/pancreas/lungs diagnosed early 2022 status post debulking surgery 09/04/2023 following at [facility] with Dr. Luis presents to the ED for pain control. Patient reports losing all his medications 2 days ago and since then having difficulties with pain management. His mother and aunt is at bedside. Patient states that he is interested in comfort measures and hospice and palliative care consult. In the ED he underwent extensive evaluation. BP 111/65, HR 114, T 97.9F, RR 16, 97% on RA. CBC, Coag panel, CMP performed significant for WBC 17.3, Hg 9.8, Hct 31.7, PT 12.9, INR 1.2, Na 123, Cl 85, BUN 34, Cr 1.3, T. Bili 10.5, AST 238, ALT 50, alk phos 1082, alb 3.2. UA trace protein, 1+ ketone, 2+ bilirubin. EKG sinus tachycardia. Case discussed extensively with Dr. Hollis, Mother (POA) and Aunt. Patient has worsening of his liver enzymes. His LFTs are indicative of obstructive disease. We do not have GI this week at the hospital and recommendations were made that the patient transfer to [facility]. He reported that he prefers to stay here and would like to forgo any diagnostic studies or treatment. He would like to focus on comfort measures only. Mother and aunt are is agreement. 10/28 Patient was seen and examined. Mother at bedside. Reports 8/10 abdominal pain and distention. Reports some nausea and vomiting. Plans to meet with hospice today. IR consulted for therapeutic paracentesis. General: non toxic, no distress, appears at stated age Derm: warm, dry, jaundiced Head: atraumatic, normocephalic, symmetric Eyes: EOMI, no lid lag, icteric sclera Mouth: no lip lesion, mucus membranes moist Cardiovascular: Good distal perfusion in all 4 extremities Lungs: Breathing comfortably, no accessory muscle use Abd: Distended with generalized tenderness to palpation Ext: no gross muscle atrophy, no edema, no contractures Neuro: no focal neuro deficits Psych: Alert, oriented, Lethargic Based on my assessment of this patient, this patient meets a high complexity level of care. Abdominal distention: Likely due to metastatic disease of the liver. Abd US ordered and IR consulted for therapeutic paracentesis. SIRS Transaminitis: Obstructive. Patient refusing any further diagnostic studies and/or treatment. Normocytic anemia Hyponatremia: Dehydration. NS at 50 cc/hr. Acute kidney injury: IV hydration as above. Supratherapeutic INR Stage IV colon cancer with metastasis to liver/pancreas/lungs Morphine 30 mg PO TID and 15 mg PO Q3H PRN for pain. Add Dilaudid 0.5 mg IV Q3H PRN for breakthrough pain. Zofran 4 mg IV Q8H PRN for N/V. Ativan 0.5 mg PO TID PRN for anxiety. Hospice consult. CODE STATUS: NO CODE DVT Prophylaxis: SCD GI Prophylaxis: Protonix PO Designated medical POA if patient is not able to make medical decisions for themselves: Mother I have reviewed the following java developer consultant notes: I have reviewed the results of the following tests: I have ordered the following tests: I have discussed the care of this patient with the following independent historian: Case management, Mother, RN I have independently interpreted the following test below: I have discussed the management of this patient with the following physician: Objective - Vital Signs Vital signs: Vital Signs Temp 97.9 F 10/29/23 07:36 Pulse 121 H 10/29/23 07:36 Resp 16 10/29/23 07:36 BP 119/75 10/29/23 07:36 Pulse Ox 91 L 10/29/23 07:36 FiO2 Intake & Output 10/28/23 10/29/23 10/29/23 18:59 06:59 18:59 Output Total 300 Balance -300 Weight 91.172 kg Output: Urine 300 Other: Voiding Method Toilet Urinal # Voids 4 - Labs CBC & Chem 7: 10/28/23 11:50 10/28/23 11:50 Labs: Abnormal Lab Results - Last 24 Hours (Table) 10/28/23 10/28/23 10/28/23 Range/Units 11:48 11:50 11:50 WBC 17.3 H (3.8-10.6) k/uL RBC 3.77 L (4.30-5.90) m/uL Hgb 9.8 L (13.0-17.5) gm/dL Hct 31.7 L (39.0-53.0) % MCHC 30.9 L (31.0-37.0) g/dL RDW 19.9 H (11.5-15.5) % Neutrophils # 15.5 H (1.3-7.7) k/uL Lymphocytes # 0.6 L (1.0-4.8) k/uL PT 12.9 H (10.0-12.5) sec INR 1.2 H (<1.2) Sodium (137-145) mmol/L Chloride (98-107) mmol/L BUN (9-20) mg/dL Creatinine (0.66-1.25) mg/dL Total Bilirubin (0.2-1.3) mg/dL AST (17-59) U/L ALT (4-49) U/L Alkaline Phosphatase (38-126) U/L Albumin (3.5-5.0) g/dL Urine Protein Trace H (Negative) Urine Ketones 1+ H (Negative) Urine Bilirubin 2+ H (Negative) 10/28/23 Range/Units 11:50 WBC (3.8-10.6) k/uL RBC (4.30-5.90) m/uL Hgb (13.0-17.5) gm/dL Hct (39.0-53.0) % MCHC (31.0-37.0) g/dL RDW (11.5-15.5) % Neutrophils # (1.3-7.7) k/uL Lymphocytes # (1.0-4.8) k/uL PT (10.0-12.5) sec INR (<1.2) Sodium 123 L (137-145) mmol/L Chloride 85 L (98-107) mmol/L BUN 34 H (9-20) mg/dL Creatinine 1.30 H (0.66-1.25) mg/dL Total Bilirubin 10.5 H (0.2-1.3) mg/dL AST 238 H (17-59) U/L ALT 50 H (4-49) U/L Alkaline Phosphatase 1082 H (38-126) U/L Albumin 3.2 L (3.5-5.0) g/dL Urine Protein (Negative) Urine Ketones (Negative) Urine Bilirubin (Negative)
--- NOTE | 2023-10-29 10:27 | US ---
EXAMINATION TYPE: US abdomen limited DATE OF EXAM: 10/29/2023 COMPARISON: us CLINICAL INDICATION: Male, 33 years old with history of paracentesis; ABD distention Technique: Grayscale imaging the abdomen for ascites. FINDINGS: Small moderate anechoic free fluid throughout the abdomen. IMPRESSION: Small to moderate ascites.
[2023-10-29 13:06] VITALS: BMI 24.4
[2023-10-29] MEDS: ONDANSETRON 4 MG TAB PO PRN (17:25)
[2023-10-30] MEDS: LORazepam 0.5 MG TAB PO PRN (03:30)
--- NOTE | 2023-10-30 11:19 | US ---
EXAMINATION TYPE: US paracentesis abd w/image DATE OF EXAM: 10/29/2023 2:42 PM CLINICAL INDICATION:Male, 33 years old with history of See Ir consult for order details; ascites. COMPARISON: 10/21/2023 ATTENDING: Dr. Dale Carvalho PROCEDURE: Informed consent was obtained. The risks of the procedure were extensively explained incl uding risk of damage to surrounding bowel with perforation and need for additional procedures. Proced ure was performed in the ultrasound procedure suite. Ultrasound imaging of the abdomen demonstrate as citic fluid. An appropriate access site was localized to the right abdomen abdomen. Timeout was taken per protocol. The skin was prepped and draped in the usual sterile fashion and then locally anesthet ized with 1% lidocaine. The peritoneal cavity was then accessed via a 5-Maltese one-step needle/asya ter. Approximately 4900 cc of bilious/green tinged fluid was obtained. Postprocedural imaging of the abdomen demonstrate a minimal amount of abdominal fluid. Patient tolerated procedure well without immediate complication. Hemostasis at the procedural site w as obtained with a sterile bandage placed. The patient was monitored in the holding area following th e procedure and was subsequently discharged in stable condition. IMPRESSION: Ultrasound guided paracentesis, with approximately 4900 cc of bilious/green tinged fluid drained. No immediate complications were evident.
--- NOTE | 2023-10-30 12:11 | P.PN ---
Subjective Progress Note Date: 10/30/23 33-year-old male with a past medical history of stage IV colon cancer with metastasis to liver/pancreas/lungs diagnosed early 2022 status post debulking surgery 09/04/2023 following at [facility] with Dr. Luis presents to the ED for pain control. Patient reports losing all his medications 2 days ago and since then having difficulties with pain management. His mother and aunt is at bedside. Patient states that he is interested in comfort measures and hospice and palliative care consult. In the ED he underwent extensive evaluation. BP 111/65, HR 114, T 97.9F, RR 16, 97% on RA. CBC, Coag panel, CMP performed significant for WBC 17.3, Hg 9.8, Hct 31.7, PT 12.9, INR 1.2, Na 123, Cl 85, BUN 34, Cr 1.3, T. Bili 10.5, AST 238, ALT 50, alk phos 1082, alb 3.2. UA trace protein, 1+ ketone, 2+ bilirubin. EKG sinus tachycardia. Case discussed extensively with Dr. Hollis, Mother (POA) and Aunt. Patient has worsening of his liver enzymes. His LFTs are indicative of obstructive disease. We do not have GI this week at the hospital and recommendations were made that the patient transfer to [facility]. He reported that he prefers to stay here and would like to forgo any diagnostic studies or treatment. He would like to focus on comfort measures only. Mother and aunt are is agreement. 10/28 Patient was seen and examined. Mother at bedside. Reports 8/10 abdominal pain and distention. Reports some nausea and vomiting. Plans to meet with hospice today. IR consulted for therapeutic paracentesis. 10/29 Patient was seen and examined. Sitting in a chair. Appears more comfortable today. Underwent paracentesis. Pain 6/10 severity. He states he would like to continue with chemotherapy now. General: non toxic, no distress, appears at stated age Derm: warm, dry, jaundiced Head: atraumatic, normocephalic, symmetric Eyes: EOMI, no lid lag, icteric sclera Mouth: no lip lesion, mucus membranes moist Cardiovascular: Good distal perfusion in all 4 extremities Lungs: Breathing comfortably, no accessory muscle use Abd: Distended with generalized tenderness to palpation Ext: no gross muscle atrophy, no edema, no contractures Neuro: no focal neuro deficits Psych: Alert, oriented, Lethargic Based on my assessment of this patient, this patient meets a high complexity level of care. Abdominal distention: Likely due to metastatic disease of the liver. Abd US ordered and IR consulted for therapeutic paracentesis. SIRS: Leukocytosis and tachycardia. Leukocytosis improved from discharge on 10/19. Repeat CBC and CMP ordered. Transaminitis: Obstructive. Worsened from discharge on 10/19. Repeat CMP ordered. Normocytic anemia: Repeat CBC ordered. Hyponatremia: Dehydration. NS at 50 cc/hr. Acute kidney injury: IV hydration as above. Supratherapeutic INR Stage IV colon cancer with metastasis to liver/pancreas/lungs Morphine 30 mg PO TID and 15 mg PO Q3H PRN for pain. Dilaudid 0.5 mg IV Q3H PRN for breakthrough pain. Zofran 4 mg IV Q8H PRN for N/V. Ativan 0.5 mg PO TID PRN for anxiety. Palliative care set up at home. Patient states he now wants to continue with chemotherapy. This is a change from admission when him and family were agreeable to palliative care and hospice. Repeat CBC and CMP ordered to evaluate leukocytosis and transaminitis. Will discuss the need for workup of worsening transaminitis when POA arrives. CODE STATUS: NO CODE DVT Prophylaxis: SCD GI Prophylaxis: Protonix PO Designated medical POA if patient is not able to make medical decisions for themselves: Mother I have reviewed the following rehabilitation consultant notes: I have reviewed the results of the following tests: I have ordered the following tests: CBC, CMP I have discussed the care of this patient with the following independent historian: Case management, RN I have independently interpreted the following test below: I have discussed the management of this patient with the following physician: Objective - Vital Signs Vital signs: Vital Signs Temp 98.1 F 10/30/23 07:38 Pulse 114 H 10/30/23 07:38 Resp 14 10/30/23 07:38 BP 110/68 10/30/23 07:38 Pulse Ox 95 10/30/23 07:38 FiO2 Intake & Output 10/29/23 10/30/23 10/30/23 18:59 06:59 18:59 Weight 91.172 kg Other: Voiding Method Toilet Toilet Urinal Urinal # Voids 1 2 - Labs CBC & Chem 7: 10/28/23 11:50 10/28/23 11:50
[2023-10-30 13:29] LABS: Anisocytosis Moderate; HCT 30.8 % (39.0-53.0); HGB 9.4 gm/dL (13.0-17.5); Hypochromasia Slight; MCH 26.5 pg (25.0-35.0); MCHC 30.6 g/dL (31.0-37.0); MCV 86.5 fL (80.0-100.0); Mean Platelet Volume 6.7; Platelet Count 234 k/uL (150-450); RBC 3.56 m/uL (4.30-5.90); RDW 20.6 % (11.5-15.5); WBC 17.4 k/uL (3.8-10.6)
[2023-10-30 13:54] LABS: ALT 49 U/L (4-49); AST 213 U/L (17-59); African American GFR (CKD) >90 (>60 ml/min/1.73 sqM); Albumin 2.8 g/dL (3.5-5.0); Albumin/Globulin Ratio 0.7; Anion Gap 8 mmol/L; Blood Urea Nitrogen 28 mg/dL (9-20); Calcium 8.7 mg/dL (8.4-10.2); Carbon Dioxide 25 mmol/L (22-30); Chloride 88 mmol/L (98-107); Globulin 3.8 g/dL; Glucose 95 mg/dL (74-99); Non-African American GFR(CKD) 79 (>60 ml/min/1.73 sqM); Potassium 4.9 mmol/L (3.5-5.1); Sodium 121 mmol/L (137-145); Total Bilirubin 12.3 mg/dL (0.2-1.3); Total Protein 6.6 g/dL (6.3-8.2)
[2023-10-30 14:01] LABS: Alkaline Phosphatase 1029 U/L (38-126)
--- NOTE | 2023-10-31 08:19 | US ---
EXAMINATION TYPE: US gallbladder DATE OF EXAM: 10/30/2023 COMPARISON: CT 10/12/2023 CLINICAL INDICATION: Male, 33 years old with history of obstructive transaminitis; known mets from [facility] [place], abn labs, abd pain TECHNIQUE: Multiple sonographic images of the right upper quadrant are obtained. FINDINGS: EXAM MEASUREMENTS: Liver Length: 21.9 cm Gallbladder Wall: 0.9 cm CBD: 0.4 cm Right Kidney: 9.7 x 5.5 x 5.9 cm Pancreas: Limited portions show no gross abnormality. Liver: enlarged and diffusely replaced by multiple masses Gallbladder: thickened wall with mobile debris. No hydropic change, surrounding fluid, or shadowing stones. Evidence for sonographic Gutierrez's sign: no CBD: wnl Right Kidney: wnl Very mild ascites adjacent to liver IMPRESSION: 1. Hepatomegaly with diffuse hepatic metastases filling the liver parenchyma. 2. No biliary ductal dilatation. 3. Nonspecific gallbladder wall thickening with sludge and debris. No hydropic change, surrounding fl uid, or sonographic Gutierrez sign to clearly indicate acute cholecystitis. 4. Trace perihepatic ascites.
[2023-10-31 08:31] VITALS: BP 117/71; PULSE 111; RESP 17; TEMP 97.5
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
== END 2023-10-31 13:17 | disposition hospice, home (50) | DRG 281 ==
LOC: EC 11:00 → 5NMEDONC 14:14
PROVIDERS: ADMIT Family Medicine; ATTEND Family Medicine
PROC: 0W9G3ZZ Drainage of Peritoneal Cavity, Percutaneous Approach (ICD-10-PCS; principal; 2023-10-29)
DX: C78.7 Secondary malignant neoplasm of liver and intrahepatic bile duct (principal); Z51.5 Encounter for palliative care; Z66 Do not resuscitate; R65.10 Systemic inflammatory response syndrome (SIRS) of non-infectious origin without acute organ dysfunction; C18.9 Malignant neoplasm of colon, unspecified; C78.89 Secondary malignant neoplasm of other digestive organs; C78.00 Secondary malignant neoplasm of unspecified lung; E86.0 Dehydration; E87.1 Hypo-osmolality and hyponatremia; D63.0 Anemia in neoplastic disease; F32.A Depression, unspecified; F41.9 Anxiety disorder, unspecified; N17.9 Acute kidney failure, unspecified; R74.01 Elevation of levels of liver transaminase levels; R79.1 Abnormal coagulation profile; Z79.01 Long term (current) use of anticoagulants; Z79.899 Other long term (current) drug therapy
CPT/HCPCS: 36415; 49083; 76705; 80053; 81003; 82140; 83605; 83735; 85025; 85027; 85610; 85730; 86850; 86900; 86901; 93005; 96361; 96374; 99285